=== PATIENT | male | born 1985 | race Hispanic/Latino ===

== ENCOUNTER 2016-11-19 13:48 | Inpatient (IN) | payer OTHER, SELFPAY ==
[2016-11-19 14:43] LABS: #Lymphocytes 0.5 thou/uL (1.20-3.40); #Monocytes 0.3 thou/uL (0.11-0.59); #Neutrophils 2.2 thou/uL (1.40-6.50); %Eosinophils 0.2 % (0.0-10.0); %Lymphocytes 17.1 % (21.0-51.0); %Monocytes 9.7 % (0.0-10.0); Hematocrit 26.3 % (42.0-52.0); Mean Platelet Volume 10.5 fL (7.4-10.4); Red Blood Cell (RBC) Count 2.62 mill/uL (4.70-6.10)
[2016-11-19 14:51] LABS: ALT (SGPT) 21 U/L (8-55); AST (SGOT) 40 U/L (5-34); Alkaline Phosphatase 308 U/L (40-150); Anion Gap 11 mmol/L (10-20); Anisocytosis SLIGHT = 6-15 cells (100X) (0-5/hpf); BUN (Urea Nitrogen) 15 mg/dL (8.9-20.6); Bilirubin, Total 0.4 mg/dL (0.2-1.2); Calc. Creatinine Clearance 0 mL/min (70-130); Carbon Dioxide 20 mmol/L (22-29); Chloride 110 mmol/L (98-107); Estimated GFR-MDRD Greater than 90; Globulin 4.5 g/dL (2.4-3.5); Macrocytosis SLIGHT = 6-15 cells (100X) (0-5/hpf); Ovalocytes SLIGHT = 2-5 cells (100X) (0-1/hpf); Polychromasia SLIGHT = 2-3 cells (100X) (0-2/hpf); Protein, Total 7.4 g/dL (6.0-8.3); Schistocytes SLIGHT = 2-5 cells (100X) (0-1/hpf)
[2016-11-19 14:53] LABS: Troponin I 0.028 ng/mL (< 0.028)
--- NOTE | 2016-11-19 15:39 | RAD ---
CHEST ONE VIEW 11/19/16 HISTORY: Chest pain. Swelling. COMPARISON: 10/11/16. FINDINGS: The cardiac silhouette is now markedly enlarged, representing significant difference from the previo us study six weeks ago. Pulmonary vasculature is within normal limits. Atelectasis or infiltrate is present at the left lateral lung base with a small amount of left pleural fluid suspected. Mediastin um remains midline. monitor technician leads overlie the chest. IMPRESSION: 1. Given the rapid enlargement of the cardiac silhouette, enlarging pericardial effusion is fav ored. 2. Left basilar infiltrate with left pleural fluid suspected. POS: [facility]
[2016-11-19 15:53] LABS: Bilirubin Small (Negative); Blood, Urine Negative (Negative); Glucose, Urine (Dipstick) Negative (Negative); Ketone, Urine Trace mg/dL (Negative); Nitrite Negative (Negative); Protein, Urine (Dipstick) 100 mg/dL (Neg-Trace)
[2016-11-19 15:57] LABS: Bacteria/HPF None Seen HPF (None Seen); RBC/HPF 0-3 HPF (0-3)
[2016-11-19] MEDS ORDERED: Aspirin 325 mg Enteric Coated Tablet ONE (15:58)
[2016-11-19] MEDS ORDERED: methylPREDNISolone Sod Succ/PF 125 MG/2 ML VIAL ONE ×2 (15:59→17:09)
[2016-11-19] MEDS ORDERED: Sterile Water 10 ML ONE ×2 (15:59→17:09)
[2016-11-19 16:09] LABS: Hyaline Casts/LPF 0-3 HYALINE CAST LPF (0-3 Hyaline)
[2016-11-19 16:13] LABS: Renal Epithelial None Seen HPF (0-3); Transitional Epithelial NONE SEEN HPF (0-3); Yeast-All Forms None Seen HPF (None Seen)
[2016-11-19] MEDS ORDERED: Ondansetron HCl/PF 4 MG/2 ML Vial IVP PRN (17:42)
[2016-11-19] MEDS ORDERED: Ondansetron ODT 4 MG TAB SL PRN (17:42)
[2016-11-19] MEDS ORDERED: Acetaminophen 325 MG TAB PO PRN (17:42)
[2016-11-19] MEDS ORDERED: Zolpidem Tartrate 5 MG TAB PO PRN (17:57)
[2016-11-19] MEDS ORDERED: Pancrelipase DR 12000 1 CAP PO SCH (18:30)
[2016-11-19] MEDS ORDERED: Nystatin 500,000 UNITS/5 ML UDCUP SSW SCH (18:30)
--- NOTE | 2016-11-19 19:07 | HP ---
PRIMARY CARE PROVIDER: Chaitanya Merino M.D. CHIEF COMPLAINT: [facility]. HISTORY OF PRESENT ILLNESS: The patient was hospitalized here from 10/12/2016 to 10/17/2016 with so me hidradenitis suppurativa of his axilla. During that time, a diagnosis of lupus erythematosus was made. Since his discharge, the patient has gotten worse. He was supposedly discharged on oral pred nisone but never filled it. He has swelling in his feet, ankles, hands, knees, all joints. Ankles, shoulders, and knees seemed to be the worse. He gets swelling and at times, he is unable to bend t he joints from the swelling and gets discoloration when he attempts to. He fell yesterday, has daria e right hip pain. He has been feverish with sweats, diffuse aches and pains all over. Denies any h octavio shaking chills. PAST MEDICAL HISTORY: Recent diagnosis of lupus, recent surgery for hidradenitis, history of pancre atitis and pancreatic insufficiency, history of peptic ulcer disease. CURRENT MEDICATIONS: Include Creon 3 times a day with meals, tramadol 50 mg q. 6 hours as needed, i buprofen 800 mg as needed, Tylenol No. 3 one or two tablets every 4 hours as needed for pain. PAST SURGICAL HISTORY: None. ALLERGIES: None. FAMILY HISTORY: Two maternal aunts with lupus. Both parents had lung cancer. SOCIAL HISTORY: Engaged. Heavy alcohol use in the past, none in about 2 years. He occasionally sm okes a cigarette, no illicit drugs. REVIEW OF SYSTEMS: General: No dizzy spells or fainting. He had a 47-pound weight loss in 1 month a few months ago. He has now returned gaining some of his weight back. Eyes: No double vision, b lurred vision, or flashing light. Ear, Nose, and Throat: No ear pain or drainage. Occasional epis taxis. He has an uncomfortable feeling in his throat when he swallows. Cardiac: No chest pain, or thopnea, or paroxysmal nocturnal dyspnea. Respiratory: He has dyspnea on exertion, no wheezing. H e has a dry cough. Gastrointestinal: Occasional nausea, vomiting, no blood, no abdominal pain or d iarrhea. Genitourinary: No hematuria or dysuria. Musculoskeletal: See present illness. Diffuse s welling in his legs, joints of his legs, pain mostly in the joints of his legs. Neurologic: No str okes, seizures, or focal weakness. Psychiatric: He has had a long history of anxiety. He would no t describe it as depression. Skin: He has had a facial rash at times. Heme/Lymph: He has had no lymph nodes in his neck or groin. He has had apparently swollen cyst in his axilla. PHYSICAL EXAMINATION: GENERAL: He is an acutely ill-appearing young man. VITAL SIGNS: Temperature 98.5, pulse ranging from 83-112, blood pressure ranging from 90/65-105/71, respirations 16-20. HEAD, EYES, EARS, NOSE, AND THROAT: Reveal pupils equal, round, and reactive to light. Extraocular movements are intact. Sclerae white. Tympanic membranes clear. Nose clear. Oral mucous membrane s are wet. Dental hygiene is good. The oral exam revealed white plaques consistent with thrush. NECK: Supple. No jugular venous distention, adenopathy, or thyromegaly. CHEST: Clear to percussion. He has rales in the bottom one half of the lungs bilaterally posterior ly. HEART: Regular rate and rhythm. Accentuated heart sounds. No definite rub. ABDOMEN: Soft, bowel sounds are normal. There is no hepatosplenomegaly, no mass, no rebound, no br uits. EXTREMITIES: Reveal 2+ edema. No cyanosis or clubbing. He does have some ridging of his fingernai ls. PULSES: Carotid, radial, femoral, and dorsalis pedis pulses intact. SKIN: Warm and dry without bruises or rash. HEME/LYMPH: No lymph nodes in the neck or the groin, but he does have some distended sweat glands i n the left axilla, no definite nodes were palpated. NEUROLOGIC: Cranial nerves II through XII are intact. Deep tendon reflexes are symmetric. REPORTS: On this particular exam, the chest x-ray has a left pleural effusion and a globular heart as compared to the previous chest x-ray, which had a much smaller cardiac shadow, reviewed by me. E KG reveals diffuse T-wave changes with regular sinus rhythm, mostly T-wave inversion. LABORATORY DATA: White count is 3.0 with 73% neutrophils, hemoglobin is 8.3 with macrocytic indices , platelet count is 108,000. Comp metabolic profile reveals an AST of 40, alkaline phosphatase of 3 08, chloride of 110, CO2 of 20, otherwise normal. C-reactive protein is elevated at 2.1. Albumin i s low at 2.9, globulin is high at 4.5. Sed rate is elevated at 51. Laboratory done in his previous admission for comparison, initial white count was 11.9, hemoglobin 10.5, platelet count 176,000. C omp metabolic profile normal. Albumin was low at that time. Cortisol was 21. TSH 0.8. ROHAN screen was positive. Double-stranded DNA positive at 295. Rahman IgG 3.6. Hepatitis C nonreactive. HIV 1 and 2 nonreactive. ADMITTING DIAGNOSES: 1. Acute exacerbation of systemic lupus erythematosus with probable pericardial effusion, probable lupus involvement of lungs, marked pancytopenia, marked arthralgias, hypoalbuminemia. 2. Oral esophageal thrush. 3. History of pancreatitis with pancreatic insufficiency, on Creon. PLAN: I have discussed this case with Dr. Reaves who saw the patient on his last admission. We will start with high dose steroids, Solu-Medrol 125 mg followed by 20 mg every 8 hours. We will start n ystatin swish and swallow initially for his thrush. His Creon will be continued. Dr. Reaves and Adonis aleman evaluated further. We will have further recommendations in the care of this patient.
[2016-11-19] MEDS: Nystatin 500,000 UNITS/5 ML UDCUP SSW SCH (19:58)
[2016-11-19] MEDS: HYDROcodone/Acetaminophen 7.5/325 mg Tablet PO PRN (20:04)
[2016-11-19] MEDS: Acetaminophen 325 MG TAB PO PRN (20:06)
[2016-11-20 04:35] LABS: #Lymphocytes 0.3 thou/uL (1.20-3.40); #Monocytes 0.1 thou/uL (0.11-0.59); %Eosinophils 0.1 % (0.0-10.0); %Monocytes 4.7 % (0.0-10.0); Hematocrit 26.1 % (42.0-52.0); Mean Platelet Volume 11.2 fL (7.4-10.4); Red Blood Cell (RBC) Count 2.59 mill/uL (4.70-6.10); White Blood Cell (WBC) Count 2.4 thou/uL (4.8-10.8)
[2016-11-20 05:15] LABS: Anion Gap 10 mmol/L (10-20); BUN (Urea Nitrogen) 15 mg/dL (8.9-20.6); Calc. Creatinine Clearance 158 mL/min (70-130); Calcium 7.7 mg/dL (7.8-10.44); Carbon Dioxide 19 mmol/L (22-29); Chloride 108 mmol/L (98-107); Estimated GFR-MDRD Greater than 90
[2016-11-20] MEDS: Acetaminophen 325 MG TAB PO PRN ×3 (06:03→16:37)
[2016-11-20] MEDS: HYDROcodone/Acetaminophen 7.5/325 mg Tablet PO PRN ×4 (06:03→20:19)
[2016-11-20] MEDS ORDERED: Sodium Chloride 0.65% Nasal 44 ML BOT EA NARE PRN (07:40)
[2016-11-20] MEDS ORDERED: Chloraseptic Spray 180 ml Bottle PO PRN (07:40)
[2016-11-20] MEDS ORDERED: Mag-Al 1200 mg/1200 mg/30 ML UDCUP PO PRN (07:40)
[2016-11-20] MEDS ORDERED: Artificial Tears 18 DROP/0.9 ML EA EYE PRN (07:40)
[2016-11-20] MEDS ORDERED: Eucerin (Mineral Oil/Petrolatum,White) 30 gm Jar TOP PRN (07:40)
[2016-11-20] MEDS ORDERED: Milk Of Magnesia 30 ML UDCUP PO PRN (07:40)
[2016-11-20] MEDS ORDERED: Loratadine 10 MG TAB PO PRN (07:40)
[2016-11-20] MEDS ORDERED: Senokot 8.6 MG TAB PO PRN (07:40)
[2016-11-20] MEDS ORDERED: Loperamide HCl 2 MG CAP PO PRN (07:40)
[2016-11-20] MEDS: Pancrelipase DR 12000 1 CAP PO SCH ×3 (08:22→16:34)
[2016-11-20] MEDS: Nystatin 500,000 UNITS/5 ML UDCUP SSW SCH ×4 (08:22→20:25)
[2016-11-20] MEDS: Famotidine 20 MG TAB PO SCH ×2 (08:22→20:10)
[2016-11-20] MEDS ORDERED: FLU VACC QS2017-18 36 mo. & older 0.5 ML SYRINGE IM ONE (09:00)
--- NOTE | 2016-11-20 11:54 | PDOC.PN ---
- Subjective Encounter Start Date: 11/20/16 Encounter Start Time: 08:40 -: old records requested/rev Patient seen and examined. No new complaints. No overnight events, feels better , less joint pain, no chest pain - Objective Resuscitation Status: Resuscitation Status FULL:Full Resuscitation MAR Reviewed: Yes Vital Signs & Weight: Vital Signs (12 hours) Temp Pulse Resp BP Pulse Ox 11/20/16 08:00 98.8 F 78 18 98 11/20/16 07:57 98.8 F 78 18 125/80 94 L 11/20/16 04:00 99 F 84 20 117/74 93 L 11/20/16 00:00 98.4 F 78 20 126/82 96 Weight Weight 160 lb 15.987 oz I&O: 11/19/16 11/20/16 11/21/16 06:59 06:59 06:59 Intake Total 300 360 Balance 300 360 Result Diagrams: 11/20/16 03:35 11/20/16 03:35 Radiology Reviewed by me: Yes (CTA, echo) Phys Exam - Physical Examination Constitutional: NAD HEENT: PERRLA, moist MMs, sclera anicteric Neck: no JVD, supple Respiratory: no wheezing, no rales, no rhonchi Cardiovascular: RRR, no rub SM+ parasternal Gastrointestinal: soft, non-tender, no distention, positive bowel sounds Musculoskeletal: no edema, pulses present Neurological: non-focal, normal sensation, moves all 4 limbs Lymphatic: no nodes Psychiatric: normal affect, A&O x 3 Skin: no rash, normal turgor Dx/Plan (1) Pericardial effusion Code(s): I31.3 - PERICARDIAL EFFUSION (NONINFLAMMATORY) Status: Acute (2) Tricuspid regurgitation Code(s): I07.1 - RHEUMATIC TRICUSPID INSUFFICIENCY Status: Acute (3) Pulmonary hypertension Code(s): I27.20 - PULMONARY HYPERTENSION, UNSPECIFIED Status: Acute (4) Pancytopenia Code(s): D61.818 - OTHER PANCYTOPENIA Status: Acute (5) SLE exacerbation Code(s): M32.9 - SYSTEMIC LUPUS ERYTHEMATOSUS, UNSPECIFIED Status: Acute (6) Chronic pancreatitis Code(s): K86.1 - OTHER CHRONIC PANCREATITIS Status: Chronic (7) GERD (gastroesophageal reflux disease) Code(s): K21.9 - GASTRO-ESOPHAGEAL REFLUX DISEASE WITHOUT ESOPHAGITIS Status: Chronic (8) Hypoalbuminemia Code(s): E88.09 - OTH DISORDERS OF PLASMA-PROTEIN METABOLISM, NEC Status: Chronic (9) Migraine Code(s): G43.909 - MIGRAINE, UNSP, NOT INTRACTABLE, WITHOUT STATUS MIGRAINOSUS Status: Chronic (10) Pulmonary nodule Code(s): R91.1 - SOLITARY PULMONARY NODULE Status: Chronic (11) Tobacco abuse Code(s): Z72.0 - TOBACCO USE Status: Chronic (12) Transaminitis Code(s): R74.0 - NONSPEC ELEV OF LEVELS OF TRANSAMNS & LACTIC ACID DEHYDRGNSE Status: Chronic - Plan cont current plan of care * continue IV solumedrol * will get CT angio chest for pulmonary hypertension to rule out PE * consult cardiology for pericardial effusion * will consult rheumatology for SLE flare up * medication reviewed as below * medically stable with current treatment * symptomatic treatment. * home medication * check complement Review of Systems - Review of Systems Constitutional: negative: Fever, Chills, Sweats, Weakness, Malaise, Other ENT: negative: Ear Pain, Ear Discharge, Nose Pain, Nose Discharge, Nose Congestion, Mouth Pain, Mouth Swelling, Throat Pain, Throat Swelling, Other Respiratory: negative: Cough, Dry, Shortness of Breath, Hemoptysis, SOB with Excertion, Pleuritic Pain, Sputum, Wheezing Cardiovascular: negative: Chest Pain, Palpitations, Orthopnea, Paroxysmal Noc. Dyspnea, Edema, Light Headedness, Other Gastrointestinal: negative: Nausea, Vomiting, Abdominal Pain, Diarrhea, Constipation, Melena, Hematochezia, Other Genitourinary: negative: Dysuria, Frequency, Incontinence, Hematuria, Retention , Other Musculoskeletal: negative: Neck Pain, Shoulder Pain, Arm Pain, Back Pain, Hand Pain, Leg Pain, Foot Pain, Other Skin: negative: Rash, Lesions, Rogelio, Bruising, Other - Medications/Allergies Allergies/Adverse Reactions: Allergies Allergy/AdvReac Type Severity Reaction Status Date / Time No Known Allergies Allergy Verified 10/12/16 04:11 Medications: Current Medications Acetaminophen (Tylenol) 650 mg PO Q4H PRN PRN Reason: Headache/Fever or Pain Last Admin: 11/20/16 10:05 Dose: 650 mg Hydrocodone Bitart/Acetaminophen ([place] 7.5/325) 1 tab PO Q4H PRN PRN Reason: Moderate Pain (4-6) Last Admin: 11/20/16 10:02 Dose: 1 tab Hydrocodone Bitart/Acetaminophen ([place] 5/325) 1 tab PO Q4H PRN PRN Reason: Moderate Pain (4-6) Al Hydroxide/Mg Hydroxide (Maalox) 15 ml PO Q4H PRN PRN Reason: Heartburn or Indigestion Lipase/Protease/Amylase (Dara Rubin 57173) 1 cap PO TID-WM [facility] Last Admin: 11/20/16 11:51 Dose: 1 cap Artificial Tears (Tears Naturale) 0 drop EA EYE PRN PRN PRN Reason: Dry Eyes Famotidine (Pepcid) 20 mg PO BID [facility] Last Admin: 11/20/16 08:22 Dose: 20 mg Guaifenesin (Robitussin Sf) 200 mg PO Q4H PRN PRN Reason: Cough Loperamide HCl (Imodium) 2 mg PO PRN PRN PRN Reason: Diarrhea/Loose Stools Loratadine (Claritin) 10 mg PO DAILYPRN PRN PRN Reason: Sinus Symptoms Magnesium Hydroxide (Milk Of Magnesium) 30 ml PO DAILYPRN PRN PRN Reason: Constipation Methylprednisolone Sodium Succinate (Solu-Medrol) 20 mg IVP Q8HR [facility] Last Admin: 11/20/16 06:00 Dose: 20 mg Mineral Oil/White Petrolatum (Eucerin Cream) 0 gm TOP BIDPRN PRN PRN Reason: Dry Skin Nystatin (Mycostatin) 500,000 units SSW QID [facility] Last Admin: 11/20/16 11:51 Dose: 500,000 units Ondansetron HCl (Zofran) 4 mg IVP Q6H PRN PRN Reason: Nausea/Vomiting Ondansetron HCl (Zofran Odt) 4 mg PO Q6H PRN PRN Reason: Nausea/Vomiting Phenol (Chloraseptic [place] 180 Ml Bot) 0 ml PO PRN PRN PRN Reason: Sore Throat Senna (Senokot) 2 tab PO HSPRN PRN PRN Reason: Constipation Sodium Chloride (Flush - Normal Saline) 10 ml IVF Q12HR [facility] Last Admin: 11/20/16 10:15 Dose: 10 ml Sodium Chloride (Flush - Normal Saline) 10 ml IVF PRN PRN PRN Reason: Saline Flush Sodium Chloride ([place] Nasal [place] 0.65%) 0 ml EA NARE QIDPRN PRN PRN Reason: Nasal Congestion Zolpidem Tartrate (Ambien) 5 mg PO HSPRN PRN PRN Reason: Insomnia
--- NOTE | 2016-11-20 12:28 | CT ---
CT ANGIO CHEST WITH CONTRAST: Date: 11/20/16 HISTORY: Dyspnea. Pneumonia. Pericardial effusion. COMPARISON: CT chest dated 10/11/16. Chest radiograph dated 11/19/16. FINDINGS: Soft tissues are mildly edematous. No proximal segmental pulmonary arterial filling defect. Pulmonary trunk measures 38 mm, increased in size from prior examination. Large pericardial effusion . There is mild reflux of contrast into the hepatic veins and suprahepatic IVC. Aortic contour is pam neurysmal. Mild mediastinal edema. Mild skin thickening over the left axilla. Small volume free perihepatic ascites. There is some cons olidation within the right middle lobe and anterior segment of right lower lobe, as well as anterior segment left lower lobe. Small right effusion and left effusion. IMPRESSION: 1. Interval development of a large pericardial effusion. Cardiovascular surgical consultation recom mended. 2. New dilatation of the pulmonary trunk measuring 38 mm suggests pulmonary arterial hypertension. 3. Improving pneumonia. 4. Extensive soft tissue edema and small volume ascites in the abdomen is new. 5. Extensive superficial soft tissue edema. CODE T. POS: [facility]
--- NOTE | 2016-11-20 14:38 | CON ---
DATE OF CONSULTATION: 11/20/2016 HISTORY OF PRESENT ILLNESS: A 30-year-old patient, familiar to me from last consultation when I saw him on 10/12/2016. The patient presented with a chronic history of weakness in upper and lower ext remities with sometimes inability to ambulate, pains in knees and hands with swelling and due to lac k of insurance, he was seen in the emergency rooms and given various different diagnosis with sympto matic medication. Over the past 2 months, he developed a cough with sometimes hemoptysis, general m alaise, a 40-pound weight loss, also with areas of nodular inflammatory change in the right and left axilla with some drainage. The initial concern in terms of potential diagnosis included primary my opathy, immunodeficiency disorder, and autoimmune syndrome. Patient had various laboratory studies completed and QuantiFERON was nonreactive. The ROHAN screen was positive with low complement for C3 a nd C4 as well as double-stranded DNA antibody level of 295, which was markedly positive, his anti-Sm IgG antibody was positive at 3.6. The patient had some proteinuria at that time, patient was then discharged on 10/17/2016 with a diagnosis of systemic lupus erythematosus, pancreatitis. Discharge medications included Tylenol No. 3, Lescol, vitamin D, Pepcid, ibuprofen, levofloxacin, pancrelipase , thiamine, tramadol, prednisone 40 mg daily. [facility], but it is not clear what happened. He continued taking prednisone and then stop taki ng it because he was concerned with constipation. He actually saw his primary physician and is not clear what he recommended, but the patient decided to stop the prednisone and now he is readmitted w ith obvious exacerbation of the systemic lupus erythematosus. Currently, he denies any headaches, n o dizziness. He gained some weight back with prednisone. No visual symptoms. No sore throat, odyn ophagia, dysphagia, no vomiting. No chest pain, no orthopnea, no PND,. Some dyspnea on exertion, o ccasional nausea and vomiting. Some swelling in the legs, particularly in the feet with pain in the ankles. PHYSICAL EXAMINATION: VITAL SIGNS: Temperature is 98.5, pulse 83. LUNGS: With inspiratory crackles at the bases. HEART: Regular rate. ABDOMEN: Soft. EXTREMITIES: 2+ edema. LABORATORY AND DIAGNOSTIC DATA: Initial white cell count this time with again a white cell count 3. 0, hemoglobin 8.3, MCV 100, platelets 108,000 with 72% neutrophils. Sodium 137, creatinine 0.8, AST 40, alkaline phosphatase 308, CRP 2.1, albumin 2.9. Urinalysis with protein 100. Two sets of bloo d cultures thus far no growth. He had a chest CT done which is pending. Echocardiogram showed a la rge pericardial effusion, but no evidence of tamponade. Chest x-ray with basilar infiltrate, likely pleural fluid enlargement. No cardiac silhouette suggestive of pericardial effusion. ASSESSMENT: Systemic lupus erythematosus with serositis, both pericarditis and pleurisy some joint involvement as well, maybe associated myopathy. He may have early nephropathy as well in view of th e proteinuria. I have discussed the case with Dr. Cook over the phone and continue corticosteroids orally, add Plaquenil, which are the main recommendations from his standpoint. The patient would r equire close followup with a law instructor. Potential addition of other immunosuppressive drugs espinoza ch as methotrexate or Imuran. Benlysta is approved for management of lupus, which is a monoclonal a ntibody, but according to Dr. Cook, they do not have a patient assistance program for Benlysta. Si nce he does not have insurance, this patient will likely have a poor outcome and will not be able to access specialty care, which is essential for management of this complex and infrequent illness.
[2016-11-20] MEDS: Diabetic Tussin 200 MG/10 ML UDCUP PO PRN ×2 (16:34→20:09)
--- NOTE | 2016-11-20 19:02 | CON ---
DATE OF CONSULTATION: 11/20/2016 HISTORY OF PRESENT ILLNESS: Mr. Watkins is a 30-year-old gentleman with lupus with pericardial effu krista and shortness of breath. Mr. Watkins came to the hospital yesterday with shortness of breath and lower extremity swelling, al so noted swelling of his hands even his face. He noticed shortness of breath with low level activit y. He was able to lay down flat without a problem. He did not have chest pain. PAST MEDICAL HISTORY: 1. Recent diagnosis of lupus. 2. History of pancreatitis. MEDICATIONS: Prior to admission; 1. Creon. 2. Tramadol 3. Tylenol. 4. He has been started on steroids here. PAST SURGICAL HISTORY: None. ALLERGIES: None. FAMILY HISTORY: Both parents had lung cancer. SOCIAL HISTORY: Engaged, he has heavy alcohol use in the past, none in a couple of years. Occasion al cigarettes. REVIEW OF SYSTEMS: CONSTITUTIONAL: Positive for weakness and fatigue. VISION: No changes. HEARING: No changes. PULMONARY: Positive for shortness of breath. CARDIAC: Lower extremity edema and upper extremity edema. GASTROINTESTINAL: No nausea, vomiting, diarrhea. SKIN: No rashes. NEUROLOGIC: No unilateral weakness or numbness. PSYCHIATRIC: No unusual depression or anxiety. PHYSICAL EXAMINATION: GENERAL: A pleasant 30-year-old man, 5 foot 10 inches tall, 160 pounds. VITAL SIGNS: Blood pressure 125/80, pulse 80 and regular. HEENT: Some edema, periorbital. NECK: Neck veins are mildly distended sitting up at 90 degrees. CARDIOVASCULAR: No murmur, rub or gallop. ABDOMEN: Soft, nontender, no hepatosplenomegaly. EXTREMITIES: Mild to moderate edema lower extremities. PERTINENT LABORATORY AND X-RAY FINDINGS: Hemoglobin is 8.4. Sodium is 133, C-reactive protein 2.1. Troponin 0.028. Echocardiogram revealed normal left ventricular function of the left ventricle with ejection fractio n 55-60%. There is some paradoxical septal motion compatible with right heart overload, moderately enlarged right ventricular cavity. A large pericardial effusion did not appear to be tamponade. The EKG sinus rhythm, relatively low voltage, some anterior T-wave inversions, but the chest leads a re also inverted. The voltage is likely low due to the pericardial effusion. ASSESSMENT: 1. Systemic lupus erythematosus as outlined in the chart. 2. Large pericardial effusion, symptomatic. 3. Increased right heart pressures with enlargement of the right ventricle. 4. Normal left ventricular function. 5. Oxygen saturation is 97% on room air. PLAN: 1. I would recommend pericardiocentesis or drainage in the operating room as I think he does have s ymptoms from his pericardial effusion and it is quite large. 2. We will likely want to repeat the echo after the infusion strained to see if the right ventricle and pulmonary artery improve. 3. CT pulmonary angiogram did not show any thrombus, no pulmonary embolism.
[2016-11-20] MEDS: CeleCOXIB 100 MG CAP PO SCH (20:10)
[2016-11-20] MEDS: Colchicine 0.6 MG TAB PO SCH (20:10)
[2016-11-20] MEDS: Hydroxychloroquine Sulfate 200 MG TAB PO SCH (20:10)
[2016-11-20] MEDS ORDERED: methylPREDNISolone Sod Succ 1 GM in Sodium Chloride 0.9% 100 ML IVPB SCH (21:00)
--- NOTE | 2016-11-20 21:06 | CON ---
DATE OF CONSULTATION: 11/20/2016 REASON FOR CONSULTATION: Evaluate the patient for pericardial window. HISTORY OF PRESENT ILLNESS: Mr. Watkins is a 30-year-old male recently diagnosed with lupus. He is very unclear as to whether he was taking his steroids at home. He has not been seen by Rheumatolog y. He presented to the Emergency Department with severe shortness of breath, joint pains, joint eff usions, edema. He had a chest x-ray performed, which showed a change in his cardiac silhouette whic h was followed up with an echocardiogram and a CT of the chest. Echocardiogram shows a large perica rdial effusion with no tamponade physiology. This is confirmed on CT of the chest. I have been ask ed to see him to discuss pericardial window. PAST MEDICAL HISTORY: 1. Systemic lupus erythematosus. 2. Hidradenitis suppurativa. 3. Pancreatitis and pancreatic insufficiency. 4. Peptic ulcer disease. PAST SURGICAL HISTORY: Debridement of his hidradenitis. CURRENT MEDICATIONS: Noted. ALLERGIES: None. SOCIAL HISTORY: He does not use any illicit drugs. He occasionally uses tobacco. He does not use alcohol at all. REVIEW OF SYSTEMS: Ten-point review of systems is performed and is negative except as above. PHYSICAL EXAMINATION: GENERAL: This is a well-developed, well-nourished gentleman resting comfortably in bed. VITAL SIGNS: Height is 5 feet 10 inches, weight is 160 pounds, BSA is 1.90. Temperature is 98.8, p ulse is 78 and regular, blood pressure is 125/80. LUNGS: Clear bilaterally. HEART: Rhythm is regular. ABDOMEN: Soft and nontender. EXTREMITIES: There is no cyanosis, clubbing or edema. I have reviewed his chest x-ray, CT scan and echocardiogram. He does have a large pericardial effus ion with no tamponade physiology. We will plan for pericardial window electively tomorrow.
[2016-11-21] MEDS: HYDROcodone/Acetaminophen 7.5/325 mg Tablet PO PRN ×3 (04:37→18:38)
[2016-11-21] MEDS: Pancrelipase DR 12000 1 CAP PO SCH ×3 (08:35→17:47)
[2016-11-21] MEDS: Hydroxychloroquine Sulfate 200 MG TAB PO SCH ×2 (08:36→19:56)
[2016-11-21] MEDS: CeleCOXIB 100 MG CAP PO SCH ×2 (08:36→19:56)
[2016-11-21] MEDS: Nystatin 500,000 UNITS/5 ML UDCUP SSW SCH ×4 (08:36→19:56)
[2016-11-21] MEDS: Colchicine 0.6 MG TAB PO SCH ×2 (08:36→19:56)
[2016-11-21] MEDS: Acetaminophen 325 MG TAB PO PRN ×2 (09:31→18:39)
--- NOTE | 2016-11-21 13:10 | PDOC.PN ---
- Subjective Encounter Start Date: 11/21/16 Encounter Start Time: 08:00 Patient seen and examined. No new complaints. No overnight events - Objective Resuscitation Status: Resuscitation Status FULL:Full Resuscitation MAR Reviewed: Yes Vital Signs & Weight: Vital Signs (12 hours) Temp Pulse Resp BP Pulse Ox 11/21/16 08:00 98.0 F 66 16 97 11/21/16 07:28 98.0 F 66 16 135/88 96 11/21/16 05:54 97.8 F 66 16 131/86 96 11/21/16 01:30 97.8 F 73 16 123/84 96 Weight Weight 160 lb 15.987 oz I&O: 11/20/16 11/21/16 11/22/16 06:59 06:59 06:59 Intake Total 300 1080 Balance 300 1080 Result Diagrams: 11/20/16 03:35 11/20/16 03:35 Phys Exam - Physical Examination Constitutional: NAD HEENT: PERRLA, moist MMs, sclera anicteric Neck: no JVD, supple Respiratory: no wheezing, no rales, no rhonchi, clear to auscultation bilateral Cardiovascular: RRR, no significant murmur, no rub Gastrointestinal: soft, non-tender, no distention, positive bowel sounds Musculoskeletal: no edema, pulses present Neurological: non-focal, normal sensation Psychiatric: normal affect, A&O x 3 Skin: no rash, normal turgor Dx/Plan (1) Pericardial effusion Code(s): I31.3 - PERICARDIAL EFFUSION (NONINFLAMMATORY) Status: Acute (2) Tricuspid regurgitation Code(s): I07.1 - RHEUMATIC TRICUSPID INSUFFICIENCY Status: Acute (3) Pulmonary hypertension Code(s): I27.20 - PULMONARY HYPERTENSION, UNSPECIFIED Status: Acute (4) Pancytopenia Code(s): D61.818 - OTHER PANCYTOPENIA Status: Acute (5) SLE exacerbation Code(s): M32.9 - SYSTEMIC LUPUS ERYTHEMATOSUS, UNSPECIFIED Status: Acute (6) Chronic pancreatitis Code(s): K86.1 - OTHER CHRONIC PANCREATITIS Status: Chronic (7) GERD (gastroesophageal reflux disease) Code(s): K21.9 - GASTRO-ESOPHAGEAL REFLUX DISEASE WITHOUT ESOPHAGITIS Status: Chronic (8) Hypoalbuminemia Code(s): E88.09 - OTH DISORDERS OF PLASMA-PROTEIN METABOLISM, NEC Status: Chronic (9) Migraine Code(s): G43.909 - MIGRAINE, UNSP, NOT INTRACTABLE, WITHOUT STATUS MIGRAINOSUS Status: Chronic (10) Pulmonary nodule Code(s): R91.1 - SOLITARY PULMONARY NODULE Status: Chronic (11) Tobacco abuse Code(s): Z72.0 - TOBACCO USE Status: Chronic (12) Transaminitis Code(s): R74.0 - NONSPEC ELEV OF LEVELS OF TRANSAMNS & LACTIC ACID DEHYDRGNSE Status: Chronic - Plan cont current plan of care * spoke with dr castro, will continue high dose of solumedrol for total 3 dose , tonight will be second dose * continue celebrex, colchicine, plaquanil * today pt is plan for pericardial window for effusion * medication reviewed as below * symptomatic treatment. Review of Systems - Review of Systems ENT: negative: Ear Pain, Ear Discharge, Nose Pain, Nose Discharge, Nose Congestion, Mouth Pain, Mouth Swelling, Throat Pain, Throat Swelling, Other Respiratory: negative: Cough, Dry, Shortness of Breath, Hemoptysis, SOB with Excertion, Pleuritic Pain, Sputum, Wheezing Cardiovascular: negative: Chest Pain, Palpitations, Orthopnea, Paroxysmal Noc. Dyspnea, Edema, Light Headedness, Other Gastrointestinal: negative: Nausea, Vomiting, Abdominal Pain, Diarrhea, Constipation, Melena, Hematochezia, Other Genitourinary: negative: Dysuria, Frequency, Incontinence, Hematuria, Retention , Other Musculoskeletal: negative: Neck Pain, Shoulder Pain, Arm Pain, Back Pain, Hand Pain, Leg Pain, Foot Pain, Other - Medications/Allergies Allergies/Adverse Reactions: Allergies Allergy/AdvReac Type Severity Reaction Status Date / Time No Known Allergies Allergy Verified 10/12/16 04:11 Medications: Current Medications Acetaminophen (Tylenol) 650 mg PO Q4H PRN PRN Reason: Headache/Fever or Pain Last Admin: 11/21/16 09:31 Dose: 650 mg Hydrocodone Bitart/Acetaminophen ([place] 7.5/325) 1 tab PO Q4H PRN PRN Reason: Moderate Pain (4-6) Last Admin: 11/21/16 09:32 Dose: 1 tab Hydrocodone Bitart/Acetaminophen ([place] 5/325) 1 tab PO Q4H PRN PRN Reason: Moderate Pain (4-6) Al Hydroxide/Mg Hydroxide (Maalox) 15 ml PO Q4H PRN PRN Reason: Heartburn or Indigestion Lipase/Protease/Amylase (Dara Rubin 70095) 1 cap PO TID-WM [facility] Last Admin: 11/21/16 08:35 Dose: Not Given Artificial Tears (Tears Naturale) 0 drop EA EYE PRN PRN PRN Reason: Dry Eyes Cefazolin Sodium (Ancef) 2 gm SLOW IVP [facility]CALL [facility] Stop: 11/21/16 23:59 Celecoxib (Celebrex) 200 mg PO BID [facility] Last Admin: 11/21/16 08:36 Dose: Not Given Colchicine (Colcrys) 0.6 mg PO BID [facility] Last Admin: 11/21/16 08:36 Dose: Not Given Guaifenesin (Robitussin Sf) 200 mg PO Q4H PRN PRN Reason: Cough Last Admin: 11/20/16 20:09 Dose: 200 mg Hydralazine HCl (Apresoline) 10 mg SLOW IVP Q4H PRN PRN Reason: Systolic BP > 180 Hydroxychloroquine Sulfate (Plaquenil) 200 mg PO BID [facility] Last Admin: 11/21/16 08:36 Dose: Not Given Methylprednisolone Sodium Succinate 1 gm/ Sodium Chloride 116 mls @ 116 mls/hr IVPB HS [facility] Stop: 11/22/16 21:59 Last Admin: 11/20/16 20:10 Dose: 116 mls Loperamide HCl (Imodium) 2 mg PO PRN PRN PRN Reason: Diarrhea/Loose Stools Loratadine (Claritin) 10 mg PO DAILYPRN PRN PRN Reason: Sinus Symptoms Magnesium Hydroxide (Milk Of Magnesium) 30 ml PO DAILYPRN PRN PRN Reason: Constipation Mineral Oil/White Petrolatum (Eucerin Cream) 0 gm TOP BIDPRN PRN PRN Reason: Dry Skin Nystatin (Mycostatin) 500,000 units SSW QID [facility] Last Admin: 11/21/16 08:36 Dose: Not Given Ondansetron HCl (Zofran) 4 mg IVP Q6H PRN PRN Reason: Nausea/Vomiting Ondansetron HCl (Zofran Odt) 4 mg PO Q6H PRN PRN Reason: Nausea/Vomiting Pantoprazole Sodium (Protonix) 40 mg PO DAILY [facility] Last Admin: 11/21/16 08:36 Dose: Not Given Phenol (Chloraseptic [place] 180 Ml Bot) 0 ml PO PRN PRN PRN Reason: Sore Throat Senna (Senokot) 2 tab PO HSPRN PRN PRN Reason: Constipation Sodium Chloride (Flush - Normal Saline) 10 ml IVF Q12HR [facility] Last Admin: 11/21/16 08:36 Dose: 10 ml Sodium Chloride (Flush - Normal Saline) 10 ml IVF PRN PRN PRN Reason: Saline Flush Sodium Chloride ([place] Nasal [place] 0.65%) 0 ml EA NARE QIDPRN PRN PRN Reason: Nasal Congestion Zolpidem Tartrate (Ambien) 5 mg PO HSPRN PRN PRN Reason: Insomnia
[2016-11-21] MEDS ORDERED: Midazolam HCl 2 mg/2 ml Vial ONE (14:34)
[2016-11-21] MEDS ORDERED: Fentanyl 100 MCG/2 ML VIAL ONE ×3 (14:34→16:18)
[2016-11-21] MEDS ORDERED: Ondansetron HCl/PF 4 MG/2 ML Vial ONE (14:54)
[2016-11-21] MEDS ORDERED: Lidocaine 1% PF 5 ML VIAL ONE (14:54)
[2016-11-21] MEDS ORDERED: Glycopyrrolate 0.2 MG/ML 5 ML SYRINGE ONE (14:54)
[2016-11-21] MEDS ORDERED: Dexamethasone 20 MG/5 ML VIAL ONE (14:54)
[2016-11-21] MEDS ORDERED: Propofol 200 MG/20 ML VIAL ONE (14:54)
[2016-11-21] MEDS ORDERED: Bupivacaine 0.25% HCL 30 ML VIAL ONE (15:10)
[2016-11-21] MEDS ORDERED: Bupivacaine PF 0.5% 30 ML VIAL ONE (15:10)
[2016-11-21] MEDS ORDERED: HYDROmorphone 2 MG/ML VIAL SLOW IVP PRN (15:20)
[2016-11-21] MEDS ORDERED: Promethazine HCl 25 MG/ML VIAL SLOW IVP PRN (15:20)
[2016-11-21] MEDS ORDERED: Meperidine HCl/PF 25 MG/ML VIAL SLOW IVP PRN (15:20)
[2016-11-21] MEDS ORDERED: Morphine Sulfate 2 MG/ML SYRINGE SLOW IVP PRN (15:20)
[2016-11-21] MEDS ORDERED: Meperidine HCl/PF 25 MG/ML VIAL ONE (16:24)
--- NOTE | 2016-11-21 18:18 | OP ---
PREOPERATIVE DIAGNOSIS: History of systemic lupus with a large pericardial effusion. POSTOPERATIVE DIAGNOSIS: History of systemic lupus with a large pericardial effusion. PROCEDURE: Pericardial window. SURGEON: Pasha Rahman M.D. ANESTHESIA: General endotracheal. FINDINGS: 600 mL of clear/brown fluid. SPECIMENS: Pericardium for pathology, fluid for culture and cytology. DRAINS: 24-[place]amese Ulysses drain. DESCRIPTION OF PROCEDURE: After consent was obtained, the patient was brought to the operating room and placed in the supine position on the operating room table. Appropriate anesthetic monitor was placed and general endotracheal anesthesia induced. Chest was prepped and draped in usual sterile f ashion. Skin incision was made over the xiphoid process. Xiphoid was resected. The pericardium wa s exposed under the sternum. Pericardium was sharply entered and the fluid evacuated. 600 total mL of fluid was evacuated. Studies as above were sent. A 24-[place]e drain was placed in the pericardi um. Wounds were then infiltrated with 0.5% Marcaine and closed in layers. The patient tolerated th e procedure well, was awakened, extubated, and transferred to the recovery room in stable condition.
[2016-11-21] MEDS: Fentanyl 100 MCG/2 ML VIAL SLOW IVP PRN ×2 (19:51→22:53)
[2016-11-21] MEDS: methylPREDNISolone Sod Succ 1 GM in Sodium Chloride 0.9% 250 ML 250 ML IVPB SCH (20:00)
[2016-11-22] MEDS: HYDROcodone/Acetaminophen 7.5/325 mg Tablet PO PRN ×2 (00:20→05:33)
[2016-11-22] MEDS: Fentanyl 100 MCG/2 ML VIAL SLOW IVP PRN ×3 (02:28→07:58)
[2016-11-22 04:54] LABS: #Lymphocytes 0.6 thou/uL (1.20-3.40); #Monocytes 1.1 thou/uL (0.11-0.59); #Neutrophils 10.4 thou/uL (1.40-6.50); %Eosinophils 0.1 % (0.0-10.0); %Lymphocytes 4.7 % (21.0-51.0); %Monocytes 9.1 % (0.0-10.0); Hematocrit 35.8 % (42.0-52.0); Mean Platelet Volume 10.1 fL (7.4-10.4); Red Blood Cell (RBC) Count 3.61 mill/uL (4.70-6.10); White Blood Cell (WBC) Count 12.1 thou/uL (4.8-10.8)
[2016-11-22 05:04] LABS: ALT (SGPT) 16 U/L (8-55); AST (SGOT) 24 U/L (5-34); Alkaline Phosphatase 246 U/L (40-150); Anion Gap 12 mmol/L (10-20); BUN (Urea Nitrogen) 18 mg/dL (8.9-20.6); Bilirubin, Total 0.5 mg/dL (0.2-1.2); Calc. Creatinine Clearance 173 mL/min (70-130); Calcium 7.7 mg/dL (7.8-10.44); Carbon Dioxide 24 mmol/L (22-29); Chloride 103 mmol/L (98-107); Estimated GFR-MDRD Greater than 90; Globulin 4.3 g/dL (2.4-3.5); Protein, Total 7.2 g/dL (6.0-8.3)
[2016-11-22 05:17] LABS: Lipase 2067 U/L (8-78)
[2016-11-22] MEDS: Pancrelipase DR 12000 1 CAP PO SCH ×3 (08:00→16:53)
[2016-11-22] MEDS: Hydroxychloroquine Sulfate 200 MG TAB PO SCH ×2 (08:00→20:25)
[2016-11-22] MEDS: Colchicine 0.6 MG TAB PO SCH ×2 (08:00→20:26)
[2016-11-22] MEDS: CeleCOXIB 100 MG CAP PO SCH ×2 (08:00→20:25)
[2016-11-22] MEDS: Acetaminophen 325 MG TAB PO PRN (08:13)
[2016-11-22] MEDS: Nystatin 500,000 UNITS/5 ML UDCUP SSW SCH ×4 (09:40→20:26)
[2016-11-22] MEDS: Ondansetron HCl/PF 4 MG/2 ML Vial IVP PRN (10:20)
[2016-11-22] MEDS: HYDROcodone/Acetaminophen 5/325 mg Tablet PO PRN ×2 (11:26→20:24)
--- NOTE | 2016-11-22 12:29 | PDOC.PN ---
- Subjective Encounter Start Date: 11/22/16 Encounter Start Time: 09:00 Subjective: c/o pain at operated site -: no sob - Objective Resuscitation Status: Resuscitation Status FULL:Full Resuscitation MAR Reviewed: Yes Vital Signs & Weight: Vital Signs (12 hours) Temp Pulse Resp BP Pulse Ox 11/22/16 08:00 97.6 F 90 22 H 141/101 H 96 11/22/16 06:00 97.6 F 78 16 136/96 H 92 L 11/22/16 01:13 97.6 F 71 16 133/91 H 98 Weight Weight 160 lb 15.987 oz I&O: 11/21/16 11/22/16 11/23/16 06:59 06:59 06:59 Intake Total 1080 300 Output Total 1220 Balance 1080 -920 Result Diagrams: 11/22/16 04:32 11/22/16 04:32 Additional Labs: Accuchecks 11/22/16 11/21/16 05:13 19:56 POC Glucose 211 H 130 H Phys Exam - Physical Examination HEENT: PERRLA, moist MMs Neck: no JVD, supple Respiratory: no wheezing, no rales surgical site is clean, has a drain with serosanguinous fluid Cardiovascular: RRR, no significant murmur Gastrointestinal: soft, non-tender, positive bowel sounds Musculoskeletal: no edema, pulses present Neurological: non-focal, moves all 4 limbs Psychiatric: A&O x 3 Dx/Plan (1) Pancytopenia Code(s): D61.818 - OTHER PANCYTOPENIA Status: Acute (2) Pericardial effusion Code(s): I31.3 - PERICARDIAL EFFUSION (NONINFLAMMATORY) Status: Acute Comment: s/p pericardial window 11/21/2016 (3) SLE exacerbation Code(s): M32.9 - SYSTEMIC LUPUS ERYTHEMATOSUS, UNSPECIFIED Status: Acute (4) Chronic pancreatitis Code(s): K86.1 - OTHER CHRONIC PANCREATITIS Status: Chronic Comment: with ac flare up and lipase of 2066 (5) GERD (gastroesophageal reflux disease) Code(s): K21.9 - GASTRO-ESOPHAGEAL REFLUX DISEASE WITHOUT ESOPHAGITIS Status: Chronic Qualifiers: Esophagitis presence: esophagitis presence not specified Qualified Code(s) : K21.9 - Gastro-esophageal reflux disease without esophagitis (6) Hypoalbuminemia Code(s): E88.09 - OTH DISORDERS OF PLASMA-PROTEIN METABOLISM, NEC Status: Chronic - Plan gentle iv hydration due to elevated lipase -: is on morphine 4mg q4h -: on day 3 of high dose steroids for SLE flare up -: to amb in hallway -: encourage po intake * . Review of Systems - Medications/Allergies Allergies/Adverse Reactions: Allergies Allergy/AdvReac Type Severity Reaction Status Date / Time No Known Allergies Allergy Verified 10/12/16 04:11 Medications: Current Medications Acetaminophen (Tylenol) 650 mg PO Q4H PRN PRN Reason: Headache/Fever or Pain Last Admin: 11/22/16 08:13 Dose: 650 mg Hydrocodone Bitart/Acetaminophen ([place] 5/325) 1 tab PO Q4H PRN PRN Reason: Moderate Pain (4-6) Last Admin: 11/22/16 11:26 Dose: 1 tab Al Hydroxide/Mg Hydroxide (Maalox) 15 ml PO Q4H PRN PRN Reason: Heartburn or Indigestion Lipase/Protease/Amylase (Dara Rubin 18213) 1 cap PO TID-[facility] Last Admin: 11/22/16 11:33 Dose: Not Given Artificial Tears (Tears Naturale) 0 drop EA EYE PRN PRN PRN Reason: Dry Eyes Celecoxib (Celebrex) 200 mg PO BID [facility] Last Admin: 11/22/16 08:00 Dose: 200 mg Colchicine (Colcrys) 0.6 mg PO BID [facility] Last Admin: 11/22/16 08:00 Dose: 0.6 mg Guaifenesin (Robitussin Sf) 200 mg PO Q4H PRN PRN Reason: Cough Last Admin: 11/20/16 20:09 Dose: 200 mg Hydralazine HCl (Apresoline) 10 mg SLOW IVP Q4H PRN PRN Reason: Systolic BP > 180 Hydroxychloroquine Sulfate (Plaquenil) 200 mg PO BID [facility] Last Admin: 11/22/16 08:00 Dose: 200 mg Methylprednisolone Sodium Succinate 1 gm/ Sodium Chloride 266 mls @ 266 mls/hr IVPB [facility] Stop: 11/22/16 21:59 Last Admin: 11/21/16 20:00 Dose: 266 mls Loperamide HCl (Imodium) 2 mg PO PRN PRN PRN Reason: Diarrhea/Loose Stools Loratadine (Claritin) 10 mg PO DAILYPRN PRN PRN Reason: Sinus Symptoms Magnesium Hydroxide (Milk Of Magnesium) 30 ml PO DAILYPRN PRN PRN Reason: Constipation Mineral Oil/White Petrolatum (Eucerin Cream) 0 gm TOP BIDPRN PRN PRN Reason: Dry Skin Morphine Sulfate (Morphine Sulfate) 4 mg SLOW IVP Q4H PRN PRN Reason: Severe Pain (7-10) Last Admin: 11/22/16 10:20 Dose: 4 mg Nystatin (Mycostatin) 500,000 units SSW QID [facility] Last Admin: 11/22/16 11:33 Dose: Not Given Ondansetron HCl (Zofran) 4 mg IVP Q6H PRN PRN Reason: Nausea/Vomiting Last Admin: 11/22/16 10:20 Dose: 4 mg Ondansetron HCl (Zofran Odt) 4 mg PO Q6H PRN PRN Reason: Nausea/Vomiting Pantoprazole Sodium (Protonix) 40 mg PO DAILY [facility] Last Admin: 11/22/16 08:07 Dose: 40 mg Phenol (Chloraseptic [place] 180 Ml Bot) 0 ml PO PRN PRN PRN Reason: Sore Throat Senna (Senokot) 2 tab PO HSPRN PRN PRN Reason: Constipation Sodium Chloride (Flush - Normal Saline) 10 ml IVF Q12HR [facility] Last Admin: 11/22/16 09:40 Dose: 10 ml Sodium Chloride (Flush - Normal Saline) 10 ml IVF PRN PRN PRN Reason: Saline Flush Sodium Chloride ([place] Nasal [place] 0.65%) 0 ml EA NARE QIDPRN PRN PRN Reason: Nasal Congestion Zolpidem Tartrate (Ambien) 5 mg PO HSPRN PRN PRN Reason: Insomnia
[2016-11-22] MEDS: Sodium Chloride 0.9% 1,000 ML IV SCH (14:22)
--- NOTE | 2016-11-22 18:13 | PDOC.CTH ---
Cardiology Progress Note - Subjective The pt was seen and examined. No overnight events. No cardiac complaints. The pt complains of pain all over his body. - Objective Vital Signs Temp Pulse Resp BP Pulse Ox 11/22/16 13:00 97.8 F 77 18 133/93 H 93 L 11/22/16 08:00 97.6 F 90 22 H 141/101 H 96 Weight 160 lb 15.987 oz 11/21/16 11/22/16 11/23/16 06:59 06:59 06:59 Intake Total 1080 300 Output Total 1220 Balance 1080 -920 - Physical Examination General/Neuro: alert & oriented x3 Neck: no JVD present Lungs: CTA Heart: RRR Extremities: other: (No edema) - Labs Result Diagrams: 11/22/16 04:32 11/22/16 04:32 Troponin/CKMB CK-MB (CK-2) 0.6 ng/mL (0-6.6) 11/19/16 14:10 Troponin I 0.028 ng/mL (< 0.028) 11/19/16 14:10 - Assessment/Plan 1. SLE exacerbation - stable with IV steroid 2. Pericardial effusion - s/p Pericardiocentesis with 600ml out on 11/21/16; 3. Chronic Pancreatitis - NS 50ml/h for elevated Lipase; Morphine 4mg q4h for pain management; managed by PCP 4. Pancytopenia - CBC level stable today MAR reviewed Review of Systems - Review of Systems Constitutional: reports: see HPI
[2016-11-22] MEDS: methylPREDNISolone Sod Succ 1 GM in Sodium Chloride 0.9% 250 ML 250 ML IVPB SCH (20:26)
[2016-11-23] MEDS: HYDROcodone/Acetaminophen 5/325 mg Tablet PO PRN ×3 (03:51→20:48)
[2016-11-23 07:06] LABS: Band 10 % (5-11); Hematocrit 36.8 % (42.0-52.0); Mean Platelet Volume 10.8 fL (7.4-10.4); Neutrophil 81 % (42-75); Red Blood Cell (RBC) Count 3.72 mill/uL (4.70-6.10)
[2016-11-23 07:07] LABS: ALT (SGPT) 15 U/L (8-55); AST (SGOT) 20 U/L (5-34); Alkaline Phosphatase 207 U/L (40-150); Anion Gap 13 mmol/L (10-20); BUN (Urea Nitrogen) 25 mg/dL (8.9-20.6); Bilirubin, Total 0.6 mg/dL (0.2-1.2); Calc. Creatinine Clearance 156 mL/min (70-130); Calcium 7.9 mg/dL (7.8-10.44); Carbon Dioxide 21 mmol/L (22-29); Chloride 104 mmol/L (98-107); Estimated GFR-MDRD Greater than 90; Globulin 4.1 g/dL (2.4-3.5)
[2016-11-23] MEDS: Hydroxychloroquine Sulfate 200 MG TAB PO SCH ×2 (08:06→19:46)
[2016-11-23] MEDS: Nystatin 500,000 UNITS/5 ML UDCUP SSW SCH ×4 (08:06→19:46)
[2016-11-23] MEDS: Pancrelipase DR 12000 1 CAP PO SCH ×3 (08:08→16:01)
[2016-11-23] MEDS: CeleCOXIB 100 MG CAP PO SCH ×2 (08:09→19:45)
[2016-11-23] MEDS: Colchicine 0.6 MG TAB PO SCH ×2 (08:10→19:46)
[2016-11-23] MEDS: Sodium Chloride 0.9% 1,000 ML IV SCH (08:18)
[2016-11-23] MEDS: Ondansetron ODT 4 MG TAB PO PRN (10:25)
--- NOTE | 2016-11-23 13:14 | PDOC.PN ---
- Subjective Encounter Start Date: 11/23/16 Encounter Start Time: 11:00 Subjective: abd pain is better, is amb in room -: no sob - Objective Resuscitation Status: Resuscitation Status FULL:Full Resuscitation MAR Reviewed: Yes Vital Signs & Weight: Vital Signs (12 hours) Temp Pulse Resp BP Pulse Ox 11/23/16 08:00 97.9 F 92 18 129/93 H 92 L Weight Weight 160 lb 15.987 oz I&O: 11/22/16 11/23/16 11/24/16 06:59 06:59 06:59 Intake Total 300 2049 Output Total 1220 Balance -920 2049 Result Diagrams: 11/23/16 05:28 11/23/16 05:28 Phys Exam - Physical Examination HEENT: PERRLA, moist MMs Neck: no JVD, supple Respiratory: no wheezing, no rales drain is out Cardiovascular: RRR, no significant murmur Gastrointestinal: soft, non-tender, positive bowel sounds Musculoskeletal: no edema, pulses present Neurological: non-focal, moves all 4 limbs Psychiatric: A&O x 3 Dx/Plan (1) Pancytopenia Code(s): D61.818 - OTHER PANCYTOPENIA Status: Acute (2) Pericardial effusion Code(s): I31.3 - PERICARDIAL EFFUSION (NONINFLAMMATORY) Status: Acute Comment: s/p pericardial window 11/21/2016 (3) SLE exacerbation Code(s): M32.9 - SYSTEMIC LUPUS ERYTHEMATOSUS, UNSPECIFIED Status: Acute (4) Chronic pancreatitis Code(s): K86.1 - OTHER CHRONIC PANCREATITIS Status: Chronic Comment: with ac flare up and lipase of 2066 (5) GERD (gastroesophageal reflux disease) Code(s): K21.9 - GASTRO-ESOPHAGEAL REFLUX DISEASE WITHOUT ESOPHAGITIS Status: Chronic Qualifiers: Esophagitis presence: esophagitis presence not specified Qualified Code(s) : K21.9 - Gastro-esophageal reflux disease without esophagitis (6) Hypoalbuminemia Code(s): E88.09 - OTH DISORDERS OF PLASMA-PROTEIN METABOLISM, NEC Status: Chronic - Plan morphine prn for pain -: lipase levels in am -: gentle iv hydration due to pancreatitis flare up -: is on colchicine, plaquenil, oral prednisone 10mg daily from today -: has finished high dose steroids yesterday after 3 doses * . Review of Systems - Medications/Allergies Allergies/Adverse Reactions: Allergies Allergy/AdvReac Type Severity Reaction Status Date / Time No Known Allergies Allergy Verified 10/12/16 04:11 Medications: Current Medications Acetaminophen (Tylenol) 650 mg PO Q4H PRN PRN Reason: Headache/Fever or Pain Last Admin: 11/22/16 08:13 Dose: 650 mg Hydrocodone Bitart/Acetaminophen ([place] 5/325) 1 tab PO Q4H PRN PRN Reason: Moderate Pain (4-6) Last Admin: 11/23/16 08:07 Dose: 1 tab Al Hydroxide/Mg Hydroxide (Maalox) 15 ml PO Q4H PRN PRN Reason: Heartburn or Indigestion Lipase/Protease/Amylase (Dara Rubin 93176) 1 cap PO TID-[facility] Last Admin: 11/23/16 11:50 Dose: Not Given Artificial Tears (Tears Naturale) 0 drop EA EYE PRN PRN PRN Reason: Dry Eyes Celecoxib (Celebrex) 200 mg PO BID [facility] Last Admin: 11/23/16 08:09 Dose: 200 mg Colchicine (Colcrys) 0.6 mg PO BID [facility] Last Admin: 11/23/16 08:10 Dose: 0.6 mg Guaifenesin (Robitussin Sf) 200 mg PO Q4H PRN PRN Reason: Cough Last Admin: 11/20/16 20:09 Dose: 200 mg Hydralazine HCl (Apresoline) 10 mg SLOW IVP Q4H PRN PRN Reason: Systolic BP > 180 Hydroxychloroquine Sulfate (Plaquenil) 200 mg PO BID [facility] Last Admin: 11/23/16 08:06 Dose: 200 mg Sodium Chloride (Normal Saline 0.9%) 1,000 mls @ 50 mls/hr IV .Q20H [facility] Last Admin: 11/23/16 08:18 Dose: 1,000 mls Loperamide HCl (Imodium) 2 mg PO PRN PRN PRN Reason: Diarrhea/Loose Stools Loratadine (Claritin) 10 mg PO DAILYPRN PRN PRN Reason: Sinus Symptoms Magnesium Hydroxide (Milk Of Magnesium) 30 ml PO DAILYPRN PRN PRN Reason: Constipation Mineral Oil/White Petrolatum (Eucerin Cream) 0 gm TOP BIDPRN PRN PRN Reason: Dry Skin Morphine Sulfate (Morphine Sulfate) 4 mg SLOW IVP Q4H PRN PRN Reason: Severe Pain (7-10) Last Admin: 11/23/16 10:25 Dose: 4 mg Nystatin (Mycostatin) 500,000 units SSW QID [facility] Last Admin: 11/23/16 08:06 Dose: 500,000 units Ondansetron HCl (Zofran) 4 mg IVP Q6H PRN PRN Reason: Nausea/Vomiting Last Admin: 11/22/16 10:20 Dose: 4 mg Ondansetron HCl (Zofran Odt) 4 mg PO Q6H PRN PRN Reason: Nausea/Vomiting Last Admin: 11/23/16 10:25 Dose: 4 mg Pantoprazole Sodium (Protonix) 40 mg PO DAILY [facility] Last Admin: 11/23/16 08:10 Dose: 40 mg Phenol (Chloraseptic [place] 180 Ml Bot) 0 ml PO PRN PRN PRN Reason: Sore Throat Senna (Senokot) 2 tab PO HSPRN PRN PRN Reason: Constipation Sodium Chloride (Flush - Normal Saline) 10 ml IVF Q12HR [facility] Last Admin: 11/23/16 08:10 Dose: 10 ml Sodium Chloride (Flush - Normal Saline) 10 ml IVF PRN PRN PRN Reason: Saline Flush Sodium Chloride ([place] Nasal [place] 0.65%) 0 ml EA NARE QIDPRN PRN PRN Reason: Nasal Congestion Zolpidem Tartrate (Ambien) 5 mg PO HSPRN PRN PRN Reason: Insomnia
[2016-11-23] MEDS ORDERED: predniSONE 20 MG TAB PO SCH (13:30)
--- NOTE | 2016-11-23 22:21 | PDOC.CTH ---
Cardiology Progress Note - Subjective Pt. was seen and evaluated. His only complaint is pain all over and an episode of N/V after eating. Requesting pain meds. - ROS chest pain, nausea (pain all over.) - Objective Vital Signs Temp Pulse Resp BP BP Pulse Ox 11/23/16 20:00 97.5 F L 92 18 130/84 93 L 11/23/16 12:00 97.8 F 92 18 127/92 H 97 Weight 160 lb 15.987 oz 11/22/16 11/23/16 11/24/16 06:59 06:59 06:59 Intake Total 300 2050 1600 Output Total 1220 600 Balance -920 2050 1000 - Physical Examination General/Neuro: alert & oriented x3 Neck: carotid US brisk Lungs: CTA Heart: RRR Abdomen: other: (tender to any touch.) - Labs Result Diagrams: 11/23/16 05:28 11/23/16 05:28 Troponin/CKMB CK-MB (CK-2) 0.6 ng/mL (0-6.6) 11/19/16 14:10 Troponin I 0.028 ng/mL (< 0.028) 11/19/16 14:10 - Assessment/Plan 1. SLE exacerbation - stable with IV steroid 2. Pericardial effusion - s/p Pericardiocentesis with 600ml out on 11/21/16; 3. Chronic Pancreatitis - NS 50ml/h for elevated Lipase; Morphine 4mg q4h for pain management; managed by PCP 4. Pancytopenia - CBC level stable today MAR reviewed
[2016-11-24] MEDS: Sodium Chloride 0.9% 1,000 ML IV SCH (05:44)
[2016-11-24 06:41] LABS: ALT (SGPT) 15 U/L (8-55); AST (SGOT) 22 U/L (5-34); Alkaline Phosphatase 185 U/L (40-150); Anion Gap 15 mmol/L (10-20); BUN (Urea Nitrogen) 22 mg/dL (8.9-20.6); Bilirubin, Total 0.8 mg/dL (0.2-1.2); Calc. Creatinine Clearance 168 mL/min (70-130); Calcium 8.1 mg/dL (7.8-10.44); Carbon Dioxide 18 mmol/L (22-29); Chloride 106 mmol/L (98-107); Estimated GFR-MDRD Greater than 90; Globulin 4.1 g/dL (2.4-3.5); Lipase 356 U/L (8-78); Protein, Total 6.9 g/dL (6.0-8.3)
[2016-11-24 06:57] LABS: Hematocrit 39.1 % (42.0-52.0); Metamyelocyte 1 % (0-0); Neutrophil 87 % (42-75); Polychromasia SLIGHT = 2-3 cells (100X) (0-2/hpf); Reactive Lymphocytes 1 % (0-10); Red Blood Cell (RBC) Count 3.96 mill/uL (4.70-6.10); White Blood Cell (WBC) Count 10.1 thou/uL (4.8-10.8)
[2016-11-24] MEDS: Pancrelipase DR 12000 1 CAP PO SCH ×3 (07:56→19:30)
[2016-11-24] MEDS: Colchicine 0.6 MG TAB PO SCH ×3 (07:57→22:09)
[2016-11-24] MEDS: CeleCOXIB 100 MG CAP PO SCH ×2 (07:57→14:09)
[2016-11-24] MEDS: Hydroxychloroquine Sulfate 200 MG TAB PO SCH ×3 (07:57→22:10)
[2016-11-24] MEDS: Nystatin 500,000 UNITS/5 ML UDCUP SSW SCH ×3 (07:57→19:30)
[2016-11-24] MEDS: Ondansetron ODT 4 MG TAB PO PRN (07:59)
[2016-11-24] MEDS ORDERED: predniSONE 20 MG TAB PO SCH (08:00)
[2016-11-24] MEDS ORDERED: Bisacodyl 10 MG SUPP PR SCH (10:15)
--- NOTE | 2016-11-24 13:53 | PDOC.PN ---
- Subjective Encounter Start Date: 11/24/16 Encounter Start Time: 09:30 Subjective: c/o abd pain, vomited once this am -: no chest pain or sob -: wants someone to accompany him to walk in hallway - Objective Resuscitation Status: Resuscitation Status FULL:Full Resuscitation MAR Reviewed: Yes Vital Signs & Weight: Vital Signs (12 hours) Temp Pulse Resp BP BP BP Pulse Ox 11/24/16 12:10 88 16 108/75 11/24/16 11:14 60 16 103/68 11/24/16 08:29 60 22 H 91/58 L 96 11/24/16 08:00 97.6 F 60 22 H 11/24/16 07:29 97.6 F 83 16 109/70 94 L 11/24/16 04:00 98.7 F 87 18 115/71 96 Weight Weight 160 lb 15.987 oz I&O: 11/23/16 11/24/16 11/25/16 06:59 06:59 06:59 Intake Total 2049 2700 Output Total 1275 Balance 2049 1425 Result Diagrams: 11/24/16 05:07 11/24/16 05:07 Phys Exam - Physical Examination HEENT: PERRLA, moist MMs Neck: no JVD, supple Respiratory: no wheezing, no rales Cardiovascular: RRR, no significant murmur Gastrointestinal: soft, non-tender, no distention, positive bowel sounds Musculoskeletal: pulses present, edema present Neurological: non-focal, moves all 4 limbs Psychiatric: A&O x 3 Dx/Plan (1) Pancytopenia Code(s): D61.818 - OTHER PANCYTOPENIA Status: Acute (2) Pericardial effusion Code(s): I31.3 - PERICARDIAL EFFUSION (NONINFLAMMATORY) Status: Acute Comment: s/p pericardial window 11/21/2016 (3) SLE exacerbation Code(s): M32.9 - SYSTEMIC LUPUS ERYTHEMATOSUS, UNSPECIFIED Status: Acute (4) Chronic pancreatitis Code(s): K86.1 - OTHER CHRONIC PANCREATITIS Status: Chronic Comment: with ac flare up, resolving (5) GERD (gastroesophageal reflux disease) Code(s): K21.9 - GASTRO-ESOPHAGEAL REFLUX DISEASE WITHOUT ESOPHAGITIS Status: Chronic Qualifiers: Esophagitis presence: esophagitis presence not specified Qualified Code(s) : K21.9 - Gastro-esophageal reflux disease without esophagitis (6) Hypoalbuminemia Code(s): E88.09 - [facility] DISORDERS OF PLASMA-PROTEIN METABOLISM, NEC Status: Chronic - Plan for abd and cxr today -: d/w , increase prednisone to 20mg bid for 30 days -: lipase down to 356, decrease norcotic use -: dulcolax suppository, has not had BM since window done -[facility] dc plan in am * . Review of Systems - Medications/Allergies Allergies/Adverse Reactions: Allergies Allergy/AdvReac Type Severity Reaction Status Date / Time No Known Allergies Allergy Verified 10/12/16 04:11 Medications: Current Medications Acetaminophen (Tylenol) 650 mg PO Q4H PRN PRN Reason: Headache/Fever or Pain Last Admin: 11/22/16 08:13 Dose: 650 mg Hydrocodone Bitart/Acetaminophen ([place] 5/325) 1 tab PO Q4H PRN PRN Reason: Moderate Pain (4-6) Last Admin: 11/23/16 20:48 Dose: 1 tab Al Hydroxide/Mg Hydroxide (Maalox) 15 ml PO Q4H PRN PRN Reason: Heartburn or Indigestion Lipase/Protease/Amylase (Dara Rubin [id number]) 1 cap PO TID-WM [facility] Last Admin: 11/23/16 16:01 Dose: 1 cap Artificial Tears (Tears Naturale) 0 drop EA EYE PRN PRN PRN Reason: Dry Eyes Celecoxib (Celebrex) 200 mg PO BID [facility] Last Admin: 11/23/16 19:45 Dose: 200 mg Colchicine (Colcrys) 0.6 mg PO BID [facility] Last Admin: 11/23/16 19:46 Dose: 0.6 mg Guaifenesin (Robitussin Sf) 200 mg PO Q4H PRN PRN Reason: Cough Last Admin: 11/20/16 20:09 Dose: 200 mg Hydralazine HCl (Apresoline) 10 mg SLOW IVP Q4H PRN PRN Reason: Systolic BP > 180 Hydroxychloroquine Sulfate (Plaquenil) 200 mg PO BID [facility] Last Admin: 11/23/16 19:46 Dose: 200 mg Sodium Chloride (Normal Saline 0.9%) 1,000 mls @ 50 mls/hr IV .Q20H [facility] Last Admin: 11/24/16 05:44 Dose: 1,000 mls Loperamide HCl (Imodium) 2 mg PO PRN PRN PRN Reason: Diarrhea/Loose Stools Loratadine (Claritin) 10 mg PO DAILYPRN PRN PRN Reason: Sinus Symptoms Magnesium Hydroxide (Milk Of Magnesium) 30 ml PO DAILYPRN PRN PRN Reason: Constipation Mineral Oil/White Petrolatum (Eucerin Cream) 0 gm TOP BIDPRN PRN PRN Reason: Dry Skin Morphine Sulfate (Morphine Sulfate) 4 mg SLOW IVP Q4H PRN PRN Reason: Severe Pain (7-10) Last Admin: 11/24/16 03:43 Dose: 4 mg Nystatin (Mycostatin) 500,000 units SSW QID [facility] Last Admin: 11/23/16 19:46 Dose: 500,000 units Ondansetron HCl (Zofran) 4 mg IVP Q6H PRN PRN Reason: Nausea/Vomiting Last Admin: 11/22/16 10:20 Dose: 4 mg Ondansetron HCl (Zofran Odt) 4 mg PO Q6H PRN PRN Reason: Nausea/Vomiting Last Admin: 11/24/16 07:59 Dose: 4 mg Pantoprazole Sodium (Protonix) 40 mg PO DAILY [facility] Last Admin: 11/24/16 07:59 Dose: 40 mg Phenol (Chloraseptic [place] 180 Ml Bot) 0 ml PO PRN PRN PRN Reason: Sore Throat Prednisone (Prednisone) 10 mg PO QAM-[facility] Last Admin: 11/24/16 07:59 Dose: 10 mg Senna (Senokot) 2 tab PO HSPRN PRN PRN Reason: Constipation Sodium Chloride (Flush - Normal Saline) 10 ml IVF Q12HR [facility] Last Admin: 11/23/16 20:53 Dose: 10 ml Sodium Chloride (Flush - Normal Saline) 10 ml IVF PRN PRN PRN Reason: Saline Flush Sodium Chloride ([place] Nasal [place] 0.65%) 0 ml EA NARE QIDPRN PRN PRN Reason: Nasal Congestion Zolpidem Tartrate (Ambien) 5 mg PO HSPRN PRN PRN Reason: Insomnia
[2016-11-24] MEDS: Ondansetron HCl/PF 4 MG/2 ML Vial IVP PRN ×2 (14:36→20:32)
--- NOTE | 2016-11-24 15:20 | RAD ---
ACUTE ABDOMINAL SERIES: Date: 11-24-16 History: Abdominal pain, shortness of breath, recent pericardial window. FINDINGS: Upright and supine imaging of the abdomen and pelvis as well as frontal radiograph of the chest prov ided. Chest radiograph demonstrates mild increased pleural and parenchymal opacity within the left b ase medially with mild blunting of the left costophrenic angle. Right lung appears clear. Heart and mediastinal contours are grossly unremarkable. No pneumothorax is seen. Two views of the abdomen demonstrate gaseous distention of multiple loops of small bowel within the mid abdomen and upper abdomen with air fluid levels on upright imaging. This suggests developing sma ll bowel obstruction or diffuse abdominal ileus. There is a paucity of distal bowel gas present. IMPRESSION: 1. Nonspecific pleural and parenchymal opacities within the left lung base suggesting volume loss, i nfectious pneumonitis and/or small volume pleural effusion. 2. Gaseous distention of small bowel within the mid abdomen and upper abdomen with air fluid levels on upright imaging suggesting developing small bowel obstruction or ileus. POS: JAMES
[2016-11-24] MEDS ORDERED: Fleet Enema 133 ML BOT PR SCH (16:30)
--- NOTE | 2016-11-24 20:25 | RAD ---
AP ABDOMEN: Date: 11-24-16 History: Evaluate nasogastric tube placement. Comparison: Earlier today. FINDINGS: There has been interval placement of a nasogastric tube which courses into the left upper quadrant w ith tip overlying the expected location of the gastric fundus. There is gaseous distention of the co stephie with mild gaseous distention of loops of small bowel noted on the prior exam. Again, findings ma y be related to either ileus or developing small bowel obstruction. IMPRESSION: 1. Nasogastric tube noted in place with tip overlying the expected location of the gastric fundus. 2. Mild gaseous distention of loops small bowel which could be related to either ileus or developing partial small bowel obstruction. POS: JAMES
[2016-11-24] MEDS: predniSONE 20 MG TAB PO SCH (22:09)
[2016-11-24] MEDS: Docusate 100 MG CAP PO SCH (22:09)
[2016-11-24] MEDS ORDERED: Lorazepam 2 MG/ML VIAL SLOW IVP SCH (22:15)
[2016-11-25] MEDS: Sodium Chloride 0.9% 1,000 ML IV SCH (02:45)
[2016-11-25 04:31] LABS: #Lymphocytes 0.4 thou/uL (1.20-3.40); #Monocytes 0.3 thou/uL (0.11-0.59); #Neutrophils 5.3 thou/uL (1.40-6.50); %Basophils 0.1 % (0.0-1.0); %Lymphocytes 6.3 % (21.0-51.0); Hematocrit 32.5 % (42.0-52.0); Mean Platelet Volume 10.4 fL (7.4-10.4); White Blood Cell (WBC) Count 5.9 thou/uL (4.8-10.8)
[2016-11-25 05:32] LABS: ALT (SGPT) 20 U/L (8-55); AST (SGOT) 25 U/L (5-34); Alkaline Phosphatase 193 U/L (40-150); Anion Gap 12 mmol/L (10-20); BUN (Urea Nitrogen) 28 mg/dL (8.9-20.6); Bilirubin, Total 0.9 mg/dL (0.2-1.2); Calc. Creatinine Clearance 184 mL/min (70-130); Calcium 7.9 mg/dL (7.8-10.44); Carbon Dioxide 22 mmol/L (22-29); Chloride 108 mmol/L (98-107); Estimated GFR-MDRD Greater than 90; Globulin 3.7 g/dL (2.4-3.5); Protein, Total 6.4 g/dL (6.0-8.3)
[2016-11-25] MEDS: NS 0.9% w/ 20 MEQ KCL 1,000 ML IV SCH (07:23)
[2016-11-25] MEDS ORDERED: Polyethylene Glycol 3350 17 GM Packet PO PRN (09:08)
[2016-11-25] MEDS: Hydroxychloroquine Sulfate 200 MG TAB PO SCH ×2 (09:37→20:21)
[2016-11-25] MEDS: predniSONE 20 MG TAB PO SCH ×2 (09:38→16:25)
[2016-11-25] MEDS: Colchicine 0.6 MG TAB PO SCH ×2 (09:38→20:21)
[2016-11-25] MEDS: Docusate 100 MG CAP PO SCH ×2 (09:38→20:22)
[2016-11-25] MEDS: Enoxaparin Sodium 40 MG/0.4 ML SYRINGE SC SCH (09:39)
--- NOTE | 2016-11-25 10:50 | CON ---
DATE OF CONSULTATION: 11/25/2016 HISTORY OF PRESENT ILLNESS: Moe Watkins is a 30-year-old male patient admitted for lupus flare, anthony vergara has undergone a pericardial window by Dr. Pasha Rahman 11/21/2016. He developed a distended abdo men and nausea and abdominal pain. X-rays suggested ileus with distended small and large bowel loop s. Since that time he feels much better. He has been passing flatus, although has not had a bowel movement. His NG tube overnight has put out less than 100 mL. He is bothered by the NG tube. X-ra ys reveal NG tube being in proper position. ALLERGIES: None. TOBACCO: Socially. ALCOHOL: None. MEDICATIONS: Tylenol with codeine, tramadol and ibuprofen at home. PAST SURGICAL HISTORY: Noncontributory. PAST MEDICAL HISTORY: Lupus, history of peptic ulcer disease diagnosed non-endoscopically, treated for nausea and vomiting 5 years ago. No history of endoscopy. SOCIAL HISTORY: The patient is engaged. As stated above, he occasionally smokes tobacco. PHYSICAL EXAMINATION: VITAL SIGNS: 5 feet 10 inches tall, 23 BMI, 160 pounds, 98.8 degrees, 98, 134/94. LUNGS: Clear to auscultation. CARDIAC: Regular rate and rhythm without murmur or gallop. ABDOMEN: Soft, nontender. Bowel sounds present. EXTREMITIES: Unremarkable. LABORATORY DATA: White count 5, hemoglobin 10.3. Basic metabolic profile unremarkable. ASSESSMENT AND PLAN: Probable ileus related to his lupus flare. It seems to have resolved as he is passing flatus. I have discussed with him options including a small bowel through versus removing the NG tube and we decided on the latter. We will remove his NG tube, start him on full liquids and advance as tolerated to a regular diet. We will give him MiraLax every day. We will reassess if anthony vergara has any future problems.
--- NOTE | 2016-11-25 11:08 | PDOC.PN ---
- Subjective Encounter Start Date: 11/25/16 Encounter Start Time: 09:30 Subjective: is passing flatus, no bm yet -: wants to walk but needs someone to hold on to -: no abd pain this morning - Objective Resuscitation Status: Resuscitation Status FULL:Full Resuscitation MAR Reviewed: Yes Vital Signs & Weight: Vital Signs (12 hours) Temp Pulse Resp BP BP Pulse Ox 11/25/16 08:00 98.8 F 98 24 H 95 11/25/16 07:48 98.8 F 98 24 H 134/94 H 94 L 11/25/16 00:00 98.0 F 98 18 123/85 94 L Weight Weight 160 lb 15.987 oz I&O: 11/24/16 11/25/16 11/26/16 06:59 06:59 06:59 Intake Total 2700 500 Output Total 1275 100 Balance 1425 400 Result Diagrams: 11/25/16 03:57 11/25/16 03:57 Phys Exam - Physical Examination HEENT: PERRLA, moist MMs Neck: no JVD, supple Respiratory: no wheezing, no rales Cardiovascular: RRR, no significant murmur Gastrointestinal: soft, no distention, positive bowel sounds Musculoskeletal: pulses present, edema present Neurological: non-focal, moves all 4 limbs Psychiatric: A&O x 3 Dx/Plan (1) Pancytopenia Code(s): D61.818 - OTHER PANCYTOPENIA Status: Acute (2) Pericardial effusion Code(s): I31.3 - PERICARDIAL EFFUSION (NONINFLAMMATORY) Status: Acute Comment: s/p pericardial window 11/21/2016 (3) SLE exacerbation Code(s): M32.9 - SYSTEMIC LUPUS ERYTHEMATOSUS, UNSPECIFIED Status: Acute (4) Chronic pancreatitis Code(s): K86.1 - OTHER CHRONIC PANCREATITIS Status: Chronic Comment: with ac flare up, resolving (5) GERD (gastroesophageal reflux disease) Code(s): K21.9 - GASTRO-ESOPHAGEAL REFLUX DISEASE WITHOUT ESOPHAGITIS Status: Chronic Qualifiers: Esophagitis presence: esophagitis presence not specified Qualified Code(s) : K21.9 - Gastro-esophageal reflux disease without esophagitis (6) Hypoalbuminemia Code(s): E88.09 - OTH DISORDERS OF PLASMA-PROTEIN METABOLISM, NEC Status: Chronic (7) Ileus Code(s): K56.7 - ILEUS, UNSPECIFIED Status: Acute - Plan ileus/sbo is resolving with patient passing lot of flatus -: to ambulate in hallway 5-6times/day -: i.spirometry -: dc plan in 24-36hrs once he tolerated oral diet -: appreciate help from * . Review of Systems - Medications/Allergies Allergies/Adverse Reactions: Allergies Allergy/AdvReac Type Severity Reaction Status Date / Time No Known Allergies Allergy Verified 10/12/16 04:11 Medications: Current Medications Acetaminophen (Tylenol) 650 mg PO Q4H PRN PRN Reason: Headache/Fever or Pain Last Admin: 11/22/16 08:13 Dose: 650 mg Al Hydroxide/Mg Hydroxide (Maalox) 15 ml PO Q4H PRN PRN Reason: Heartburn or Indigestion Artificial Tears (Tears Naturale) 0 drop EA EYE PRN PRN PRN Reason: Dry Eyes Colchicine (Colcrys) 0.6 mg PO BID [facility] Last Admin: 11/25/16 09:38 Dose: 0.6 mg Docusate Sodium (Colace) 100 mg PO BID [facility] Last Admin: 11/25/16 09:38 Dose: 100 mg Enoxaparin Sodium (Lovenox) 40 mg SC 0900 [facility] Last Admin: 11/25/16 09:39 Dose: 40 mg Guaifenesin (Robitussin Sf) 200 mg PO Q4H PRN PRN Reason: Cough Last Admin: 11/20/16 20:09 Dose: 200 mg Hydralazine HCl (Apresoline) 10 mg SLOW IVP Q4H PRN PRN Reason: Systolic BP > 180 Hydroxychloroquine Sulfate (Plaquenil) 200 mg PO BID [facility] Last Admin: 11/25/16 09:37 Dose: 200 mg Potassium Chloride/Sodium Chloride (Ns 0.9% W/ 20 Meq Kcl) 1,000 mls @ 50 mls/ hr IV .Q20H [facility] Last Admin: 11/25/16 07:23 Dose: 1,000 mls Magnesium Hydroxide (Milk Of Magnesium) 30 ml PO DAILYPRN PRN PRN Reason: Constipation Mineral Oil/White Petrolatum (Eucerin Cream) 0 gm TOP BIDPRN PRN PRN Reason: Dry Skin Morphine Sulfate (Morphine Sulfate) 2 mg SLOW IVP Q4H PRN PRN Reason: Pain Ondansetron HCl (Zofran) 4 mg IVP Q6H PRN PRN Reason: Nausea/Vomiting Last Admin: 11/24/16 20:32 Dose: 4 mg Ondansetron HCl (Zofran Odt) 4 mg PO Q6H PRN PRN Reason: Nausea/Vomiting Last Admin: 11/24/16 07:59 Dose: 4 mg Pantoprazole Sodium (Protonix) 40 mg PO DAILY [facility] Last Admin: 11/25/16 09:38 Dose: 40 mg Phenol (Chloraseptic [place] 180 Ml Bot) 0 ml PO PRN PRN PRN Reason: Sore Throat Polyethylene Glycol (Miralax) 17 gm PO DAILYPRN PRN PRN Reason: Constipation Polyethylene Glycol (Miralax) 17 gm PO DAILY [facility] Prednisone (Prednisone) 20 mg PO BID-[facility] Last Admin: 11/25/16 09:38 Dose: 20 mg Senna (Senokot) 2 tab PO HSPRN PRN PRN Reason: Constipation Sodium Chloride (Flush - Normal Saline) 10 ml IVF Q12HR [facility] Last Admin: 11/25/16 09:40 Dose: Not Given Sodium Chloride (Flush - Normal Saline) 10 ml IVF PRN PRN PRN Reason: Saline Flush Sodium Chloride ([place] Nasal [place] 0.65%) 0 ml EA NARE QIDPRN PRN PRN Reason: Nasal Congestion
[2016-11-25] MEDS: Acetaminophen 325 MG TAB PO PRN (14:32)
[2016-11-25] MEDS ORDERED: ALPRAZolam 0.5 MG TAB PO SCH (17:45)
[2016-11-25] MEDS ORDERED: Lorazepam 0.5 MG TAB PO SCH (20:00)
[2016-11-26] MEDS: NS 0.9% w/ 20 MEQ KCL 1,000 ML IV SCH (02:17)
[2016-11-26] MEDS: Lorazepam 0.5 MG TAB PO PRN ×3 (02:41→14:29)
[2016-11-26 07:03] VITALS: BMI 22.1
[2016-11-26] MEDS: Colchicine 0.6 MG TAB PO SCH (08:21)
[2016-11-26] MEDS: Docusate 100 MG CAP PO SCH (08:21)
[2016-11-26] MEDS: Hydroxychloroquine Sulfate 200 MG TAB PO SCH (08:22)
[2016-11-26] MEDS: predniSONE 20 MG TAB PO SCH ×2 (08:22→15:51)
[2016-11-26] MEDS: Enoxaparin Sodium 40 MG/0.4 ML SYRINGE SC SCH ×2 (08:23→08:30)
[2016-11-26 08:50] LABS: #Lymphocytes 0.3 thou/uL (1.20-3.40); #Monocytes 0.3 thou/uL (0.11-0.59); #Neutrophils 3.8 thou/uL (1.40-6.50); %Basophils 0.1 % (0.0-1.0); %Eosinophils 0.1 % (0.0-10.0); %Lymphocytes 6.8 % (21.0-51.0); %Monocytes 6.3 % (0.0-10.0); Hematocrit 30.4 % (42.0-52.0); Mean Platelet Volume 10.3 fL (7.4-10.4); Red Blood Cell (RBC) Count 3.08 mill/uL (4.70-6.10); White Blood Cell (WBC) Count 4.4 thou/uL (4.8-10.8)
[2016-11-26] MEDS ORDERED: Polyethylene Glycol 3350 17 GM Packet PO SCH (09:00)
[2016-11-26 09:09] LABS: ALT (SGPT) 15 U/L (8-55); AST (SGOT) 16 U/L (5-34); Alkaline Phosphatase 190 U/L (40-150); Anion Gap 8 mmol/L (10-20); BUN (Urea Nitrogen) 17 mg/dL (8.9-20.6); Bilirubin, Total 0.6 mg/dL (0.2-1.2); Calc. Creatinine Clearance 194 mL/min (70-130); Calcium 8.1 mg/dL (7.8-10.44); Carbon Dioxide 25 mmol/L (22-29); Chloride 106 mmol/L (98-107); Estimated GFR-MDRD Greater than 90; Globulin 3.6 g/dL (2.4-3.5); Protein, Total 6.3 g/dL (6.0-8.3)
--- NOTE | 2016-11-26 13:29 | PRG ---
DATE OF SERVICE: 11/26/2016 SUBJECTIVE: Moe Watkins is tolerating his diet. He is having bowel movements. He denies any michelle sea or vomiting. OBJECTIVE: ABDOMEN: Not distended. LUNGS: Clear to auscultation. CARDIAC: Regular rate and rhythm without murmur or gallop. ABDOMEN: Soft, nontender, no tympany, no distention. ASSESSMENT AND PLAN: Resolved ileus. At this point, I will see him as needed. Please call if venkat isbell. I will sign off at this time.
--- NOTE | 2016-11-26 14:03 | PDOC.PN ---
- Subjective Encounter Start Date: 11/26/16 Encounter Start Time: 09:15 Subjective: is amb well now -: had 2 bm's -: no abd pain or nausea - Objective Resuscitation Status: Resuscitation Status FULL:Full Resuscitation MAR Reviewed: Yes Vital Signs & Weight: Vital Signs (12 hours) Temp Pulse Resp BP Pulse Ox 11/26/16 08:00 97.7 F 75 18 144/84 H 98 Weight Weight 155 lb 1.6 oz I&O: 11/25/16 11/26/16 11/27/16 06:59 06:59 06:59 Intake Total 500 Output Total 100 Balance 400 Result Diagrams: 11/26/16 08:37 11/26/16 08:37 Phys Exam - Physical Examination HEENT: PERRLA, moist MMs Neck: no JVD, supple Respiratory: no wheezing, no rales Cardiovascular: RRR, no significant murmur Gastrointestinal: soft, positive bowel sounds Musculoskeletal: no edema, pulses present Neurological: non-focal, moves all 4 limbs Psychiatric: A&O x 3 Dx/Plan (1) SLE exacerbation Code(s): M32.9 - SYSTEMIC LUPUS ERYTHEMATOSUS, UNSPECIFIED Status: Acute (2) Pancytopenia Code(s): D61.818 - OTHER PANCYTOPENIA Status: Acute (3) Pericardial effusion Code(s): I31.3 - PERICARDIAL EFFUSION (NONINFLAMMATORY) Status: Acute Comment: s/p pericardial window 11/21/2016 (4) Chronic pancreatitis Code(s): K86.1 - OTHER CHRONIC PANCREATITIS Status: Chronic Comment: with ac flare up, resolving (5) GERD (gastroesophageal reflux disease) Code(s): K21.9 - GASTRO-ESOPHAGEAL REFLUX DISEASE WITHOUT ESOPHAGITIS Status: Chronic Qualifiers: Esophagitis presence: esophagitis presence not specified Qualified Code(s) : K21.9 - Gastro-esophageal reflux disease without esophagitis (6) Hypoalbuminemia Code(s): E88.09 - OTH DISORDERS OF PLASMA-PROTEIN METABOLISM, NEC Status: Chronic (7) Ileus Code(s): K56.7 - ILEUS, UNSPECIFIED Status: Resolved - Plan ileus is resolved -: may dc home if tolerated oral diet this pm -: to continue prednisone 20mg bid per 's advice -: he has to see Salome before discontinuing steroids * . Review of Systems - Medications/Allergies Allergies/Adverse Reactions: Allergies Allergy/AdvReac Type Severity Reaction Status Date / Time No Known Allergies Allergy Verified 10/12/16 04:11 Medications: Current Medications Acetaminophen (Tylenol) 650 mg PO Q4H PRN PRN Reason: Headache/Fever or Pain Last Admin: 11/25/16 14:32 Dose: 650 mg Al Hydroxide/Mg Hydroxide (Maalox) 15 ml PO Q4H PRN PRN Reason: Heartburn or Indigestion Artificial Tears (Tears Naturale) 0 drop EA EYE PRN PRN PRN Reason: Dry Eyes Colchicine (Colcrys) 0.6 mg PO BID [facility] Last Admin: 11/26/16 08:21 Dose: 0.6 mg Docusate Sodium (Colace) 100 mg PO BID [facility] Last Admin: 11/26/16 08:21 Dose: 100 mg Enoxaparin Sodium (Lovenox) 40 mg SC 0900 [facility] Last Admin: 11/26/16 08:30 Dose: Not Given Guaifenesin (Robitussin Sf) 200 mg PO Q4H PRN PRN Reason: Cough Last Admin: 11/20/16 20:09 Dose: 200 mg Hydralazine HCl (Apresoline) 10 mg SLOW IVP Q4H PRN PRN Reason: Systolic BP > 180 Hydroxychloroquine Sulfate (Plaquenil) 200 mg PO BID [facility] Last Admin: 11/26/16 08:22 Dose: 200 mg Potassium Chloride/Sodium Chloride (Ns 0.9% W/ 20 Meq Kcl) 1,000 mls @ 50 mls/ hr IV .Q20H [facility] Last Admin: 11/26/16 02:17 Dose: Not Given Lorazepam (Ativan) 0.5 mg PO Q6H PRN PRN Reason: Anxiety Last Admin: 11/26/16 08:23 Dose: 0.5 mg Magnesium Hydroxide (Milk Of Magnesium) 30 ml PO DAILYPRN PRN PRN Reason: Constipation Mineral Oil/White Petrolatum (Eucerin Cream) 0 gm TOP BIDPRN PRN PRN Reason: Dry Skin Morphine Sulfate (Morphine Sulfate) 2 mg SLOW IVP Q4H PRN PRN Reason: Pain Ondansetron HCl (Zofran) 4 mg IVP Q6H PRN PRN Reason: Nausea/Vomiting Last Admin: 11/24/16 20:32 Dose: 4 mg Ondansetron HCl (Zofran Odt) 4 mg PO Q6H PRN PRN Reason: Nausea/Vomiting Last Admin: 11/24/16 07:59 Dose: 4 mg Pantoprazole Sodium (Protonix) 40 mg PO DAILY [facility] Last Admin: 11/26/16 08:22 Dose: 40 mg Phenol (Chloraseptic [place] 180 Ml Bot) 0 ml PO PRN PRN PRN Reason: Sore Throat Polyethylene Glycol (Miralax) 17 gm PO DAILYPRN PRN PRN Reason: Constipation Polyethylene Glycol (Miralax) 17 gm PO DAILY [facility] Last Admin: 11/26/16 08:23 Dose: 17 gm Prednisone (Prednisone) 20 mg PO BID-[facility] Last Admin: 11/26/16 08:22 Dose: 20 mg Senna (Senokot) 2 tab PO HSPRN PRN PRN Reason: Constipation Sodium Chloride (Flush - Normal Saline) 10 ml IVF Q12HR [facility] Last Admin: 11/26/16 08:24 Dose: 10 ml Sodium Chloride (Flush - Normal Saline) 10 ml IVF PRN PRN PRN Reason: Saline Flush Sodium Chloride ([place] Nasal [place] 0.65%) 0 ml EA NARE QIDPRN PRN PRN Reason: Nasal Congestion
[2016-11-26 15:56] VITALS: BP 124/80; TEMP 97.5
--- NOTE | 2016-11-26 23:32 | DIS ---
DATE OF ADMISSION: 11/19/2016 DATE OF DISCHARGE: 11/26/2016 DISCHARGE DISPOSITION: To home. PRIMARY DISCHARGE DIAGNOSES: Systemic lupus erythematosus flareup, pancytopenia, pericardial effusi on status post pericardial window placed on 11/21/2016, acute on chronic pancreatitis, ileus seconda ry to narcotics resolved, gastroesophageal reflux disease, hypoalbuminemia with protein malnutrition . PROCEDURES DONE DURING HOSPITALIZATION: The patient has had echo with 2D Doppler done, which showed ejection fraction of 55%-60%, large pericardial effusion with no evidence of tamponade was seen. C T angio chest showed large pericardial effusion. New dilatation of pulmonary trunk measuring 38 mm suggesting pulmonary arterial hypertension. Extensive soft tissue edema with small volume ascites. The patient has had pericardial window placed on 11/21/[address] Pasha Rahman, around 600 mL of clear brown fluid was removed. Pericardium was sent for pathology and fluid for culture and cytolog y. Pericardial biopsy was unremarkable with no malignancy identified. Acute abdominal series x-ray done on 11/24/2016 showed developing ileus/small bowel obstruction. Pericardial fluid cytology don e showed scattered mesothelial cells with predominant background of fibrinous debris and peripheral blood elements, negative for malignant cells. Blood cultures x2 no growth. Pericardial fluid cultu re done shows no organisms and growth. There was no growth in 5 days, no anaerobes were isolated in 5 days. The patient's discharge white count is 4.4 with H and H of 9.6 and 30, and platelet count of 165. Admitting white count was 3 with H and H of 8.3 and 26, and platelet count of 108. MCV was 100. Discharge BUN and creatinine is 17 and 0.5. Discharge albumin is 2.7. Lipase was 2067 on 11/22. A repeat level was 356 on the . CRP was 2.10. Complement C3 levels were low at 37. C omplement C4 levels were 4.30, again low. DISCHARGE MEDICATIONS: Motrin 400 mg p.o. 3 times daily p.r.n. for pain, prednisone 20 mg p.o. twic e daily, Creon 12,000 units 1 capsule 3 times daily, Plaquenil 200 mg p.o. twice daily. ALLERGIES: No known drug allergies. INPATIENT CONSULTS: Dr. Chandler for Cardiology, Dr. Pasha Rahman for Cardiothoracic Surgery. BRIEF COURSE DURING HOSPITALIZATION: The patient initially got admitted on the with complaints of swelling of his feet, ankles, hands, knees and all joints. He was recently diagnosed with lupus at the end of September when he got admitted for hidradenitis suppurativa of his axilla. He was given prescriptions for prednisone which he never filled after his discharge then. He has had initial x-r ay and imaging studies, which were consistent with pericardial effusion. He has had echo with 2D Do ppler done, which confirmed large pericardial effusion but no tamponade physiology. He has had cons ultation with Dr. Pasha Rahman and has had pericardial window placed. He was also on high dose thad roids for nearly 3 days for his lupus flareup and has been transitioned to prednisone 20 mg twice da remi. He was also placed on Plaquenil and colchicine during his stay here. The patient has had som re pain and was taking a lot of narcotics and developed ileus/small-bowel obstruction. This has slo wly resolved. Prior to discharge, he has had 2 bowel movements, which were normal and he is tolerat ing oral solid food. He has had telephonic consultation with Dr. Mcmahon for Rheumatology as well. Per Dr. Mcmahon advice, the patient is placed on 20 mg of prednisone twice daily for a period of 1 month and he needs to follow up with Dr. Mcmahon in 2 weeks. His medications have been faxed to his pharmacy in [facility]. He was strongly advised to be compliant with his medications. Also, ten vergara note, the patient has had mild flareup of his acute on chronic pancreatitis. He was on liquid t and this has completely resolved as well. Prior to discharge, he is ambulating in the hallway and he is hemodynamically stable. Please see a face to face documentation on [facility] for the day of d ischarge.
== END 2016-11-26 17:00 | disposition home or self-care (01) | DRG 981 ==
LOC: ERS 13:48 → T4-A 16:09
PROVIDERS: ADMIT Internal Medicine; ATTEND Internal Medicine
PROC: 0W9D00Z Drainage of Pericardial Cavity with Drainage Device, Open Approach (ICD-10-PCS; principal; 2016-11-21)
DX: M32.13 Lung involvement in systemic lupus erythematosus (principal); K85.90 Acute pancreatitis without necrosis or infection, unspecified; D61.818 Other pancytopenia; B37.0 Candidal stomatitis; E46 Unspecified protein-calorie malnutrition; I31.3 Pericardial effusion (noninflammatory); K56.7 Ileus, unspecified; K86.1 Other chronic pancreatitis; E88.09 Other disorders of plasma-protein metabolism, not elsewhere classified; Z23 Encounter for immunization; K21.9 Gastro-esophageal reflux disease without esophagitis; T40.605A Adverse effect of unspecified narcotics, initial encounter; Y92.230 Patient room in hospital as the place of occurrence of the external cause; I27.20 Pulmonary hypertension, unspecified; I07.1 Rheumatic tricuspid insufficiency; F17.210 Nicotine dependence, cigarettes, uncomplicated; G43.909 Migraine, unspecified, not intractable, without status migrainosus; Z68.23 Body mass index [BMI] 23.0-23.9, adult
CPT/HCPCS: 36415; 36416; 71010; 71275; 74000; 74022; 80048; 80053; 81003; 81015; 82553; 83690; 84484; 85025; 85652; 86140; 86160; 86850; 86900; 86901; 87040; 87070; 87086; 87205; 88112; 88305; 90471; 90682; 90732; 93005; 93010; 93306; 96374; 96375; A4216; G0008; G0009; J1100; J1170; J1642; J1650; J2001; J2060; J2175; J2250; J2270; J2405; J2704; J2920; J2930; J3010; J7050; J7506; Q0162; Q2036; S0020

== ENCOUNTER 2016-12-09 08:15 | Inpatient (IN) | payer SELFPAY ==
[2016-12-09 08:48] LABS: #Basophils 0.1 thou/uL (0.0-0.2); #Lymphocytes 0.6 thou/uL (1.20-3.40); #Monocytes 0.3 thou/uL (0.11-0.59); #Neutrophils 4.8 thou/uL (1.40-6.50); %Basophils 0.9 % (0.0-1.0); %Eosinophils 0.6 % (0.0-10.0); %Lymphocytes 10.1 % (21.0-51.0); %Monocytes 5.6 % (0.0-10.0); Hematocrit 28.8 % (42.0-52.0); Mean Platelet Volume 8.7 fL (7.4-10.4); Red Blood Cell (RBC) Count 2.84 mill/uL (4.70-6.10); White Blood Cell (WBC) Count 5.8 thou/uL (4.8-10.8)
--- NOTE | 2016-12-09 09:04 | RAD ---
PA AND LATERAL CHEST: Date: 12/09/16 INDICATION: History of chest pain. COMPARISON: Prior acute abdominal series dated 11/24/16. FINDINGS: There has been interval worsening of the small left pleural effusion. There is a new tiny right pleu ral effusion. There is increased opacity within both lung bases, some of which may be related to ate lectasis; however, pneumonia cannot be entirely excluded. Heart size is accentuated by the low lung volumes. No acute osseous abnormality is evident. IMPRESSION: 1. Interval worsening of the small left and tiny right pleural effusion. 2. Increased opacity both lung bases may be related to poor inspiration. Repeat examination with im proved inspiration may be helpful to exclude the presence of pneumonia. Recommend correlation. POS: JAMES
[2016-12-09 09:06] LABS: ALT (SGPT) 19 U/L (8-55); AST (SGOT) 19 U/L (5-34); Alkaline Phosphatase 153 U/L (40-150); Anion Gap 13 mmol/L (10-20); BUN (Urea Nitrogen) 14 mg/dL (8.9-20.6); Bilirubin, Total 0.4 mg/dL (0.2-1.2); Calc. Creatinine Clearance 0 mL/min (70-130); Calcium 8.3 mg/dL (7.8-10.44); Carbon Dioxide 24 mmol/L (22-29); Chloride 105 mmol/L (98-107); Estimated GFR-MDRD Greater than 90; Globulin 3.8 g/dL (2.4-3.5); Protein, Total 6.9 g/dL (6.0-8.3)
[2016-12-09 09:11] LABS: Troponin I 0.031 ng/mL (< 0.028)
--- NOTE | 2016-12-09 09:32 | RAD ---
UPRIGHT AND SUPINE FRONTAL IMAGING OF THE ABDOMEN AND PELVIS: Date: 12-09-16 Comparison: None. History: Recent paracardial window, dyspnea. FINDINGS: There is mild increased linear density in the left lung base suggesting volume loss or mild left bas ilar infiltrate. There is mild blunting of the left costophrenic angle suggesting possible small vol ume left pleural fluid. The upright imaging demonstrates no evidence for free intraperitoneal air. The bowel gas pattern shahram ears nonobstructed. IMPRESSION: Nonobstructed bowel gas pattern. No evidence for free intraperitoneal air. POS: [facility]
[2016-12-09] MEDS ORDERED: Ketorolac Tromethamine 30 MG/ML VIAL ONE (09:41)
[2016-12-09] MEDS ORDERED: Furosemide 20 MG/2 ML VIAL ONE (11:59)
[2016-12-09] MEDS ORDERED: Potassium Chloride 20 MEQ TAB ONE (13:02)
--- NOTE | 2016-12-09 13:45 | CON ---
DATE OF CONSULTATION: 12/09/2016 HISTORY OF PRESENT ILLNESS: This is an Emergency Department visit. I was called by the Emergency Department physicians to see Mr. Watkins. He is status post pericardial window on 11/21/2016. At the time of his pericardial window, he had 600 mL of clear fluid, which was evacuated. He had early tamponade symptomatology and echocardiogram findings at that time. Pathology from that surgical drainage showed normal pericardium on pathology. He returned today with sharp pains within his chest, shortness of breath when lying down and bilateral peripheral edema. He has been taking his prescribed medications at home, which include: 1. Motrin 400 mg t.i.d. p.r.n. 2. Prednisone 20 mg b.i.d. 3. Creon 12,000 units t.i.d. 4. Plaquenil 200 mg b.i.d. An echocardiogram was performed in the Emergency Department showing a very small -0.5 cm stripe of posterior pericardial fluid. This was loculated in nature and not causing any compression of his right ventricle or disturbance in the filling pattern of his right heart. Of note, this was right atrial and right ventricular dilatation with significant tricuspid regurgitation. This was concerning for pulmonary hypertension. Currently, he is resting comfortably in bed lying at approximately 30 degrees without chest pain or shortness of breath. PAST MEDICAL HISTORY: 1. Lupus. 2. History of pancreatitis and pancreatic insufficiency. 3. Peptic ulcer disease. PAST SURGICAL HISTORY: 1. Surgery for hidradenitis. 2. Pericardial window. CURRENT MEDICATIONS: Noted. ALLERGIES: None. SOCIAL HISTORY: He has previously used alcohol heavily, but does not drink any more. He occasionally uses tobacco. PHYSICAL EXAMINATION: GENERAL: This is a well-developed, well-nourished man resting comfortably in bed. VITAL SIGNS: Heart rate is 80 and blood pressure is 127/76. NECK: Supple, without adenopathy or edema. There is no JVD. CHEST: Clear bilaterally. Pericardial window incision healing nicely without erythema or drainage HEART: Rhythm is regular without significant murmurs. ABDOMEN: Soft and nontender. EXTREMITIES: He has bilateral pitting edema below the knees. ASSESSMENT AND PLAN: This is a 30-year-old gentleman status post pericardial window for pericarditis and pericardial effusion. I have discussed his current echocardiogram findings with him. He does not have a significant recurrent pericardial effusion and the fluid that is there should resolve with time. The more concerning finding on echocardiogram is that of a probable pulmonary hypertension. I have discussed with the patient and his echocardiogram with Dr. Gill, who is going to evaluate him in addition. I would be happy to see him in the future if needed. GAYATRI
[2016-12-09 14:12] VITALS: BMI 24.1
[2016-12-09] MEDS ORDERED: Ondansetron HCl/PF 4 MG/2 ML Vial IVP PRN (14:21)
[2016-12-09] MEDS ORDERED: Ondansetron ODT 4 MG TAB PO PRN (14:21)
[2016-12-09 16:06] LABS: Troponin I 0.033 ng/mL (< 0.028)
[2016-12-09] MEDS ORDERED: Bisacodyl 5 MG TAB PO PRN (17:02)
[2016-12-09] MEDS ORDERED: Enoxaparin Sodium 80 MG/0.8 ML SYRINGE SC SCH (17:45)
[2016-12-09] MEDS ORDERED: Potassium Chloride 20 MEQ TAB PO SCH (17:45)
[2016-12-09] MEDS: Ketorolac Tromethamine 30 MG/ML VIAL IVP PRN (17:59)
--- NOTE | 2016-12-09 20:17 | HP ---
DATE OF ADMISSION: 12/09/2016 PRIMARY CARE PHYSICIAN: Td obrien. REASON FOR ADMISSION: Chest discomfort, pericarditis. HISTORY OF PRESENT ILLNESS: Mr. Moe Watkins is a 30-year-old male with a history of recent per icardial effusion status post pericardiocentesis early this month at which time 600 mL were extracte d. Pathology from that time revealed no acute indication as to why he had a pericardial effusion. The patient does have a history of systemic lupus erythematosus and currently maintained on Plaqueni l and steroids. The patient began experiencing chest discomfort as well as shortness of breath whic h began today. He also noticed some bilateral peripheral edema. His chest pain he says is knife-li ke in nature and is exacerbated by lying down. He did have a bedside echocardiogram which showed a small amount of posterior pericardial fluid; however, this did not show any tamponade physiology, bu t it did show a significant tricuspid regurgitation as well as right ventricular dilatation and righ t atrial dilatation. Patient is currently resting comfortably in no acute distress. He did receive reportedly IV Lasix which has improved some of his symptoms. Given his extensive pericardial histo ry as well as findings on bedside echocardiogram, he has been admitted to the telemetry floor for fu rther evaluation. PAST MEDICAL HISTORY: 1. SLE. 2. History of pericardial effusion status post pericardiocentesis earlier this month. 3. Chronic pancreatitis with subsequent pancreatic insufficiency. 4. Rheumatoid arthritis, however, it is unclear if this is a just a component of SLE. PAST SURGICAL HISTORY: 1. Pericardial window. 2. Surgery for hidradenitis. CODE STATUS: FULL CODE. SOCIAL HISTORY: The patient is a former drinker, does not drink anymore. He is a current smoker. Denies illicit drug use. MEDICATIONS: 1. Plaquenil 200 mg p.o. b.i.d. 2. Motrin 400 mg p.o. t.i.d. 3. Creon 1 capsule p.o. t.i.d. 4. Prednisone 20 mg p.o. b.i.d. ALLERGIES: No known drug allergies. FAMILY HISTORY: Reviewed and noncontributory. REVIEW OF SYSTEMS: The following complete review of systems was negative, unless otherwise mentione d in the HPI or below: Constitutional: Weight loss or gain, sense of well-being, ability to conduct usual activities, exer cise tolerance. Skin/Breast: Rash, itching, changes in hair growth or loss, nail changes, breast l umps, tenderness, swelling, nipple discharge. Eyes: Vision, double vision, tearing, blind spots, p ain. ENT/Mouth: Headaches (location, time of onset, duration, precipitating factors), vertigo, lightheadedness, injury. Vision, double vision, tearing, blind spots, pain, nose bleeding, colds, obstruction, discharge, dental difficulties, gingival bleeding, dentures, neck stif fness, pain, tenderness, masses in thyroid or other areas. Cardiovascular: Precordial pain, subste rnal distress, palpitations, syncope, dyspnea on exertion, orthopnea, nocturnal paroxysmal dyspnea, edema, cyanosis, hypertension, heart murmurs, varicosities, phlebitis, claudication. Respiratory: Pain, shortness of breath, wheezing, stridor, cough, hemoptysis, fever or night sweats. Gastrointes tinal: Poor appetite, dysphagia, indigestion, abdominal pain, heartburn, eructation, nausea, vomiti ng, hematemesis, jaundice, constipation, or diarrhea, abnormal stools (vesna-colored, tarry, bloody, greasy, foul smelling), flatulence, hemorrhoids, recent changes in bowel habits. Genitourinary: Ur gency, frequency, dysuria, nocturia, hematuria, polyuria, oliguria, unusual (or change in) color of urine, stones, hesitancy, change in size of stream, dribbling, acute retention or incontinence, libi do, potency. Musculoskeletal: Pain, swelling, redness or heat of muscles or joints, limitation, of motion, muscular weakness, atrophy, cramps. Neurologic/Psychiatric: Convulsions, paralyses, tremo r, incoordination, parasthesias, difficulties with memory of speech, sensory or motor disturbances, or muscular coordination (ataxia, tremor), emotional problems, anxiety, depression, previous psychia tric care, unusual perceptions, hallucinations. Allergy/Immunologic: Skin rash, anemia, bleeding t endency, polydipsia, polyuria, intolerance to heat or cold. PHYSICAL EXAMINATION: CONSTITUTIONAL/VITAL SIGNS: Blood pressure is 123/84, temperature is 98.0, pulse is 79, respiration s are 19, O2 saturation 99% on room air. GENERAL: No acute distress, nontoxic appearing. EYES: Pupils are round and reactive to light and accommodation. No pale conjunctivae. ENT/MOUTH: Moist oral mucosa. CARDIOVASCULAR: S1, S2 present. His pericardial window incision is healing appropriately. No eryt pedro pablo or drainage noted. No murmurs. RESPIRATORY: Equal chest wall expansion. No wheezes, rhonchi, or rales. GASTROINTESTINAL: Soft, nontender, nondistended. Bowel sounds are present in all 4 quadrants. MUSCULOSKELETAL: Good range of motion in all 4 extremities. No clubbing or cyanosis. LYMPHATIC: No swollen or painful cervical or axillary lymph nodes. NEUROLOGIC: No ptosis, no facial asymmetry, no tongue deviation or jaw protrusion, no focal deficit s. PSYCHIATRIC: Awake, alert to time, place, person, answers appropriately. SKIN: He does have 1+ edema bilaterally in his lower extremities. LABORATORY AND X-RAY FINDINGS: Taken in emergency room and reviewed by me show a WBC of 5.8, hemogl obin 9.2, hematocrit 28.8, platelet count 206,000. Chemistry shows sodium 139, potassium 3.1, chlor torrey 105, carbon dioxide 24, anion gap 13, BUN 14, creatinine 0.65, glucose 142, alkaline phosphatase 153. Troponin 3 sets are 0.031. Second set is 0.030. Third set is 0.033. BNP 77.2. Chest x-ray done in the emergency room and reviewed by me reveals he does have a mild bilateral pleu ral effusions. The abdominal x-ray revealed nonobstructive bowel gas pattern. EKG revealed normal sinus rhythm. He does have some depressions in the anterior leads. ASSESSMENT AND PLAN: Mr. Moe Watkins is a 30-year-old male with a history of pericardial effus ion status post window, who presents to the emergency room complaining of shortness of breath and ch est discomfort. 1. chest discomfort, admit the patient to the telemetry floor. He does have indeterminate tr oponins which are most likely attributed to his recent intervention as well as pericarditis. His ec hocardiogram at bedside did reveal possibility of pulmonary hypertension given the tricuspid regurge as well as size of the right atrium and the right ventricle. The patient has been seen by [facility] Surgery who has recommended a Cardiology evaluation. Cardiology will be consulted for the in put as pulmonary hypertension, the possibility of evaluating for right heart catheterization. 2. Chronic pancreatitis. Continue Creon. 3. Hypokalemia, replete. 4. Systemic lupus erythematosus. Continue with Plaquenil and steroids. 5. Lasix. 6. . 7. FULL CODE. 8. Heart healthy diet. I explained all this to the patient at bedside. He is agreeable to the plan of treatment. All ques tions have been answered. The patient's further hospital course will be dictated by his clinical course while here.
[2016-12-09] MEDS: Hydroxychloroquine Sulfate 200 MG TAB PO SCH (21:34)
[2016-12-09] MEDS: Colchicine 0.6 MG TAB PO SCH (21:34)
[2016-12-09] MEDS: Acetaminophen 325 MG TAB PO PRN (21:34)
[2016-12-09] MEDS: Cyclobenzaprine 10 MG TAB PO PRN (21:34)
--- NOTE | 2016-12-10 01:38 | CON ---
DATE OF CONSULTATION: 12/09/2016 HISTORY: Moe Watkins is a pleasant, 30-year-old, male with history of lupus and pancreatitis. He was admitted on 11/19/2016 and had a very large pericardial effusion and underwent placement of a pericardial window. Biopsy of the pericardium did not reveal anything specific. 600 mL of clear brown fluid was removed. Culture of the fluid was negative. He now returns with complaints of chest pain. Earlier this morning approximately at 1:00 a.m., he stated that he had very sharp pains in his chest. These pains only occur when he was supine in bed. This never would occur if he is upright. Echocardiogram in the emergency room reportedly showed a very small pericardial effusion consistent with drainage of the pericardial effusion and recent pericardial window. It is also of note that on previous echocardiogram that there was paradoxical septal wall motion consistent with right ventricular overload. There is concern now that some of his peripheral edema may be due to pulmonary artery hypertension. PAST MEDICAL HISTORY: Lupus, history of pancreatitis, pancreatic insufficiency , peptic ulcer disease. OPERATIONS: Pericardial window surgery for hidradenitis. MEDICATIONS: Motrin 400 t.i.d. p.r.n., prednisone 20 mg daily, Creon 12,000 units t.i.d., Plaquenil 200 b.i.d. ALLERGIES: None. SOCIAL HISTORY: He occasionally smokes. He used to be a heavy drinker, but none recently. REVIEW OF SYSTEMS: A 12-point review of systems is otherwise unremarkable. PHYSICAL EXAMINATION: VITAL SIGNS: Blood pressure 123/84, pulse of 79, sinus rhythm on the monitor. HEENT: PERRL. NECK: Supple. CHEST: Clear. CARDIAC: S1 and S2 are normal without any S3, S4, rub or murmurs. Carotid upstrokes are normal without bruits. ABDOMEN: Normal bowel sounds, without tenderness or organomegaly. EXTREMITIES: Revealed 1+ pretibial edema. NEUROLOGIC: Grossly intact. LABORATORY DATA: EKG reveals normal sinus rhythm with anterolateral T-wave inversion. This was described on previous EKGs. Old EKG will be requested. Hemoglobin 9.2, hematocrit 28.8, white count 5800, platelets 206,000. Sodium 139, potassium 3.1, chloride 105, carbon dioxide 24, BUN 14, creatinine 0.65, glucose 142. Troponin I 0.033. CK-MB 0.6. IMPRESSION: 1. Status post pericardial window. 2. Chest pain-his current chest pain is consistent with pericardial pain, pleuritic in nature and worse when he is supine in bed. 3. Possible pulmonary artery hypertension, echo to be reviewed. ? related to possible obstructive sleep apnea. 4. Lupus. 5. History of pancreatitis. PLAN: Echocardiogram will be reviewed. He has a CT angiogram of the chest ordered. He is being gently diuresed. GAYATRI
[2016-12-10 05:19] LABS: #Eosinphils 0.1 thou/uL (0.0-0.7); #Lymphocytes 0.7 thou/uL (1.20-3.40); #Monocytes 0.3 thou/uL (0.11-0.59); #Neutrophils 2.8 thou/uL (1.40-6.50); %Eosinophils 1.7 % (0.0-10.0); %Lymphocytes 18.2 % (21.0-51.0); %Monocytes 7.1 % (0.0-10.0); Hematocrit 27.4 % (42.0-52.0); Mean Platelet Volume 8.4 fL (7.4-10.4); Red Blood Cell (RBC) Count 2.77 mill/uL (4.70-6.10); White Blood Cell (WBC) Count 3.8 thou/uL (4.8-10.8)
[2016-12-10] MEDS: Ketorolac Tromethamine 30 MG/ML VIAL IVP PRN ×3 (05:19→21:21)
[2016-12-10 05:41] LABS: Anion Gap 8 mmol/L (10-20); BUN (Urea Nitrogen) 18 mg/dL (8.9-20.6); Calc. Creatinine Clearance 196 mL/min (70-130); Calcium 8.4 mg/dL (7.8-10.44); Carbon Dioxide 29 mmol/L (22-29); Chloride 104 mmol/L (98-107); Estimated GFR-MDRD Greater than 90
--- NOTE | 2016-12-10 07:56 | CT ---
CT ANGIOGRAM CHEST INCLUDING 3D RENDERING: HISTORY: A 30-year-old male with shortness of breath. COMPARISON: 11/20/2016 FINDINGS: Moderate pericardial effusion but improved from 11/20/2016. Bilateral pleural effusions, very small on the right side and small on the left side, but slightly worse than compared to the prior study. Evidence for anasarca. Parenchymal changes in the left lower lobe and right middle lobe and some p arenchymal stranding in the right lower lobe, evidence for bilateral atelectasis and/or pneumonia, w ith little change. Evidence for ascites, improved from prior study. No significant CT evidence for acute pulmonary embolism. No evidence for aortic dissection or aneurysm. IMPRESSION: 1. Persistent but slightly improving pericardial effusion. 2. Bilateral pleural effusions, slightly worse on the left side when compared to the prior study. 3. Bilateral lower lung zone pulmonary parenchymal changes involving the right middle lobe and left lower lobe, and patchy changes in the right base. 4. Small amount of ascites, improved. 5. No significant CT evidence for acute pulmonary embolism. 6. No evidence for aortic aneurysm or dissection. 7. Stable dilatation of the main pulmonary artery. POS: [facility]
[2016-12-10] MEDS: Cyclobenzaprine 10 MG TAB PO PRN ×2 (08:31→18:41)
[2016-12-10] MEDS: Hydroxychloroquine Sulfate 200 MG TAB PO SCH ×2 (08:31→21:21)
[2016-12-10] MEDS: predniSONE 20 MG TAB PO SCH ×2 (08:31→18:41)
[2016-12-10] MEDS: Pancrelipase DR 12000 1 CAP PO SCH ×3 (08:31→18:41)
[2016-12-10] MEDS: Colchicine 0.6 MG TAB PO SCH ×2 (08:32→21:21)
[2016-12-10] MEDS ORDERED: Furosemide 20 MG/2 ML VIAL SLOW IVP SCH ×2 (09:00→14:00)
--- NOTE | 2016-12-10 12:43 | PDOC.PN ---
- Subjective Encounter Start Date: 12/10/16 Encounter Start Time: 12:41 Patient seen at bedside. No overnight events, states his Chest pain has improved. - Objective Resuscitation Status: Resuscitation Status FULL:Full Resuscitation MAR Reviewed: Yes Vital Signs & Weight: Vital Signs (12 hours) Temp Pulse Resp BP Pulse Ox 12/10/16 11:41 98.7 F 82 18 126/87 96 12/10/16 08:00 98.4 F 92 18 120/86 97 12/10/16 04:56 98.4 F 99 20 125/86 93 L Weight Weight 168 lb 4.8 oz I&O: 12/09/16 12/10/16 12/11/16 06:59 06:59 06:59 Intake Total 700 360 Balance 700 360 Result Diagrams: 12/10/16 04:36 12/10/16 04:36 Phys Exam - Physical Examination Constitutional: NAD HEENT: moist MMs Neck: no JVD Respiratory: no rales Cardiovascular: RRR Gastrointestinal: soft Musculoskeletal: edema present 1+ edema b/l Psychiatric: A&O x 3 Dx/Plan (1) Pericarditis Code(s): I31.9 - DISEASE OF PERICARDIUM, UNSPECIFIED Status: Acute Qualifiers: Infectious pericarditis etiology: unspecified (2) Pulmonary hypertension Code(s): I27.20 - PULMONARY HYPERTENSION, UNSPECIFIED Status: Suspected (3) Tricuspid regurgitation Code(s): I07.1 - RHEUMATIC TRICUSPID INSUFFICIENCY Status: Suspected Qualifiers: Cardiac valve disease etiology: etiology unspecified Qualified Code(s): I07.1 - Rheumatic tricuspid insufficiency - Plan cont current plan of care, plan discussed w/ family * Continue with Colchicine and Toradol. * Gentle diuresis * Await further input from cardiology * Tolerating SLE medications (prednisone and plaquenil)
--- NOTE | 2016-12-10 13:50 | PRG ---
DATE OF SERVICE: 12/10/2016 SUBJECTIVE: Mr. Watkins feels better today and his chest pain has improved. His breathing is improved. He had a good diuresis yesterday. The patient's INR were not accurate. He says he fulled up urine on multiple times this morning that it is not really recorded. OBJECTIVE: VITAL SIGNS: Blood pressure 126/87. LUNGS: Clear. CARDIAC: Normal S1, S2. ABDOMEN: Soft and nontender. EXTREMITIES: Still was moderate edema. REVIEWING THE DATA: The patient has markedly dilated right ventricle and right atrium. The pulmona ry artery pressure is elevated. If the right atrial pressure is estimated at 20 mmHg which is proba miracle realistic as the inferior vena cava was dilated and did not collapse with diastole. PA pressure s were in the mid 60s. The right ventricle was hypokinetic and enlarged. ASSESSMENT: 1. Right heart failure and pulmonary hypertension. 2. Normal left ventricular function. 3. Inverted T-waves in the anterior leads, probably related to heart overload. 4. Negative CT pulmonary angiogram. PLAN: 1. Continue diuretics. 2. We will discuss the case if I can with a specialist to see whether their options would be availa ble for this young gentleman with pulmonary hypertension and lupus.
[2016-12-10] MEDS ORDERED: Potassium Chloride 20 MEQ TAB PO SCH (14:00)
[2016-12-10] MEDS: Acetaminophen 325 MG TAB PO PRN (21:21)
[2016-12-11] MEDS: Ketorolac Tromethamine 30 MG/ML VIAL IVP PRN ×2 (04:55→11:13)
[2016-12-11 05:33] VITALS: BP 124/87
[2016-12-11] MEDS: Cyclobenzaprine 10 MG TAB PO PRN (05:48)
[2016-12-11] MEDS ORDERED: Furosemide 20 MG TAB PO SCH (09:00)
--- NOTE | 2016-12-11 09:20 | PDOC.PN ---
- Subjective Encounter Start Date: 12/11/16 Encounter Start Time: 09:14 Patient seen at bedside. No overnight events, feels well. - Objective Resuscitation Status: Resuscitation Status FULL:Full Resuscitation MAR Reviewed: Yes Vital Signs & Weight: Vital Signs (12 hours) Temp Pulse Resp BP Pulse Ox 12/11/16 04:00 98.4 F 77 20 124/87 98 Weight Admit Weight 168 lb 8 oz Weight 165 lb 8 oz I&O: 12/10/16 12/11/16 12/12/16 06:59 06:59 06:59 Intake Total 700 1825 Output Total 1875 Balance 700 -50 Result Diagrams: 12/10/16 04:36 12/10/16 04:36 Phys Exam - Physical Examination Constitutional: NAD HEENT: moist MMs Neck: no JVD Respiratory: no rales Cardiovascular: no significant murmur Gastrointestinal: non-tender Musculoskeletal: edema present 1+ edema Neurological: moves all 4 limbs Psychiatric: A&O x 3 Skin: no rash Dx/Plan (1) Pericarditis Code(s): I31.9 - DISEASE OF PERICARDIUM, UNSPECIFIED Status: Acute Qualifiers: Infectious pericarditis etiology: unspecified (2) Pulmonary hypertension Code(s): I27.20 - PULMONARY HYPERTENSION, UNSPECIFIED Status: Suspected (3) Tricuspid regurgitation Code(s): I07.1 - RHEUMATIC TRICUSPID INSUFFICIENCY Status: Suspected Qualifiers: Cardiac valve disease etiology: etiology unspecified Qualified Code(s): I07.1 - Rheumatic tricuspid insufficiency - Plan cont current plan of care * D/C Home today once EKG/Echo reports are completed. * F/U with Pulmonary Hypertension specialist in [place] (Dr. Wandy Aguilar)
--- NOTE | 2016-12-11 10:03 | DIS ---
DISCHARGE DISPOSITION: Home. DISCHARGE FOLLOWUP: 1. Follow up with Dr. Wandy Aguilar in [place] on 01/02/2016 at 8:[address] Chaitanya Merino as needed. DISCHARGE DIAGNOSES: 1. Acute pericarditis, etiology unknown. 2. Right heart failure with accompanying pulmonary hypertension. 3. History of lupus. 4. History of pericardial effusion status post pericardiocentesis. 5. Chronic pancreatitis. DISCHARGE MEDICATIONS: 1. Prednisone 20 mg p.o. b.i.d. 2. Creon 1 tablet p.o. t.i.d. 3. Toradol 10 mg p.o. t.i.d. p.r.n. 4. Motrin 400 mg p.o. t.i.d. 5. Plaquenil 200 mg p.o. b.i.d. 6. Lasix 20 mg p.o. daily. 7. Colchicine 0.6 mg p.o. b.i.d. for 3 months. I have instructed the patient not to take Toradol and Motrin together. INPATIENT CONSULTS: 1. Dr. Pasha Rahman from Cardiovascular Surgery. 2. Dr. Gill, Cardiology. INPATIENT PROCEDURES: None. INPATIENT RADIOGRAPHIC EXAMINATIONS: 1. Chest x-ray which revealed increased opacity both lung bases as well as interval worsening in th e small left and tiny right pleural effusion. 2. Abdominal x-ray, which revealed nonobstructive bowel gas pattern. There is no evidence of free intraperitoneal air. 3. CTA of the chest which revealed no evidence for pulmonary embolism. 4. Echocardiogram which revealed a trivial pericardial effusion, ejection fraction noted to be 55-6 0%. There was a left atrium which is mildly dilated, there was a markedly enlarged right atrium as well as moderate to severe tricuspid regurgitation, and moderate pulmonary artery and hypertension. BRIEF HOSPITAL COURSE: Mr. Moe Watkins is a 30-year-old male with a history of pericardit is as well as a pericardial effusion and lupus who presented to the emergency room complaining of sh ortness of breath and chest pain. On arrival, the patient did have an echocardiogram, which showed a very trivial pericardial effusion without evidence of tamponade. He did have a dilated and a larg e right heart. He was subsequently admitted to the telemetry floor were Cardiology evaluated the angel pozo. Cardiovascular Surgery also evaluated the patient, said there was no indication for further intervention in regards to small pericardial effusion. Cardiology evaluated the patient and noted anhtony vergara had evidence of pulmonary hypertension as well as right heart failure. He was started on Lasix fo r his leg swelling and tolerated this well. The patient did have what clinically appeared to be per icarditis and started on colchicine and NSAIDs after which his pain improved. In regards to his pul monary hypertension. The patient is being set up with a specialist in [place] for which an appointme nt has already been made. He will go there on 01/01/2017 at 8:30 a.m. He will follow up with them. He will be discharged later today once his echocardiogram and discharge summary are available for him to take with him. I have explained all this to the patient at bedside. He is agreeable to the plan of discharge. He is clinically appropriate for discharge. DISCHARGE DIET: Heart healthy. ACTIVITY: As tolerated. RESTRICTIONS: The patient likely will have work restrictions. CODE STATUS: Full code. ALLERGIES: No known drug allergies. DISCHARGE FOLLOWUP: 1. Dr. Aguilar. 2. Dr. Merino. I explained all this to the patient at bedside. He is agreeable to the plan of discharge. All ques tions have been answered. Total time required to prepare for his discharge 39 minutes.
[2016-12-11] MEDS: Hydroxychloroquine Sulfate 200 MG TAB PO SCH (11:04)
[2016-12-11] MEDS: Pancrelipase DR 12000 1 CAP PO SCH (11:04)
[2016-12-11] MEDS: predniSONE 20 MG TAB PO SCH (11:04)
[2016-12-11] MEDS: Colchicine 0.6 MG TAB PO SCH (11:05)
--- NOTE | 2016-12-11 11:47 | PRG ---
DATE OF SERVICE: 12/11/2016 HISTORY: Mr. Watkins is doing better today. He is not having chest pain. He is continuing to put out a good diuresis. He feels well today. PHYSICAL EXAMINATION: VITAL SIGNS: His blood pressure is 124/87 and pulse 76 and regular. LUNGS: Clear. CARDIAC: Normal S1 and normal S2. EXTREMITIES: He only has mild edema. ASSESSMENT: 1. Systemic lupus erythematosus. The patient has a history of positive ROHAN. The screen was positi ve. The other lab reports in reviewing the records, show the IgG Ab Rahman was 3.6, double-stranded DNA was 295, complement C3 of 37, and complement C4 of 4.3 and that was done on 10/12/2016. In term s of the ROHAN, Rahman, double-stranded, and the complement C3 and C4, they were done 11/20/2016. 2. The patient has chronic anemia, hemoglobin is 8.6. 3. The patient has normal left ventricular function with dilated hypodynamic right ventricle with p ulmonary hypertension. I suspect the pulmonary vascular resistance is very high. His right ventric le was markedly hypodynamic. 4. T-wave inversions in the anterior leads. I suspect that is right ventricular overload. 5. Troponin level of 0.033, which is just above the negative level and into the indeterminate. 6. BNP 787, which appears to be due to the right heart. The physicians in [place] have graciously agreed to see the patient and see if anything can be done w ith the pulmonary hypertension. I have asked him to take a copy of the EKG, CD of the echo with him, and my note from today. ADDENDUM: The patient also has a history of pericardial effusion, which was successfully drained, c lear fluid, and a window was also done as it looked like it was early hemodynamic compromise. The p atient only has trace pericardial effusion now. The effusion was drained 11/21/2016.
[2016-12-11 14:50] VITALS: TEMP 98.5
== END 2016-12-11 11:50 | disposition home or self-care (01) | DRG 315 ==
LOC: ERS 08:15 → 2NO 13:34
PROVIDERS: ADMIT Hospitalist; ATTEND Hospitalist
DX: I30.9 Acute pericarditis, unspecified (principal); K86.1 Other chronic pancreatitis; M32.9 Systemic lupus erythematosus, unspecified; I27.29 Other secondary pulmonary hypertension; E87.70 Fluid overload, unspecified; I07.1 Rheumatic tricuspid insufficiency; I50.810 Right heart failure, unspecified; Z87.11 Personal history of peptic ulcer disease; Z79.52 Long term (current) use of systemic steroids; F17.210 Nicotine dependence, cigarettes, uncomplicated; E87.6 Hypokalemia; K86.89 Other specified diseases of pancreas
CPT/HCPCS: 36415; 71020; 71275; 74020; 80048; 80053; 82553; 83880; 84484; 85025; 93005; 93306; 94760; 96374; 96375; A4216; J1650; J1885; J1940; J7506

== ENCOUNTER 2017-02-24 09:15 | Emergency (ER) | payer OTHER ==
[2017-02-24] MEDS ORDERED: ISOVUE-370 76%-LOCM 1 ML ONE (09:56)
[2017-02-24 10:01] LABS: #Lymphocytes 0.8 thou/uL (1.20-3.40); #Monocytes 0.5 thou/uL (0.11-0.59); #Neutrophils 2.5 thou/uL (1.40-6.50); %Basophils 0.1 % (0.0-1.0); %Eosinophils 0.3 % (0.0-10.0); %Lymphocytes 20.4 % (21.0-51.0); %Monocytes 12.2 % (0.0-10.0); Hemoglobin 11.7 g/dL (14.0-18.0); Mean Corpuscular HGB CONC 32.3 g/dL (32.0-36.0); Mean Corpuscular Hemoglobin 31.1 pg (27.0-31.0); Mean Corpuscular Volume 96.3 fl (80.0-94.0); Mean Platelet Volume 9.5 fL (7.4-10.4); Platelet Count 180 thou/uL (130-400); RBC Distribution Width 16.3 % (11.5-14.5); Red Blood Cell (RBC) Count 3.78 mill/uL (4.70-6.10); White Blood Cell (WBC) Count 3.7 thou/uL (4.8-10.8)
[2017-02-24 10:17] LABS: ALT (SGPT) 12 U/L (8-55); AST (SGOT) 16 U/L (5-34); Albumin 3.8 g/dL (3.5-5.0); Alkaline Phosphatase 141 U/L (40-150); Anion Gap 15 mmol/L (10-20); BUN (Urea Nitrogen) 10 mg/dL (8.9-20.6); Bilirubin, Total 0.4 mg/dL (0.2-1.2); CK (CPK) 45 U/L (30-200); Calc. Creatinine Clearance 0 mL/min (70-130); Calcium 9.3 mg/dL (7.8-10.44); Carbon Dioxide 21 mmol/L (22-29); Chloride 109 mmol/L (98-107); Estimated GFR-MDRD Greater than 90; Glucose 89 mg/dL (70-105); Lipase 35 U/L (8-78); Potassium 3.2 mmol/L (3.5-5.1); Protein, Total 7.8 g/dL (6.0-8.3); Sodium 142 mmol/L (136-145)
[2017-02-24] MEDS ORDERED: Morphine 2 MG/ML SYRINGE ONE (10:28)
[2017-02-24] MEDS ORDERED: Ondansetron HCl/PF 4 MG/2 ML Vial ONE (10:28)
[2017-02-24] MEDS ORDERED: Ketorolac Tromethamine 30 MG/ML VIAL ONE (10:28)
[2017-02-24 11:09] LABS: Bilirubin Negative (Negative); Blood, Urine Negative (Negative); Clarity CLEAR (Clear); Glucose, Urine (Dipstick) Negative (Negative); Leukocyte Negative (Negative); Nitrite Negative (Negative); Protein, Urine (Dipstick) 30 mg/dL (Neg-Trace); Specific Gravity, Urine 1.023 (1.002-1.036); pH, Urine 6.5 (5.0-9.0)
[2017-02-24 11:17] LABS: Bacteria/HPF None Seen HPF (None Seen); Hyaline Casts/LPF 0-3 HYALINE CAST LPF (0-3 Hyaline); RBC/HPF 0-3 HPF (0-3); Squamous Epithelial 0-3 HPF (0-3); WBC/HPF 0-3 HPF (0-3)
--- NOTE | 2017-02-24 11:34 | ULT ---
SCROTAL SONOGRAM WITH DUPLEX EVALUATION: History: Right scrotal pain. FINDINGS: The right testicle is 3.9 cm in length. An eccentric ill-defined hypoechoic mass is 1.6 cm diameter. Small amount of right scrotal fluid is present. Good color and spectral doppler flow are evident with in each testicle. The left testicle is 4.5 cm in length and contains small calcifications. IMPRESSION: 1. Right testicular mass, 1.7 cm. 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 Please consider urologic consultation. POS: [facility]
--- NOTE | 2017-02-24 12:24 | CT ---
CT ABDOMEN AND PELVIS WITH IV CONTRAST: HISTORY: Abdomen and pelvic pain. Right testicular mass on sonogram. FINDINGS: Mild atelectasis is present at the lung bases. The liver, spleen, kidneys, adrenal glands, and pancr eas have a normal CT appearance. Slightly enlarged lymph nodes are scattered throughout the retroper itoneum, primarily adjacent to the aorta and inferior vena cava. The largest left paraaortic lymph n ode measures up to 1.6 cm in diameter. An enlarged lymph node, medial to the right common femoral ve ssels, is 1.4 cm in greatest diameter. The urinary bladder is unremarkable. There is circumferential wall thickening involving the rectum and lower sigmoid colon, with standing in the adjacent fat. Minimal free fluid is present against the right side of the rectum. There are degenerative changes of the lumbar spine. IMPRESSION: 1. Proctitis. 2. Stranding within the pararectal fat. Cause is not evident. 3. Slightly enlarged lymph nodes within the retroperitoneum and right common femoral chain. In the setting of the recently found right testicular mass, metastatic disease is favored. Findings were called to Dr. Salas in the emergency department at 1155 hours. CODE CR POS: [facility]
== END 2017-02-24 12:34 | disposition home or self-care (01) ==
LOC: ERS 09:15
DX: C62.91 Malignant neoplasm of right testis, unspecified whether descended or undescended (principal); M32.9 Systemic lupus erythematosus, unspecified; F31.9 Bipolar disorder, unspecified; K27.9 Peptic ulcer, site unspecified, unspecified as acute or chronic, without hemorrhage or perforation; K86.1 Other chronic pancreatitis; Z79.899 Other long term (current) drug therapy
CPT/HCPCS: 36415; 74177; 76870; 80053; 81003; 81015; 82105; 82550; 83615; 83690; 84702; 85025; 93976; 96361; 96374; 96375; J1885; J2270; J2405

== ENCOUNTER 2017-02-25 11:31 | Outpatient (CLI) | payer OTHER ==
[2017-02-25 12:31] LABS: Hemoglobin 11.5 g/dL (14.0-18.0); Mean Corpuscular HGB CONC 32.2 g/dL (32.0-36.0); Mean Corpuscular Hemoglobin 30.9 pg (27.0-31.0); Mean Platelet Volume 9.6 fL (7.4-10.4); Platelet Count 159 thou/uL (130-400); RBC Distribution Width 16.3 % (11.5-14.5); White Blood Cell (WBC) Count 4.1 thou/uL (4.8-10.8)
[2017-02-25 12:40] LABS: Anion Gap 11 mmol/L (10-20); BUN (Urea Nitrogen) 10 mg/dL (8.9-20.6); Calc. Creatinine Clearance 0 mL/min (70-130); Calcium 9.1 mg/dL (7.8-10.44); Carbon Dioxide 24 mmol/L (22-29); Chloride 106 mmol/L (98-107); Estimated GFR-MDRD Greater than 90; Glucose 75 mg/dL (70-105); Sodium 138 mmol/L (136-145)
[2017-02-25 12:43] LABS: PTT 33.9 SEC (22.9-36.1); Prothrombin Time 13.4 SEC (12.0-14.7)
== END 2017-02-25 11:32 | disposition home or self-care (01) ==
LOC: LABBT 11:31
PROVIDERS: ATTEND Urology
DX: Z01.818 Encounter for other preprocedural examination (principal); N50.9 Disorder of male genital organs, unspecified
CPT/HCPCS: 80048; 81001; 85027; 85610; 85730; 87086; 93005; 93010

== ENCOUNTER 2017-03-09 08:21 | Outpatient (CLI) | payer OTHER ==
--- NOTE | 2017-03-09 10:59 | CT ---
CT CHEST WITH CONTRAST: TECHNIQUE: Multiple axial tomograms obtained through the chest with IV enhancement. HISTORY: Testicular cancer. Followup pericarditis and pulmonary hypertension. COMPARISON: Comparison is made to chest CT angio study 12/10/16. FINDINGS: The bilateral effusions have resolved since the prior exam. The lung infiltrates and atelectasis not ed on the prior study have also resolved. The small pleural-based nodular density in the posterior l eft lung measures approximately 1.0 cm. This most likely represents a pleural-based rounded atelecta sis. There are some mild atelectatic changes that persist in the left lower lobe with linear atelect atic and/or infiltrative density extending to the lateral pleural surface. Minimal atelectatic prasad e is also seen in the lower lingula peripherally. There continues to be a small pericardial effusion slightly less than on the prior study. Mediastinum is unremarkable. Images through the upper abdomen unremarkable. IMPRESSION: 1. Persistent small pericardial effusion. 2. Linear infiltrate and/or atelectasis in the left lower lobe extending to the pleural surface. A focal pleural-based nodular density measuring 1.0 cm seen near this region probably representing roun ded atelectasis. Followup is recommended. There are mild atelectatic changes also seen in the lingu la inferiorly. 3. There has been clearing of the pleural effusions and there has been overall improvement in the harvey ng parenchymal findings. POS: [facility]
== END 2017-03-09 08:22 | disposition home or self-care (01) ==
LOC: SCSCT 08:21
PROVIDERS: ATTEND Urology
DX: I27.20 Pulmonary hypertension, unspecified (principal); I31.8 Other specified diseases of pericardium; N50.9 Disorder of male genital organs, unspecified; I31.3 Pericardial effusion (noninflammatory); J98.4 Other disorders of lung
CPT/HCPCS: 71260

== ENCOUNTER 2017-03-11 06:52 | Day surgery (SDC) | payer OTHER ==
[2017-02-25 12:02] VITALS: BMI 22.9
[2017-03-11] MEDS ORDERED: CEFAZOLIN 1 GM, Syringe 2.5 ML in Sterile Water 7.5 ML SLOW IVP SCH (09:15)
[2017-03-11] MEDS ORDERED: Bupivacaine 0.25% HCL 30 ML VIAL ONE (09:31)
[2017-03-11] MEDS ORDERED: Midazolam HCl 2 mg/2 ml Vial ONE (09:43)
[2017-03-11] MEDS ORDERED: Fentanyl 100 MCG/2 ML VIAL ONE ×5 (09:51→13:15)
[2017-03-11] MEDS ORDERED: Neomycin-Polymyxin 1 ML AMP ONE (11:31)
[2017-03-11] MEDS ORDERED: HYDROmorphone 0.5 MG/0.5 ML SYRINGE ONE ×4 (12:41→13:12)
[2017-03-11] MEDS ORDERED: Promethazine HCl 25 MG/ML VIAL ONE (13:15)
[2017-03-11] MEDS ORDERED: HYDROcodone/Acetaminophen 5/325 mg Tablet ONE (13:30)
[2017-03-11] MEDS ORDERED: Hydrocortisone Sod Succ/PF 100 mg/2 ml Vial ONE (14:59)
[2017-03-11] MEDS ORDERED: PROPOFOL 200 MG/20 ML VIAL ONE (14:59)
[2017-03-11] MEDS ORDERED: PHENYLEPHRINE-NS 100 MCG/ML 10 ML SYRINGE ONE (14:59)
[2017-03-11] MEDS ORDERED: Lidocaine 1% PF 5 ML VIAL ONE (14:59)
[2017-03-11] MEDS ORDERED: Ondansetron HCl/PF 4 MG/2 ML Vial ONE (14:59)
--- NOTE | 2017-03-11 17:13 | OP ---
DATE OF SERVICE: 03/11/2017 PREOPERATIVE DIAGNOSES: This is a 31-year-old male with, 1. History of right testicular mass. 2. History of borderline retroperitoneal lymphadenopathy. POSTOPERATIVE DIAGNOSES: This is a 31-year-old male with, 1. History of right testicular mass. 2. History of borderline retroperitoneal lymphadenopathy. PROCEDURE: Right radical orchiectomy, incision and drainage of hidradenitis abscess of the right thigh. SURGEON: Sammie Pedraza D.O. ANESTHESIA: General. COMPLICATIONS: None apparent. DISPOSITION: To the recovery room in stable condition. SPECIMEN: 1. Right testis cord structures. 2. Wound culture of right thigh abscess. ESTIMATED BLOOD LOSS: Minimal. COMPLICATIONS: None apparent. INTRAOPERATIVE FINDINGS: 1. Right testicular mass palpable on physical exam. 2. History of hidradenitis of the axilla, the patient presented this morning with new onset right thigh groin hidradenitis abscess that ruptured. The abscess was approximately 1 cm at the level of right medial thigh just inferior to the inguinal crease INDICATIONS FOR THE PROCEDURE AND HISTORY: Mr. Watkins is a 31-year-old male, with history of systemic lupus pericarditis, pulmonary hypertension, who presented to the emergency room due to right scrotal discomfort. Scrotal ultrasound demonstrated a 1 cm right lower pole mass suspicious for seminoma. His tumor markers are normal. Beta hCG alpha fetoprotein 3.5. LDH is mildly elevated at 254. He had a CT of the abdomen and pelvis in 09/2016 demonstrating mildly increased aortocaval lymph nodes. Patient has been advised regarding right radical orchiectomy. Differential diagnosis of likely testicular carcinoma, however, we also discussed in lengthy detail regarding possible nonmalignant etiology. Options of right radical orchiectomy was reviewed. I did discuss with the patient in detail regarding biopsy, partial orchiectomy. As it is concerning for right testicular carcinoma , right radical orchiectomy was reviewed. Risks and complications of pre- existing infertility, bleeding, pain, infection, chronic pain, wound complication, hematoma, PE, DVT, perioperative mortality was reviewed. The patient is in full understanding regarding the differential diagnosis and desires to proceed without reservation. He presented this morning in preop area with new onset right thigh abscess. He states that he usually gets hidradenitis exacerbation of his axilla; however, this presents in the right medial upper thigh. This demonstrated some nodularity; however, no fluctuance. There was a wide opening and appeared most of the abscess cavity has been improved. DESCRIPTION OF THE PROCEDURE: After an informed consent is signed, the patient is taken to the operating room, placed in supine position with the genital area prepped and draped in the usual surgical sterile fashion. Given the findings of a right thigh abscess, I did provide vancomycin as preoperative antibiotics as well with double coverage. Bilateral CHERYL hose, SCDs were placed. The genital area and the groin was prepped separately. The right medial thigh abscess cavity was well covered, and we performed a right radical orchiectomy first. A #10 blade was utilized to make a small right inguinal incision from the level of the pubic tubercle towards the ASIS. The subcutaneous fascia was opened to the limits of skin incision. There were some small varicosity vessels , which were doubly ligated with 2-0 Vicryl. The aponeurosis of the external oblique fascia was then bluntly and sharply developed. The fascia was then opened with a 15 blade, and the ilioinguinal nerve was identified. This appeared to be tethered at the level of the external ring. To prevent granuloma and suture ligation, I did transect the ilioinguinal nerve with Metzenbaum scissors. The cord structures were isolated using blunt and sharp dissection. A Kerry was then placed at the level of the internal ring, and a tourniquet hemostat was placed. The cord structures were sharply and bluntly developed mobilizing from the floor of the inguinal canal, and the testicle was delivered through the inguinal incision intact. He did have a reactive hydrocele. The gubernacular attachments were divided with electrocautery, and good hemostasis was noted. There was some subcutaneous bleeding in the apex of the incision that was superficial and this was cauterized with good hemostasis. The testicle was then completely delivered into the inguinal incision. The cord structures were divided in two and ligated with 2-0 silk suture tie. The most proximal stump was ligated with 0 silk. We then transected the cord allowing the stump of the cord to retract retroperitoneally. The wound was copiously irrigated. We then proceeded to close his external oblique fascia using 2-0 Vicryl in a running fashion. Care was taken not to incorporate the ilioinguinal nerve. The subcutaneous fascia was closed with interrupted 2-0 chromic. The skin was closed with 4-0 Maxon in a subcuticular fashion. Dermabond was then placed, and sterile dry dressing was placed. We then proceeded to perform the I&D of the right thigh abscess of his hidradenitis. I made a small incision, there was no pustular cavity. It appeared to have some granulating tissue with no further abscess that needed to be drained. The wound was copiously irrigated, and packed with 4 x 4 wet to dry. He is discharged with Snelling 5/325 #50 one to two p.o. every 6 to 8 hours p.r.n., Bactrim DS 1 p.o. b.i.d. x10 days, Colace 100 mg p.o. b.i.d. p.r.n. He will return to clinic next week for pathology review. The patient will be advised regarding wet to dry regarding his thigh abscess. The wound is to be covered at all times. GAYATRI
== END 2017-03-11 14:50 | disposition home or self-care (01) ==
LOC: SDC 06:52
PROVIDERS: ATTEND Urology
PROC: 0Y950ZZ Drainage of Right Inguinal Region, Open Approach (ICD-10-PCS; principal; 2017-03-11)
PROC: 0VT90ZZ Resection of Right Testis, Open Approach (ICD-10-PCS; principal; 2017-03-11)
DX: N50.89 Other specified disorders of the male genital organs (principal); L73.2 Hidradenitis suppurativa; R59.0 Localized enlarged lymph nodes; M32.9 Systemic lupus erythematosus, unspecified; I31.9 Disease of pericardium, unspecified; I11.0 Hypertensive heart disease with heart failure; I50.810 Right heart failure, unspecified; F31.9 Bipolar disorder, unspecified
CPT/HCPCS: 87070; 87076; 87205; 88305; 96374; A4216; J0690; J1170; J1720; J2001; J2250; J2405; J2550; J2704; J3010; J3370; S0020

== ENCOUNTER 2017-05-29 20:12 | Emergency (ER) | payer MEDICAID, SELFPAY ==
--- NOTE | 2017-05-29 20:34 | RAD ---
SINGLE VIEW OF THE CHEST 05/29/17 COMPARISON: 11/19/16 HISTORY: Pulmonary hypertension and lupus. Dyspnea and difficulty breathing. FINDINGS: Single view of the chest shows a normal sized cardiomediastinal silhouette. There is no evidence of c onsolidation, mass, or pleural effusion. The bones are unremarkable. IMPRESSION: No evidence of acute cardiopulmonary disease. POS: [facility]
[2017-05-29 20:54] LABS: ALT (SGPT) 15 U/L (8-55); AST (SGOT) 29 U/L (5-34); Albumin 4.4 g/dL (3.5-5.0); Alkaline Phosphatase 167 U/L (40-150); Anion Gap 17 mmol/L (10-20); BUN (Urea Nitrogen) 13 mg/dL (8.9-20.6); Bilirubin, Total 0.6 mg/dL (0.2-1.2); Calc. Creatinine Clearance 0 mL/min (70-130); Calcium 9.4 mg/dL (7.8-10.44); Carbon Dioxide 20 mmol/L (22-29); Chloride 109 mmol/L (98-107); Estimated GFR-MDRD Greater than 90; Globulin 4.2 g/dL (2.4-3.5); Glucose 100 mg/dL (70-105); Potassium 3.4 mmol/L (3.5-5.1); Protein, Total 8.6 g/dL (6.0-8.3); Sodium 143 mmol/L (136-145)
[2017-05-29 20:59] LABS: Anisocytosis SLIGHT = 6-15 cells (100X) (0-5/hpf); Band 1 % (5-11); Hemoglobin 14.2 g/dL (14.0-18.0); Lymphocytes 40 % (21-51); MDiff Complete? YES; Mean Corpuscular HGB CONC 33.8 g/dL (32.0-36.0); Mean Corpuscular Hemoglobin 32.2 pg (27.0-31.0); Mean Corpuscular Volume 95.1 fl (80.0-94.0); Monocytes 13 % (0-10); Neutrophil 46 % (42-75); Ovalocytes SLIGHT = 2-5 cells (100X) (0-1/hpf); PLT Morphology Comment Appears Adequate; Platelet Count 119 thou/uL (130-400); RBC Distribution Width 18.3 % (11.5-14.5); Red Blood Cell (RBC) Count 4.41 mill/uL (4.70-6.10); White Blood Cell (WBC) Count 2.9 thou/uL (4.8-10.8)
== END 2017-05-29 22:10 | disposition home or self-care (01) ==
LOC: ERS 20:12
DX: J20.9 Acute bronchitis, unspecified (principal); G43.909 Migraine, unspecified, not intractable, without status migrainosus; F31.9 Bipolar disorder, unspecified; Z79.899 Other long term (current) drug therapy
CPT/HCPCS: 71045; 80053; 85025; 93005; 94640; J7620

== ENCOUNTER 2017-06-10 18:58 | Inpatient (IN) | payer MEDICAID, SELFPAY ==
[~2017-06-10 18:58] MED LIST: ISOVUE-370 76%-LOCM 1 ML ONE
[2017-06-10] MEDS ORDERED: Morphine 4 MG/ML VIAL ONE ×2 (19:27→22:18)
[2017-06-10] MEDS ORDERED: Acetaminophen 500 MG TAB ONE (19:27)
[2017-06-10 19:46] LABS: Mean Corpuscular Hemoglobin 31.7 pg (27.0-31.0); Mean Corpuscular Volume 95.9 fl (80.0-94.0); RBC Distribution Width 17.5 % (11.5-14.5); Red Blood Cell (RBC) Count 4.73 mill/uL (4.70-6.10)
[2017-06-10 19:56] LABS: ALT (SGPT) 15 U/L (8-55); AST (SGOT) 29 U/L (5-34); Albumin 4.6 g/dL (3.5-5.0); Alkaline Phosphatase 171 U/L (40-150); Anion Gap 14 mmol/L (10-20); BUN (Urea Nitrogen) 14 mg/dL (8.9-20.6); Bilirubin, Total 0.6 mg/dL (0.2-1.2); Calc. Creatinine Clearance 0 mL/min (70-130); Calcium 9.6 mg/dL (7.8-10.44); Carbon Dioxide 23 mmol/L (22-29); Chloride 108 mmol/L (98-107); Estimated GFR-MDRD Greater than 90; Globulin 4.6 g/dL (2.4-3.5); Glucose 83 mg/dL (70-105); Potassium 3.5 mmol/L (3.5-5.1); Protein, Total 9.2 g/dL (6.0-8.3); Sodium 141 mmol/L (136-145)
[2017-06-10 20:02] LABS: CKMB 1.2 ng/mL (0-6.6); Troponin I Less than 0.010 ng/mL (< 0.028)
[2017-06-10 20:15] LABS: #Lymphocytes 0.6 thou/uL (1.20-3.40); #Monocytes 0.6 thou/uL (0.11-0.59); #Neutrophils 2.8 thou/uL (1.40-6.50); %Eosinophils 0.2 % (0.0-10.0); %Lymphocytes 15.5 % (21.0-51.0); %Monocytes 14.5 % (0.0-10.0); %Neutrophils 69.7 % (42.0-75.0); Anisocytosis SLIGHT = 6-15 cells (100X) (0-5/hpf); MDiff Complete? YES; PLT Morphology Comment Appears Decreased; Platelet Count 121 thou/uL (130-400)
--- NOTE | 2017-06-10 20:53 | RAD ---
ONE VIEW CHEST: 06/10/17 HISTORY: Pain and shortness of breath. Lupus. COMPARISON: 05/29/17. FINDINGS: Stable cardiac silhouette. Chronic change in the left lung base. No consolidation or mass. No consoli dation or mass. No pneumothorax or osseous abnormalities. No significant interval change. IMPRESSION: No acute cardiopulmonary process. Chronic changes in the left lung base. POS: [facility]
--- NOTE | 2017-06-10 21:25 | CT ---
CHEST CT WITH CONTRAST ABDOMEN CT WITH CONTRAST PELVIC CT WITH CONTRAST 06/10/17 COMPARISON: 03/09/17, 02/24/17. HISTORY: Lupus. Testicular cancer. Shortness of breath. Abdominal pain. Fever and chills. TECHNIQUE: Chest, abdomen and pelvic CT are performed in the axial plane. Coronal reformatted images are submitt ed for interpretation. FINDINGS: There is a moderate amount of pericardial fluid. When compared to the previous Chest CT, the degree o f pericardial fluid is slightly decreased. The maximum amount of pericardial fluid measures approxima tely 2 cm. Heart size is within normal limits. The thoracic and abdominal aorta have a normal caliber . No periaortic fat stranding. Trachea and central bronchi are patent. No masses or consolidation. Scarring and atelectasis in the l ingula, left lower lobe and middle lobe are noted. No pneumothorax or pleural effusion. Nonspecific b ilateral axillary lymph nodes. ABDOMEN CT: Portal vein is patent. Gallbladder is unremarkable. The liver, spleen, pancreas, and adrenal glands h ave appropriate enhancement. No gastrohepatic, retrocrural or periportal lymphadenopathy. No mesenteric mass, lymphadenopathy, free air of free fluid. Symmetric enhancement of the kidneys. Bilaterally, no obstructive uropathy. Limited evaluation of the alimentary canal due to lack of oral contrast. Gastric mucosa, duodenum and multiple normal caliber small bowel loops are noted. Ileocecal junction is normal. Normal caliber ap pendix. Scattered fecal material in a nondistended, nondilated colon. Diverticulosis in the sigmoid c olon. No definite evidence of diverticulitis. There is abnormal mucosal prominence and adjacent fat stranding at level of the rectum. The findings are similar to the CT from February 2017. PELVIC CT: Trace amount of fluid in the presacral space and in the pelvis. No mass, lymphadenopathy or free air. Urinary bladder is unremarkable. Improved aeration of the lung parenchyma when compared to the prior examination. Linear opacities are presumed to be chronic. Stable enlarged right common femoral lymph node measuring 1.6 cm (previously measuring 1.4 cm). Nonspecific periaortic and aortocaval lymph nod es are noted and are similar to the previous exam. IMPRESSION: 1. Perirectal fat stranding, similar to the prior examination. Stable fluid in the presacral spa ce. Findings are felt to be chronic. Correlate clinically for acute proctitis. 2. Stable right common femoral lymph node, mildly enlarged. Consider PET imaging if there is con cern for tumor recurrence. POS: [facility]
[2017-06-10] MEDS ORDERED: metroNIDAZOLE 500 MG/100 ML BAG ONE (22:14)
[2017-06-10 23:16] LABS: Bilirubin Negative (Negative); Blood, Urine Negative (Negative); Clarity CLEAR (Clear); Glucose, Urine (Dipstick) Negative (Negative); Leukocyte Negative (Negative); Nitrite Negative (Negative); Protein, Urine (Dipstick) Negative (Neg-Trace); Specific Gravity, Urine 1.025 (1.002-1.036); Urobilinogen 0.2 mg/dL (0.2-1.0)
[2017-06-11] MEDS ORDERED: Ondansetron ODT 4 MG TAB SL PRN
[2017-06-11] MEDS ORDERED: Acetaminophen 325 MG TAB PO PRN
[2017-06-11 00:12] VITALS: BMI 21.6
[2017-06-11] MEDS ORDERED: HYDROcodone/Acetaminophen 5/325 mg Tablet PO PRN (00:50)
[2017-06-11] MEDS ORDERED: Diphenoxylate HCl/Atropine Tablet PO PRN (00:50)
[2017-06-11] MEDS ORDERED: Acetaminophen 500 MG TAB PO PRN (00:50)
[2017-06-11] MEDS ORDERED: Ondansetron ODT 4 MG TAB PO PRN (00:50)
[2017-06-11] MEDS ORDERED: Ondansetron HCl/PF 4 MG/2 ML Vial IVP PRN ×2 (00:50)
[2017-06-11] MEDS ORDERED: hydrALAZINE 20 MG/ML VIAL SLOW IVP PRN (01:05)
[2017-06-11] MEDS: HYDROcodone/Acetaminophen 5/325 mg Tablet PO PRN ×5 (01:11→19:54)
[2017-06-11] MEDS ORDERED: Saccharomyces boulardii 250 MG CAP PO SCH (01:15)
--- NOTE | 2017-06-11 03:02 | HP ---
DATE OF ADMISSION: 06/10/2017 PRIMARY CARE PHYSICIAN: Dr. Chaitanya Merino. CHIEF COMPLAINT: Abdominal pain. HISTORY OF PRESENT ILLNESS: This is a 31-year-old male who presented to [facility] with approximately 2-3 days history of increasing abdominal pain, sense of incomplete bowel emptying and loose stools. The patient states he was seen in the Emergency Room at [facility] approximately 2 weeks prior and given antibiotics for suspected bronchitis. The patient sta marycarmen he took the prescription and noticed symptoms beginning soon after taking the antibiotics. The p atient noted some mucousy material in his stools and felt like he was needing to continue his bowel m ovements even when completing them. The patient denied any dysuria, but had a sense of fullness and irritation in the rectal region. The patient denies any recent trauma, injury, or blood in the stool . The patient does admit that he is on multiple immunosuppressants as well as NSAIDs for systemic harvey pus. The patient also states he is on chronic prednisone therapy for his lupus. The patient denies any recent travel history, prior endoscopy, family members with similar symptoms or exposure history. The patient denies any specific chest pain, shortness of breath, or documented fever. The patient initially rated the pain at 8/10 in the rectal area and groin region. The patient admitted to some a ssociated loss of appetite and nausea. In the emergency room, the patient underwent general evaluati on including CT of the chest, abdomen, and pelvis showing no acute process. Mild perirectal fat stra nding noted in the lower abdomen similar in appearance to prior exam. Otherwise, no specific acute p rocess identified. Screening metabolic survey showed no acute process, but the patient did receive c iprofloxacin, Flagyl, morphine sulfate x8 mg, acetaminophen and intravenous normal saline. The patie nt was also noted with intermittent episodes of bradycardia in the 40s and some lethargy. Telemetry monitoring showed a sinus bradycardia. The patient was referred to the Hospitalist Service for evalu ation. PAST MEDICAL HISTORY: 1. Systemic lupus erythematosus, on chronic immunosuppressive therapy including prednisone. 2. History of pericardial effusion, status post pericardial window. 3. History of right testicular hemorrhagic necrosis, status post right orchiectomy. 4. Pulmonary hypertension. 5. History of chronic pancreatitis. 6. Peptic ulcer disease. 7. History of ileus. PAST SURGICAL HISTORY: 1. Status post pericardial window 2016. 2. Status post right orchiectomy. CURRENT MEDICATIONS: 1. Aspirin 325 mg 1 tab p.o. daily. 2. Colchicine 0.6 mg p.o. b.i.d. 3. Plaquenil 200 mg p.o. b.i.d. 4. Motrin 800 mg p.o. t.i.d. p.r.n. 5. Aleve 220 mg p.o. daily. 6. Creon DR 1 capsule p.o. t.i.d. 7. Potassium chloride 20 mEq p.o. daily. 8. Prednisone 20 mg p.o. b.i.d. ALLERGIES: No known drug allergies. FAMILY HISTORY: No inheritable diseases per the patient report. SOCIAL HISTORY: The patient resides in the [facility]. No current alcohol, tobacco or illici t drug use. REVIEW OF SYSTEMS: The following complete review of systems was negative, unless otherwise mentioned in the HPI or below: Constitutional: Weight loss or gain, ability to conduct usual activities. Sk in: Rash, itching. Eyes: Double vision, pain. ENT/Mouth: Nose bleeding, neck stiffness, pain, te nderness. Cardiovascular: Palpitations, dyspnea on exertion, orthopnea. Respiratory: Shortness of breath, wheezing, cough, hemoptysis, fever or night sweats. Gastrointestinal: Poor appetite, abdom inal pain, heartburn, nausea, vomiting, constipation, or diarrhea. Genitourinary: Urgency, frequenc y, dysuria, nocturia. Musculoskeletal: Pain, swelling. Neurologic/Psychiatric: Anxiety, depressio n. Allergy/Immunologic: Skin rash, bleeding tendency. Otherwise negative except as stated per HPI. PHYSICAL EXAMINATION: VITAL SIGNS: On admission; blood pressure 160/113, pulse 58, respiratory rate 20, temperature 97.5 d egrees Fahrenheit, and O2 saturation 100% on room air. GENERAL APPEARANCE: This is a 31-year-old male, alert and oriented x3, pleasant, conversant , in no acute distress. HEENT: Pupils are equal, round, and reactive to light and accommodation. Extraocular muscles are in tact. No scleral icterus, no conjunctival injection. Nares patent. OP is clear. Teeth in good rep air. NECK: Supple, no cervical adenopathy, no thyromegaly, no carotid bruits, and no JVD appreciated. Ce rvical spine full active and passive range of motion. No meningeal signs appreciated. CHEST: Lungs are clear to auscultation bilaterally. CARDIOVASCULAR: S1, S2, without noted rub, gallop, or murmur. ABDOMEN: Rounded, soft, nontender, and nondistended. Bowel sounds are positive in all four quadrant s. There is no hepatosplenomegaly, no abdominal bruits, no rebound or guarding appreciated. EXTREMITIES: Warm and dry with fair turgor. No clubbing, cyanosis or asymmetric edema appreciated. Pulses are palpable distally at the dorsalis pedis, posterior tibial, and popliteal arteries bilater ally. Capillary refill less than 2 seconds. NEUROLOGIC: Cranial nerves II-XII are grossly intact. No focal or lateralizing signs appreciated. PERTINENT LABORATORY AND X-RAY FINDINGS: Basic metabolic profile within normal limits. LFTs within normal limits. Troponin I negative x1. Albumin 4.6. CBC showed a white blood cell count of 4.0, he moglobin 15, hematocrit 45, MCV 96, and platelet count 121 with 70% neutrophils. Urinalysis negative . CT of the chest, abdomen, and pelvis dated 06/10/2017 showed perirectal fat stranding similar to p revious exam. Stable right common femoral lymph node. EKG dated 06/10/2017 by my interpretation jess ws sinus bradycardia with heart rates in the 40s-50s. Normal R-wave progression noted in the precord ial leads. Normal axis. No acute ST-T wave changes appreciated. ASSESSMENT AND PLAN: 1. Abdominal pain. The patient will be observed on the telemetry unit. Exact etiology unclear; how ever, suspect relationship to recent antibiotic exposure and potential antibiotic associated diarrhea . Check stool culture and rule out C. difficile. Symptomatic and supportive management. 2. Proctitis. Appears chronic on review of CT imaging of the abdomen and pelvis. Hold antibiotic c urrently. Consider GI evaluation on an outpatient basis if symptoms persist. 3. Sinus bradycardia. Stable currently. We will continue telemetry monitoring. No current evidenc e to suggest acute coronary syndrome. 4. Systemic lupus erythematosus. We will continue home regimen to include Plaquenil 200 mg b.i.d. w ith prednisone 20 mg p.o. b.i.d. 5. Elevated blood pressure. We will continue serial blood pressure monitoring. No prior history of formal diagnosis of hypertension. The patient may need additional evaluation and outpatient followu p. 6. Prophylaxis. Sequential compression devices while in bed. Pepcid 20 mg p.o. b.i.d. CODE STATUS: FULL. Surrogate medical decision maker is patient's father.
[2017-06-11] MEDS ORDERED: Sodium Chloride 0.9% 10 ML ONE (04:15)
[2017-06-11] MEDS ORDERED: metroNIDAZOLE 500 MG in Premix Bag 1 BAG IVPB SCH ×2 (06:00→14:00)
[2017-06-11 06:10] LABS: Band 6 % (5-11); Hemoglobin 13.6 g/dL (14.0-18.0); Lymphocytes 28 % (21-51); MDiff Complete? YES; Mean Corpuscular HGB CONC 32.9 g/dL (32.0-36.0); Mean Corpuscular Hemoglobin 31.5 pg (27.0-31.0); Mean Corpuscular Volume 95.8 fl (80.0-94.0); Monocytes 15 % (0-10); Neutrophil 51 % (42-75); PLT Morphology Comment Appears Decreased; Platelet Count 100 thou/uL (130-400); RBC Distribution Width 17.4 % (11.5-14.5); Red Blood Cell (RBC) Count 4.31 mill/uL (4.70-6.10); White Blood Cell (WBC) Count 2.5 thou/uL (4.8-10.8)
[2017-06-11 06:15] LABS: Anion Gap 11 mmol/L (10-20); BUN (Urea Nitrogen) 15 mg/dL (8.9-20.6); Calc. Creatinine Clearance 160 mL/min (70-130); Calcium 8.6 mg/dL (7.8-10.44); Carbon Dioxide 23 mmol/L (22-29); Chloride 109 mmol/L (98-107); Estimated GFR-MDRD Greater than 90; Glucose 106 mg/dL (70-105); Potassium 3.2 mmol/L (3.5-5.1); Sodium 140 mmol/L (136-145)
[2017-06-11] MEDS ORDERED: Colchicine 0.6 MG TAB PO SCH (09:00)
[2017-06-11] MEDS: Famotidine 20 MG TAB PO SCH ×2 (09:13→19:52)
[2017-06-11] MEDS: Pancrelipase DR 12000 1 CAP PO SCH ×3 (09:13→17:05)
[2017-06-11] MEDS: predniSONE 20 MG TAB PO SCH ×2 (09:14→17:05)
[2017-06-11] MEDS: Saccharomyces boulardii 250 MG CAP PO SCH (09:14)
[2017-06-11] MEDS: Aspirin 325 MG TAB PO SCH (09:14)
[2017-06-11] MEDS: Hydroxychloroquine Sulfate 200 MG TAB PO SCH ×2 (09:14→19:52)
[2017-06-11] MEDS ORDERED: Potassium Chloride 20 MEQ TAB PO SCH (09:30)
[2017-06-11] MEDS: metroNIDAZOLE 500 MG in Premix Bag 1 BAG IVPB SCH ×2 (12:20→19:53)
[2017-06-11] MEDS ORDERED: cloNIDine 0.1 MG TAB PO PRN (12:49)
--- NOTE | 2017-06-11 12:51 | PDOC.PN ---
- Subjective Encounter Start Date: 06/11/17 Encounter Start Time: 12:50 Subjective: still feels bad w abdominal cramps,nausea and vomiting this morning -: c/o easily winded for 2-3 weeks.reports that he had pericard fluid drained -: in [facility] last month - Objective Resuscitation Status: Resuscitation Status FULL:Full Resuscitation MAR Reviewed: Yes Vital Signs & Weight: Vital Signs (12 hours) Temp Pulse Resp BP Pulse Ox 06/11/17 08:15 97.9 F 80 20 147/108 H 100 06/11/17 08:00 97.9 F 80 20 06/11/17 06:30 132/97 H 06/11/17 04:17 58 L 06/11/17 04:00 97.8 F 66 18 140/102 H 96 Weight Weight 150 lb 11.2 oz I&O: 06/10/17 06/11/17 06/12/17 06:59 06:59 06:59 Intake Total 240 Balance 240 Result Diagrams: 06/11/17 04:48 06/11/17 04:48 Additional Labs: Microbiology 06/10/17 19:55 Venous blood - Right Hand Blood Culture - Preliminary Specimen has been received and culture in progress. No Growth to date. 06/10/17 19:52 Venous blood - Right Arm Blood Culture - Preliminary Specimen has been received and culture in progress. No Growth to date. Laboratory Tests 02/25/17 05/29/17 06/10/17 12:15 20:18 19:11 WBC 4.1 L 2.9 L 4.0 L Plt Count 159 119 L 121 L 06/11/17 04:48 WBC 2.5 L Plt Count 100 L Phys Exam - Physical Examination Constitutional: NAD HEENT: PERRLA, moist MMs, sclera anicteric, oral pharynx no lesions Neck: no JVD Respiratory: no wheezing, no rales, no rhonchi, clear to auscultation bilateral Cardiovascular: RRR, no significant murmur Gastrointestinal: soft, non-tender, no distention, positive bowel sounds Musculoskeletal: no edema, pulses present Neurological: non-focal, normal sensation, moves all 4 limbs Psychiatric: normal affect, A&O x 3 Skin: no rash Dx/Plan (1) Proctitis Code(s): K62.89 - OTHER SPECIFIED DISEASES OF ANUS AND RECTUM Status: Acute (2) Abdominal pain Code(s): R10.9 - UNSPECIFIED ABDOMINAL PAIN Status: Acute (3) Hypokalemia Code(s): E87.6 - HYPOKALEMIA Status: Acute Comment: replace and recheck (4) SLE (systemic lupus erythematosus) Code(s): M32.9 - SYSTEMIC LUPUS ERYTHEMATOSUS, UNSPECIFIED Status: Chronic Qualifiers: Systemic lupus erythematosus type: unspecified (5) H/O pericarditis Code(s): Z86.79 - PERSONAL HISTORY OF OTHER DISEASES OF THE CIRCULATORY SYSTEM Status: Chronic Comment: h/o pericardial window for pericardial effusion (6) Pancytopenia Code(s): D61.818 - OTHER PANCYTOPENIA Status: Acute (7) Chronic pancreatitis Code(s): K86.1 - OTHER CHRONIC PANCREATITIS Status: Chronic (8) GERD (gastroesophageal reflux disease) Code(s): K21.9 - GASTRO-ESOPHAGEAL REFLUX DISEASE WITHOUT ESOPHAGITIS Status: Chronic Qualifiers: Esophagitis presence: esophagitis presence not specified Qualified Code(s) : K21.9 - Gastro-esophageal reflux disease without esophagitis (9) Pulmonary hypertension Code(s): I27.20 - PULMONARY HYPERTENSION, UNSPECIFIED Status: Suspected (10) Tricuspid regurgitation Code(s): I07.1 - RHEUMATIC TRICUSPID INSUFFICIENCY Status: Suspected Qualifiers: Cardiac valve disease etiology: etiology unspecified Qualified Code(s): I07.1 - Rheumatic tricuspid insufficiency (11) h/o Hemorrhagic orchitis Status: Chronic Comment: s/p R orchiectomy 02/2017 - Plan out of bed/ambulate, DVT proph w/SCDs check lipase stat w h/o chr pancreatitis.None in CT scan.change diet to CLD -: restart IV abx for proctitis as no clinical improvement. -: will consult GI -: cont Prednisone for SLE.discussed Rheumatology f/u in detail-pt uninsured -: monitor CBC.pancytopenia likley d/t chr suppression from SLE w ac infection * .not on any heparin products * HD stable. but BP high. will start on daily Norvasc and monitor. * OK to transfer to medical * Not ready for DC yet . High risk of worsening infection and sepsis due to immunocompromised status.will change to Inpatient * am labs * * Review of Systems - Review of Systems Constitutional: weakness, malaise. negative: fever, chills, sweats, other Eyes: negative: Pain, Vision Change, Conjunctivae Inflammation, Eyelid Inflammation, Redness, Other ENT: negative: Ear Pain, Ear Discharge, Nose Pain, Nose Discharge, Nose Congestion, Mouth Pain, Mouth Swelling, Throat Pain, Throat Swelling, Other Respiratory: negative: Cough, Dry, Shortness of Breath, Hemoptysis, SOB with Excertion, Pleuritic Pain, Sputum, Wheezing Cardiovascular: negative: chest pain, palpitations, orthopnea, paroxysmal nocturnal dyspnea, edema, light headedness, other Gastrointestinal: Nausea, Vomiting, Abdominal Pain. negative: Diarrhea, Constipation, Melena, Hematochezia, Other Genitourinary: negative: Dysuria, Frequency, Incontinence, Hematuria, Retention , Other Musculoskeletal: Hand Pain. negative: Neck Pain, Shoulder Pain, Arm Pain, Back Pain, Leg Pain, Foot Pain, Other Skin: negative: Rash, Lesions, Rogelio, Bruising, Other Neurological: negative: Weakness, Numbness, Incoordination, Change in Speech, Confusion, Seizures, Other - Medications/Allergies Allergies/Adverse Reactions: Allergies Allergy/AdvReac Type Severity Reaction Status Date / Time No Known Allergies Allergy Verified 02/25/17 11:46 Medications: Current Medications Acetaminophen (Tylenol) 1,000 mg PO Q6H PRN PRN Reason: Headache/Fever or Mild Pain Hydrocodone Bitart/Acetaminophen ([place] 5/325) 1 tab PO Q4H PRN PRN Reason: Moderate Pain (4-6) Hydrocodone Bitart/Acetaminophen ([place] 5/325) 2 tab PO Q4H PRN PRN Reason: Severe Pain (7-10) Last Admin: 06/11/17 10:06 Dose: 2 tab Amlodipine Besylate (Norvasc) 10 mg PO DAILY [facility] Amlodipine Besylate (Norvasc) 10 mg PO NOW [facility] Stop: 06/11/17 15:00 Lipase/Protease/Amylase ([place] [id number]) 1 cap PO TID[facility] Last Admin: 06/11/17 12:20 Dose: 1 cap Aspirin (Aspirin) 325 mg PO QAM[facility] Last Admin: 06/11/17 09:14 Dose: 325 mg Clonidine (Catapres) 0.1 mg PO Q4H PRN PRN Reason: sbp>160 Diphenoxylate HCl/Atropine (Lomotil) 1 tab PO QIDPRN PRN PRN Reason: Diarrhea/Loose Stools Famotidine (Pepcid) 20 mg PO BID [facility] Last Admin: 06/11/17 09:13 Dose: 20 mg Hydralazine HCl (Apresoline) 10 mg SLOW IVP Q4H PRN PRN Reason: SBP Greater Than 180 Last Admin: 06/11/17 04:17 Dose: 10 mg Hydroxychloroquine Sulfate (Plaquenil) 200 mg PO BID [facility] Last Admin: 06/11/17 09:14 Dose: 200 mg Ciprofloxacin/Dextrose 200 mg/ (Device) 100 mls @ 100 mls/hr IVPB Q12HR [facility] Metronidazole 500 mg/ Device 100 mls @ 100 mls/hr IVPB Q8H [facility] Last Admin: 06/11/17 12:20 Dose: 100 mls Ondansetron HCl (Zofran Odt) 4 mg PO Q6H PRN PRN Reason: Nausea/Vomiting Ondansetron HCl (Zofran) 4 mg IVP Q6H PRN PRN Reason: Nausea/Vomiting Potassium Chloride (K-Dur) 20 meq PO DAILY [facility] Prednisone (Prednisone) 20 mg PO BID[facility] Last Admin: 06/11/17 09:14 Dose: 20 mg Saccharomyces Boulardii (Florastor) 250 mg PO DAILY [facility] Last Admin: 06/11/17 09:14 Dose: 250 mg Sodium Chloride (Flush - Normal Saline) 10 ml IVF Q12HR [facility] Sodium Chloride (Flush - Normal Saline) 10 ml IVF PRN PRN PRN Reason: Saline Flush
[2017-06-11] MEDS ORDERED: Amlodipine 10 MG TAB PO SCH (13:00)
[2017-06-11] MEDS: Ciprofloxacin Lactate/D5W 200 MG in Premix Bag 1 BAG IVPB SCH (20:58)
[2017-06-12] MEDS: HYDROcodone/Acetaminophen 5/325 mg Tablet PO PRN ×5 (00:06→20:07)
--- NOTE | 2017-06-12 03:23 | CON ---
DATE OF CONSULTATION: 06/11/2017 REASON FOR CONSULTATION: Lower abdominal pain, proctitis. CONSULTING PHYSICIAN: Pasha Leyva DO HISTORY OF PRESENT ILLNESS: The patient is a 31-year-old male with past medical history of systemic lupus erythematosus, on chronic immunosuppressant therapy; pulmonary hypertension; chronic pancreatit is; peptic ulcer disease; recurrent pericardial effusion; and testicular cancer presenting with compl aints of abdominal pain. Approximately 2 weeks ago, he had been given antibiotics for suspected bron chitis with the most likely medication administered being azithromycin. Soon after taking the prescr iption, he noticed he had increased lower abdominal pain described as cramping-type pain for the last 10 days. The pain originally was located in the suprapubic area, but would radiate to both the left and right lower quadrants, was intermittent with a severity of 9/10. The pain was increased with si tting down for prolonged periods of time, usually on the toilet, and the abdominal cramping would inc rease right before he would have the sensation to have a bowel movement. However, the pain was leena r with sitting in very hot water and the pain would subside roughly 30-60 minutes after actually havi ng a bowel movement. He also has associated hematochezia x2 over the last week with blood, both on t he toilet paper and coating the stool. However, the blood was also characterized as a minimal amount per the patient. Currently, having approximately 2-3 semisolid bowel movements per day with the pre ceding abdominal pain, but no special maneuvers in order to defecate. With the increase of this abdo dyana pain, it prompted him to seek healthcare assistance with admission to the [facility] ER. Nisha priest in the emergency room, he underwent a CT of the abdomen and pelvis showing mild perirectal fat str anding in the lower abdomen, similar to prior CT obtained in the last year. Currently, he denies any nausea, vomiting, fevers, chills, dysphagia, odynophagia, hematemesis, or melena. REVIEW OF SYSTEMS: A 10-category review of systems was obtained with all responses negative except f or the pertinent positives as listed in the HPI. PAST MEDICAL HISTORY: As per HPI. PAST SURGICAL HISTORY: Pericardial window surgery in 2017 and right orchiectomy. FAMILY HISTORY: Denies any GI malignancies or IBD. SOCIAL HISTORY: Denies any tobacco, alcohol, or illicit drug use. OUTPATIENT MEDICATIONS: Reviewed. ALLERGIES: No known drug allergies. PHYSICAL EXAMINATION: VITAL SIGNS: Temperature 98.3, pulse 76, blood pressure 121/87, respiratory rate 18, satting 96% on room air. GENERAL: The patient is able to ambulate without assistance appropriately, sitting at bedside in no acute distress. Alert and oriented x4. NECK: Supple. No JVD noted. CARDIOVASCULAR: Regular rate and rhythm with no discernible murmurs, gallops, or rubs. RESPIRATORY: Clear to auscultation bilaterally. ABDOMEN: Hypoactive bowel sounds. Soft. Tenderness to palpation in the left upper quadrant, left l ower quadrant, suprapubic region, and right lower quadrant. EXTREMITIES: No cyanosis, clubbing, or edema. LABORATORY DATA: CBC with a white blood cell count of 2.5, hemoglobin 13.6, hematocrit 41.3, platele ts 100. Chemistry with a sodium of 140, potassium 3.2, chloride 109, CO2 of 23, BUN 15, creatinine 0 .64, glucose 106, AST 29, ALT 15, alkaline phosphatase 171, total bilirubin 0.6, albumin 4.6. IMAGING DATA: CT abdomen and pelvis obtained on 06/10/2017 showing a moderate amount of pericardial fluid when compared to the previous chest CT. No presence of mesenteric masses, lymphadenopathy, mando e fluid, or air. He does have scattered fecal material in a nondistended and nondilated colon, as we ll as diverticulosis in the sigmoid colon. Lastly, there was abnormal mucosal prominence and adjacen t fat stranding at the level of the rectum that are similar to the CT scan from 02/2017. ASSESSMENT AND PLAN: The patient is a 31-year-old male with past medical history of systemic lupus e rythematosus, pulmonary hypertension, chronic pancreatitis, peptic ulcer disease, pericardial effusio ns, and testicular cancer presenting with suprapubic abdominal pain. Suprapubic abdominal pain. The patient is presenting with a 2-week history of increasing suprapubic abdominal pain, radiating to the lower abdominal quadrants, characterized as cramping in nature and r eaching a severity of approximately 9/10. This is also associated with increased abdominal pain just before having a bowel movement and a sensation that he is incompletely emptying his bowels once he d oes actually defecate. He will often have episodes of tenesmus-like symptoms, where he will have the sensation of a bowel movement, but unable to produce any fecal matter. With the abdominal pain, the tenesmus and the presence of hematochezia as well as a recent history of antibiotic administration, it is concerning for a possible infection in light of an immunosuppressed patient. However, with the character of the abdominal pain, the location, and tenesmus, it is also concerning for the presence of possible inflammatory bowel disease. RECOMMENDATIONS: 1. We would obtain infectious stool workup for possible infectious etiology in an immunosuppressed p atient. If the bacterial studies are negative, he may need evaluation of possible viral etiologies. 2. If the bacterial etiologies of abdominal pain are negative, then I would proceed with colonoscopy with biopsies within the colon to evaluate for possible viral etiology including CMV and HSV. 3. Pain control per primary team. 4. We will hold on any endoscopic therapy until infectious etiology has been ruled out. We will continue to follow. Please call with any questions.
[2017-06-12] MEDS: metroNIDAZOLE 500 MG in Premix Bag 1 BAG IVPB SCH ×3 (04:52→20:08)
[2017-06-12 05:00] LABS: Anion Gap 13 mmol/L (10-20); BUN (Urea Nitrogen) 18 mg/dL (8.9-20.6); Calc. Creatinine Clearance 151 mL/min (70-130); Carbon Dioxide 20 mmol/L (22-29); Chloride 109 mmol/L (98-107); Estimated GFR-MDRD Greater than 90; Glucose 102 mg/dL (70-105); Potassium 3.5 mmol/L (3.5-5.1); Sodium 138 mmol/L (136-145)
[2017-06-12 07:43] LABS: Hemoglobin 13.1 g/dL (14.0-18.0); Mean Corpuscular HGB CONC 32.5 g/dL (32.0-36.0); Mean Corpuscular Volume 95.3 fl (80.0-94.0); Mean Platelet Volume 5.7 fL (7.4-10.4); Platelet Count 101 thou/uL (130-400); RBC Distribution Width 17.2 % (11.5-14.5); Red Blood Cell (RBC) Count 4.24 mill/uL (4.70-6.10); White Blood Cell (WBC) Count 3.8 thou/uL (4.8-10.8)
[2017-06-12 07:44] LABS: #Lymphocytes 0.5 thou/uL (1.20-3.40); #Monocytes 0.5 thou/uL (0.11-0.59); #Neutrophils 2.8 thou/uL (1.40-6.50); %Basophils 0.2 % (0.0-1.0); %Lymphocytes 13.9 % (21.0-51.0); %Neutrophils 73.8 % (42.0-75.0)
[2017-06-12] MEDS: Famotidine 20 MG TAB PO SCH ×2 (07:54→20:07)
[2017-06-12] MEDS: Aspirin 325 MG TAB PO SCH (07:54)
[2017-06-12] MEDS: Potassium Chloride 20 MEQ TAB PO SCH (07:55)
[2017-06-12] MEDS: Hydroxychloroquine Sulfate 200 MG TAB PO SCH ×2 (07:55→20:09)
[2017-06-12] MEDS: Saccharomyces boulardii 250 MG CAP PO SCH (07:55)
[2017-06-12] MEDS: predniSONE 20 MG TAB PO SCH ×2 (07:55→16:29)
[2017-06-12] MEDS: Amlodipine 10 MG TAB PO SCH (07:55)
[2017-06-12] MEDS ORDERED: Bisacodyl 5 MG TAB PO PRN (09:12)
[2017-06-12] MEDS ORDERED: Bisacodyl 10 MG SUPP PR PRN (09:12)
[2017-06-12] MEDS: Pancrelipase DR 12000 1 CAP PO SCH ×3 (09:31→16:28)
[2017-06-12] MEDS: Ciprofloxacin Lactate/D5W 200 MG in Premix Bag 1 BAG IVPB SCH ×2 (09:31→21:02)
[2017-06-12] MEDS: Morphine 4 MG/ML VIAL SLOW IVP PRN ×2 (12:44→18:27)
--- NOTE | 2017-06-12 14:42 | PDOC.PN ---
- Subjective Encounter Start Date: 06/12/17 Encounter Start Time: 14:39 Subjective: c/o severe pain in lower body and arms and hands -: no BM since admission.stilll w adbominal cramping - Objective Resuscitation Status: Resuscitation Status FULL:Full Resuscitation MAR Reviewed: Yes Vital Signs & Weight: Vital Signs (12 hours) Temp Pulse Resp BP Pulse Ox 06/12/17 11:53 97.8 F 73 16 135/95 H 98 06/12/17 08:00 98.1 F 73 18 97 06/12/17 07:55 73 06/12/17 07:12 97.9 F 73 16 149/100 H 97 06/12/17 03:58 98.2 F 74 16 130/89 Weight Weight 150 lb 11.2 oz I&O: 06/11/17 06/12/17 06/13/17 06:59 06:59 06:59 Intake Total 240 2540 780 Balance 240 2540 780 Result Diagrams: 06/12/17 03:38 06/12/17 03:38 Additional Labs: Microbiology 06/12/17 13:26 Stool Stool Occult Blood (MAKAYLA) - Final 06/10/17 19:55 Venous blood - Right Hand Blood Culture - Preliminary NO GROWTH AT 48 HOURS 06/10/17 19:52 Venous blood - Right Arm Blood Culture - Preliminary NO GROWTH AT 48 HOURS Phys Exam - Physical Examination Constitutional: NAD HEENT: PERRLA, moist MMs, sclera anicteric, oral pharynx no lesions Neck: no JVD Respiratory: no wheezing, no rales, no rhonchi, clear to auscultation bilateral Cardiovascular: RRR, no significant murmur Gastrointestinal: soft, non-tender, no distention, positive bowel sounds Musculoskeletal: no edema, pulses present Neurological: non-focal, normal sensation, moves all 4 limbs Psychiatric: normal affect, A&O x 3 Skin: no rash Dx/Plan (1) Proctitis Code(s): K62.89 - OTHER SPECIFIED DISEASES OF ANUS AND RECTUM Status: Acute Comment: empiric antibiotics (2) Abdominal pain Code(s): R10.9 - UNSPECIFIED ABDOMINAL PAIN Status: Acute (3) Hypokalemia Code(s): E87.6 - HYPOKALEMIA Status: Acute Comment: replace and recheck (4) SLE (systemic lupus erythematosus) Code(s): M32.9 - SYSTEMIC LUPUS ERYTHEMATOSUS, UNSPECIFIED Status: Chronic Qualifiers: Systemic lupus erythematosus type: unspecified (5) H/O pericarditis Code(s): Z86.79 - PERSONAL HISTORY OF OTHER DISEASES OF THE CIRCULATORY SYSTEM Status: Chronic Comment: h/o pericardial window for pericardial effusion (6) Pancytopenia Code(s): D61.818 - OTHER PANCYTOPENIA Status: Acute (7) Chronic pancreatitis Code(s): K86.1 - OTHER CHRONIC PANCREATITIS Status: Chronic (8) GERD (gastroesophageal reflux disease) Code(s): K21.9 - GASTRO-ESOPHAGEAL REFLUX DISEASE WITHOUT ESOPHAGITIS Status: Chronic Qualifiers: Esophagitis presence: esophagitis presence not specified Qualified Code(s) : K21.9 - Gastro-esophageal reflux disease without esophagitis (9) Pulmonary hypertension Code(s): I27.20 - PULMONARY HYPERTENSION, UNSPECIFIED Status: Suspected (10) Tricuspid regurgitation Code(s): I07.1 - RHEUMATIC TRICUSPID INSUFFICIENCY Status: Suspected Qualifiers: Cardiac valve disease etiology: etiology unspecified Qualified Code(s): I07.1 - Rheumatic tricuspid insufficiency (11) h/o Hemorrhagic orchitis Status: Chronic Comment: s/p R orchiectomy 02/2017 .Path negative for malignancy - Plan DVT proph w/SCDs restart Ibuprofen w norco as that works best at home. -: cont regular diet as pt refusing clears.GI following -: awaitng stool studies-if negative,will get colonoscopy -: supportive care. home meds -: will need referral to [facility] on DC * . Review of Systems - Review of Systems Constitutional: weakness, malaise ENT: negative: Ear Pain, Ear Discharge, Nose Pain, Nose Discharge, Nose Congestion, Mouth Pain, Mouth Swelling, Throat Pain, Throat Swelling, Other Respiratory: negative: Cough, Dry, Shortness of Breath, Hemoptysis, SOB with Excertion, Pleuritic Pain, Sputum, Wheezing Cardiovascular: negative: chest pain, palpitations, orthopnea, paroxysmal nocturnal dyspnea, edema, light headedness, other Gastrointestinal: Nausea, Abdominal Pain Genitourinary: negative: Dysuria, Frequency, Incontinence, Hematuria, Retention , Other Musculoskeletal: Hand Pain, Leg Pain, Foot Pain Skin: negative: Rash, Lesions, Rogelio, Bruising, Other Neurological: negative: Weakness, Numbness, Incoordination, Change in Speech, Confusion, Seizures, Other - Medications/Allergies Allergies/Adverse Reactions: Allergies Allergy/AdvReac Type Severity Reaction Status Date / Time No Known Allergies Allergy Verified 02/25/17 11:46 Medications: Current Medications Acetaminophen (Tylenol) 1,000 mg PO Q6H PRN PRN Reason: Headache/Fever or Mild Pain Hydrocodone Bitart/Acetaminophen ([place] 5/325) 1 tab PO Q4H PRN PRN Reason: Moderate Pain (4-6) Hydrocodone Bitart/Acetaminophen ([place] 5/325) 2 tab PO Q4H PRN PRN Reason: Severe Pain (7-10) Last Admin: 06/12/17 09:37 Dose: 2 tab Amlodipine Besylate (Norvasc) 10 mg PO DAILY [facility] Last Admin: 06/12/17 07:55 Dose: 10 mg Lipase/Protease/Amylase ([place] [id number]) 1 cap PO TID-[facility] Last Admin: 06/12/17 11:43 Dose: 1 cap Aspirin (Aspirin) 325 mg PO QAM-[facility] Last Admin: 06/12/17 07:54 Dose: 325 mg Bisacodyl (Dulcolax) 10 mg PO DAILYPRN PRN PRN Reason: Constipation Bisacodyl (Dulcolax) 10 mg HI DAILYPRN PRN PRN Reason: Constipation Clonidine (Catapres) 0.1 mg PO Q4H PRN PRN Reason: sbp>160 Famotidine (Pepcid) 20 mg PO BID [facility] Last Admin: 06/12/17 07:54 Dose: 20 mg Hydralazine HCl (Apresoline) 10 mg SLOW IVP Q4H PRN PRN Reason: SBP Greater Than 180 Last Admin: 06/11/17 04:17 Dose: 10 mg Hydroxychloroquine Sulfate (Plaquenil) 200 mg PO BID [facility] Last Admin: 06/12/17 07:55 Dose: 200 mg Ciprofloxacin/Dextrose 200 mg/ (Device) 100 mls @ 100 mls/hr IVPB Q12HR [facility] Last Admin: 06/12/17 09:31 Dose: 100 mls Metronidazole 500 mg/ Device 100 mls @ 100 mls/hr IVPB Q8H [facility] Last Admin: 06/12/17 11:43 Dose: 100 mls Ibuprofen (Motrin) 800 mg PO TID [facility] Morphine Sulfate (Morphine) 2 mg SLOW IVP Q4H PRN PRN Reason: Moderate Pain (4-6) Last Admin: 06/12/17 12:44 Dose: 2 mg Ondansetron HCl (Zofran Odt) 4 mg PO Q6H PRN PRN Reason: Nausea/Vomiting Ondansetron HCl (Zofran) 4 mg IVP Q6H PRN PRN Reason: Nausea/Vomiting Potassium Chloride (K-Dur) 20 meq PO DAILY [facility] Last Admin: 06/12/17 07:55 Dose: 20 meq Prednisone (Prednisone) 20 mg PO BID[facility] Last Admin: 06/12/17 07:55 Dose: 20 mg Saccharomyces Boulardii (Florastor) 250 mg PO DAILY [facility] Last Admin: 06/12/17 07:55 Dose: 250 mg Sodium Chloride (Flush - Normal Saline) 10 ml IVF Q12HR [facility] Last Admin: 06/12/17 09:32 Dose: 10 ml Sodium Chloride (Flush - Normal Saline) 10 ml IVF PRN PRN PRN Reason: Saline Flush
[2017-06-12] MEDS: Ibuprofen 800 MG TAB PO SCH ×2 (15:01→20:08)
--- NOTE | 2017-06-12 21:46 | PRG ---
DATE OF SERVICE: 06/12/2017 REASON FOR CONSULTATION: Lower abdominal pain, proctitis. SUBJECTIVE: The patient states that he is feeling significantly better today with much less and lowe r abdominal pain and he was able to have a semisolid bowel movement. It was submitted for analysis/s tool samples. In the meantime, he denies any nausea, vomiting, fevers, chills, dysphagia, odynophagi a, or GI bleeding. OBJECTIVE: VITAL SIGNS: Temperature 97.3, pulse 86, blood pressure 135/91, respiratory rate 18, satting 97% on room air. GENERAL: The patient is lying in bed, in no acute distress. He is alert and oriented x4. CARDIOVASCULAR: Regular rate and rhythm. RESPIRATORY: Clear to auscultation bilaterally. ABDOMEN: Normoactive bowel sounds, soft, nondistended. Tenderness to palpation in the left lower qu adrant, but improved from previous exam. EXTREMITIES: No cyanosis, clubbing, or edema. LABORATORY DATA: CBC with a white blood cell count of 3.8, hemoglobin 13.1, hematocrit 40.3, platele ts 101,000. Chemistry of the sodium 138, potassium 3.5, chloride 109, CO2 of 20, BUN 18, creatinine 0.68, glucose 102. IMAGING DATA: No current GI imaging is available for review. Microbiology: Stool studies including Clostridium difficile antigen and toxin, Campylobacter antigen, Shiga toxin, stool lactoferrin, Giar deo, and cryptosporidium were all negative. ASSESSMENT AND PLAN: The patient is a 31-year-old male with past medical history of systemic lupus e rythematosus, pulmonary hypertension, chronic pancreatitis, peptic ulcer disease, pericardial effusio ns, and testicular cancer, presenting with suprapubic abdominal pain. Suprapubic abdominal pain: The patient initially presented with a 2-week history of increased suprap ubic abdominal pain with exquisite tenderness to palpation on physical exam yesterday. This is assoc iated with CT findings showing scattered fecal material in nondistended and nondilated colon; however , there was abnormal mucosal prominence and adjacent fat stranding at the level of the rectum that mar s been present on CT since 02/2017. At this point in time, the patient is significantly improving wi th more conservative management including antibiotics and pain control with narcotics and NSAIDs with a significant improvement in his abdominal pain with antibiotic administration and lack of infectiou s etiology seen on stool studies. A colonoscopy could be indicated at this time; however, when discu ssing this prospect with the patient, he is more amenable to continue the antibiotic therapy and foll owing up with GI as an outpatient for colonoscopic evaluation. RECOMMENDATIONS: 1. We will hold on colonoscopy for now given clinical improvement with plans for endoscopic evaluati on as an outpatient. However, if his abdominal pain worsens over the next 12 to 24 hours, I would de finitely consider this modality to evaluate his abdominal pain. 2. Pain control per primary team. 3. We would continue antibiotic administration, given his significant improvement of abdominal pain. 4. We will continue to follow. Please call with any questions.
[2017-06-13] MEDS: Morphine 4 MG/ML VIAL SLOW IVP PRN ×2 (00:18→08:50)
[2017-06-13] MEDS: metroNIDAZOLE 500 MG in Premix Bag 1 BAG IVPB SCH ×2 (04:00→11:40)
[2017-06-13] MEDS: HYDROcodone/Acetaminophen 5/325 mg Tablet PO PRN ×2 (04:56→11:39)
[2017-06-13 07:09] VITALS: BP 144/104
[2017-06-13] MEDS: predniSONE 20 MG TAB PO SCH (08:49)
[2017-06-13] MEDS: Famotidine 20 MG TAB PO SCH (08:49)
[2017-06-13] MEDS: Ibuprofen 800 MG TAB PO SCH (08:49)
[2017-06-13] MEDS: Saccharomyces boulardii 250 MG CAP PO SCH (08:49)
[2017-06-13] MEDS: Aspirin 325 MG TAB PO SCH (08:49)
[2017-06-13] MEDS: Potassium Chloride 20 MEQ TAB PO SCH (08:49)
[2017-06-13] MEDS: Pancrelipase DR 12000 1 CAP PO SCH ×2 (08:49→11:40)
[2017-06-13] MEDS: Hydroxychloroquine Sulfate 200 MG TAB PO SCH (08:49)
[2017-06-13] MEDS: Ciprofloxacin Lactate/D5W 200 MG in Premix Bag 1 BAG IVPB SCH (08:50)
[2017-06-13] MEDS: Amlodipine 10 MG TAB PO SCH (08:50)
[2017-06-13 09:34] VITALS: TEMP 98
--- NOTE | 2017-06-13 10:51 | PDOC.PN ---
- Subjective Encounter Start Date: 06/13/17 Encounter Start Time: 07:20 -: old records requested/rev Patient seen and examined. No new complaints. No overnight events - Objective Resuscitation Status: Resuscitation Status FULL:Full Resuscitation MAR Reviewed: Yes Vital Signs & Weight: Vital Signs (12 hours) Temp Pulse Resp BP BP Pulse Ox 06/13/17 08:50 83 144/104 H 06/13/17 08:00 98 F 83 18 95 06/13/17 07:08 98.0 F 83 18 144/104 H 95 Weight Weight 150 lb 11.2 oz I&O: 06/12/17 06/13/17 06/14/17 06:59 06:59 06:59 Intake Total 2540 2070.5 Balance 2540 2070.5 Result Diagrams: 06/12/17 03:38 06/12/17 03:38 Radiology Reviewed by me: Yes Phys Exam - Physical Examination Constitutional: NAD HEENT: PERRLA, moist MMs, sclera anicteric Neck: no JVD, supple Respiratory: no wheezing, no rales, no rhonchi Cardiovascular: RRR, no significant murmur, no rub Gastrointestinal: soft, non-tender, no distention, positive bowel sounds Musculoskeletal: no edema, pulses present Neurological: non-focal, normal sensation, moves all 4 limbs Psychiatric: normal affect, A&O x 3 Skin: no rash, normal turgor Dx/Plan (1) Abdominal pain Code(s): R10.9 - UNSPECIFIED ABDOMINAL PAIN Status: Acute Qualifiers: Abdominal location: generalized Qualified Code(s): R10.84 - Generalized abdominal pain (2) Pancytopenia Code(s): D61.818 - OTHER PANCYTOPENIA Status: Acute (3) Proctitis Code(s): K62.89 - OTHER SPECIFIED DISEASES OF ANUS AND RECTUM Status: Acute Comment: empiric antibiotics (4) Chronic pancreatitis Code(s): K86.1 - OTHER CHRONIC PANCREATITIS Status: Chronic (5) GERD (gastroesophageal reflux disease) Code(s): K21.9 - GASTRO-ESOPHAGEAL REFLUX DISEASE WITHOUT ESOPHAGITIS Status: Chronic Qualifiers: Esophagitis presence: esophagitis presence not specified Qualified Code(s) : K21.9 - Gastro-esophageal reflux disease without esophagitis (6) H/O pericarditis Code(s): Z86.79 - PERSONAL HISTORY OF OTHER DISEASES OF THE CIRCULATORY SYSTEM Status: Chronic Comment: h/o pericardial window for pericardial effusion (7) Hypoalbuminemia Code(s): E88.09 - OTH DISORDERS OF PLASMA-PROTEIN METABOLISM, NEC Status: Chronic (8) Migraine Code(s): G43.909 - MIGRAINE, UNSP, NOT INTRACTABLE, WITHOUT STATUS MIGRAINOSUS Status: Chronic (9) Pulmonary nodule Code(s): R91.1 - SOLITARY PULMONARY NODULE Status: Chronic (10) SLE (systemic lupus erythematosus) Code(s): M32.9 - SYSTEMIC LUPUS ERYTHEMATOSUS, UNSPECIFIED Status: Chronic Qualifiers: Systemic lupus erythematosus type: unspecified (11) Tobacco abuse Code(s): Z72.0 - TOBACCO USE Status: Chronic (12) h/o Hemorrhagic orchitis Status: Chronic Comment: s/p R orchiectomy 02/2017 .Path negative for malignancy (13) Hypokalemia Code(s): E87.6 - HYPOKALEMIA Status: Resolved Comment: - Plan cont current plan of care, continue antibiotics * medication reviewed as below * symptomatic treatment * stable for discharge if pt tolerate diet * see discharge summery. Review of Systems - Review of Systems Eyes: negative: Pain, Vision Change, Conjunctivae Inflammation, Eyelid Inflammation, Redness, Other ENT: negative: Ear Pain, Ear Discharge, Nose Pain, Nose Discharge, Nose Congestion, Mouth Pain, Mouth Swelling, Throat Pain, Throat Swelling, Other Respiratory: negative: Cough, Dry, Shortness of Breath, Hemoptysis, SOB with Excertion, Pleuritic Pain, Sputum, Wheezing Cardiovascular: negative: chest pain, palpitations, orthopnea, paroxysmal nocturnal dyspnea, edema, light headedness, other Gastrointestinal: negative: Nausea, Vomiting, Abdominal Pain, Diarrhea, Constipation, Melena, Hematochezia, Other Genitourinary: negative: Dysuria, Frequency, Incontinence, Hematuria, Retention , Other Musculoskeletal: negative: Neck Pain, Shoulder Pain, Arm Pain, Back Pain, Hand Pain, Leg Pain, Foot Pain, Other Skin: negative: Rash, Lesions, Rogelio, Bruising, Other - Medications/Allergies Allergies/Adverse Reactions: Allergies Allergy/AdvReac Type Severity Reaction Status Date / Time No Known Allergies Allergy Verified 02/25/17 11:46 Medications: Current Medications Acetaminophen (Tylenol) 1,000 mg PO Q6H PRN PRN Reason: Headache/Fever or Mild Pain Hydrocodone Bitart/Acetaminophen ([place] 5/325) 1 tab PO Q4H PRN PRN Reason: Moderate Pain (4-6) Hydrocodone Bitart/Acetaminophen ([place] 5/325) 2 tab PO Q4H PRN PRN Reason: Severe Pain (7-10) Last Admin: 06/13/17 04:56 Dose: 2 tab Amlodipine Besylate (Norvasc) 10 mg PO DAILY [facility] Last Admin: 06/13/17 08:50 Dose: 10 mg Lipase/Protease/[place] ([place] [id number]) 1 cap PO TID-[facility] Last Admin: 06/13/17 08:49 Dose: 1 cap Aspirin (Aspirin) 325 mg PO QAM-[facility] Last Admin: 06/13/17 08:49 Dose: 325 mg Bisacodyl (Dulcolax) 10 mg PO DAILYPRN PRN PRN Reason: Constipation Bisacodyl (Dulcolax) 10 mg HI DAILYPRN PRN PRN Reason: Constipation Clonidine (Catapres) 0.1 mg PO Q4H PRN PRN Reason: sbp>160 Famotidine (Pepcid) 20 mg PO BID [facility] Last Admin: 06/13/17 08:49 Dose: 20 mg Hydralazine HCl (Apresoline) 10 mg SLOW IVP Q4H PRN PRN Reason: SBP Greater Than 180 Last Admin: 06/11/17 04:17 Dose: 10 mg Hydroxychloroquine Sulfate (Plaquenil) 200 mg PO BID [facility] Last Admin: 06/13/17 08:49 Dose: Not Given Ciprofloxacin/Dextrose 200 mg/ (Device) 100 mls @ 100 mls/hr IVPB Q12HR [facility] Last Admin: 06/13/17 08:50 Dose: 100 mls Metronidazole 500 mg/ Device 100 mls @ 100 mls/hr IVPB Q8H [facility] Last Admin: 06/13/17 04:00 Dose: 100 mls Ibuprofen (Motrin) 800 mg PO TID [facility] Last Admin: 06/13/17 08:49 Dose: 800 mg Morphine Sulfate (Morphine) 2 mg SLOW IVP Q4H PRN PRN Reason: Moderate Pain (4-6) Last Admin: 06/13/17 08:50 Dose: 2 mg Ondansetron HCl (Zofran Odt) 4 mg PO Q6H PRN PRN Reason: Nausea/Vomiting Ondansetron HCl (Zofran) 4 mg IVP Q6H PRN PRN Reason: Nausea/Vomiting Potassium Chloride (K-Dur) 20 meq PO DAILY [facility] Last Admin: 06/13/17 08:49 Dose: 20 meq Prednisone (Prednisone) 20 mg PO BID-[facility] Last Admin: 06/13/17 08:49 Dose: 20 mg Saccharomyces Boulardii (Florastor) 250 mg PO DAILY [facility] Last Admin: 06/13/17 08:49 Dose: 250 mg Sodium Chloride (Flush - Normal Saline) 10 ml IVF Q12HR [facility] Last Admin: 06/13/17 08:50 Dose: 10 ml Sodium Chloride (Flush - Normal Saline) 10 ml IVF PRN PRN PRN Reason: Saline Flush Last Admin: 06/13/17 04:00 Dose: 10 ml
--- NOTE | 2017-06-13 12:41 | DIS ---
DATE OF ADMISSION: 06/10/2017 DATE OF DISCHARGE: 06/13/2017 PRIMARY CARE PHYSICIAN: Chaitanya Merino M.D. DISCHARGE DISPOSITION: Home. PRIMARY DISCHARGE DIAGNOSES: Generalized abdominal pain; acute proctitis; hypokalemia, corrected. SECONDARY DISCHARGE DIAGNOSES: Tobacco abuse disorder, systemic lupus erythematosus, history of pulm onary nodule, migraine headache, hypoalbuminemia, history of pericarditis, gastroesophageal reflux di sease, chronic pancreatitis, and pancytopenia. PRIMARY PROCEDURE/OPERATION: None. RADIOLOGICAL INVESTIGATION: Chest x-ray, CT chest, abdomen and pelvis CT scan showed findings sugges tive of proctitis. SIGNIFICANT LABS: Hemoglobin 13.1, platelet 101, WBC 3.8. Sodium 138, creatinine 0.68. LFTs are no rmal. Cardiac enzymes negative. Lipase is 26. Urinalysis is normal. Stool for infection workup is negative. Blood culture is negative. DISCHARGE MEDICATIONS: Cipro 500 mg p.o. b.i.d. for 5 days, Flagyl 500 mg p.o. t.i.d. for 5 days, Ty lenol No. 3 one or two tablets q.6 hourly p.r.n., aspirin 325 mg p.o. daily, colchicine 0.6 mg p.o. b .i.d., Plaquenil 200 mg p.o. b.i.d., naproxen 220 mg p.o. daily p.r.n., Creon DR one capsule p.o. t.i .d. with meal, potassium chloride 20 mEq p.o. daily, prednisone 20 mg p.o. daily. CONTRAINDICATIONS: None. CODE STATUS: FULL CODE. INPATIENT CONSULTANTS: Dr. Tomas Durham, GI specialist was following while in hospital. TEST RESULTS PENDING ON DISCHARGE: None. ALLERGIES: No known drug allergy. DISCHARGE PLAN: Post-hospital, the patient will follow up with Dr. Chaitanya Merino in 1 week. The patient is instructed to follow up with Rheumatology in 1 or 2 weeks. The patient is also instructed to follow with Dr. Durham as instructed. HOSPITAL COURSE: A 31-year-old male, who has above-mentioned medical problem who was admitted by Dr. Leyva, please see his H and P dictated on 06/11/2017. The patient presented to emergency room with g eneralized abdominal pain. In the emergency room, the patient had CT chest, abdomen, and pelvis, whi ch showed findings suggestive of proctitis and most of the findings were similar to previous. His ro utine blood test was also unremarkable. During this admission, we did stool for infection workup and that came back negative. The patient was treated with Cipro and Flagyl while in hospital empiricall y for proctitis. On discharge, we changed to p.o. Cipro and Flagyl. The rest of medication was cont inued while in hospital. With the treatment conservatively, the patient had significant improvement. Gastroenterology saw this patient and they were not planning to do any more testing at this point a nd recommended conservative and symptomatic treatment. The patient is instructed to follow up with the above-mentioned change consultant including Rheumatology and the patient expressed understanding that he will follow up with them after discharge. I have prescr ibed 30 pills of Tylenol No. 3 for his chronic pain as well as I have sent a prescription for Cipro a nd Flagyl to his pharmacy for 5 more days. Rest of medication, the patient reported to me that he al ready has at home. He will continue those medication as per previous. The patient is seen and examined at bedside today. Please see my progress note from today for furthe r detail.
== END 2017-06-13 13:04 | disposition home or self-care (01) | DRG 394 ==
LOC: ERS 18:58 → 2NO 21:55 → OBSVTOIN 21:55 → T4-A 06-11 15:10
PROVIDERS: ADMIT Family Medicine; ATTEND Family Medicine
DX: K62.89 Other specified diseases of anus and rectum (principal); D61.818 Other pancytopenia; I27.20 Pulmonary hypertension, unspecified; I07.1 Rheumatic tricuspid insufficiency; E88.09 Other disorders of plasma-protein metabolism, not elsewhere classified; K86.1 Other chronic pancreatitis; M32.9 Systemic lupus erythematosus, unspecified; R00.1 Bradycardia, unspecified; Z79.899 Other long term (current) drug therapy; E87.6 Hypokalemia; Z86.79 Personal history of other diseases of the circulatory system; K21.9 Gastro-esophageal reflux disease without esophagitis; F17.210 Nicotine dependence, cigarettes, uncomplicated; K86.81 Exocrine pancreatic insufficiency
CPT/HCPCS: 36415; 36416; 71045; 71260; 74177; 80048; 80053; 81003; 82274; 82553; 83630; 83690; 84484; 85007; 85025; 85027; 87040; 87045; 87046; 87324; 87328; 87329; 87449; 87899; 93005; 94760; 96361; 96365; 96368; 96375; 96376; A4216; J0360; J0744; J2270; J7506

== ENCOUNTER 2017-06-29 09:01 | Emergency (ER) | payer MEDICAID ==
[2017-06-29] MEDS ORDERED: methylPREDNISolone Sod Succ/PF 125 MG/2 ML VIAL ONE (10:10)
[2017-06-29] MEDS ORDERED: Morphine 4 MG/ML VIAL ONE (10:10)
[2017-06-29] MEDS ORDERED: Ondansetron ODT 4 MG TAB ONE (10:10)
[2017-06-29 10:27] LABS: Mean Corpuscular HGB CONC 32.6 g/dL (32.0-36.0); Mean Corpuscular Hemoglobin 31.5 pg (27.0-31.0); Mean Corpuscular Volume 96.7 fl (80.0-94.0); Mean Platelet Volume 10.2 fL (7.4-10.4); Platelet Count 144 thou/uL (130-400); Red Blood Cell (RBC) Count 4.11 mill/uL (4.70-6.10); White Blood Cell (WBC) Count 2.6 thou/uL (4.8-10.8)
[2017-06-29 10:34] LABS: ALT (SGPT) 14 U/L (8-55); AST (SGOT) 26 U/L (5-34); Albumin 3.8 g/dL (3.5-5.0); Alkaline Phosphatase 136 U/L (40-150); Anion Gap 12 mmol/L (10-20); BUN (Urea Nitrogen) 16 mg/dL (8.9-20.6); Bilirubin, Total 0.6 mg/dL (0.2-1.2); Calc. Creatinine Clearance 0 mL/min (70-130); Calcium 8.6 mg/dL (7.8-10.44); Carbon Dioxide 23 mmol/L (22-29); Chloride 108 mmol/L (98-107); Estimated GFR-MDRD Greater than 90; Globulin 3.7 g/dL (2.4-3.5); Glucose 81 mg/dL (70-105); Potassium 3.2 mmol/L (3.5-5.1); Protein, Total 7.5 g/dL (6.0-8.3); Sodium 140 mmol/L (136-145)
[2017-06-29 10:45] LABS: Band 11 % (5-11); Lymphocytes 31 % (21-51); MDiff Complete? YES; Monocytes 11 % (0-10); Neutrophil 47 % (42-75); RBC Morphology Normal
[2017-06-29 10:46] LABS: Bilirubin Small (Negative); Blood, Urine Negative (Negative); Clarity CLEAR (Clear); Glucose, Urine (Dipstick) Negative (Negative); Leukocyte Trace (Negative); Nitrite Negative (Negative); Protein, Urine (Dipstick) 100 mg/dL (Neg-Trace); Specific Gravity, Urine 1.029 (1.002-1.036); pH, Urine 6.5 (5.0-9.0)
[2017-06-29 10:51] LABS: Bacteria/HPF None Seen HPF (None Seen); Hyaline Casts/LPF 0-3 HYALINE CAST LPF (0-3 Hyaline); Pathc Cast-AUWi Flag 0.14 (0-2.49); Squamous Epithelial 0-3 HPF (0-3); WBC/HPF 0-3 HPF (0-3)
[2017-06-29 10:59] LABS: Renal Epithelial None Seen HPF (0-3); Transitional Epithelial NONE SEEN HPF (0-3)
[2017-06-29] MEDS ORDERED: HYDROcodone/Acetaminophen 5/325 mg Tablet ONE (14:27)
== END 2017-06-29 14:33 | disposition home or self-care (01) ==
LOC: ERS 09:01
DX: G89.4 Chronic pain syndrome (principal); M25.552 Pain in left hip; M25.551 Pain in right hip; M25.562 Pain in left knee; M25.561 Pain in right knee; M25.572 Pain in left ankle and joints of left foot; M25.571 Pain in right ankle and joints of right foot; M79.642 Pain in left hand; M79.641 Pain in right hand; M25.522 Pain in left elbow; M25.521 Pain in right elbow; M25.532 Pain in left wrist; M25.531 Pain in right wrist; M32.9 Systemic lupus erythematosus, unspecified; R11.0 Nausea; G43.909 Migraine, unspecified, not intractable, without status migrainosus; K86.1 Other chronic pancreatitis; I27.20 Pulmonary hypertension, unspecified; F31.9 Bipolar disorder, unspecified; Z79.899 Other long term (current) drug therapy
CPT/HCPCS: 36415; 80053; 81003; 81015; 85025; 96361; 96374; 96375; J2270; J2930; Q0162

== ENCOUNTER 2017-07-12 20:22 | Emergency (ER) | payer MEDICAID, SELFPAY ==
[2017-07-12 21:00] LABS: Hemoglobin 13.7 g/dL (14.0-18.0); Mean Corpuscular HGB CONC 33.6 g/dL (32.0-36.0); Mean Corpuscular Hemoglobin 32.6 pg (27.0-31.0); Mean Corpuscular Volume 97.2 fl (80.0-94.0); RBC Distribution Width 16.7 % (11.5-14.5); Red Blood Cell (RBC) Count 4.19 mill/uL (4.70-6.10); White Blood Cell (WBC) Count 3.9 thou/uL (4.8-10.8)
[2017-07-12 21:11] LABS: Band 4 % (5-11); Lymphocytes 17 % (21-51); MDiff Complete? YES; Monocytes 15 % (0-10); Neutrophil 64 % (42-75); PLT Morphology Comment Appears Decreased; Platelet Count 115 thou/uL (130-400)
[2017-07-12] MEDS ORDERED: Morphine 4 MG/ML VIAL ONE (21:11)
[2017-07-12 21:12] LABS: ALT (SGPT) 14 U/L (8-55); AST (SGOT) 30 U/L (5-34); Albumin 3.9 g/dL (3.5-5.0); Alkaline Phosphatase 143 U/L (40-150); Anion Gap 15 mmol/L (10-20); BUN (Urea Nitrogen) 13 mg/dL (8.9-20.6); Bilirubin, Total 0.6 mg/dL (0.2-1.2); Calc. Creatinine Clearance 0 mL/min (70-130); Calcium 8.9 mg/dL (7.8-10.44); Carbon Dioxide 18 mmol/L (22-29); Chloride 110 mmol/L (98-107); Estimated GFR-MDRD Greater than 90; Globulin 4.1 g/dL (2.4-3.5); Glucose 80 mg/dL (70-105); Potassium 3.3 mmol/L (3.5-5.1); Sodium 140 mmol/L (136-145)
[2017-07-12 21:16] LABS: CKMB 0.9 ng/mL (0-6.6); Troponin I Less than 0.010 ng/mL (< 0.028)
--- NOTE | 2017-07-12 21:35 | RAD ---
CHEST ONE VIEW: Comparison: 06-10-17 History: Pain. Shortness of breath. FINDINGS: There is fullness at the AP window. Stable cardiomegaly. Pulmonary vessels and hilum are normal. Cost ophrenic angles are clear. Chronic changes in the right midlung. No pneumothorax or osseous abnormali ty. IMPRESSION: No acute cardiopulmonary process. POS: [facility]
[2017-07-12] MEDS ORDERED: Lorazepam 2 MG/ML VIAL ONE (21:38)
--- NOTE | 2017-07-15 14:37 | EKG ---
Test Reason : Blood Pressure : / mmHG Vent. Rate : 101 BPM Atrial Rate : 101 BPM P-R Int : 164 ms QRS Dur : 096 ms QT Int : 376 ms P-R-T Axes : 049 141 000 degrees QTc Int : 487 ms Sinus tachycardia with occasional Premature ventricular complexes Possible Left atrial enlargement Incomplete right bundle branch block Right ventricular hypertrophy with repolarization abnormality Possible Inferior infarct , age undetermined Abnormal ECG Confirmed by HYACINTH SERRANO MD ([id number]), editor managing newspaper MARQUITA CASTRO ([id number]) on 07/15/2017 2:36:21 PM Referred By: Confirmed By:HYACINTH SERRANO MD
== END 2017-07-12 22:40 | disposition home or self-care (01) ==
LOC: ERS 20:22
DX: M94.0 Chondrocostal junction syndrome [Tietze] (principal); F41.9 Anxiety disorder, unspecified; M32.9 Systemic lupus erythematosus, unspecified; G43.909 Migraine, unspecified, not intractable, without status migrainosus; I10 Essential (primary) hypertension; F31.9 Bipolar disorder, unspecified; Z79.899 Other long term (current) drug therapy
CPT/HCPCS: 71045; 80053; 82553; 83690; 84484; 85025; 93005; 96374; 96375; J2060; J2270

== ENCOUNTER 2017-07-13 23:54 | Observation (INO) | payer SELFPAY ==
[2017-07-14 00:38] LABS: #Lymphocytes 0.9 thou/uL (1.20-3.40); #Monocytes 0.4 thou/uL (0.11-0.59); #Neutrophils 2.3 thou/uL (1.40-6.50); %Basophils 0.2 % (0.0-1.0); %Eosinophils 0.5 % (0.0-10.0); %Lymphocytes 25.1 % (21.0-51.0); %Monocytes 11.9 % (0.0-10.0); %Neutrophils 62.2 % (42.0-75.0); Hemoglobin 12.8 g/dL (14.0-18.0); Mean Corpuscular HGB CONC 33.6 g/dL (32.0-36.0); Mean Corpuscular Hemoglobin 32.4 pg (27.0-31.0); Mean Corpuscular Volume 96.5 fl (80.0-94.0); Mean Platelet Volume 5.7 fL (7.4-10.4); Platelet Count 106 thou/uL (130-400); RBC Distribution Width 16.6 % (11.5-14.5); Red Blood Cell (RBC) Count 3.94 mill/uL (4.70-6.10); White Blood Cell (WBC) Count 3.6 thou/uL (4.8-10.8)
[2017-07-14 00:41] LABS: ALT (SGPT) 11 U/L (8-55); AST (SGOT) 26 U/L (5-34); Albumin 3.8 g/dL (3.5-5.0); Alkaline Phosphatase 135 U/L (40-150); Anion Gap 12 mmol/L (10-20); BUN (Urea Nitrogen) 14 mg/dL (8.9-20.6); Bilirubin, Total 0.8 mg/dL (0.2-1.2); CK (CPK) 116 U/L (30-200); Calc. Creatinine Clearance 0 mL/min (70-130); Calcium 8.8 mg/dL (7.8-10.44); Carbon Dioxide 20 mmol/L (22-29); Chloride 111 mmol/L (98-107); Estimated GFR-MDRD Greater than 90; Globulin 3.9 g/dL (2.4-3.5); Glucose 82 mg/dL (70-105); Potassium 3.5 mmol/L (3.5-5.1); Protein, Total 7.7 g/dL (6.0-8.3); Sodium 139 mmol/L (136-145)
[2017-07-14 00:44] LABS: CKMB 0.8 ng/mL (0-6.6); Troponin I Less than 0.010 ng/mL (< 0.028)
[2017-07-14] MEDS ORDERED: Morphine 10 MG/ML VIAL ONE ×2 (01:02→03:44)
[2017-07-14] MEDS ORDERED: Lorazepam 2 MG/ML VIAL ONE (01:02)
[2017-07-14 01:16] LABS: Bilirubin Negative (Negative); Blood, Urine Negative (Negative); Clarity CLEAR (Clear); Glucose, Urine (Dipstick) Negative (Negative); Leukocyte Negative (Negative); Nitrite Negative (Negative); Protein, Urine (Dipstick) Negative (Neg-Trace); Specific Gravity, Urine 1.011 (1.002-1.036)
[2017-07-14] MEDS ORDERED: Morphine 4 MG/ML VIAL SLOW IVP PRN (05:27)
[2017-07-14] MEDS ORDERED: Ondansetron ODT 4 MG TAB SL PRN (05:28)
[2017-07-14] MEDS ORDERED: Ondansetron HCl/PF 4 MG/2 ML Vial IVP PRN ×2 (05:28→09:11)
[2017-07-14] MEDS ORDERED: Acetaminophen 325 MG TAB PO PRN ×2 (05:28→09:11)
[2017-07-14 05:48] VITALS: BMI 21.5
--- NOTE | 2017-07-14 07:20 | CT ---
CT ABDOMEN AND PELVIS WITH CONTRAST: INDICATIONS: Abdominal pain. Vomiting. History of lupus. FINDINGS: There is wall prominence and hyperdensity of the gallbladder, which is contracted. There is contrast opacification of the hepatic veins and prominence of the cardiac chambers, which may relate to right heart strain and passive congestion. There is abnormal left perinephric circumferential low density and subtle diminished enhancement at the periphery of the left renal parenchyma. No adrenal mass or focal splenic lesion. No peripancreatic inflammation. The bowel is incompletely assessed without e nteric contrast. There is prominent inflammation of the pelvis, centered about the rectosigmoid amee on. Soft tissue nodularity may relate to superimposed adenopathy, although this is difficult to asse ss due to the effacement of normal fat planes by the degree of inflammation. Inflammation of this re gion was demonstrated on prior CT of 02/24/2017, as well as on the 06/10/2017 CT exam. The degree of inflammation has progressed. Multiple air locules of this region localize to the traversing colon w ithout definite evidence for disseminated free air. Previously mentioned right iliac chain lymph nod es are grossly stable. There is retroperitoneal adenopathy. The aorta is nonaneurysmal. Patchy and linear densities of the left lung base may relate to atelectasis. IMPRESSION: 1. Abnormal left perinephric circumferential density and hypoattenuation of the left renal parenchym a. This could relate to an infiltrative process or, alternatively, pyelonephritis. Recommend correl ation with urinary laboratory values. Imaging followup may also prove useful. 2. Prominent inflammation of the pelvis again demonstrated about the rectosigmoid colon, indicating proctocolitis. 3. Contracted thick-walled and hyperdense gallbladder. Correlate clinically. 4. Findings which may relate to right heart strain and passive congestion of the liver. 5. Adenopathy. Given the degree of extensive proctocolitis, recommend surgical consultation for further evaluation. POS: [facility]
[2017-07-14] MEDS: Morphine 4 MG/ML VIAL SLOW IVP PRN ×4 (07:51→19:54)
[2017-07-14] MEDS ORDERED: Acetaminophen/Codeine 30-300mg Tablet PO PRN (08:49)
[2017-07-14] MEDS ORDERED: Non-Formulary Item 1 EACH (Naproxen Sodium [Aleve] 220 MG) PO PRN (08:49)
--- NOTE | 2017-07-14 08:50 | RAD ---
FRONTAL CHEST RADIOGRAPH: Date: 07/13/17 COMPARISON: 07/12/17. HISTORY: Lupus flare, vomiting, bilateral leg pain, dyspnea. FINDINGS: Mild linear density in the left lung base suggests volume loss or scar. Heart and mediastinal contour s demonstrate mild prominence of the cardiac silhouette. There is no pneumothorax or pleural fluid. N o focal consolidation or alveolar edema. IMPRESSION: No acute findings. POS: [facility]
[2017-07-14] MEDS ORDERED: Non-Formulary Item 1 EACH (Potassium Chloride [Potassium Chloride] 20 MEQ) PO SCH (09:00)
[2017-07-14] MEDS ORDERED: Prevnar 13-Val Conj/PF 0.5 ML SYRINGE IM ONE (09:00)
[2017-07-14] MEDS ORDERED: Naproxen 500 MG TAB PO PRN (09:00)
[2017-07-14] MEDS ORDERED: Bisacodyl 5 MG TAB PO PRN (09:11)
[2017-07-14] MEDS ORDERED: Acetaminophen 650 MG Suppository PR PRN (09:11)
[2017-07-14] MEDS: Potassium Chloride 20 MEQ TAB PO SCH (09:15)
[2017-07-14] MEDS: Hydroxychloroquine Sulfate 200 MG TAB PO SCH ×2 (09:15→20:01)
[2017-07-14] MEDS ORDERED: Morphine 4 MG/ML VIAL IV PRN (09:20)
[2017-07-14] MEDS ORDERED: ISOVUE-370 76%-LOCM 1 ML ONE (10:58)
[2017-07-14] MEDS: Pancrelipase DR 12000 1 CAP PO SCH ×2 (11:43→16:00)
[2017-07-14] MEDS: Lorazepam 0.5 MG TAB PO PRN ×2 (11:43→19:55)
[2017-07-14] MEDS: NS 0.9% w/ 20 MEQ KCL 1,000 ML/1,000 ML BAG IV SCH (13:44)
--- NOTE | 2017-07-14 14:01 | HP ---
PRIMARY CARE PROVIDER: Chaitanya Merino M.D. CHIEF COMPLAINT: Abdominal pain. HISTORY OF PRESENT ILLNESS: Mr. Watkins is a pleasant 31-year-old gentleman, who was seen at [facility] on 07/14/2017. He reports abdominal pain over the last 2 weeks. He descr ibes it as on and off, dull, but occasionally sharp, across his lower abdomen, no known aggravating o r relieving factors, not accompanied by diarrhea, but by nausea and vomiting over the last 3-4 days. He also reports being constipated. He reports that the pain is radiating down both legs. He denies any fevers. He denies any chest pain or shortness of breath. REVIEW OF SYSTEMS: All other systems reviewed and found to be negative. PAST MEDICAL HISTORY: Systemic lupus erythematosus, on chronic immunosuppressive therapy; pericardia l effusion, status post pericardial window; right testicular hemorrhagic necrosis, status post right orchiectomy; pulmonary hypertension; chronic pancreatitis; peptic ulcer disease; ileus. PAST SURGICAL HISTORY: Pericardial window in 2017 and right orchiectomy. FAMILY HISTORY: Father had diabetes mellitus, hypertension, and dyslipidemia. Mother had ovarian ca ncer. SOCIAL HISTORY: The patient denies tobacco use, alcohol use, or recreational drug use. ALLERGIES: No known drug allergies. CURRENT MEDICATIONS: Include Tylenol #3 p.r.n., Plaquenil 200 mg 2 times a day, Flagyl 500 mg 3 time s a day, naproxen 220 mg daily, pancrelipase 1 capsule 3 times a day, potassium chloride 20 mEq daily , prednisone 20 mg 2 times a day. PHYSICAL EXAMINATION: GENERAL: Mr. Watkins is awake and alert, not in acute distress. VITAL SIGNS: He is afebrile. Blood pressure is 168/118. Pulse is 67. He is breathing at a rate of 18 and saturating 98% on room air. He is afebrile. EYES: No scleral icterus. No conjunctival pallor. ENT: Dry mucosal membranes, no oropharyngeal erythema or exudates. NECK: Supple, nontender, normal range of movement. Trachea is midline. RESPIRATORY: Accessory muscles of breathing are not active. Chest wall movements are symmetric bila terally. LUNGS: Clear to auscultation without wheeze, rhonchi, or crepitations. CARDIOVASCULAR: S1 and S2 are heard, regular. Peripheral pulses palpable. No carotid bruit, no per icardial rub. ABDOMEN: Mild tenderness over both lower quadrants, no guarding or rigidity, bowel sounds are heard, no hepatomegaly, no splenomegaly. NEUROLOGIC: Cranial nerves II-XII intact. Deep tendon reflexes are 2+. MUSCULOSKELETAL: Power is 5/5 in all 4 extremities. SKIN: Multiple tattoos present. LYMPHATICS: No cervical lymphadenopathy. PSYCHIATRIC: Normal mood, normal affect, patient is oriented to person, place, and time. LABORATORY DATA: Mr. Watkins's labs and investigations were reviewed. I reviewed his electrocardiog marcell, which shows normal sinus rhythm, no ST changes to suggest an acute coronary syndrome. I also re viewed his chest x-ray, which does not show any pulmonary infiltrates. A CT scan of the abdomen and pelvis showed abnormal left perinephric circumferential density and hypoattenuation of the left renal parenchyma. This could relate to an infiltrative process or pyelonephritis. The radiologist recomm ends correlation with urinary and laboratory values or imaging followup. He also has prominent inflammation of the pelvis about the rectosigmoid colon indicating proctocoliti s. He had contracted thick-walled and hypertense gallbladder. He also had findings, which may relat e to right heart strain and passive congestion of the liver as well as adenopathy. He has decreased white count of 3600, macrocytic anemia with hemoglobin 12.8, thrombocytopenia with platelet count 106 , last known platelet count 115 on 07/12/2017, normal sodium, normal potassium, decreased carbon diox torrey of 20, normal creatinine, unremarkable liver profile, normal lipase, normal troponin I, and malia l urinalysis. ASSESSMENT AND PLAN: Mr. Watkins is a pleasant 31-year-old gentleman who was seen at [facility] on 07/14/2017. His problem list includes: 1. Abdominal pain: Etiology unclear. He appears to have proctocolitis. He will be admitted to the hospital and Gastroenterology Service is being consulted for opinion and help with further managemen t. 2. Pancytopenia: He had pancytopenia in the past as well. We will follow daily labs. 3. Lupus: Appears to be stable, we will continue Plaquenil and steroids. 4. Nausea and vomiting: Start patient on fluid diet, start antiemetics p.r.n. 5. Renal abnormalities seen on CT scan: He has a normal urinalysis. His kidneys were normal appear ing during prior CT scans. We will consult Urology for opinion. Many thanks for allowing me to participate in your patient's care. Please feel free to contact me wi th any questions or concerns. LEVEL OF RISK: High. LEVEL OF COMPLEXITY: High.
[2017-07-14] MEDS: predniSONE 20 MG TAB PO SCH (16:00)
--- NOTE | 2017-07-14 17:15 | CON ---
DATE OF CONSULTATION: 07/14/2017 INPATIENT CONSULTATION REFERRING: Hospitalist. REASON FOR CONSULT: Abnormal CT. HISTORY OF PRESENT ILLNESS: Mr. Watkins is a pleasant 31-year-old male , Tong[place] speaking, known to me as he presented initially referred from the emergency room to rule out right testicular mass, malignancy. The patient with history of lupus, pericarditis, pulmonary hypertension presented initially to the emergency room due to right scrotal discomfort. 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 He underwent right radical orchiectomy, which demonstrated no evidence of malignancy and was advised regarding p.r.n. follow up with me. He is currently admitted to the medical service as he presented with 6-day history of lower abdominal discomfort at infraumbilical. States that he has not had a bowel movement for the last few days, even with bowel movement there is discolored stool, possibly blood tinged. He denies dysuria, gross hematuria, denies scrotal discomfort. He states that the orchiectomy site is healing well and has no recurrence of discomfort or pain. PAST MEDICAL HISTORY: Lupus, chronic immunosuppressive therapy, pericardial effusion status post pericardial window, history of bipolar, chronic pancreatitis, history of peptic ulcer disease. PAST SURGICAL HISTORY: Pericardial window on 11/2016, hidradenitis Dr. Lovell, right radical orchiectomy on 03/11/2017. ALLERGIES: No known drug allergies. CURRENT MEDICATIONS: Include Tylenol, Dulcolax, Lovenox, Plaquenil, Ativan, morphine, Zofran, K-Dur, prednisone. PHYSICAL EXAMINATION: VITAL SIGNS: Stable. GENERAL: Patient appears anxious, states that he needs his anxiolytics. Complaining of pain in the lower abdominal infraumbilical region. HEENT: Grossly unremarkable. HEART: Regular rate. LUNGS: Clear. ABDOMEN: Soft. There is no gross evidence of CVA tenderness, no rigidity, no rebound. Subjective discomfort is infraumbilical midline. There is no gross rigidity or rebound. EXTREMITIES: No cyanosis, clubbing or edema. GENITOURINARY: Meatus is grossly unremarkable. Right inguinal incision is well healed with no evidence of hernia. Right hemiscrotum is empty. Left testicle is grossly unremarkable with no evidence of intratesticular mass. PERTINENT LABORATORY DATA AND IMAGING DATA: 1. White count 3.6, hemoglobin 12, platelet 106. Creatinine 0.7. UA is unremarkable. 2. CT of the abdomen and pelvis with contrast on 07/14/2017 left perinephritic circumferential low density/subtle diminished enhancement of the periphery of the left renal parenchyma, this is very small upon my review, possible volume averaging cannot be completely excluded based on prior CT. There is no hydronephrosis, no renal calculi, soft tissue nodularity, possible superimposed adenopathy of the rectosigmoid region indicating proctocolitis. 3. CT of the chest, abdomen, and pelvis on 09/2017 demonstrating right external iliac lymphadenopathy of unclear etiology, they are mildly increased. 4. CT of the abdomen and pelvis with contrast on 02/2017 proctitis, slightly enlarged lymph nodes in the retroperitoneum. Kidneys unremarkable. IMPRESSION AND PLAN: 1. Moe is a 31-year-old male known to me who presented with right scrotal discomfort with testicular mass, status post right radical orchiectomy. Pathology is negative for testicular carcinoma. The patient is currently admitted for lower abdominal discomfort with 3 to 4-day history of constipation with blood tinged stool. GI consultation is advised. It is likely that he has a flare of his proctocolitis. 2. Urologic consultation obtained due to nonspecific findings of left renal cortical with subtle area of diminished enhancement which is very small in nature. He has no evidence of flank pain nor gross hematuria. Retrospective review demonstrates similar finding on prior CT, may be more prominent due to volume averaging. Nevertheless, patient is asymptomatic with no flank pain, no evidence of gross hematuria. No obvious wedge deformity consistent with clinically significant vascular hypoperfusion defect. No surgical urologic intervention is warranted at this time. Recommend patient follows up with me upon discharge in few months for followup imaging if indicated. will sign off. Call if any questions or concerns. [facility]
--- NOTE | 2017-07-14 17:48 | CON ---
DATE OF CONSULTATION: 07/14/2017 REASON FOR CONSULTATION: Lower abdominal pain and proctitis. CONSULTING PHYSICIAN: Dr. Oakes. 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 He was admitted to [facility] in 05/2017 with similar complaints of increased lower abdominal pain. He responded well to more cons ervative management at that time including IV fluids, pain control and IV antibiotics. The plan was that on discharge, he would follow with GI Clinic with outpatient colonoscopy performed at that time; however, he did not follow up in the outpatient clinic for further evaluation. He is now presenting again with 2-week history of increased suprapubic/rectal abdominal pain described as a cramping type pain. The pain originally is located in the suprapubic area, but would radiate to both the left and right lower abdominal quadrants. It is intermittent and reaches a severity of 10/10. The pain is i ncreased with sitting down for prolonged periods of time, usually on the toilet and would also increa se immediately before having a bowel movement. The pain is better with sitting in very hot water whe re the pain would subside for roughly 5-10 minutes after doing this, but usually recur. He also endo rses intermittent hematochezia with blood present both on the toilet paper and coating the stool. He also states that he has been having approximately 6-7 small volume bowel movements per day over the last 1-2 weeks of a semi-solid consistency. He also endorses associated increased nausea and nonbloo dy emesis, but otherwise denies any fevers, chills, hematemesis, melena, weight loss or sick contacts . REVIEW OF SYSTEMS: A 10-category review of systems was obtained with all responses negative except f or the pertinent positives as listed in the HPI. PAST MEDICAL HISTORY: As per HPI. PAST SURGICAL HISTORY: Pericardial window surgery in 2017 and right orchiectomy. FAMILY HISTORY: Denies any GI malignancies or IBD. SOCIAL HISTORY: Denies any tobacco, alcohol or illicit drug use. OUTPATIENT MEDICATIONS: Reviewed. ALLERGIES: No known drug allergies. PHYSICAL EXAMINATION: VITAL SIGNS: Temperature 98, pulse 88, blood pressure 159/107, respiratory rate 20, satting 96% on r oom air. GENERAL: Patient is lying in bed in mild to moderate distress, tearful upon interview/examination, a lert and oriented x4. NECK: Supple. No JVD noted. CARDIOVASCULAR: Regular rate and rhythm with no discernible murmurs, gallops or rubs. RESPIRATORY: Clear to auscultation bilaterally with no discernible wheezes or rales. ABDOMEN: Normoactive bowel sounds, soft with some guarding. Tenderness to palpation in all abdomina l quadrants, most especially in the left lower quadrant, suprapubic, and right lower quadrants. EXTREMITIES: No cyanosis, clubbing or edema. LABORATORY DATA: CBC with a white blood cell count of 3.6, hemoglobin 12.8, hematocrit 38.1, and edwin telets 106. Chemistry with sodium of 139, potassium 3.5, chloride 111, CO2 20, BUN 14, creatinine 0. 75, glucose 82, AST 26, ALT 11, alkaline phosphatase 135, total bilirubin 0.8, and lipase 26. IMAGING DATA: CT of the abdomen and pelvis was obtained on 07/14/2017 which showed an abnormal left perinephric circumferential density and hypoattenuation of the left renal parenchyma concerning for a n interval infiltrative process or alternatively pyelonephritis. There is also prominent inflammatio n of the pelvis again demonstrated about the rectosigmoid colon indicating probable proctocolitis whi ch is worse when compared to prior examinations. ASSESSMENT AND PLAN: Patient is a 31-year-old male with past medical history of systemic lupus eryth ematosus, pulmonary hypertension, chronic pancreatitis, peptic ulcer disease, pericardial effusion st atus post pericardial window surgery and testicular cancer status post orchiectomy presenting with espinoza prapubic abdominal pain. Suprapubic abdominal pain. The patient is presenting with a recurrent history of increased suprapubi c abdominal pain that was noted in 05/2017 and now recurrent on this admission. The pain is characte rized as cramping in nature, located in the lower abdominal quadrants and reaches a severity of appro ximately 10/10. This abdominal pain is strongly associated with having a bowel movement along with t he increased sensation of tenesmus and alleviated with sitting in a hot bath. CT findings are again consistent with proctosigmoid or proctocolitis concerning for presence of an intracolonic pathology. At this point, the differential could include inflammatory bowel disease, stercoral ulcerations, inf ection, especially in an immunosuppressed patient, and/or colonic neoplasm. RECOMMENDATIONS: 1. Would obtain infectious stool workup for possible infectious etiology in an immunosuppressed erum ent. 2. We will plan for colonoscopy tomorrow. Please place patient on a clear liquid diet today with Go LYTELY prep tonight in preparation for colonoscopy tomorrow. 3. Pain control per primary team. 4. Further recommendations to follow endoscopic evaluation. We will continue to follow. Please call with any questions.
[2017-07-14] MEDS ORDERED: GoLYTELY 4,000 ml Bottle PO SCH (18:00)
[2017-07-15] MEDS: Morphine 4 MG/ML VIAL SLOW IVP PRN ×4 (01:57→20:39)
[2017-07-15] MEDS: NS 0.9% w/ 20 MEQ KCL 1,000 ML/1,000 ML BAG IV SCH ×2 (01:57→16:08)
[2017-07-15] MEDS: Lorazepam 0.5 MG TAB PO PRN ×3 (03:51→20:39)
[2017-07-15 04:54] LABS: #Lymphocytes 0.4 thou/uL (1.20-3.40); #Monocytes 0.3 thou/uL (0.11-0.59); #Neutrophils 1.5 thou/uL (1.40-6.50); %Basophils 2.1 % (0.0-1.0); %Eosinophils 0.3 % (0.0-10.0); %Lymphocytes 16.7 % (21.0-51.0); %Monocytes 13.6 % (0.0-10.0); %Neutrophils 67.3 % (42.0-75.0); Hemoglobin 12.3 g/dL (14.0-18.0); Mean Corpuscular HGB CONC 32.8 g/dL (32.0-36.0); Mean Corpuscular Hemoglobin 31.7 pg (27.0-31.0); Mean Corpuscular Volume 96.9 fl (80.0-94.0); Mean Platelet Volume 6.4 fL (7.4-10.4); Platelet Count 93 thou/uL (130-400); RBC Distribution Width 16.4 % (11.5-14.5); Red Blood Cell (RBC) Count 3.88 mill/uL (4.70-6.10); White Blood Cell (WBC) Count 2.3 thou/uL (4.8-10.8)
[2017-07-15 05:08] LABS: Anion Gap 9 mmol/L (10-20); BUN (Urea Nitrogen) 12 mg/dL (8.9-20.6); Calc. Creatinine Clearance 151 mL/min (70-130); Calcium 8.4 mg/dL (7.8-10.44); Carbon Dioxide 25 mmol/L (22-29); Chloride 109 mmol/L (98-107); Estimated GFR-MDRD Greater than 90; Glucose 112 mg/dL (70-105); Potassium 4.1 mmol/L (3.5-5.1); Sodium 139 mmol/L (136-145)
[2017-07-15] MEDS: Enoxaparin Sodium 40 MG/0.4 ML SYRINGE SC SCH (09:10)
[2017-07-15] MEDS: Hydroxychloroquine Sulfate 200 MG TAB PO SCH ×2 (09:10→20:39)
[2017-07-15] MEDS: Pancrelipase DR 12000 1 CAP PO SCH ×4 (09:10→16:08)
[2017-07-15] MEDS: predniSONE 20 MG TAB PO SCH ×2 (09:10→16:08)
[2017-07-15] MEDS: Potassium Chloride 20 MEQ TAB PO SCH (09:11)
--- NOTE | 2017-07-15 11:23 | PDOC.PN ---
- Subjective Encounter Start Date: 07/15/17 Encounter Start Time: 08:25 still complaining of significant abdominal pain. no acute night events - Objective Vital Signs & Weight: Vital Signs (12 hours) Temp Pulse Resp BP Pulse Ox 07/15/17 07:58 97.5 F L 71 16 07/15/17 07:53 98.2 F 71 22 H 157/107 H 99 07/15/17 03:52 97.5 F L 71 16 137/99 H 94 L Weight Weight 152 lb 11.2 oz I&O: 07/14/17 07/15/17 07/16/17 06:59 06:59 06:59 Intake Total 0 Balance 0 Result Diagrams: 07/15/17 03:59 07/15/17 03:59 Phys Exam - Physical Examination Constitutional: NAD HEENT: PERRLA, moist MMs, sclera anicteric Neck: no nodes, no JVD, supple Respiratory: no wheezing, no rales, no rhonchi, clear to auscultation bilateral Cardiovascular: RRR, no significant murmur, no rub Gastrointestinal: soft diffuse tenderness Musculoskeletal: pulses present Neurological: non-focal, normal sensation, moves all 4 limbs Psychiatric: A&O x 3 Skin: cap refill <2 seconds Dx/Plan (1) Abdominal pain Code(s): R10.9 - UNSPECIFIED ABDOMINAL PAIN Status: Acute Qualifiers: Abdominal location: generalized Qualified Code(s): R10.84 - Generalized abdominal pain (2) Pancytopenia Code(s): D61.818 - OTHER PANCYTOPENIA Status: Acute (3) Chronic pancreatitis Code(s): K86.1 - OTHER CHRONIC PANCREATITIS Status: Chronic - Plan cont current plan of care, plan discussed w/ family * . colonoscopy planned for today f/u with results and recs supportive care mgmt pain mgmt control
[2017-07-15] MEDS ORDERED: Promethazine HCl 25 MG/ML VIAL SLOW IVP PRN (12:00)
[2017-07-15] MEDS ORDERED: Promethazine HCl 25 MG/ML VIAL IM PRN (12:00)
[2017-07-15] MEDS ORDERED: Ondansetron HCl/PF 4 MG/2 ML Vial IVP PRN (12:00)
--- NOTE | 2017-07-15 12:22 | OP ---
DATE OF PROCEDURE: 07/15/2017 SURGEON: Michael Gallagher M.D. PREOPERATIVE DIAGNOSES: 1. Concern for proctitis on previous imaging. 2. History of immunosuppression. 3. History of lupus. PROCEDURE: Colonoscopy with biopsy. POSTOPERATIVE DIAGNOSES: 1. Normal terminal ileum. 2. A couple of small erosions scattered in the right colon, nonspecific aphthoid-like, biopsied. In tervening mucosa normal, submitted in right colon jars. 3. Diffuse edema in the rectal mucosa with a few superficial erosions. Photodocumentation obtained. Biopsies obtained. 4. Otherwise, normal colonoscopy. This is not a typical appearance of inflammatory bowel disease. Differential diagnosis would include some type of vasculitis or lupus or even an opportunistic infect ion, would check a CMV. This has been ordered. ANESTHESIA: TIVA. PROCEDURE IN DETAIL: After the patient was informed of the risks, benefits, and possible complicatio ns of endoscopy including perforation, reactions to medication and aspiration, informed consent was o btained. The patient was brought to the endoscope suite where he was sedated in gradual fashion. On ce he was comfortable, a rectal exam was performed. The endoscope was advanced into the anal canal, into the colon to the cecum which was identified by the ileocecal valve and appendiceal orifice. The terminal ileum was entered and found to be normal. The ascending colon was fairly normal. There we re a few small 2-3 mm erosions, aphthoid-like, scattered around the colon with some submucosal areas of submucosal hemorrhage and edema. These were biopsied. In the rectum there was a little bit of er ythema and some areas of submucosal hemorrhage. This did not have the typical appearance of Crohn's or ulcerative colitis. Random biopsies were obtained. The scope was removed after retroflexed views were performed. The patient tolerated the procedure with no complications.
[2017-07-15] MEDS ORDERED: PROPOFOL 200 MG/20 ML VIAL ONE (13:52)
[2017-07-15] MEDS ORDERED: Lidocaine 1% PF 5 ML VIAL ONE (13:52)
[2017-07-16] MEDS: Morphine 4 MG/ML VIAL SLOW IVP PRN ×2 (03:20→08:57)
[2017-07-16 04:53] LABS: #Lymphocytes 0.5 thou/uL (1.20-3.40); #Monocytes 0.3 thou/uL (0.11-0.59); %Basophils 0.9 % (0.0-1.0); %Eosinophils 0.5 % (0.0-10.0); %Lymphocytes 17.4 % (21.0-51.0); %Monocytes 11.8 % (0.0-10.0); %Neutrophils 69.4 % (42.0-75.0); Hemoglobin 11.9 g/dL (14.0-18.0); Mean Corpuscular HGB CONC 32.7 g/dL (32.0-36.0); Mean Corpuscular Hemoglobin 31.7 pg (27.0-31.0); Mean Platelet Volume 11.2 fL (7.4-10.4); Platelet Count 103 thou/uL (130-400); RBC Distribution Width 16.5 % (11.5-14.5); Red Blood Cell (RBC) Count 3.76 mill/uL (4.70-6.10); White Blood Cell (WBC) Count 2.9 thou/uL (4.8-10.8)
[2017-07-16] MEDS: Lorazepam 0.5 MG TAB PO PRN (05:48)
[2017-07-16] MEDS: NS 0.9% w/ 20 MEQ KCL 1,000 ML/1,000 ML BAG IV SCH (05:51)
[2017-07-16] MEDS: Enoxaparin Sodium 40 MG/0.4 ML SYRINGE SC SCH (08:59)
[2017-07-16] MEDS: Potassium Chloride 20 MEQ TAB PO SCH (08:59)
[2017-07-16] MEDS: Hydroxychloroquine Sulfate 200 MG TAB PO SCH (08:59)
[2017-07-16] MEDS: predniSONE 20 MG TAB PO SCH (08:59)
[2017-07-16] MEDS: Pancrelipase DR 12000 1 CAP PO SCH ×2 (08:59→13:32)
[2017-07-16 12:08] VITALS: BP 153/103; TEMP 98.5
--- NOTE | 2017-07-16 13:20 | DIS ---
PRIMARY CARE PHYSICIAN: Dr. Chaitanya Merino COLLECTION ANALYST: Dr. Tomas Durham DATE OF ADMISSION: 07/14/2017 DATE OF DISCHARGE: 07/16/2017 DISCHARGE DIAGNOSES: 1. Recurrent proctitis. 2. Constipation. 3. Abdominal pain. 4. Systemic lupus erythematosus. 5. Pancytopenia. 6. Intractable nausea and vomiting - resolved. 7. Chronically immunosuppressed. 8. History of pericarditis with pericardial effusion status post pericardial window. 9. Recent right testicular hemorrhagic necrosis. 10. Pulmonary hypertension. 11. Chronic pancreatitis. 12. Peptic ulcer disease. CONSULTATIONS: 1. Gastroenterology, Dr. Tomas Durham 1. Urology, Dr. Pedraza PROCEDURES: 1. Colonoscopy 07/15/2017 showing proctitis, plaques in the terminal ileum. 2. Small erosions in the right colon, aphthoid-like, status post biopsy. HISTORY AND PHYSICAL: Mr. Watkins is a 31-year-old male with the above history who pr esents to the emergency department the day of admission with complaints of abdominal pain, intractabl e nausea and vomiting. He has been having increasing symptoms over the 2 weeks prior to presentation. It comes on and off, but occasionally sharp across the lower abdomen. He had nausea, vomited for the last 3-4 days and re ported being constipated. Workup showed a white count of 3600, macrocytic anemia that was chronic, CT scan of the abdomen showe d abnormal left perinephric circumferential density. We were subsequently called for admission. HOSPITAL COURSE: The patient was seen by Dr. Giuseppe Gonzalez and examined. He was placed onto observati on status. GI was consulted. The patient was seen by Dr. Pedraza first who felt that the renal finding was incidental and coul d be followed up as an outpatient. Dr. Durham saw the patient and recommended colonoscopy and begin b owel prep. The patient was bowel prepped on 07/14/2017 overnight and by 07/15/2017 felt markedly improved. He went to the endoscopy suite with Dr. Gallagher with the above findings. Dr. Gallagher requested he be w atched overnight. Today, he is feeling great. No fevers or chills. No nausea, vomiting, no abdominal pain. He asked if he could go home. PHYSICAL EXAMINATION: VITAL SIGNS: The patient was seen and examined on the day of discharge. Discharge plan and disposition was discussed with the patient face to face at the bedside. DISCHARGE MEDICATIONS: NEW MEDICATIONS: 1. Hydrocodone/APAP 5/325 one p.o. q.4h. p.r.n. prescription for 30 tablets, no refills written out and given. 2. Plaquenil 200 mg p.o. b.i.d. New prescription sent. 3. MiraLax 17 grams p.o. daily. New prescription sent. HOME MEDICATIONS TO RESUME: 1. Naproxen 220 mg p.o. daily p.r.n. 2. Pancrelipase DR 12,000 units p.o. t.i.d. with meals. 3. Potassium chloride 20 mEq daily. 4. Prednisone 20 mg p.o. b.i.d. 5. Lasix p.r.n. 20 mg. FOLLOWUP APPOINTMENTS: 1. Primary care physician within a week. 2. Manufacturing Associate as scheduled. 3. Dr. Durham in 2 weeks. DISCHARGE CONDITION: Stable. DISPOSITION: He will be discharged home via private vehicle. DISCHARGE ACTIVITY: As tolerated. DISCHARGE DIET: No restrictions.
[2017-07-17 14:28] LABS: CMV DNA-PCR Test Negative (Negative)
[2017-07-18 04:18] LABS: CMV IgM AB Less than 30.0 AU/mL (0.0-29.9)
== END 2017-07-16 13:39 | disposition home or self-care (01) ==
LOC: ERS 23:54 → 2SW 07-14 03:48
PROVIDERS: ADMIT Internal Medicine; ATTEND Internal Medicine
PROC: 0DBE8ZX Excision of Large Intestine, Via Natural or Artificial Opening Endoscopic, Diagnostic (ICD-10-PCS; principal; 2017-07-15)
DX: K63.3 Ulcer of intestine (principal); K62.89 Other specified diseases of anus and rectum; D61.818 Other pancytopenia; R11.2 Nausea with vomiting, unspecified; K86.1 Other chronic pancreatitis; K27.9 Peptic ulcer, site unspecified, unspecified as acute or chronic, without hemorrhage or perforation; M32.9 Systemic lupus erythematosus, unspecified; I27.20 Pulmonary hypertension, unspecified; Z79.899 Other long term (current) drug therapy
CPT/HCPCS: 36415; 71045; 74177; 80048; 80053; 81003; 82550; 82553; 83690; 84484; 85025; 86644; 86645; 87045; 87046; 87324; 87449; 87497; 87899; 88305; 90471; 90670; 93005; 96361; 96374; 96375; 96376; A4216; G0009; G0378; J1650; J2001; J2060; J2270; J2405; J2704; J7506

== ENCOUNTER 2017-07-28 08:10 | Emergency (ER) | payer MEDICAID, OTHER, SELFPAY ==
[2017-07-28] MEDS ORDERED: Lorazepam 2 MG/ML VIAL ONE (08:39)
[2017-07-28] MEDS ORDERED: Dexamethasone 10 MG/ML VIAL ONE (09:02)
[2017-07-28 09:06] LABS: #Lymphocytes 0.8 thou/uL (1.20-3.40); #Monocytes 0.4 thou/uL (0.11-0.59); #Neutrophils 2.2 thou/uL (1.40-6.50); %Basophils 0.2 % (0.0-1.0); %Eosinophils 0.7 % (0.0-10.0); %Lymphocytes 23.3 % (21.0-51.0); %Monocytes 11.2 % (0.0-10.0); %Neutrophils 64.7 % (42.0-75.0); Hemoglobin 11.9 g/dL (14.0-18.0); Mean Corpuscular HGB CONC 33.1 g/dL (32.0-36.0); Mean Corpuscular Hemoglobin 31.7 pg (27.0-31.0); Mean Corpuscular Volume 95.8 fl (80.0-94.0); Mean Platelet Volume 10.2 fL (7.4-10.4); Platelet Count 117 thou/uL (130-400); RBC Distribution Width 16.4 % (11.5-14.5); Red Blood Cell (RBC) Count 3.74 mill/uL (4.70-6.10); White Blood Cell (WBC) Count 3.4 thou/uL (4.8-10.8)
[2017-07-28 09:17] LABS: ALT (SGPT) 28 U/L (8-55); AST (SGOT) 43 U/L (5-34); Albumin 3.8 g/dL (3.5-5.0); Alkaline Phosphatase 147 U/L (40-150); Anion Gap 14 mmol/L (10-20); BUN (Urea Nitrogen) 19 mg/dL (8.9-20.6); Bilirubin, Total 0.5 mg/dL (0.2-1.2); Calc. Creatinine Clearance 0 mL/min (70-130); Calcium 9.2 mg/dL (7.8-10.44); Carbon Dioxide 23 mmol/L (22-29); Chloride 111 mmol/L (98-107); Estimated GFR-MDRD Greater than 90; Globulin 3.9 g/dL (2.4-3.5); Glucose 73 mg/dL (70-105); Potassium 3.7 mmol/L (3.5-5.1); Protein, Total 7.7 g/dL (6.0-8.3); Sodium 144 mmol/L (136-145)
[2017-07-28 09:18] LABS: CRP (Inflammatory) 1.18 mg/dL (= or < 0.5)
[2017-07-28 09:27] LABS: CKMB 1.1 ng/mL (0-6.6)
--- NOTE | 2017-07-28 09:34 | RAD ---
CHEST 1 VIEW UPRIGHT PORTABLE: Date: 07/28/17 HISTORY: 31-year-old male with history of weakness and dizziness for 2-3 days. COMPARISON: 07/13/17. FINDINGS: Minimal stable linear stranding in the left costophrenic angle, and right lower mid lung zone. Heart size is at least upper range of normal. No confluent pneumonia, overt edema, or pleural effusion. IMPRESSION: Mild linear chronic stable changes bilaterally. Borderline cardiomegaly. No new process. POS: C
[2017-07-28] MEDS ORDERED: Furosemide 20 MG/2 ML VIAL ONE (11:14)
[2017-07-28] MEDS ORDERED: Morphine 10 MG/ML VIAL ONE (11:14)
[2017-07-28] MEDS ORDERED: Furosemide 20 MG TAB PO SCH (11:45)
== END 2017-07-28 12:21 | disposition home or self-care (01) ==
LOC: ERS 08:10
DX: M32.9 Systemic lupus erythematosus, unspecified (principal); G43.909 Migraine, unspecified, not intractable, without status migrainosus; F31.9 Bipolar disorder, unspecified; K27.9 Peptic ulcer, site unspecified, unspecified as acute or chronic, without hemorrhage or perforation; Z79.899 Other long term (current) drug therapy
CPT/HCPCS: 71045; 80053; 82553; 83690; 83880; 84484; 85025; 85652; 86140; 93005; 96374; 96375; 96376; J1100; J1940; J2060; J2270

== ENCOUNTER 2017-08-01 02:31 | Emergency (ER) | payer SELFPAY ==
[2017-08-01] MEDS ORDERED: predniSONE 20 MG TAB ONE (04:27)
[2017-08-01] MEDS ORDERED: HYDROcodone/Acetaminophen 10/325 mg Tablet ONE (04:27)
== END 2017-08-01 04:53 | disposition home or self-care (01) ==
LOC: ERS 02:31
DX: M32.9 Systemic lupus erythematosus, unspecified (principal); G43.909 Migraine, unspecified, not intractable, without status migrainosus; F31.9 Bipolar disorder, unspecified; I27.20 Pulmonary hypertension, unspecified; Z79.899 Other long term (current) drug therapy
CPT/HCPCS: 99283; J7506

== ENCOUNTER 2017-10-15 10:10 | Observation (INO) | payer MEDICAID, SELFPAY ==
[2017-10-15 10:32] LABS: #Basophils 0.1 thou/uL (0.0-0.2); #Lymphocytes 0.9 thou/uL (1.20-3.40); #Monocytes 0.5 thou/uL (0.11-0.59); #Neutrophils 3.5 thou/uL (1.40-6.50); %Basophils 1.6 % (0.0-1.0); %Eosinophils 0.6 % (0.0-10.0); %Lymphocytes 17.4 % (21.0-51.0); %Monocytes 9.9 % (0.0-10.0); %Neutrophils 70.5 % (42.0-75.0); Hemoglobin 14.3 g/dL (14.0-18.0); Mean Corpuscular HGB CONC 33.3 g/dL (32.0-36.0); Mean Corpuscular Hemoglobin 32.8 pg (27.0-31.0); Mean Corpuscular Volume 98.3 fL (78.0-98.0); Mean Platelet Volume 9.5 fL (7.4-10.4); Platelet Count 158 thou/uL (130-400); RBC Distribution Width 16.1 % (11.5-14.5); Red Blood Cell (RBC) Count 4.35 mill/uL (4.70-6.10); White Blood Cell (WBC) Count 4.9 thou/uL (4.8-10.8)
[2017-10-15 10:51] LABS: ALT (SGPT) 12 U/L (8-55); AST (SGOT) 16 U/L (5-34); Alkaline Phosphatase 143 U/L (40-150); Anion Gap 12 mmol/L (10-20); BUN (Urea Nitrogen) 16 mg/dL (8.9-20.6); Bilirubin, Total 0.6 mg/dL (0.2-1.2); CK (CPK) 33 U/L (30-200); Calc. Creatinine Clearance 0 mL/min (70-130); Calcium 9.1 mg/dL (7.8-10.44); Carbon Dioxide 26 mmol/L (22-29); Chloride 106 mmol/L (98-107); Estimated GFR-MDRD Greater than 90; Globulin 4.2 g/dL (2.4-3.5); Glucose 89 mg/dL (70-105); Potassium 3.3 mmol/L (3.5-5.1); Protein, Total 8.2 g/dL (6.0-8.3); Sodium 141 mmol/L (136-145)
[2017-10-15 10:55] LABS: CKMB 0.9 ng/mL (0-6.6); Troponin I Less than 0.010 ng/mL (< 0.028)
--- NOTE | 2017-10-15 10:56 | RAD ---
PORTABLE CHEST 1 VIEW: Date: 10/15/17 Time: 1013 hours HISTORY: Chest pain, shortness of breath, cough. FINDINGS: Comparison made with exam of 07/28/17. The heart size is borderline. The lungs are well expanded without lobar consolidation, pneumothoraces , or pleural effusions. IMPRESSION: No radiographic evidence of acute cardiopulmonary process. POS: OFF
[2017-10-15] MEDS ORDERED: Lorazepam 2 MG/ML VIAL ONE ×2 (11:15→12:34)
--- NOTE | 2017-10-15 11:59 | CT ---
CTA OF THORAX UTILIZING IV CONTRAST AND 3D REFORMATTED IMAGING: Date: 10/15/17 INDICATION: Shortness of breath and cough. FINDINGS: No definite central or segmental pulmonary embolus is evident. There is stable dilatation of the main pulmonary arterial tree, stable to comparison dated 06/10/17. Main pulmonary arterial trunk measures 4.2 cm. There is some reflux of contrast within the hepatic veins, which can be seen with right hear t dysfunction. There is subsegmental volume loss within left lower lobe, right middle lobe and lingul a, which is nonspecific. No confluent air space opacity is evident. No pleural effusion is noted. No definite enlarged lymph nodes are noted. The heart size is mildly prominent. Visualized upper abdomen reveals no definite acute abnormality. No definite acute osseous abnormality is evident. IMPRESSION: 1. No central or segmental pulmonary embolus demonstrated. Cardiomegaly, Pulmonary arterial promine nce and hepatic vein reflux can be seen with CHF. Recommend correlation. 2. Subsegmental atelectasis right middle lobe, lingula, and left lower lobe. POS: [facility]
[2017-10-15] MEDS ORDERED: Furosemide 40 MG/4 ML VIAL ONE (12:37)
[2017-10-15] MEDS ORDERED: Ketorolac Tromethamine 30 MG/ML VIAL ONE (12:37)
[2017-10-15] MEDS ORDERED: Benzonatate 100 MG CAP ONE (12:37)
[2017-10-15 13:00] LABS: Bilirubin Negative (Negative); Blood, Urine Negative (Negative); Clarity CLEAR (Clear); Glucose, Urine (Dipstick) Negative (Negative); Leukocyte Negative (Negative); Nitrite Negative (Negative); Protein, Urine (Dipstick) Negative (Neg-Trace); Specific Gravity, Urine 1.012 (1.002-1.036)
[2017-10-15] MEDS ORDERED: Acetaminophen 325 MG TAB PO PRN (18:58)
[2017-10-15] MEDS ORDERED: Mag-Al 1200 mg/1200 mg/30 ML UDCUP PO PRN (18:58)
[2017-10-15] MEDS ORDERED: Lisinopril 5 MG TAB PO SCH (19:15)
[2017-10-15] MEDS ORDERED: predniSONE 20 MG TAB PO SCH ×2 (19:30→21:00)
[2017-10-15] MEDS: Lorazepam 0.5 MG TAB PO PRN (19:55)
[2017-10-15] MEDS: Ketorolac Tromethamine 30 MG/ML VIAL IVP PRN (19:59)
[2017-10-15 21:17] LABS: Troponin I Less than 0.010 ng/mL (< 0.028)
[2017-10-15] MEDS: HYDROcodone/Acetaminophen 5/325 mg Tablet PO PRN (22:23)
[2017-10-16 00:53] LABS: Troponin I Less than 0.010 ng/mL (< 0.028)
--- NOTE | 2017-10-16 01:42 | HP ---
PRIMARY CARE PHYSICIAN: Chaitanya Merino M.D. CHIEF COMPLAINT: Shortness of breath. HISTORY OF PRESENT ILLNESS: Mr. Watkins is a pleasant 31-year-old gentleman that has a history of sy stemic lupus erythematosus. He also has a history of having a pericardial effusion and status post p ericardial window as well as pulmonary hypertension. He was in his usual state of health until about 5-6 days ago when he began getting short of breath. He says it has been especially worse over the p ast 3 days. He says that he cannot sleep at night and has not slept in the last 48 hours due to the severe shortness of breath and then he also feels extremely anxious. He says when he tries to lay ba ck, he feels like he cannot get in a deep enough breath. He also has to sleep on 3 pillows. He also notes some pain in his chest which he describes as a pressure. He says it feels like a bear is hugg ing or squeezing him and he notes this pain primarily under the rib cage and he also notes left arm n umbness when it happens. The pain does seem worse when he lays back. He says he has not noticed any leg swelling like he had in the past and says that ever since they "drained him," he has not had any significant swelling in his legs. He also notes that he was recently diagnosed with hypertension ab out 2 months ago, but has not yet started on the antihypertensive medications and he does not know e names of the medicines. When he came to the ER, he was evaluated. He had a CT angiogram of the est which was negative for PE, no evidence of any infiltrate or effusion on x-ray and the shortness o f breath was attributed to either reactive airway disease or possibly related to the systemic lupus. REVIEW OF SYSTEMS: All systems were reviewed and negative except for that mentioned in the history o f present illness. PAST MEDICAL HISTORY: Significant for systemic lupus erythematosus, history of pericardial effusion and pericardial window, pulmonary hypertension, chronic pancreatitis, hypertension, and peptic ulcer disease. PAST SURGICAL HISTORY: He has a history of a surgical correction of an ileus as well as a testicular cancer with surgery to remove the cancer. ALLERGIES: No known drug allergies. FAMILY HISTORY: Significant for diabetes mellitus in his father as well as hypertension and hyperlip idemia. Mother had ovarian cancer. SOCIAL HISTORY: He is . He is a nonsmoker, nondrinker. He denies any illicit drug use. ALLERGIES: No known drug allergies. CURRENT MEDICATIONS: Include Paxil 20 mg daily and hydrochlorothiazide is 12.5 mg a day, [place] 5/325 q.4 hours as needed, Naprosyn 220 mg daily, Creon DR 12,000 units twice a day, prednisone 20 mg twic e daily, and potassium chloride 20 mEq daily. PHYSICAL EXAMINATION: GENERAL: He is alert and oriented. He appears to be in no acute distress except for some dyspnea. VITAL SIGNS: Blood pressure was 134/103, heart rate 87, respiratory rate of 22, temperature is 98.2, O2 sat is 98% on 2 liters. HEENT: Pupils are equal, round, and reactive. Extraocular muscles are intact. Sclerae are anicteri c. Throat: There is no erythema, no exudates. NECK: No adenopathy, no bruits noted. He did not have any increase in jugular venous distention. LUNGS: He has got some coarse breath sounds. I did not appreciate any wheezing and no rales. CARDIOVASCULAR: He had a normal S1, S2. He did have a grade 2/6 systolic murmur. ABDOMEN: Soft. He did have some mild epigastric tenderness. There was no rebound, no guarding, no organomegaly. EXTREMITIES: There is no clubbing, cyanosis, no edema. NEUROLOGIC: The exam is grossly nonfocal. His muscle strength is 5/5 in both his upper and lower ex tremities. SKIN AND INTEGUMENT: No skin changes. No rash. LABORATORY RESULTS: Sodium is 141, potassium is 3.3, chloride is 106, CO2 is 26, BUN of 16, creatini ne 0.83, glucose is 89, AST is 16, ALT is 12, alkaline phosphatase is 143. Troponin is less than 0.0 10. White blood cell count 4.9, hemoglobin 14.3, hematocrit is 42.8, platelet count is 158. On his EKG was sinus rhythm, the rate was 79. He had some T-wave inversions in V1 through V3. CT angiogram showed some scattered atelectasis. No evidence of any pulmonary embolism. Chest x-ray: Heart size was normal. There was no evidence of any airspace disease or effusions. ASSESSMENT AND PLAN: 1. This is a pleasant 31-year-old gentleman who presents with a 5-day, history of shortness of breat h both at rest and on exertion. He has a history of systemic lupus with history of pericardial effus ion requiring a pericardial window in the past. Some of his symptoms are a bit concerning for possib le recurrent pericardial effusion. However, the chest x-ray did not show characteristics of an enlar ged heart, or large effusion; however, echo, obviously would be more sensitive. He will be placed in observation and an echocardiogram will be obtained. He does not have hemodynamics of impending tamp onade with an elevated blood pressure and no clinical stigmata of tamponade. 2. Possible reactive airway disease. We will place him on DuoNebs as needed. 3. Hypertension, this is poorly controlled. We will start him on an NAT inhibitor and will need to call his pharmacy to reconcile his medications and depending on the results of his echo, we will dete [place] whether or not Cardiology will need to be consulted.
[2017-10-16] MEDS: Lorazepam 0.5 MG TAB PO PRN ×4 (02:01→17:02)
[2017-10-16] MEDS: Ketorolac Tromethamine 30 MG/ML VIAL IVP PRN ×3 (02:04→14:40)
[2017-10-16 05:24] LABS: #Lymphocytes 0.3 thou/uL (1.20-3.40); #Monocytes 0.5 thou/uL (0.11-0.59); %Basophils 0.1 % (0.0-1.0); %Eosinophils 0.4 % (0.0-10.0); %Lymphocytes 7.1 % (21.0-51.0); %Monocytes 9.6 % (0.0-10.0); %Neutrophils 82.8 % (42.0-75.0); Hemoglobin 13.7 g/dL (14.0-18.0); Mean Corpuscular HGB CONC 33.3 g/dL (32.0-36.0); Mean Corpuscular Hemoglobin 32.7 pg (27.0-31.0); Mean Corpuscular Volume 98.1 fL (78.0-98.0); Mean Platelet Volume 10.5 fL (7.4-10.4); Platelet Count 136 thou/uL (130-400); RBC Distribution Width 16.1 % (11.5-14.5); White Blood Cell (WBC) Count 4.8 thou/uL (4.8-10.8)
[2017-10-16 05:41] LABS: Anion Gap 13 mmol/L (10-20); BUN (Urea Nitrogen) 22 mg/dL (8.9-20.6); Calc. Creatinine Clearance 115 mL/min (70-130); Calcium 9.1 mg/dL (7.8-10.44); Carbon Dioxide 23 mmol/L (22-29); Cardiac Risk 3.2 (Less than 4.5); Chloride 106 mmol/L (98-107); Cholesterol 147 mg/dl (< 200 Desired); Estimated GFR-MDRD Greater than 90; Glucose 148 mg/dL (70-105); HDL Cholesterol 46 mg/dL (>60 Neg Risk); LDL Cholesterol, Calculated 78 mg/dL; Potassium 3.9 mmol/L (3.5-5.1); Sodium 138 mmol/L (136-145); Triglycerides 115 mg/dL (Less than 150)
[2017-10-16] MEDS: HYDROcodone/Acetaminophen 5/325 mg Tablet PO PRN ×3 (06:40→17:01)
[2017-10-16] MEDS ORDERED: Potassium Chloride 20 MEQ TAB PO SCH (08:00)
[2017-10-16] MEDS: Pancrelipase DR 12000 1 CAP PO SCH ×2 (08:38→17:01)
[2017-10-16] MEDS: predniSONE 20 MG TAB PO SCH ×2 (08:40→17:01)
[2017-10-16] MEDS: Enoxaparin Sodium 40 MG/0.4 ML SYRINGE SC SCH ×2 (08:40→16:49)
[2017-10-16] MEDS ORDERED: Lisinopril 5 MG TAB PO SCH (09:00)
[2017-10-16] MEDS ORDERED: PARoxetine 20 MG TAB PO SCH (09:00)
[2017-10-16] MEDS ORDERED: Hydrochlorothiazide 25 MG TAB PO SCH (09:00)
[2017-10-16] MEDS ORDERED: Polyethylene Glycol 3350 17 GM Packet PO SCH (09:00)
--- NOTE | 2017-10-16 09:34 | PDOC.PN ---
- Subjective Encounter Start Date: 10/16/17 Encounter Start Time: 09:32 Mr. Watkins was seen today in follow-up. He says he is feeling a little better. He feels a little less short of breath. - Objective Resuscitation Status: Resuscitation Status FULL:Full Resuscitation MAR Reviewed: Yes Vital Signs & Weight: Vital Signs (12 hours) Temp Pulse Resp BP Pulse Ox 10/16/17 08:40 76 10/16/17 08:32 97.6 F 76 16 164/114 H 100 10/16/17 02:08 98.3 F 95 35 H 152/109 H 100 Weight Weight 146 lb 8 oz I&O: 10/15/17 10/16/17 10/17/17 06:59 06:59 06:59 Intake Total 720 Balance 720 Result Diagrams: 10/16/17 04:31 10/16/17 04:31 Phys Exam - Physical Examination HEENT: PERRLA Respiratory: no wheezing, no rales + occasional rhonchi Cardiovascular: RRR, no significant murmur, no rub Gastrointestinal: soft, non-tender, no distention, positive bowel sounds Musculoskeletal: no edema Dx/Plan (1) Dyspnea Code(s): R06.00 - DYSPNEA, UNSPECIFIED Status: Acute (2) Hypertension Code(s): I10 - ESSENTIAL (PRIMARY) HYPERTENSION Status: Chronic Qualifiers: Hypertension type: essential hypertension Qualified Code(s): I10 - Essential (primary) hypertension (3) Pulmonary hypertension Code(s): I27.20 - PULMONARY HYPERTENSION, UNSPECIFIED Status: Chronic (4) SLE (systemic lupus erythematosus) Code(s): M32.9 - SYSTEMIC LUPUS ERYTHEMATOSUS, UNSPECIFIED Status: Chronic - Plan * Dyspnea- ? etiology- still await Echo, if there is no significant pericardial effusion, then this could be attributed to uncontroled HTN or Pulmonary Hypertension * HTN- blood pressure is not well controlled- will increase Lisinopril to twice a day * Hopefully home today depending on Echo results.
[2017-10-16 12:19] VITALS: TEMP 97.8
[2017-10-16 13:42] VITALS: BMI 20.9
[2017-10-16 15:56] VITALS: BP 138/96
--- NOTE | 2017-10-17 01:52 | DIS ---
PRIMARY CARE PHYSICIAN: Dr. Chaitanya Merino. DATE OF ADMISSION: 10/15/2017 DATE OF DISCHARGE: 10/16/2017 DISCHARGE DISPOSITION: Home. PRIMARY DISCHARGE DIAGNOSES: 1. Dyspnea. 2. Pulmonary hypertension. 3. Systemic lupus erythematosus. 4. Hypertension. DISCHARGE MEDICATIONS: Include lisinopril 5 mg twice daily, hydrochlorothiazide 12.5 mg daily, Creon DR 12,000 units twice a day, Paxil 20 mg daily, [place] 5/325 one tablet q.4 hours as needed, MiraLax 17 grams daily, potassium chloride 20 mEq daily, prednisone 20 mg twice a day. PROCEDURES DONE DURING ADMISSION: The patient had a CT angiogram of the chest which was negative for pulmonary embolism. The patient had some subsegmental atelectasis in the right middle lobe, lingula , and left lower lobe. The patient also had an echocardiogram in which it was found that the ejectio n fraction was 60% to 65%. There was grade I/III diastolic dysfunction, mild concentric left ventric ular hypertrophy. There was a dilated right ventricle with reduced RV systolic function and a trabec ulated apex. A small size pericardial effusion without tamponade and moderately enlarged right atriu m, elevated right ventricular systolic pressure estimated at 55 mmHg. CODE STATUS: FULL CODE. ALLERGIES: No known drug allergies. HOSPITAL COURSE: Mr. Watkins is a pleasant 31-year-old gentleman, who presented to the emergency sharon complaining of shortness of breath. It was both on exertion and at rest and had been getting progr essively worse over the past couple of days. He has a history of systemic lupus and a pericardial ef fusion which required a pericardial window. Therefore, the concern was for possible cardiac tamponad e. He did not have a tamponade physiology and an echocardiogram was done in which there was only a s mall pericardial effusion. He also had a CT angiogram done in the ER which was negative for PE. It was noted that he did have significantly elevated blood pressure, especially his diastolic blood pres sure which was as high as 114, systolics running in the 150s to 160s. He also has elevated pulmonary artery pressure, and it suspected that the hypertension as well as elevated pulmonary hypertension a re leading to his symptoms of dyspnea. He was started on lisinopril while in the hospital and also t old him to follow up with his history department chair who he has outside history department chair in either [place] or [place] within the next few weeks or as soon as possible to deal with the elevated right ventricular and PA pressures, and also to follow up with his primary care physician in 1 week.
== END 2017-10-16 17:25 | disposition home or self-care (01) ==
LOC: ERS 10:10 → 2SW 16:46
PROVIDERS: ADMIT Internal Medicine; ATTEND Internal Medicine
DX: R06.02 Shortness of breath (principal); M32.9 Systemic lupus erythematosus, unspecified; I10 Essential (primary) hypertension; K86.1 Other chronic pancreatitis; I27.20 Pulmonary hypertension, unspecified; Z85.47 Personal history of malignant neoplasm of testis; Z79.52 Long term (current) use of systemic steroids; Z79.899 Other long term (current) drug therapy
CPT/HCPCS: 36415; 71045; 71275; 80048; 80053; 80061; 81003; 82550; 82553; 83880; 84484; 85025; 85652; 86140; 93005; 93306; 94640; 94760; 96374; 96375; 96376; G0378; J1650; J1885; J1940; J2060; J7506; J7620

== ENCOUNTER 2017-12-20 16:23 | Observation (INO) | payer MEDICAID, OTHER, SELFPAY ==
[~2017-12-20 16:23] MED LIST changes: -ISOVUE-370 76%-LOCM 1 ML ONE; +Iopamidol 370 76% 100 ML VIAL ONE
--- NOTE | 2017-12-20 17:07 | RAD ---
AP VIEW CHEST: 12/20/2017 HISTORY: Chest. COMPARISON: 10/15/2017 FINDINGS: AP view chest demonstrates the lungs to be well aerated. No evidence of active intrathoracic disease is seen. No evidence of effusions, pneumonia, or pneumothorax is seen. IMPRESSION: Unremarkable anterior-posterior view chest. POS: [facility]
[2017-12-20 17:13] LABS: Hemoglobin 14.2 g/dL (14.0-18.0); Mean Corpuscular HGB CONC 32.1 g/dL (32.0-36.0); Mean Corpuscular Hemoglobin 31.6 pg (27.0-31.0); Mean Corpuscular Volume 98.6 fL (78.0-98.0); Mean Platelet Volume 10.5 fL (7.4-10.4); Platelet Count 115 thou/uL (130-400); Red Blood Cell (RBC) Count 4.49 mill/uL (4.70-6.10); White Blood Cell (WBC) Count 3.9 thou/uL (4.8-10.8)
[2017-12-20 17:15] LABS: ALT (SGPT) 30 U/L (8-55); AST (SGOT) 28 U/L (5-34); Albumin 4.2 g/dL (3.5-5.0); Alkaline Phosphatase 103 U/L (40-150); Anion Gap 17 mmol/L (10-20); BUN (Urea Nitrogen) 29 mg/dL (8.9-20.6); Bilirubin, Total 0.7 mg/dL (0.2-1.2); CK (CPK) 54 U/L (30-200); Calc. Creatinine Clearance 0 mL/min (70-130); Calcium 9.6 mg/dL (7.8-10.44); Carbon Dioxide 20 mmol/L (22-29); Chloride 106 mmol/L (98-107); Estimated GFR-MDRD Greater than 90; Globulin 3.8 g/dL (2.4-3.5); Glucose 96 mg/dL (70-105); Potassium 3.9 mmol/L (3.5-5.1); Sodium 139 mmol/L (136-145)
[2017-12-20 17:16] LABS: Anisocytosis SLIGHT = 6-15 cells (100X) (0-5/hpf); Eosinophils 1 % (0-10); Lymphocytes 13 % (21-51); MDiff Complete? YES; Monocytes 14 % (0-10); Neutrophil 72 % (42-75); PLT Morphology Comment Appears Decreased
[2017-12-20 17:18] LABS: CKMB 1.8 ng/mL (0-6.6); Troponin I Less than 0.010 ng/mL (< 0.028)
[2017-12-20] MEDS ORDERED: Morphine 2 MG/ML SYRINGE ONE (17:39)
[2017-12-20 17:54] LABS: Amphetamine Not Detected (NotDetected); Barbiturates Screen Not Detected (NotDetected); Benzodiazepine Screen Not Detected (NotDetected); Cocaine Metabolite Screen Not Detected (NotDetected); Medtox Control Line Valid? VALID (VALID); Medtox Reader # READER 1; Methadone Not Detected (NotDetected); Methamphetamine Not Detected (NotDetected); Opiate Screen Not Detected (NotDetected); Oxycodone Screen Not Detected (NotDetected); Phencyclidine (PCP) Not Detected (NotDetected); THC/Cannabinoid Screen Not Detected (NotDetected); Tricyclic Screen Not Detected (NotDetected)
[2017-12-20] MEDS ORDERED: Dextrose 50% Abboject 50 ML SYRINGE ONE (18:04)
--- NOTE | 2017-12-20 19:03 | CT ---
CTA CHEST: HISTORY: A 31-year-old with a history of chest pain. COMPARISON: CTA chest from 10/15/2017. TECHNIQUE: Contrast enhanced CTA chest was performed, and 2D and 3D reconstructed images were performed on an in dependent 3D work station. FINDINGS: CTA chest demonstrates an area of scarring in the lingula and left lower lobes. These are unchanged since the previous exam. No newly developed masses or lesions seen. No evidence of filling defects seen in the pulmonary arteries to suggest pulmonary emboli. No evidence of pleural or pericardial effusion seen. Minimal bilateral axillary lymphadenopathy is seen, unchanged since the previous exam. IMPRESSION: No evidence of pulmonary emboli seen. POS: [facility]
[2017-12-20] MEDS ORDERED: Ondansetron PF 4 MG/2 ML Vial IVP PRN (20:21)
[2017-12-20] MEDS ORDERED: Ondansetron ODT 4 MG TAB SL PRN (20:21)
[2017-12-20] MEDS: Lisinopril 5 MG TAB PO SCH (21:15)
[2017-12-20] MEDS: Ibuprofen 800 MG TAB PO PRN (21:16)
[2017-12-20 21:17] LABS: Troponin I Less than 0.010 ng/mL (< 0.028)
[2017-12-20] MEDS: Morphine 2 MG/ML SYRINGE SLOW IVP PRN ×2 (21:19→23:27)
[2017-12-20 21:34] VITALS: BMI 21.1
[2017-12-20] MEDS ORDERED: Pancrelipase DR 12000 1 CAP PO SCH (21:45)
[2017-12-20] MEDS ORDERED: predniSONE 20 MG TAB PO SCH (21:45)
[2017-12-20 22:48] LABS: Hemoglobin A1c 5.9 % (4.0-6.0)
[2017-12-20] MEDS ORDERED: Colchicine 0.6 MG TAB PO SCH (23:45)
[2017-12-21] MEDS ORDERED: Acetaminophen 325 MG TAB PO PRN (00:33)
[2017-12-21] MEDS ORDERED: Calcium Carbonate 500 MG ChewTAB PO PRN (00:33)
[2017-12-21] MEDS ORDERED: Ondansetron PF 4 MG/2 ML Vial IVP PRN (00:33)
[2017-12-21] MEDS ORDERED: Ondansetron ODT 4 MG TAB PO PRN (00:33)
[2017-12-21] MEDS ORDERED: Senokot S 8.6-50 MG TAB PO PRN (00:33)
[2017-12-21] MEDS ORDERED: Sodium Chloride 0.9% 1,000 ML IV SCH (00:45)
--- NOTE | 2017-12-21 01:14 | HP ---
DATE OF ADMISSION: 12/20/2017 The patient was seen and examined on 12/20/2017. CHIEF COMPLAINT: Chest discomfort. HISTORY OF PRESENT ILLNESS: The patient is a 31-year-old male with systemic lupus erythematosus, pericardial effusion requiring pericardial window in the past, presented to the emergency room with chest discomfort. The chest discomfort started around 4 p.m. It was substernal 5/10, radiating to his left arm. He was diaphoretic and felt lightheaded and dizzy. The pain was worse on lying down and improved with sitting up. He had similar pain of milder intensity this morning that improved. He denies recent immobilization, travel. He is currently in [facility]. He denies any leg swelling, paroxysmal nocturnal dyspnea. He is currently on ibuprofen as well as prednisone on a daily basis. In the emergency room, his initial vital signs showed temperature 98.8, respiration 18, pulse rate of 87, blood pressure of 123/89 with O2 saturation 100% on room air. His EKG showed sinus rhythm with nonspecific ST-T wave changes. It had lot of artifacts. A CT angiogram of the chest was negative for pulmonary embolism. Chest x-ray was negative for infiltrate. PAST MEDICAL HISTORY: 1. Systemic lupus erythematosus. 2. Chronic pancreatitis. 3. Pericardial effusion requiring pericardial window. 4. Suspected pulmonary hypertension. 5. Peptic ulcer disease, currently not on proton pump inhibitor. 6. Bipolar disorder. PAST SURGICAL HISTORY: 1. Pericardial window in 11/[address] Pasha Rahman. 2. Colonoscopy in 06/2017. 3. Right radical orchiectomy with incision and drainage of hidradenitis abscess on the right thigh. ALLERGIES: No known drug allergies. CURRENT MEDICATIONS: Hydrochlorothiazide 12.5 mg daily, ibuprofen as needed, lorazepam 2 mg daily, Creon 12,000 units twice a day, Paxil 20 mg daily, [place] as needed, lisinopril 5 mg twice a day, MiraLax daily, potassium chloride 20 mEq daily, prednisone 20 mg twice a day. SOCIAL HISTORY: The patient is currently at [facility]. He has a history of heavy drinking in the past. He quit drinking 2 years ago. No current use of tobacco or drug use. FAMILY HISTORY: Positive for heart disease, diabetes, and hypertension. REVIEW OF SYSTEMS: The following complete review of systems was negative, unless otherwise mentioned in the HPI or below: Constitutional: Weight loss or gain, ability to conduct usual activities. Skin: Rash, itching. Eyes: Double vision, pain. ENT/Mouth: Nose bleeding, neck stiffness, pain, tenderness. Cardiovascular: Palpitations, dyspnea on exertion, orthopnea. Respiratory: Shortness of breath, wheezing, cough, hemoptysis, fever or night sweats. Gastrointestinal: Poor appetite, abdominal pain, heartburn, nausea, vomiting, constipation, or diarrhea. Genitourinary: Urgency, frequency, dysuria, nocturia. Musculoskeletal: Pain, swelling. Neurologic/Psychiatric: Anxiety, depression. Allergy/Immunologic: Skin rash, bleeding tendency. PHYSICAL EXAMINATION: VITAL SIGNS: As discussed above. GENERAL: A 31-year-old male in no apparent distress at this time. HEENT: Head atraumatic, normocephalic. Sclerae are anicteric. Moist mucous membrane, no oral lesion. NECK: Supple, no JVD appreciated. No carotid bruit. LUNGS: Clear to auscultation bilaterally, no wheezing, rales or rhonchi. HEART: S1, S2 present. Regular rate and rhythm. No rubs, gallops or murmurs appreciated. ABDOMEN: Soft, nontender, bowel sounds present. EXTREMITIES: No edema or calf tenderness. NEUROLOGIC: Grossly nonfocal, moves all four extremities. PSYCHIATRY: Alert, awake, oriented x3. SKIN: Warm and dry. LYMPH NODES: No palpable lymph nodes in the neck. PERIPHERAL VASCULAR: Radial pulses palpable bilaterally. MUSCULOSKELETAL: No joint swelling or tenderness. LABORATORY FINDINGS: CBC showed WBC 3.9 with hemoglobin 14.2, hematocrit 44.2, platelets of 115. Chemistries showed sodium 139, potassium 3.9, chloride 106, bicarbonate 20, BUN 29, creatinine 0.74. LFTs in normal range. Troponin negative. Glucose of 67. Repeat glucose 179. EKG and chest x-ray by my review as discussed above. IMPRESSION/PLAN: 1. Chest discomfort improved with sitting up, consistent with a recurrent acute pericarditis. The patient is on chronic steroids. He also takes NSAIDs on an as needed basis. We will add colchicine. He had a recent echocardiogram that was consistent with small pericardial effusion. We will consult Cardiology. We will check ESR, CRP in a.m. 2. Chronic pancreatitis. We will continue Creon. 3. Hypertension. We will continue lisinopril. 4. Systemic lupus erythematosus. We will continue chronic steroids with NSAIDs. 5. Peptic ulcer disease per patient report. We will add proton pump inhibitors. 6. Hyperglycemia. His A1c was 5.9. He also had episodes of hypoglycemia, probably due to poor oral intake. 7. Leukopenia/thrombocytopenia probably secondary to systemic lupus erythematosus. 8. Metabolic acidosis. Plan of care was discussed with the patient in detail. He stated understanding. REGINED
[2017-12-21] MEDS: Nitroglycerin 0.4 MG TAB (25 Tab Bottle) PO PRN ×4 (01:29→16:57)
[2017-12-21] MEDS: Morphine 2 MG/ML SYRINGE SLOW IVP PRN ×2 (01:54→05:37)
[2017-12-21 05:12] LABS: Anion Gap 11 mmol/L (10-20); BUN (Urea Nitrogen) 34 mg/dL (8.9-20.6); CRP (Inflammatory) Less than 0.50 mg/dL (= or < 0.5); Calc. Creatinine Clearance 121 mL/min (70-130); Calcium 8.5 mg/dL (7.8-10.44); Carbon Dioxide 26 mmol/L (22-29); Chloride 106 mmol/L (98-107); Estimated GFR-MDRD Greater than 90; Glucose 88 mg/dL (70-105); Potassium 4.2 mmol/L (3.5-5.1); Sodium 139 mmol/L (136-145)
[2017-12-21] MEDS: Lisinopril 5 MG TAB PO SCH (07:59)
[2017-12-21] MEDS: Ibuprofen 800 MG TAB PO PRN ×2 (07:59→15:51)
[2017-12-21] MEDS ORDERED: Aspirin 81 mg Enteric Coated Tablet PO SCH (09:00)
[2017-12-21] MEDS ORDERED: Colchicine 0.6 MG TAB PO SCH (09:00)
[2017-12-21] MEDS ORDERED: PARoxetine 20 MG TAB PO SCH (09:00)
[2017-12-21] MEDS: Pancrelipase DR 12000 1 CAP PO SCH ×3 (09:01→18:02)
[2017-12-21] MEDS: predniSONE 20 MG TAB PO SCH ×3 (09:02→18:01)
--- NOTE | 2017-12-21 10:38 | CON ---
DATE OF CONSULTATION: 12/21/2017. REASON FOR CONSULTATION: Chest pain. HISTORY OF PRESENT ILLNESS: Mr. Watkins is a 31-year-old man with multiple medical problems includin g lupus and also history of testicular cancer, admitted with chest pain and he has a history of peric arditis and previous pericardial drainage and window. Mr. Watkins is 31 years of age. His main complaint to me now is he has severe pain in his joints, in his hands, elbows and knees. He said it is intense almost to the point where it is difficult to jac n talk or think about anything else other than his pain, he said he also had some chest pain apparent ly that brought him to the emergency room as well. He did undergo chest, thorax CTA which was negati ve for any pulmonary emboli. There is some scarring in the lingula and left lower lobes. There is some bilateral axillary lymphad enopathy. The patient continues to complain of severe joint pain. The patient takes medications for his lupus he says at home. He says he is not receiving this curren tly and is having severe joint pain. REVIEW OF SYSTEMS: Constitutional: No significant weight gain or loss. Vision: No changes. Heari ng: No changes. Pulmonary: No cough or wheezing. Cardiac: It hurts when breath in his ches t. Musculoskeletal: Severe joint pain. PHYSICAL EXAMINATION: GENERAL: This is a 31-year-old gentleman who is complaining of severe joint pain. VITAL SIGNS: Blood pressure 118/88, pulse 76 regular. LUNGS: Clear. CARDIOVASCULAR: Normal S1, normal S2. ABDOMEN: Soft, nontender. EXTREMITIES: No edema, clubbing or cyanosis. PERTINENT LABORATORY DATA: He did have T-wave inversions in the anterior chest leads. Troponin leve l less than 0.010 on two occasions and 0.020, which is in the negative range. ASSESSMENT: 1. Lupus. Longstanding diagnosis with arthralgias. He says he does have a specialist helping with that. 2. History of some pulmonary hypertension. 3. History of pericardial fluid, status post drainage. 4. Probably some pericardial chest pain. PLAN: 1. In view of the T-wave inversions, we will go ahead and do stress testing. 2. Repeat echocardiogram. 3. Continue medicines for lupus.
[2017-12-21] MEDS ORDERED: Ketorolac Tromethamine 30 MG/ML VIAL IVP SCH (11:15)
[2017-12-21] MEDS ORDERED: ADENOSINE 60 MG/20 ML VIAL ONE (12:54)
[2017-12-21 13:27] VITALS: TEMP 98.7
--- NOTE | 2017-12-21 13:41 | PDOC.PN ---
- Subjective Encounter Start Date: 12/21/17 Encounter Start Time: 13:40 Subjective: vague diffuse pains - Objective Resuscitation Status: Resuscitation Status FULL:Full Resuscitation MAR Reviewed: Yes Vital Signs & Weight: Vital Signs (12 hours) Temp Pulse Resp BP Pulse Ox 12/21/17 12:58 98.7 F 82 16 117/83 100 12/21/17 07:23 97.6 F 76 20 118/88 100 12/21/17 03:17 97.8 F 77 23 H 118/87 99 Weight Weight 147 lb 3.2 oz I&O: 12/20/17 12/21/17 12/22/17 06:59 06:59 06:59 Intake Total 621 Output Total 425 Balance 196 Result Diagrams: 12/20/17 16:46 12/21/17 04:32 Additional Labs: Accuchecks 12/20/17 12/20/17 12/20/17 20:21 19:12 18:03 POC Glucose 179 H 139 H 67 L Phys Exam - Physical Examination Neck: no JVD Respiratory: clear to auscultation bilateral Cardiovascular: RRR, no significant murmur, no rub Gastrointestinal: soft, positive bowel sounds Musculoskeletal: no edema Dx/Plan (1) Chest pain Code(s): R07.9 - CHEST PAIN, UNSPECIFIED Status: Acute Qualifiers: Chest pain type: unspecified Qualified Code(s): R07.9 - Chest pain, unspecified (2) Pancytopenia Code(s): D61.818 - OTHER PANCYTOPENIA Status: Chronic (3) H/O pericarditis Code(s): Z86.79 - PERSONAL HISTORY OF OTHER DISEASES OF THE CIRCULATORY SYSTEM Status: Chronic Comment: h/o pericardial window for pericardial effusion (4) Hypertension Code(s): I10 - ESSENTIAL (PRIMARY) HYPERTENSION Status: Chronic Qualifiers: Hypertension type: essential hypertension (5) Pulmonary hypertension Code(s): I27.20 - PULMONARY HYPERTENSION, UNSPECIFIED Status: Chronic (6) SLE (systemic lupus erythematosus) Code(s): M32.9 - SYSTEMIC LUPUS ERYTHEMATOSUS, UNSPECIFIED Status: Chronic Qualifiers: Systemic lupus erythematosus type: unspecified Systemic lupus erythematosus organ involvement: unspecified Qualified Code(s): M32.9 - Systemic lupus erythematosus, unspecified (7) Tobacco abuse Code(s): Z72.0 - TOBACCO USE Status: Chronic - Plan stress test normal, DC if ok with cardiology * .
--- NOTE | 2017-12-21 14:16 | NM ---
RADIONUCLIDE STRESS REST MYOCARDIAL PERFUSION SCAN WITH CT ATTENUATION CORRECTION AND SPECT IMAGING LEFT VENTRICULAR WALL MOTION EVALUATION AND EJECTION FRACTION: History: Chest pain. FINDINGS: Adenosine protocol. There is homogeneous uptake of radiotracer throughout the left ventricular myocar dium on the stress and rest images. No focal perfusion defect or reversibility. QGS analysis of gated SPECT images shows no focal wall motion abnormalities. Ejection fraction calculated at 68%. IMPRESSION: Normal myocardial perfusion scan. Normal LVEF. POS: [facility]
[2017-12-21 17:12] VITALS: BP 116/84
--- NOTE | 2017-12-21 17:58 | DIS ---
DATE OF ADMISSION: 12/20/2017 DATE OF DISCHARGE: 12/21/2017 TRANSFER OF CARE PRIMARY CARE PROVIDER: Listed as Chaitanya Merino M.D. DISCHARGE DISPOSITION: Discharged to senior living. FINAL DIAGNOSES: Noncardiac chest pain, hypertension, pulmonary hypertension, systemic lupus erythem atosus, history of pericarditis. DISCHARGE MEDICATIONS: Ativan 2 mg a day, hydrocodone/acetaminophen 5/325 one every 4 hours as neede d for pain, lisinopril 5 mg p.o. b.i.d., hydrochlorothiazide 12.5 mg a day, ibuprofen 800 mg p.o. t.i .d. p.r.n., Paxil 20 mg a day, MiraLax 17 grams in water daily, pancrelipase 12,000 one cap b.i.d., p rednisone 20 mg twice a day, potassium chloride 20 mEq a day, colchicine 0.6 mg p.o. b.i.d. ALLERGIES: No known drug allergies. DIET: Heart healthy. CODE STATUS: Full. PENDING AT THE TIME OF DISCHARGE: Nothing. HOSPITAL COURSE: The patient was admitted to the hospital with complaints of chest discomfort, known history of lupus, pericardial effusion requiring pericardial window, history of chronic pancreatitis , pulmonary hypertension, bipolar disorder. The patient underwent nuclear medicine cardiac stress te st, which was unrevealing and an echocardiogram, which revealed a big right ventricle and pulmonary h ypertension consistent with past ones. LABORATORY DATA: White count 3.9, hemoglobin 14.2, platelet count 115,000. Comp metabolic profile u nremarkable. Toxicology unremarkable. The patient continued to have multiple somatic complaints of shortness of breath, chest pain, etc. His cardiac studies were unremarkable. It is pertinent that h is room air sat was 99-100 consistently. Vital signs are stable. No tachycardia. No elevated blood pressure. CONSULTATIONS: Dr. Heather Gill. INPATIENT PROCEDURES: Included the Lexiscan cardiac stress test in the aforementioned echocardiogram . He is being discharged to follow up with his PCP in 7 days or whoever cares for him while in the [facility].
== END 2017-12-21 18:27 | disposition home or self-care (01) ==
LOC: ERS 16:23 → 2SW 20:13
PROVIDERS: ADMIT Internal Medicine; ATTEND Internal Medicine
DX: R07.89 Other chest pain (principal); M32.9 Systemic lupus erythematosus, unspecified; K86.1 Other chronic pancreatitis; I27.20 Pulmonary hypertension, unspecified; K27.9 Peptic ulcer, site unspecified, unspecified as acute or chronic, without hemorrhage or perforation; F31.9 Bipolar disorder, unspecified; E87.2 Acidosis; D61.818 Other pancytopenia; Z86.79 Personal history of other diseases of the circulatory system; Z79.52 Long term (current) use of systemic steroids; Z79.899 Other long term (current) drug therapy; Z98.890 Other specified postprocedural states
CPT/HCPCS: 36415; 36416; 71045; 71275; 78452; 80048; 80053; 80306; 82550; 82553; 83036; 84484; 85025; 85652; 86140; 90471; 90686; 93005; 93017; 93306; 96361; 96374; 96375; 96376; A9500; G0008; G0378; J0153; J1885; J2270; J7506

== ENCOUNTER 2018-01-01 20:48 | Emergency (ER) | payer OTHER ==
[2018-01-01 21:32] LABS: #Lymphocytes 0.5 thou/uL (1.20-3.40); #Monocytes 0.9 thou/uL (0.11-0.59); #Neutrophils 5.8 thou/uL (1.40-6.50); %Basophils 0.3 % (0.0-1.0); %Eosinophils 0.1 % (0.0-10.0); %Neutrophils 80.6 % (42.0-75.0); Hemoglobin 12.7 g/dL (14.0-18.0); Mean Corpuscular HGB CONC 32.4 g/dL (32.0-36.0); Mean Corpuscular Hemoglobin 31.5 pg (27.0-31.0); Mean Platelet Volume 8.6 fL (7.4-10.4); Platelet Count 161 thou/uL (130-400); RBC Distribution Width 14.5 % (11.5-14.5); Red Blood Cell (RBC) Count 4.05 mill/uL (4.70-6.10); White Blood Cell (WBC) Count 7.2 thou/uL (4.8-10.8)
--- NOTE | 2018-01-01 21:43 | RAD ---
PORTABLE UPRIGHT FRONTAL CHEST RADIOGRAPH: 01/01/18 COMPARISON: 12/20/17. HISTORY: Chest pain. The heart and mediastinal contours are stable. There is no pneumothorax, pleural fluid, focal consoli dation, or alveolar edema. IMPRESSION: No acute findings. POS: [facility]
[2018-01-01 21:58] LABS: CKMB 2.1 ng/mL (0-6.6); Troponin I Less than 0.010 ng/mL (< 0.028)
[2018-01-01 22:01] LABS: ALT (SGPT) 28 U/L (8-55); AST (SGOT) 21 U/L (5-34); Albumin 3.8 g/dL (3.5-5.0); Alkaline Phosphatase 90 U/L (40-150); Anion Gap 14 mmol/L (10-20); BUN (Urea Nitrogen) 21 mg/dL (8.9-20.6); Bilirubin, Total 0.4 mg/dL (0.2-1.2); Calc. Creatinine Clearance 0 mL/min (70-130); Calcium 9.1 mg/dL (7.8-10.44); Carbon Dioxide 23 mmol/L (22-29); Chloride 105 mmol/L (98-107); Estimated GFR-MDRD Greater than 90; Globulin 3.6 g/dL (2.4-3.5); Glucose 89 mg/dL (70-105); Protein, Total 7.4 g/dL (6.0-8.3); Sodium 138 mmol/L (136-145)
[2018-01-01 22:19] LABS: CK (CPK) 62 U/L (30-200)
[2018-01-01] MEDS ORDERED: Nitroglycerin 0.4 MG TAB (25 Tab Bottle) ONE (22:25)
[2018-01-01] MEDS ORDERED: Lidocaine Viscous Sol 2% 15 ml UD Cup ONE (23:03)
[2018-01-01] MEDS ORDERED: Mag-Al 1200 mg/1200 mg/30 ML UDCUP ONE (23:03)
[2018-01-01] MEDS ORDERED: Acetaminophen 500 MG TAB ONE (23:40)
[2018-01-02 00:17] LABS: Troponin I 0.011 ng/mL (< 0.028)
== END 2018-01-02 00:42 ==
LOC: ERS 20:48
DX: R07.89 Other chest pain (principal); F17.200 Nicotine dependence, unspecified, uncomplicated; F41.9 Anxiety disorder, unspecified; G43.909 Migraine, unspecified, not intractable, without status migrainosus; Z79.899 Other long term (current) drug therapy; Z79.1 Long term (current) use of non-steroidal anti-inflammatories (NSAID)
CPT/HCPCS: 36415; 71045; 80053; 82553; 84484; 85025; 93005

== ENCOUNTER 2018-05-13 12:59 | Emergency (ER) | payer OTHER, SELFPAY ==
[2018-05-13 13:52] LABS: #Lymphocytes 1.2 thou/uL (1.20-3.40); #Monocytes 0.5 thou/uL (0.11-0.59); #Neutrophils 2.1 thou/uL (1.40-6.50); %Basophils 0.6 % (0.0-1.0); %Eosinophils 0.1 % (0.0-10.0); %Neutrophils 55.3 % (42.0-75.0); Hemoglobin 11.2 g/dL (14.0-18.0); Mean Corpuscular HGB CONC 33.6 g/dL (32.0-36.0); Mean Corpuscular Hemoglobin 31.3 pg (27.0-31.0); Mean Corpuscular Volume 93.2 fL (78.0-98.0); Mean Platelet Volume 7.7 fL (7.4-10.4); Platelet Count 149 thou/uL (130-400); RBC Distribution Width 13.2 % (11.5-14.5); Red Blood Cell (RBC) Count 3.58 mill/uL (4.70-6.10); White Blood Cell (WBC) Count 3.7 thou/uL (4.8-10.8)
[2018-05-13] MEDS ORDERED: Ondansetron PF 4 MG/2 ML Vial ONE (13:53)
[2018-05-13] MEDS ORDERED: Morphine 4 MG/ML VIAL ONE (13:53)
[2018-05-13 14:15] LABS: ALT (SGPT) 12 U/L (8-55); AST (SGOT) 30 U/L (5-34); Albumin 3.6 g/dL (3.5-5.0); Alkaline Phosphatase 82 U/L (40-150); Anion Gap 11 mmol/L (10-20); BUN (Urea Nitrogen) 13 mg/dL (8.9-20.6); Bilirubin, Total 0.5 mg/dL (0.2-1.2); Calc. Creatinine Clearance 0 mL/min (70-130); Calcium 8.6 mg/dL (7.8-10.44); Carbon Dioxide 27 mmol/L (22-29); Chloride 107 mmol/L (98-107); Estimated GFR-MDRD Greater than 90; Globulin 3.5 g/dL (2.4-3.5); Glucose 104 mg/dL (70-105); Lipase 8 U/L (8-78); Potassium 3.3 mmol/L (3.5-5.1); Protein, Total 7.1 g/dL (6.0-8.3); Sodium 142 mmol/L (136-145)
--- NOTE | 2018-05-13 15:07 | CT ---
CT OF ABDOMEN AND PELVIS PERFORMED WITH CONTRAST ENHANCEMENT: Date: 05/13/18 HISTORY: Abdominal pain. Distention. There is also reportedly a history of lupus and right testicular cancer. COMPARISON: 07/14/17 examination. FINDINGS: Lung bases are clear of any infiltrates. There is some minimal scarring along the left heart border a nd a tiny pericardial effusion. Prominent ventricular chambers are again demonstrated. The intrahepat ic portion of the IVC also appears somewhat distended. The liver, spleen, and pancreas regions appear unremarkable. There is suggestion of some very mild ga llbladder wall thickening. Right and left adrenal glands are normal in appearance. Right and left kidneys are within normal limi ts of size. Once again, there is some minimal perinephric fat stranding present on the left. This is similar to the prior examination. This fat stranding extends along the more inferior planes of Gerota 's fascia extending inferiorly both in a right and left periaortic region beginning below the level o f the kidneys. Once again, this is also a fairly similar appearance to the prior examination, with pr onounced perirectal fat stranding again seen. This was also a similar appearance to the prior exam. The periaortic nodes are similar and may actually be slightly smaller as compared to the prior examin ation. There are some left external iliac chain nodes also present. They appear fairly similar to the previous study. The small inguinal nodes are also similar. No significant mesenteric adenopathy. No signs of any bowel obstruction or significant stool formatio n. Lack of oral contrast does limit detail. IMPRESSION: 1. Fairly similar overall appearance as compared to the 07/14/17 study. 2. Small pericardial effusion. 3. Some mild gallbladder wall thickening. 4. Perinephric fat stranding, mainly on the left side. This fat stranding is extending inferiorly an d also with involvement of the perirectal fat, which was also similar to the previous exam. 5. Fairly stable lymphadenopathy as compared to the prior study. POS: [facility]
[2018-05-13 15:26] LABS: Bilirubin Negative (Negative); Blood, Urine Negative (Negative); Clarity CLEAR (Clear); Glucose, Urine (Dipstick) Negative (Negative); Leukocyte Negative (Negative); Nitrite Negative (Negative); Protein, Urine (Dipstick) Trace mg/dL (Neg-Trace); pH, Urine 6.5 (5.0-9.0)
[2018-05-13 15:31] LABS: Specific Gravity, Urine 1.045 (1.002-1.036)
--- NOTE | 2018-05-15 21:37 | EKG ---
Test Reason : Blood Pressure : / mmHG Vent. Rate : 087 BPM Atrial Rate : 087 BPM P-R Int : 154 ms QRS Dur : 090 ms QT Int : 386 ms P-R-T Axes : 050 -48 042 degrees QTc Int : 464 ms Normal sinus rhythm Left anterior fascicular block Prolonged QT Abnormal ECG No changes Confirmed by CHRISTINA FREDERICK ([id number]), visual effects editor MARQUITA CASTRO ([id number] on 05/15/2018 9:37:19 PM Referred By: Confirmed By:CHRISTINA FREDERICK
== END 2018-05-13 16:10 | disposition home or self-care (01) ==
LOC: ERS 12:59
DX: R10.30 Lower abdominal pain, unspecified (principal); G43.909 Migraine, unspecified, not intractable, without status migrainosus; F41.9 Anxiety disorder, unspecified; F31.9 Bipolar disorder, unspecified; F17.210 Nicotine dependence, cigarettes, uncomplicated; Z79.899 Other long term (current) drug therapy
CPT/HCPCS: 36415; 74177; 80053; 81003; 83690; 85025; 93005; 96374; 96375; J2270; J2405

== ENCOUNTER 2018-07-27 06:50 | Emergency (ER) | payer SELFPAY ==
[2018-07-27 07:17] LABS: #Lymphocytes 0.9 thou/uL (1.20-3.40); #Monocytes 0.8 thou/uL (0.11-0.59); #Neutrophils 3.6 thou/uL (1.40-6.50); %Basophils 0.4 % (0.0-1.0); %Eosinophils 0.5 % (0.0-10.0); %Lymphocytes 16.7 % (21.0-51.0); %Monocytes 14.9 % (0.0-10.0); %Neutrophils 67.6 % (42.0-75.0); Hemoglobin 15.8 g/dL (14.0-18.0); Mean Corpuscular HGB CONC 33.2 g/dL (32.0-36.0); Mean Corpuscular Hemoglobin 31.9 pg (27.0-31.0); Mean Corpuscular Volume 95.9 fL (78.0-98.0); Mean Platelet Volume 9.6 fL (7.4-10.4); Platelet Count 154 thou/uL (130-400); RBC Distribution Width 15.4 % (11.5-14.5); Red Blood Cell (RBC) Count 4.95 mill/uL (4.70-6.10); White Blood Cell (WBC) Count 5.3 thou/uL (4.8-10.8)
[2018-07-27 07:39] LABS: ALT (SGPT) 15 U/L (8-55); AST (SGOT) 23 U/L (5-34); Albumin 4.4 g/dL (3.5-5.0); Alkaline Phosphatase 127 U/L (40-150); Anion Gap 17 mmol/L (10-20); BUN (Urea Nitrogen) 15 mg/dL (8.9-20.6); Bilirubin, Total 0.5 mg/dL (0.2-1.2); Calc. Creatinine Clearance 0 mL/min (70-130); Calcium 9.6 mg/dL (7.8-10.44); Carbon Dioxide 20 mmol/L (22-29); Chloride 104 mmol/L (98-107); Estimated GFR-MDRD Greater than 90; Globulin 4.6 g/dL (2.4-3.5); Glucose 103 mg/dL (70-105); Lipase 18 U/L (8-78); Potassium 3.5 mmol/L (3.5-5.1); Sodium 137 mmol/L (136-145)
[2018-07-27] MEDS ORDERED: Ondansetron PF 4 MG/2 ML Vial ONE (08:29)
[2018-07-27] MEDS ORDERED: Morphine 4 MG/ML VIAL ONE ×2 (08:29→11:22)
--- NOTE | 2018-07-27 09:34 | ULT ---
ULTRASOUND SCROTUM TESTICLES DOPPLER DUPLEX: DATE: 07/27/2018. TIME: 9:00 a.m. HISTORY: A 32-year-old male with scrotal/testicular pain for 3 days. TECHNIQUE: Devi-scale evaluation of intrascrotal contents. Color flow Doppler and spectral waveform analysis of the testicles. FINDINGS: Right testicle is surgically absent. The left testicle measures 3.3 x 4.3 x 3.2 cm. Blood flow is demonstrated in the left testicle by Do ppler. There is no intratesticular solid mass lesion. Left epididymal head measures 2 x 1 cm. No significant left-sided hydrocele. Soft tissues surroundi ng the left testicle are somewhat thickened and have heterogeneous echogenicity. IMPRESSION: 1. No evidence of left-sided testicular torsion. 2. Nonspecific thickened scrotal soft tissues around the left testicle. 3. Status post right orchiectomy. TIMO Castaneda POS: [facility]
--- NOTE | 2018-07-27 10:12 | CT ---
EXAM: CT ABDOMEN AND PELVIS HISTORY: Abdominal pain COMPARISON: 05/13/2018 Procedure: Multiple contiguous axial images were obtained and a CT of the abdomen and pelvis with IV contrast. C oronal reformats were performed. FINDINGS: Lower Chest: Chronic changes in the lingula due to scar or atelectasis. Vessels: Normal caliber aorta. Heart: Upper normal size. No significant pericardial fluid. Abdomen: Portal vein:Patent Gallbladder: No calcified gallstones. Normal caliber wall. Liver: Appropriate enhancement. Small focus of fatty infiltration adjacent to the falciform ligament. Pancreas: within normal limits. Spleen: within normal limits. Adrenals: within normal limits. Kidneys: within normal limits. Peritoneum: No ascites or free air, no fluid collection. Bowel: Gastric mucosa, duodenum and multiple normal caliber small bowel loops. Ileocecal junction is normal. Normal caliber appendix. Scattered fecal material in a nondistended, nondilated colon. Inadequate distention of the colon limits evaluation of the colonic mucosa. Mesentery and Retroperitoneum: No enlarged mesenteric or retroperitoneal lymph nodes. Abdominal Wall: within normal limits. Pelvis: Reproductive Organs: No pelvic masses. Pelvis: within normal limits. Bladder: within normal limits. Bones: within normal limits. IMPRESSION: 1. No evidence of acute intraabdominal\pelvic abnormality. 2. Mucosal thickening involving the colon, likely due to inadequate distention. Colonoscopy if clinic ally warranted.
[2018-07-27 10:28] LABS: Bilirubin Negative (Negative); Blood, Urine Negative (Negative); Clarity CLEAR (Clear); Glucose, Urine (Dipstick) Negative (Negative); Leukocyte Negative (Negative); Nitrite Negative (Negative); Protein, Urine (Dipstick) 30 mg/dL (Neg-Trace); Specific Gravity, Urine 1.039 (1.002-1.036); pH, Urine 6.5 (5.0-9.0)
[2018-07-27 10:29] LABS: Bacteria/HPF None Seen HPF (None Seen); Hyaline Casts/LPF 0-3 HYALINE CAST LPF (0-3 Hyaline); Pathc Cast-AUWi Flag 0.13 (0-2.49); RBC/HPF None Seen HPF (0-3); Squamous Epithelial None Seen HPF (0-3); WBC/HPF 0-3 HPF (0-3)
== END 2018-07-27 12:12 | disposition home or self-care (01) ==
LOC: ERS 06:50
DX: R10.84 Generalized abdominal pain (principal); F41.9 Anxiety disorder, unspecified; F31.9 Bipolar disorder, unspecified; G43.909 Migraine, unspecified, not intractable, without status migrainosus; F17.210 Nicotine dependence, cigarettes, uncomplicated; Z71.6 Tobacco abuse counseling
CPT/HCPCS: 36415; 74177; 76870; 80053; 81003; 81015; 83690; 85025; 93976; 96361; 96374; 96375; 96376; 99406; J2270; J2405

== ENCOUNTER 2018-07-28 18:22 | Inpatient (IN) | payer SELFPAY ==
[2018-07-28] MEDS ORDERED: Morphine 4 MG/ML VIAL ONE ×2 (18:31→19:27)
[2018-07-28] MEDS ORDERED: Ondansetron PF 4 MG/2 ML Vial ONE (18:32)
[2018-07-28] MEDS ORDERED: Ketorolac Tromethamine 30 MG/ML VIAL ONE (18:32)
[2018-07-28 18:59] LABS: #Lymphocytes 0.4 thou/uL (1.20-3.40); #Monocytes 0.4 thou/uL (0.11-0.59); #Neutrophils 6.4 thou/uL (1.40-6.50); %Basophils 0.5 % (0.0-1.0); %Lymphocytes 5.2 % (21.0-51.0); %Neutrophils 89.2 % (42.0-75.0); Hemoglobin 14.4 g/dL (14.0-18.0); Mean Corpuscular Hemoglobin 31.6 pg (27.0-31.0); Mean Corpuscular Volume 93.1 fL (78.0-98.0); Mean Platelet Volume 8.8 fL (7.4-10.4); Platelet Count 126 thou/uL (130-400); Red Blood Cell (RBC) Count 4.54 mill/uL (4.70-6.10); White Blood Cell (WBC) Count 7.2 thou/uL (4.8-10.8)
[2018-07-28 19:14] LABS: ALT (SGPT) 15 U/L (8-55); AST (SGOT) 19 U/L (5-34); Albumin 3.8 g/dL (3.5-5.0); Alkaline Phosphatase 115 U/L (40-150); Anion Gap 17 mmol/L (10-20); BUN (Urea Nitrogen) 22 mg/dL (8.9-20.6); Bilirubin, Total 0.6 mg/dL (0.2-1.2); Calc. Creatinine Clearance 0 mL/min (70-130); Carbon Dioxide 20 mmol/L (22-29); Chloride 105 mmol/L (98-107); Estimated GFR-MDRD Greater than 90; Globulin 4.7 g/dL (2.4-3.5); Glucose 104 mg/dL (70-105); Lipase 8 U/L (8-78); Potassium 3.9 mmol/L (3.5-5.1); Protein, Total 8.5 g/dL (6.0-8.3); Sodium 138 mmol/L (136-145)
--- NOTE | 2018-07-28 19:34 | RAD ---
EXAM: Single view of the abdomen HISTORY: Abdominal pain for 4 days in the bilateral lower quadrants COMPARISON: CT abdomen/pelvis 07/27/2018 FINDINGS: Single view of the abdomen shows a nonspecific, nonobstructive bowel gas pattern. Contrast is also seen in the colon from recent contrast examination. No suspicious calcifications are seen. The bones are unremarkable. IMPRESSION: Unremarkable exam
[2018-07-28] MEDS ORDERED: Ondansetron PF 4 MG/2 ML Vial IVP PRN (23:09)
[2018-07-28] MEDS ORDERED: Ondansetron ODT 4 MG TAB SL PRN (23:09)
[2018-07-28] MEDS ORDERED: Sodium Chloride 0.9% 1,000 ML IV SCH (23:09)
[2018-07-28] MEDS: Morphine 4 MG/ML VIAL SLOW IVP PRN (23:28)
[2018-07-29] MEDS: Morphine 4 MG/ML VIAL SLOW IVP PRN ×5 (02:43→19:46)
[2018-07-29 02:54] VITALS: BMI 22.8
[2018-07-29] MEDS ORDERED: Ondansetron PF 4 MG/2 ML Vial IVP PRN (11:36)
[2018-07-29] MEDS ORDERED: Ondansetron ODT 4 MG TAB PO PRN (11:36)
[2018-07-29] MEDS ORDERED: Ibuprofen 800 MG TAB PO PRN (11:36)
[2018-07-29] MEDS ORDERED: Acetaminophen 500 MG TAB PO PRN (11:36)
[2018-07-29] MEDS: Sodium Chloride 0.9% 1,000 ML IV SCH ×2 (12:18→17:47)
[2018-07-29] MEDS: Pancrelipase DR 12000 1 CAP PO SCH ×2 (12:59→17:44)
[2018-07-29 16:23] LABS: Medtox Reader # READER 1; Opiate Screen Detected (NotDetected)
[2018-07-29 16:24] LABS: Amphetamine Not Detected (NotDetected); Barbiturates Screen Not Detected (NotDetected); Benzodiazepine Screen Not Detected (NotDetected); Cocaine Metabolite Screen Not Detected (NotDetected); Medtox Control Line Valid? VALID (VALID); Methadone Not Detected (NotDetected); Methamphetamine Not Detected (NotDetected); Oxycodone Screen Not Detected (NotDetected); Phencyclidine (PCP) Not Detected (NotDetected); THC/Cannabinoid Screen Not Detected (NotDetected); Tricyclic Screen Not Detected (NotDetected)
[2018-07-29] MEDS: HYDROcodone/Acetaminophen 5/325 mg Tablet PO PRN ×2 (17:43→22:07)
[2018-07-29] MEDS: predniSONE 20 MG TAB PO SCH (17:44)
[2018-07-29] MEDS ORDERED: Polyethylene Glycol 3350 17 GM Packet PO SCH (19:00)
[2018-07-29] MEDS: Famotidine/PF 20 mg/2ml Vial SLOW IVP SCH (19:46)
[2018-07-29] MEDS: Colchicine 0.6 MG TAB PO SCH (19:47)
[2018-07-30] MEDS: Morphine 4 MG/ML VIAL SLOW IVP PRN ×3 (00:41→10:01)
[2018-07-30] MEDS: HYDROcodone/Acetaminophen 5/325 mg Tablet PO PRN ×3 (03:39→12:28)
[2018-07-30] MEDS: Sodium Chloride 0.9% 1,000 ML IV SCH ×2 (03:40→12:27)
[2018-07-30 06:14] LABS: ALT (SGPT) 9 U/L (8-55); AST (SGOT) 19 U/L (5-34); Albumin 3.4 g/dL (3.5-5.0); Alkaline Phosphatase 89 U/L (40-150); Anion Gap 14 mmol/L (10-20); BUN (Urea Nitrogen) 12 mg/dL (8.9-20.6); Bilirubin, Total 0.6 mg/dL (0.2-1.2); Calc. Creatinine Clearance 165 mL/min (70-130); Calcium 8.5 mg/dL (7.8-10.44); Carbon Dioxide 17 mmol/L (22-29); Chloride 106 mmol/L (98-107); Estimated GFR-MDRD Greater than 90; Globulin 4.1 g/dL (2.4-3.5); Glucose 80 mg/dL (70-105); Potassium 3.9 mmol/L (3.5-5.1); Protein, Total 7.5 g/dL (6.0-8.3); Sodium 133 mmol/L (136-145)
[2018-07-30 06:17] LABS: Band 4 % (5-11); Hemoglobin 13.6 g/dL (14.0-18.0); Hypochromia SLIGHT = 6-15 cells (100X) (0-5/hpf); Lymphocytes 8 % (21-51); MDiff Complete? YES; Mean Corpuscular HGB CONC 32.3 g/dL (32.0-36.0); Mean Corpuscular Hemoglobin 31.9 pg (27.0-31.0); Mean Corpuscular Volume 98.9 fL (78.0-98.0); Monocytes 2 % (0-10); Neutrophil 86 % (42-75); Platelet Count 131 thou/uL (130-400); Platelet Morphology Comment Appears Adequate; RBC Distribution Width 15.5 % (11.5-14.5); Red Blood Cell (RBC) Count 4.26 mill/uL (4.70-6.10); White Blood Cell (WBC) Count 7.4 thou/uL (4.8-10.8)
[2018-07-30] MEDS: Pancrelipase DR 12000 1 CAP PO SCH ×2 (08:00→12:27)
[2018-07-30] MEDS: Colchicine 0.6 MG TAB PO SCH (08:00)
[2018-07-30] MEDS ORDERED: Potassium Chloride 20 MEQ TAB PO SCH (08:00)
[2018-07-30] MEDS: Famotidine/PF 20 mg/2ml Vial SLOW IVP SCH (08:03)
--- NOTE | 2018-07-30 08:16 | HP ---
PRIMARY CARE PROVIDER: Low in [place], [place]. CHIEF COMPLAINT: Abdominal pain. HISTORY OF PRESENT ILLNESS: This is a 32-year-old male, who presents to [facility] Emergency Department in transfer by EMS personnel after the patient complained of persistent and severe abdominal pain. The patient was apparently evaluated in the emergency room on 07/27/2018 for similar complaints, treated symptomatically with morphine sulfate, intravenous normal saline, and Zofran as well as discharged home with supportive management and tramadol. The patient states his symptoms persisted, rating the pain at 6 to 7/10, sharp and pressure like. The patient states the pain does migrate in the lower abdomen and to the mid epigastric region. The patient denied any recent travel history, trauma, or exposure. The patient denied any family members with similar symptoms, but did state associated nausea and vomiting of bilious substance 2 to 3 days prior to this evaluation. The reports the patient has had symptoms in the abdomen over the last 2 months, worsening in the last 72 hours. The patient's last bowel movement was approximately 72 hours prior to this evaluation, diarrhea, and consistency with crimson blood streaking. The patient underwent a colonoscopy exam in June 2017 showing small erosions in the right colon as well as diffuse edema in the rectal mucosa. Biopsies performed at that time of the colon and rectal tissue showed mild reactive changes without evidence of dysplasia. The patient does have a significant history of lupus on chronic prednisone therapy. The patient also admits to a recent loss of his prescription for Ativan, which he had taken for approximately 1 year on a daily basis. The patient states he has been unable to secure a refill of the prescription and has been off medication approximately 1 week. In the emergency room, the patient underwent general evaluation including CT of the abdomen and pelvis showing no acute intraabdominal process. Testicular ultrasound was also performed showing normal left testicle without evidence of torsion. Abdominal radiographs were also performed showing a normal bowel gas pattern. The patient received morphine sulfate, Toradol, Zofran, intravenous normal saline, and referred to the Hospitalist Service for evaluation. PAST MEDICAL HISTORY: 1. Systemic lupus erythematosus, on chronic prednisone therapy. 2. Chronic abdominal pain. 3. Chronic pancreatitis. 4. History of alcoholism, quitting alcohol intake approximately 3 to 4 years prior to this evaluation. 5. Anxiety/depression with bipolar disorder. 6. Question of pulmonary hypertension. 7. . 8. History of peptic ulcer disease. 9. Migraine headaches. PAST SURGICAL HISTORY: 1. Status post pericardial window secondary to SLE. 2. Status post right orchiectomy showing necrosis and hemorrhage without evidence of malignancy in February 2017. CURRENT MEDICATIONS: 1. Ibuprofen 800 mg p.o. t.i.d. p.r.n. 2. Pancrelipase DR 1 capsule p.o. t.i.d. with meals. 3. Paxil 20 mg p.o. daily. 4. Tramadol 50 mg p.o. q.i.d. p.r.n. 5. Colchicine 0.6 mg p.o. b.i.d. p.r.n. 6. Lisinopril 5 mg p.o. b.i.d. 7. MiraLAX 17 g p.o. daily p.r.n. 8. Prednisone 40 mg p.o. daily. 9. Dicyclomine 10 mg p.o. q.i.d. p.r.n. 10. HCTZ 12.5 mg p.o. daily. 11. Ativan 2 mg p.o. b.i.d., off medication x1 week. ALLERGIES: NO KNOWN DRUG ALLERGIES. FAMILY HISTORY: Positive for hypertension and diabetes mellitus. SOCIAL HISTORY: Accompanied by his in the hospital. Resides in [place], [place]. Recently incarcerated, released in the spring. Occasional tobacco use. No illicit drug use. Quit alcohol approximately 3 to 4 years prior to this evaluation. REVIEW OF SYSTEMS: CONSTITUTIONAL: Negative for weight loss or gain, ability to conduct usual activities. SKIN: Negative for rash, itching. EYES: Negative for double vision, pain. ENT/MOUTH: Negative for nose bleeding, neck stiffness, pain, tenderness. CARDIOVASCULAR: Negative for palpitations, dyspnea on exertion, orthopnea. RESPIRATORY: Negative for shortness of breath, wheezing, cough, hemoptysis, fever or night sweats. GASTROINTESTINAL: Negative for poor appetite, abdominal pain, heartburn, nausea, vomiting, constipation, or diarrhea. GENITOURINARY: Negative for urgency, frequency, dysuria, nocturia. MUSCULOSKELETAL: Negative for pain, swelling. NEUROLOGIC/PSYCHIATRIC: Negative for anxiety, depression. ALLERGY/IMMUNOLOGIC: Negative for skin rash, bleeding tendency. Otherwise, negative except as stated per HPI. PHYSICAL EXAMINATION: VITAL SIGNS: On admission; blood pressure 133/96, pulse 71, respiratory rate 18, temperature 97.8 degrees Fahrenheit, O2 saturation 97% on room air. GENERAL APPEARANCE: This is a 32-year-old male, alert, responsive, in mild distress. HEENT: Pupils are equal, round, reactive to light and accommodation. Extraocular muscles are intact. No scleral icterus. No conjunctival injection. Nares are patent. OP is clear. Teeth in fair repair. NECK: Supple. No cervical adenopathy. No thyromegaly. No carotid bruits. No JVD appreciated. CHEST: Lungs are clear to auscultation bilaterally. CARDIOVASCULAR: S1, S2 without noted murmur, rub, or gallop. No friction rub noted. ABDOMEN: Rounded with tenderness to palpation diffusely with voluntary guarding. Bowel sounds diminished in all 4 quadrants. No palpable mass. EXTREMITIES: Warm and dry with fair turgor. No clubbing, cyanosis, or asymmetric edema appreciated. Pulses palpable distally at the dorsalis pedis, posterior tibial, and popliteal arteries bilaterally. Capillary refill less than 2 seconds. NEUROLOGIC: Cranial nerves 2 through 12 are grossly intact. No focal or lateralizing signs appreciated. PERTINENT LAB AND X-RAY FINDINGS: Sodium 138, potassium 3.9, chloride 105, CO2 of 20, BUN 22, creatinine 0.88, glucose 104, calcium 9.0. LFTs within normal limits. Albumin 3.8, lipase 8. CBC showed a white blood cell count 7.2, hemoglobin 14, hematocrit 42, platelet count 126 with 89% neutrophils. CT of the abdomen and pelvis dated on 07/27/2018 showed no acute intraabdominal process. Testicular ultrasound dated on 07/27/2018 showed normal left testicle without evidence of torsion. Abdominal radiographs dated on 07/28/2018 showed normal bowel gas pattern. ASSESSMENT/PLAN: 1. Intractable abdominal pain. The patient will be admitted to the medical floor. Exact etiology is unclear at present. Questionable influence of benzodiazepine withdrawal. We will consult GI Service for any further recommendations. Last colonoscopy in 06/2017 with mucosal thickening and erosions in the rectal region. Continue intravenous normal saline. Pain control with morphine sulfate 4 mg IV q.4 hours p.r.n. Pepcid 20 mg IV b.i.d. 2. Nausea and vomiting, secondary to #1. Questionable withdrawal syndrome. Zofran 4 mg IV q.6 hours p.r.n. Intravenous normal saline as described previously. Clear liquids. 3. Benzodiazepine withdrawal. Suspected given the patient's longstanding use of Ativan with recent discontinuation of the medication. We will resume Ativan 2 mg p.o. daily. 4. Chronic immunosuppression with prednisone. Continue prednisone 40 mg daily. 5. Systemic lupus erythematosus. Continue supportive management as outlined previously. Resume prednisone 40 mg daily. 6. Prophylaxis. SCDs while in bed. Pepcid 20 mg p.o. b.i.d. Check urine drug screen. 7. Code status is full. Surrogate medical decision maker is the patient's spouse. Job ID: [id number]
--- NOTE | 2018-07-30 08:42 | CON ---
DATE OF CONSULTATION: 07/29/2018 REASON FOR CONSULTATION: Right lower quadrant abdominal pain, abnormal GI imaging. CONSULTING PHYSICIAN: Dr. Pasha Leyva. 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 He states that he was in his usual state of health until approximately 4 days ago when he had increased suprapubic/right lower quadrant/right groin abdominal pain characterized as an aching/pressure type sensation, would radiate to along the lower abdominal quadrants and would reach a severity of 9-10/10. The pain was worse with deep inspiration, coughing, increased physical activity, urination, and lying on either side, better with administration of morphine/narcotics only. He currently denotes there is associated dysuria, difficulty with urination, nausea and vomiting with nonbloody emesis as well as fevers and subjective chills. Currently, he denies any dysphagia, odynophagia, GI bleeding, diarrhea, or constipation. In fact, he has not had a bowel movement for the last 3 to 4 days. On admission here to the [facility] ER, he had a CT scan that was performed, which showed scattered fecal material throughout the colon as well as possible thickening of the rectum secondary to underdistention. Of note, the patient was admitted to the hospital in June of 2017 for a very similar reason, was prepped for colonoscopy at that time and had significant improvement in his abdominal pain after the colonoscopy itself. The colonoscopy did not show any significant findings with colonic biopsies only showing reactive changes. REVIEW OF SYSTEMS: A 10-category review of systems was obtained with all responses negative except for the pertinent positives as listed in HPI. PAST MEDICAL HISTORY: As per HPI. PAST SURGICAL: Pericardial window surgery (2017), right orchiectomy. FAMILY HISTORY: Denies any GI malignancies or IBD. SOCIAL HISTORY: Denies any tobacco, alcohol, or illicit drug use. OUTPATIENT MEDICATIONS: Reviewed. ALLERGIES: NO KNOWN DRUG ALLERGIES. PHYSICAL EXAMINATION: VITAL SIGNS: Temperature 97.7, pulse 65, blood pressure 135/97, respiratory rate 18, saturating 93% on room air. GENERAL: The patient was lying in bed, in mild distress. Alert and oriented x4. NECK: Normocephalic, atraumatic. Neck is supple. No JVD noted. CARDIOVASCULAR: Regular rate and rhythm with no discernible murmurs, gallops, or rubs. RESPIRATORY: Clear to auscultation bilaterally with no discernible wheezes or rales. ABDOMEN: Hypoactive bowel sounds. Soft with some guarding. Significant tenderness to palpation in all abdominal quadrants with both light and deep palpation, most especially within the right lower quadrant and right groin. EXTREMITIES: No cyanosis, clubbing, or edema. LABORATORY DATA: CBC with a white blood cell count of 7.2, hemoglobin 14.4, hematocrit 42.3, platelets 126. Chemistry with a sodium of 138, potassium 3.9, chloride 105, CO2 20, BUN 22, creatinine 0.88, glucose 104, AST 19, ALT 15, alkaline phosphatase 115, total bilirubin 0.6, albumin 3.8, lipase 8. IMAGING DATA: CT of the abdomen and pelvis was obtained on July 27, 2018, which showed scattered fecal material and a nondistended colon. No lymphadenopathy was seen, but possible thickening of the rectum was also seen secondary to under distention. No other abnormality seen at this time. Colonoscopy was performed on July 15, 2017, which showed a few 2-3 mm aphthoid erosions scattered around the colon with scattered areas of some mucosal erythema/hemorrhage. Biopsies at that time were positive for reactive changes, but did not indicate any evidence of inflammatory bowel disease or active infection. ASSESSMENT AND PLAN: The patient is a 32-year-old male with past medical history of testicular cancer, systemic lupus erythematosus, peptic ulcer disease, chronic pancreatitis, pulmonary hypertension, pericardial effusion status post pericardial window surgery and testicular cancer status post right orchiectomy, presenting with suprapubic/right lower quadrant abdominal pain. Lower abdominal pain. The patient is presenting with a recurrent history of increased suprapubic abdominal pain that was noted in May 2017, June 2017 and now during this current admission. The pain is characterized as an aching/pressure type pain, will radiate to the lower abdominal quadrants and reach a severity of 9-10/10. On physical examination, he is significantly tender to palpation with both light and deep palpation. With light palpation, barely touching the skin, eliciting pain; however during this admission he has also had significant difficulty with urination with decreased urinary stream and pain with urination concerning for possible urological process, especially since the pain is now more in the right groin rather than the right lower quadrant. CT scan showed possible thickening within the rectum, but given his colonoscopy within the last year with no presence of intracolonic pathology makes this a much less likely origin of the abdominal pain. However, he also has not had a bowel movement for last 3-4 days, which is consistent with his prior admissions to the hospital and may benefit from a bowel regimen to relieve constipation, which could then in turn be generating decreased urinary stream. RECOMMENDATIONS: 1. We would plan for a mineral oil enema x1 to break up any harder stool plugs within the rectum and sigmoid colon and hopefully facilitate having a bowel movement. 2. We would add MiraLAX 1 capful daily as part of the patient's bowel regimen here in the hospital and while on narcotic medications. 3. Pain control per primary team. 4. We would consider non GI origin of his abdominal pain including possible nephrolithiasis and/or urological dysfunction. 5. We will hold on any endoscopic evaluation given recent colonoscopy within the last year with relatively normal findings. 6. We will continue to follow. Please call with any questions. Job ID: [id number]
[2018-07-30] MEDS ORDERED: PARoxetine 20 MG TAB PO SCH (09:00)
[2018-07-30] MEDS ORDERED: Lorazepam 1 MG TAB PO SCH (09:00)
[2018-07-30] MEDS ORDERED: Polyethylene Glycol 3350 17 GM Packet PO SCH ×3 (09:00)
[2018-07-30] MEDS: predniSONE 20 MG TAB PO SCH (10:03)
[2018-07-30 11:32] VITALS: BP 156/105; TEMP 99.7
[2018-07-30] MEDS ORDERED: Magnesium Citrate 300 ML BOT PO SCH (13:15)
[2018-07-30] MEDS ORDERED: Mineral Oil ENEMA PR SCH (13:15)
--- NOTE | 2018-07-31 03:40 | DIS ---
DATE OF ADMISSION: 07/28/2018 DATE OF DISCHARGE: 07/30/2018 DISCHARGE DIAGNOSES: 1. Intractable abdominal pain, unclear etiology. 2. Nausea and vomiting, secondary to #1. 3. Benzodiazepine withdrawal. 4. Chronic immunosuppression with prednisone. 5. Systemic lupus erythematosus. CONSULTATIONS: Tomas Durham MD, with GI Service. PERTINENT LAB AND X-RAY FINDINGS: Sodium ranged between 133 to 138. LFTs within normal limits. Lipase 8. CBC showed a platelet count ranged between 126 to 131. Urine drug screen positive for opiates 07/29/2018. Abdominal radiographs dated 07/28/2018 showed no acute process. CT of the abdomen and pelvis dated 07/27/2018, showed no acute intraabdominal process. Mucosal thickening of the colon, likely due to inadequate colonic distention. Testicular ultrasound dated 07/27/2018 of the left testicle showed no acute process. HOSPITAL COURSE: The patient was initially admitted to the medical floor after presenting with intractable abdominal pain of unclear etiology. Questionable influence of benzodiazepine withdrawal, as well as chronic constipation. The patient was evaluated by the GI Service with recommendations for bowel regimen to include MiraLAX and mineral oil enema. The patient was reluctant to pursue this course of action, however, did take MiraLAX with minimal bowel movements. The patient was resumed on Ativan due to suspected benzodiazepine withdrawal. However, continued to have abdominal pain requiring IV morphine sulfate and ibuprofen. The patient continued to complain of abdominal symptoms, however, did not want to pursue with the plan of treatment as outlined by GI Services and the primary team. The patient decided to leave against medical advice on 07/30/2018. Job ID: [id number]
== END 2018-07-30 13:35 | disposition left against medical advice (07) | DRG 392 ==
LOC: SCSER 18:22 → INTOOBSV 19:45 → T4-A 19:45 → OBSVTOIN 19:45
PROVIDERS: ADMIT Family Medicine; ATTEND Family Medicine
DX: R10.9 Unspecified abdominal pain (principal); K86.1 Other chronic pancreatitis; F13.239 Sedative, hypnotic or anxiolytic dependence with withdrawal, unspecified; F41.9 Anxiety disorder, unspecified; F31.9 Bipolar disorder, unspecified; M32.9 Systemic lupus erythematosus, unspecified; G43.909 Migraine, unspecified, not intractable, without status migrainosus; R11.2 Nausea with vomiting, unspecified; K59.09 Other constipation; Z90.79 Acquired absence of other genital organ(s); Z79.899 Other long term (current) drug therapy; Z79.52 Long term (current) use of systemic steroids; Z87.11 Personal history of peptic ulcer disease
CPT/HCPCS: 36415; 74018; 80053; 80306; 83690; 85007; 85025; 85027; 96361; 96374; 96375; 96376; J1885; J2270; J2405; J7512; S0028

== ENCOUNTER 2018-08-16 07:59 | Inpatient (IN) | payer SELFPAY ==
[2018-08-16 09:07] LABS: #Lymphocytes 0.6 thou/uL (1.20-3.40); #Monocytes 0.6 thou/uL (0.11-0.59); #Neutrophils 3.6 thou/uL (1.40-6.50); %Basophils 0.8 % (0.0-1.0); %Eosinophils 0.5 % (0.0-10.0); %Lymphocytes 12.8 % (21.0-51.0); %Monocytes 12.3 % (0.0-10.0); %Neutrophils 73.6 % (42.0-75.0); Hemoglobin 14.3 g/dL (14.0-18.0); Mean Corpuscular HGB CONC 32.4 g/dL (32.0-36.0); Mean Corpuscular Volume 95.6 fL (78.0-98.0); Mean Platelet Volume 8.5 fL (7.4-10.4); Platelet Count 164 thou/uL (130-400); RBC Distribution Width 14.6 % (11.5-14.5); Red Blood Cell (RBC) Count 4.62 mill/uL (4.70-6.10); White Blood Cell (WBC) Count 4.9 thou/uL (4.8-10.8)
[2018-08-16 09:18] LABS: ALT (SGPT) 11 U/L (8-55); AST (SGOT) 18 U/L (5-34); Albumin 4.1 g/dL (3.5-5.0); Alkaline Phosphatase 145 U/L (40-150); Anion Gap 15 mmol/L (10-20); BUN (Urea Nitrogen) 19 mg/dL (8.9-20.6); Bilirubin, Total 0.5 mg/dL (0.2-1.2); Calc. Creatinine Clearance 0 mL/min (70-130); Carbon Dioxide 22 mmol/L (22-29); Chloride 101 mmol/L (98-107); Estimated GFR-MDRD Greater than 90; Globulin 4.6 g/dL (2.4-3.5); Glucose 95 mg/dL (70-105); Potassium 3.7 mmol/L (3.5-5.1); Protein, Total 8.7 g/dL (6.0-8.3); Sodium 134 mmol/L (136-145)
[2018-08-16] MEDS ORDERED: Ondansetron PF 4 MG/2 ML Vial ONE ×3 (09:19→16:16)
[2018-08-16] MEDS ORDERED: Morphine 4 MG/ML VIAL ONE (10:54)
[2018-08-16] MEDS ORDERED: Ketorolac Tromethamine 30 MG/ML VIAL ONE ×2 (10:55→11:00)
--- NOTE | 2018-08-16 11:23 | CT ---
CT ABDOMEN AND PELVIS WITH IV CONTRAST 08/16/2018 CLINICAL INFORMATION: Abdominal pain localized to left lower quadrant. Bloody bowel movement one day ago with difficulty ur inating and hematuria. Nausea and vomiting. History of testicular cancer as well as lupus. COMPARISON: 05/13/2018 and 07/27/2018 Technique: Multiple contiguous axial CT images are obtained through the abdomen and pelvis with IV contrast. Cor onal reformatted images are provided. FINDINGS: Lower Chest: Linear scarring in the lingula and left lung base stable when compared to prior studies. Vessels: Abdominal aorta is normal in caliber without evidence of an aortic dissection. Abdomen: Portal vein:Patent Gallbladder: Within normal limits for CT imaging. Liver: within normal limits. Spleen: within normal limits. Pancreas: within normal limits. Adrenals: within normal limits. Kidneys: Linear low-density area is seen in the posterior aspect midportion left kidney likely relate d to an area of scarring unchanged from prior exams. Kidneys otherwise have normal CT appearance bilaterally. Bowel: There is mild wall thickening involving the cecum. The appendix is not visualized on this exam . There is a fluid collection seen within the right aspect of the pelvis measuring 7.6 cm x 5.1 cm in greatest axial dimensions. There is fat density seen within the fluid collection with a thin perip herally enhancing rim surrounding the collection. This was not present on the prior examinations which makes neoplastic process or mucocele less likely. Findings are worrisome for infection and poss ibly abscess collection; although, the etiology for fat density within the collection is uncertain unless this is secondary to leakage of contents from the perforation of a perforated appendicitis whi ch is certainly a differential consideration. This collection does abut and result in mass effect on the right lateral wall of the sigmoid. There is small amount of edema/inflammatory stranding in a presacral location as well as in a perirectal location. The rectum is incompletely distended. Minimal amount of inflammatory stranding is seen just superior to the level of the fluid and fat dens ity collection. Mesentery and Retroperitoneum: No enlarged mesenteric or retroperitoneal lymph nodes. Abdominal Wall: There is linear area of scarring in the right inguinal region. Pelvis: Reproductive Organs: No pelvic masses. Bladder: within normal limits. Bones: within normal limits. IMPRESSION: . Fluid collection within the right pelvis which does contain areas of fat. This finding was not pres ent on the prior study on 07/27/2018. The appendix is not visualized on this exam. Infectious process should be considered given interval change from prior study. Perforated appendicitis with sub sequent abscess formation is a possibility. Fat density could be related to leakage from bowel contents within the collection. The exact etiology for fat density within the collection is uncertain . A chyloma is a possibility, but the patient has no prior history of surgery in this region. The collection does abut and result in mass effect on the sigmoid colon. 2. Above findings discussed with Dr. Carroll in the emergency department 08/26/2018 at 1037 hours. Find ings were also discussed with Dr. Monahan.
[2018-08-16] MEDS ORDERED: ISOVUE-370 76%-LOCM 1 ML ONE (11:53)
[2018-08-16] MEDS ORDERED: Piperacillin/Tazobactam 4.5 GM VIAL ONE (11:58)
[2018-08-16 13:27] LABS: Bilirubin Negative (Negative); Blood, Urine Negative (Negative); Clarity CLEAR (Clear); Glucose, Urine (Dipstick) Negative (Negative); Leukocyte Negative (Negative); Nitrite Negative (Negative); Protein, Urine (Dipstick) 30 mg/dL (Neg-Trace)
[2018-08-16 13:29] LABS: Bacteria/HPF None Seen HPF (None Seen); Hyaline Casts/LPF 0-3 HYALINE CAST LPF (0-3 Hyaline); Pathc Cast-AUWi Flag 0.27 (0-2.49); RBC/HPF None Seen HPF (0-3); Squamous Epithelial None Seen HPF (0-3); WBC/HPF 0-3 HPF (0-3)
[2018-08-16] MEDS ORDERED: Rocuronium Bromide 10 MG/ML (10ML VIAL) ONE (16:16)
[2018-08-16] MEDS ORDERED: ePHEDrine 50 MG/ML VIAL ONE (16:16)
[2018-08-16] MEDS ORDERED: PROPOFOL 200 MG/20 ML VIAL ONE (16:16)
[2018-08-16] MEDS ORDERED: Succinylcholine Chloride 20 MG/ML 10 ml SYRINGE FS ONE (16:16)
[2018-08-16] MEDS ORDERED: Lidocaine 1% PF 5 ML VIAL ONE (16:16)
[2018-08-16] MEDS ORDERED: Glycopyrrolate 0.2 MG/ML 5 ML SYRINGE ONE (16:16)
[2018-08-16] MEDS ORDERED: Hydrocortisone Sod Succ/PF 100 mg/2 ml Vial ONE (16:16)
[2018-08-16] MEDS ORDERED: Bupivacaine/Epinephrine 0.25% 30 ML VIAL ONE (16:55)
[2018-08-16] MEDS ORDERED: Fentanyl 100 MCG/2 ML VIAL ONE ×3 (17:24→19:49)
[2018-08-16] MEDS ORDERED: HYDROmorphone 2 MG/ML VIAL SLOW IVP PRN (17:37)
[2018-08-16] MEDS ORDERED: Promethazine HCl 25 MG/ML VIAL IM PRN ×3 (17:37→20:43)
[2018-08-16] MEDS ORDERED: Promethazine HCl 25 MG/ML VIAL SLOW IVP PRN (17:37)
[2018-08-16] MEDS ORDERED: Ondansetron HCl/PF 4 MG/2 ML Vial IVP PRN (17:37)
[2018-08-16] MEDS ORDERED: Meperidine HCl/PF 25 MG/ML VIAL SLOW IVP PRN (17:37)
[2018-08-16] MEDS ORDERED: hydrALAZINE 20 MG/ML VIAL ONE (19:21)
[2018-08-16] MEDS ORDERED: hydrALAZINE 20 MG/ML VIAL SLOW IVP SCH (19:30)
[2018-08-16] MEDS ORDERED: Ondansetron ODT 4 MG TAB PO PRN (20:43)
[2018-08-16] MEDS ORDERED: Morphine 2 MG/ML SYRINGE SLOW IVP PRN (20:43)
[2018-08-16] MEDS ORDERED: Dextrose 50% Abboject 50 ML SYRINGE SLOW IVP PRN (20:43)
[2018-08-16] MEDS ORDERED: Dextrose 5% in Water 1,000 ML IV PRN (20:43)
[2018-08-16] MEDS ORDERED: hydrALAZINE 20 MG/ML VIAL SLOW IVP PRN (20:43)
[2018-08-16] MEDS: Famotidine 20 MG TAB PO SCH (21:33)
[2018-08-16] MEDS: Piperacillin/Tazobactam 3.375 GM in Sodium Chloride 0.9% 100 ML IVPB SCH (21:33)
[2018-08-16] MEDS: Sodium Chloride 0.9% 1,000 ML IV SCH (21:36)
[2018-08-16] MEDS: Morphine 4 MG/ML VIAL SLOW IVP PRN (21:45)
--- NOTE | 2018-08-16 22:10 | OP ---
DATE OF PROCEDURE: 08/16/2018 PREOPERATIVE DIAGNOSIS: Acute abdominal pain, right lower quadrant abscess. POSTOPERATIVE DIAGNOSES: 1. Acute appendicitis with necrosis, blown out. 2. Large right pelvic abscess. PROCEDURES PERFORMED: 1. Laparoscopic appendectomy. 2. Drainage of large pelvic abscess, evacuating 300 mL of white pus. ANESTHESIA: General endotracheal. ESTIMATED BLOOD LOSS: 50 mL. FLUIDS GIVEN: 1200 mL of crystalloids. COUNTS: Sponge and instrument counts were verified as correct x2. COMPLICATIONS: None apparent at the time of operation. INDICATIONS FOR OPERATION: This is a 32-year-old man who presented with recurrent right lower quadrant abdominal pain of 1 week duration. Clinical radiographic examination was consistent with right pelvic fluid collection. Appendix was not visualized. However, missed appendix was suspected for which the patient was brought to the operating room for appendectomy. Findings are consistent with necrotic blown out appendix embedded in 300 mL of old white pus behind the distal ileum. DESCRIPTION OF PROCEDURE: Informed consent was obtained from the patient who was brought to the operating room and placed in supine position. Following general anesthesia, a Ibarra catheter was inserted and placed to bedside drain. Abdomen was sterilely prepped and draped in usual fashion. The skin above the umbilicus was carefully infiltrated with 0.25% Marcaine with epinephrine. A small curvilinear supraumbilical incision was made using 11 scalpel. Umbilical stalk was grasped with Evon and elevated. Veress needle was inserted through the incision and placed in the peritoneal cavity through which the abdomen was insufflated with 2 L of CO2 gas. Intraabdominal pressure noted at 2 mmHg. Following abdominal insufflation, Veress needle was removed. A 5 mm trocar introduced using a Visiport under laparoscopy. Laparoscopy revealed the right lower quadrant completely encased by omental adhesions. Under direct laparoscopy, 5 mm left lower quadrant and suprapubic ports were placed after the overlying skin was infiltrated with 0.25% Marcaine with epinephrine and appropriate incision was made. The patient was placed in a Trendelenburg position, rotated to his left. I then used a [place] dissector to tease down omental adhesions, which was obscuring the right lower quadrant. Once the omental adhesions were mobilized off the right lower quadrant, the cecum was early identified, however, the distal ileum was welded to the right lateral gutter. I then introduced the LigaSure device using this to take down fibrotic attachments of the lateral gutter adherent to the distal ileum. Care was taken to avoid injury to the bowel. Immediately, large amount of pus egressed from a cavity which was created between the distal ileum and the right lateral gutter, over 300 mL of white pus was evacuated. There was a necrotic appendix embedded in this large collection of pus. Once the pus was evacuated using suction, the necrotic appendix was delivered of the abdominal cavity using EndoCatch. Distal ileum was run from the ileocecal juntion to proximal two feet and no austin's diverticulum was seen. the Appendiceal stump was secured with endoloop . The abscess cavity was copiously irrigated clear with saline. Minor venous oozing was readily controlled using Imtiaz. A #19 Ulysses drain was introduced into the abscess cavity and allowed to exit the abdominal cavity through the suprapubic port site. The drain was secured to anterior abdominal wall using 2-0 silk suture. Finding no other pathology, laparoscopy was terminated. Note that, prior to application of the Imtiaz, the abscess cavity was irrigated with saline and evacuated. The abdomen was desufflated. All ports and instruments removed and accounted for. Skin incisions were closed using 4-0 Monocryl suture in a subcuticular fashion. Dermabond was applied over incisional closure. The patient tolerated the operation without any apparent complication and was returned to recovery room in satisfactory condition. Job ID: [id number] [facility]
[2018-08-16 22:30] VITALS: BMI 23.4
[2018-08-17] MEDS ORDERED: Ketorolac Tromethamine 30 MG/ML VIAL IVP PRN (00:43)
[2018-08-17] MEDS: Morphine 4 MG/ML VIAL SLOW IVP PRN ×3 (00:57→18:10)
[2018-08-17] MEDS ORDERED: Ketorolac Tromethamine 30 MG/ML VIAL IVP SCH (01:00)
[2018-08-17] MEDS: Piperacillin/Tazobactam 3.375 GM in Sodium Chloride 0.9% 100 ML IVPB SCH ×4 (04:02→20:28)
[2018-08-17 04:45] LABS: #Lymphocytes 0.5 thou/uL (1.20-3.40); #Monocytes 0.5 thou/uL (0.11-0.59); #Neutrophils 6.6 thou/uL (1.40-6.50); %Lymphocytes 6.8 % (21.0-51.0); %Neutrophils 87.2 % (42.0-75.0); Hemoglobin 13.3 g/dL (14.0-18.0); Mean Corpuscular HGB CONC 32.4 g/dL (32.0-36.0); Mean Corpuscular Hemoglobin 32.3 pg (27.0-31.0); Mean Corpuscular Volume 99.6 fL (78.0-98.0); Mean Platelet Volume 9.4 fL (7.4-10.4); Platelet Count 117 thou/uL (130-400); RBC Distribution Width 14.8 % (11.5-14.5); Red Blood Cell (RBC) Count 4.13 mill/uL (4.70-6.10); White Blood Cell (WBC) Count 7.6 thou/uL (4.8-10.8)
[2018-08-17 04:58] LABS: Anion Gap 14 mmol/L (10-20); BUN (Urea Nitrogen) 21 mg/dL (8.9-20.6); Calc. Creatinine Clearance 139 mL/min (70-130); Calcium 8.3 mg/dL (7.8-10.44); Carbon Dioxide 18 mmol/L (22-29); Chloride 107 mmol/L (98-107); Estimated GFR-MDRD Greater than 90; Glucose 83 mg/dL (70-105); Sodium 135 mmol/L (136-145)
[2018-08-17] MEDS: Acetaminophen 1,000 MG in Premix Bag 1 BAG IVPB SCH ×3 (05:24→18:18)
--- NOTE | 2018-08-17 07:40 | HP ---
HISTORY OF PRESENT ILLNESS: Mr. Watkins is a 32-year-old man, who presented to emergency department with approximately 1-week history of what started as a periumbilical abdominal pain, which has been present now in the right lower quadrant over the last 3 to 4 days. This is associated with multiple episodes of nausea and nonbilious emesis. He had 2 bouts of diarrhea yesterday in fact had fecal incontinence. He admits to some chills and night sweats. This has been present over the last 2 days. He denies any fever nevertheless. Last meal was dinner last night. He is currently anorexic. The patient was seen on 07/27/2018 with same complaint at that time, workup included CT scan of abdomen and pelvis, which was unremarkable. The patient was subsequently discharged after a short duration admission. His past medical history is significant for SLE. He is on chronic prednisone therapy. He has had chronic abdominal pain, which is recurrent in nature. He has been evaluated by Gastroenterology and was pending upper and lower endoscopy, which he had not been able to maintain his appointment. MEDICAL HISTORY: Pertinent for chronic pancreatitis, remote history of alcoholism. He has indulged over the last 3 to 4 years nevertheless. He has history of peptic ulcerative disease and chronic depression. PAST SURGICAL HISTORY: Pertinent for right orchiectomy in February 2017 and pericardial window this time passed for SLE induced peritonitis. SOCIAL HISTORY: He is and lives in [place]. He is currently disabled from his chronic SLE syndrome. He admits to occasional use of tobacco. He used to smoke a pack of cigarettes per week, but currently smokes sparingly. He has a remote history of alcoholism and marijuana usage, currently not indulge. FAMILY HISTORY: Pertinent for diabetes mellitus and essential hypertension. PRE-HOSPITALIZATION MEDICATION: Includes: 1. Paroxetine 40 mg p.o. daily. 2. Lisinopril 5 mg p.o. b.i.d. 3. Ibuprofen 800 mg p.o. t.i.d. 4. Hydrochlorothiazide 12.5 mg p.o. daily. 5. Creon capsule, he takes 12,000 units p.o. b.i.d. 6. Ativan 1 mg p.o. p.r.n. anxiety. 7. He also takes potassium chloride 20 mEq p.o. daily. ALLERGIES: THE PATIENT DENIES ANY KNOWN DRUG ALLERGIES. REVIEW OF SYSTEMS: Ten-point review of systems essentially unremarkable except as stated in past medical history and chief complaint. PHYSICAL EXAMINATION: GENERAL: This reveals a 32-year-old normally developed man, who is otherwise coherent, interactive, and appears stated age. The patient is alert and oriented x3, appears to be in no acute distress at the time of my evaluation. VITAL SIGNS: Include blood pressure 136/78, pulse 78, respiratory rate is 20, temperature is 98.5 degrees Fahrenheit, and oxygen saturation is 99% on room air. He rates his pain at 9/10. HEENT: Reveals normocephalic and atraumatic. Pupils are equal, round, reactive to light and accommodation. HEART: Reveals regular rate and rhythm. No murmurs or gallops auscultated. LUNGS: Clear to auscultation bilaterally. Breathing, regular and nonlabored. ABDOMEN: Soft with right lower quadrant tenderness to palpation. He has a positive Rovsing sign. Liver and spleen nonpalpable below costal margin. EXTREMITIES: Reveal 2+ radial and pedal pulses bilaterally. No ankle edema is present. NEUROLOGIC: Reveals no focal deficits present. LABORATORY FINDINGS: Today includes a CBC with 4900 white blood cells, hemoglobin and hematocrit of 14.3 and 44.2 respectively. Platelet count is . Metabolic profile; sodium 134, potassium 3.7, chloride is 101, bicarb is 22, BUN 19, creatinine 0.86, glucose 95, lactic acid is 1.5. AST and ALT normal at 18 and 11 respectively. C-reactive protein is elevated at 5.4. Serum lipase is normal at 11. I have personally reviewed the CT scan of the abdomen and pelvis, which was obtained today and this is remarkable for a 7.6 x 5.9 cm fluid collection in the right lower quadrant into the cecum with the inferior medial aspect of it abutting the sigmoid colon. The appendix is not visualized in this CT scan. This is in taylor contrast to a normal CT scan of the abdomen and pelvis, which was obtained in the patient's ER visit of 07/27/2018. There is no pneumoperitoneum present. IMPRESSION: 1. Acute abdominal pain with large right lower quadrant pelvic fluid collection of undetermined etiology in the setting of a nonvisualized appendix, suspect ruptured appendix with an abscess. 2. History of systemic lupus erythematosus. 3. History of chronic depression. 4. History of chronic abdominal pain of undetermined etiology. PLAN: 1. Diagnostic laparoscopy, possible laparotomy, and indicated procedures. 2. Above findings and plan has been discussed with the patient and his at bedside. 3. I have advised the patient of the risks and benefits of the proposed surgery to include, but not limited to bleeding, infection, injury to bowel or surrounding structures. 4. The patient indicates understanding information given. I have answered his questions. 5. The patient has granted consent for this admission and surgical intervention. Job ID: [id number]
[2018-08-17] MEDS: Famotidine 20 MG TAB PO SCH ×2 (08:36→20:29)
[2018-08-17] MEDS: Sodium Chloride 0.9% 1,000 ML IV SCH ×2 (08:40→12:24)
[2018-08-17] MEDS: Senokot S 8.6-50 MG TAB PO SCH ×2 (09:57→20:29)
--- NOTE | 2018-08-17 17:47 | PRG ---
DATE OF SERVICE: 08/17/2018 SUBJECTIVE: This is a 32 years old male patient, coming today to evaluate acute abdominal pain. The patient was diagnosed with pelvic fluid and possible appendicitis rupture, intraabdominal abscess. The patient was taken to the OR and operated by Dr. Monahan. The post operative diagnosis is acute appendicitis with necrosis, blown out and large right pelvic abscess seen at the operation. The patient has been doing better. He reports no fever. He walks for a short period of time. He reports having gas, but no bowel movement yet. He reports no nausea or vomiting. OBJECTIVE: GENERAL: A pleasant gentleman with no apparent signs of acute distress. VITAL SIGNS: Temperature 98, pulse 77, respiratory rate 15, O2 sat 95 on room air, and blood pressure 107/73. LUNGS: Clear bilaterally. ABDOMEN: Soft. Mild tender to touch. Bowel sounds are diminished. EXTREMITIES: Noncontributory. LABORATORY DATA: White blood count 7.5, hemoglobin 13.3. creatinine 0.79. DIAGNOSTIC IMAGING: There are no diagnostic imaging to be reviewed at this time. ASSESSMENT: 1. Acute appendicitis with necrosis, blown out. 2. Large right pelvic abscess. 3. Postop laparoscopic appendectomy and drainage of large pelvic abscess, postoperative day #1. PLAN: Continue pain control, DVT, and gastritis prophylaxis. Consider advancing diet to liquid today. Job ID: [id number] [facility]
[2018-08-17] MEDS: Enoxaparin Sodium 40 MG/0.4 ML SYRINGE SC SCH ×2 (20:28→20:38)
[2018-08-17] MEDS: traMADol HCl 50 MG TAB PO SCH (20:29)
[2018-08-18] MEDS: Sodium Chloride 0.9% 1,000 ML IV SCH ×3 (00:02→08:25)
[2018-08-18] MEDS: Acetaminophen 1,000 MG in Premix Bag 1 BAG IVPB SCH (00:02)
[2018-08-18] MEDS: Piperacillin/Tazobactam 3.375 GM in Sodium Chloride 0.9% 100 ML IVPB SCH ×2 (02:08→08:29)
[2018-08-18] MEDS: traMADol HCl 50 MG TAB PO SCH ×4 (02:09→20:00)
[2018-08-18 05:09] LABS: #Lymphocytes 0.5 thou/uL (1.20-3.40); #Monocytes 0.4 thou/uL (0.11-0.59); #Neutrophils 5.3 thou/uL (1.40-6.50); %Basophils 0.1 % (0.0-1.0); %Eosinophils 0.5 % (0.0-10.0); %Lymphocytes 7.6 % (21.0-51.0); %Monocytes 6.3 % (0.0-10.0); %Neutrophils 85.6 % (42.0-75.0); Mean Corpuscular HGB CONC 32.4 g/dL (32.0-36.0); Mean Corpuscular Hemoglobin 31.6 pg (27.0-31.0); Mean Corpuscular Volume 97.7 fL (78.0-98.0); Platelet Count 101 thou/uL (130-400); RBC Distribution Width 14.8 % (11.5-14.5); Red Blood Cell (RBC) Count 3.79 mill/uL (4.70-6.10); White Blood Cell (WBC) Count 6.1 thou/uL (4.8-10.8)
[2018-08-18] MEDS: Morphine 4 MG/ML VIAL SLOW IVP PRN (05:16)
[2018-08-18 05:36] LABS: ALT (SGPT) 7 U/L (8-55); AST (SGOT) 12 U/L (5-34); Albumin 2.9 g/dL (3.5-5.0); Alkaline Phosphatase 128 U/L (40-150); Anion Gap 14 mmol/L (10-20); BUN (Urea Nitrogen) 19 mg/dL (8.9-20.6); Calc. Creatinine Clearance 147 mL/min (70-130); Calcium 8.1 mg/dL (7.8-10.44); Carbon Dioxide 17 mmol/L (22-29); Chloride 108 mmol/L (98-107); Estimated GFR-MDRD Greater than 90; Globulin 3.5 g/dL (2.4-3.5); Glucose 76 mg/dL (70-105); Magnesium 1.4 mg/dL (1.6-2.6); Phosphorus 2.8 mg/dL (2.3-4.7); Potassium 3.5 mmol/L (3.5-5.1); Protein, Total 6.4 g/dL (6.0-8.3); Sodium 135 mmol/L (136-145)
[2018-08-18] MEDS: Ibuprofen 600 MG TAB PO SCH ×3 (08:26→19:58)
[2018-08-18] MEDS: Senokot S 8.6-50 MG TAB PO SCH ×2 (08:26→19:58)
[2018-08-18] MEDS: Famotidine 20 MG TAB PO SCH ×2 (08:27→20:08)
[2018-08-18] MEDS: Acetaminophen 500 MG TAB PO SCH ×3 (08:27→19:58)
[2018-08-18] MEDS: Polyethylene Glycol 3350 17 GM Packet PO SCH (08:30)
[2018-08-18] MEDS ORDERED: PHOS-NAK 1 PKT PACK PO SCH (10:45)
[2018-08-18] MEDS: metroNIDAZOLE 500 MG TAB PO SCH ×2 (15:27→19:58)
--- NOTE | 2018-08-18 17:35 | PRG ---
DATE OF SERVICE: 08/18/2018 SUBJECTIVE: Mr. Watkins is a 32-year-old man, who is postoperative day #2, status post laparoscopic appendectomy and drainage of pelvic abscess. The patient is awake and alert today. He reports adequate pain control. He is tolerating clear liquid diet. He is having normal bowel and urinary function. OBJECTIVE: VITAL SIGNS: Today, blood pressure 149/102, pulse 88, respiratory rate 16, temperature 98.3 degrees Fahrenheit, oxygen saturation 94% on room air. HEART: Regular rate and rhythm. No murmurs or gallops auscultated. LUNGS: Clear to auscultation bilaterally. Breathing, regular and nonlabored. ABDOMEN: Soft and nondistended. Incisions are intact, clean, dry. Mani-Rivas drain with scant serous fluid. The patient clearly has no peritoneal signs on examination. Bowel sounds appear normoactive in all 4 quadrants. LABORATORY DATA: The findings include a CBC with 6100 white blood cells, hemoglobin 12.0, hematocrit 37.0, platelet count is 101,000. Metabolic profile; sodium 135, potassium is 3.5, chloride is 108, bicarb 17, BUN 19, creatinine 0.75, glucose is 76, phosphorus is 2.8, magnesium is 1.4. IMPRESSION: 1. Postop day #2, status post laparoscopic appendectomy and drainage of pelvic abscess. 2. Acute hypokalemia. 3. Acute hypophosphatemia. PLAN: 1. Correct abnormal electrolytes. 2. Advance diet and activity. 3. Mani-Rivas drain will be removed. 4. Antibiotic therapy will be converted to a p.o. ciprofloxacin and metronidazole. 5. If the patient tolerates current antibiotic regimen and remains hemodynamically stable and afebrile, he will be discharged home tomorrow. 6. Meanwhile, we will resume prehospital medications for better blood pressure control. Job ID: [id number]
[2018-08-18] MEDS: Cipro 250 MG TAB PO SCH (19:58)
[2018-08-18] MEDS: Lisinopril 5 MG TAB PO SCH (19:59)
[2018-08-18] MEDS: traMADol HCl 50 MG TAB PO PRN (22:01)
[2018-08-18] MEDS: Magnesium Chloride 64 MG TAB PO SCH (22:03)
[2018-08-18] MEDS: Enoxaparin Sodium 40 MG/0.4 ML SYRINGE SC SCH (22:03)
[2018-08-18] MEDS: Ondansetron PF 4 MG/2 ML Vial IVP PRN (22:04)
[2018-08-19] MEDS: Acetaminophen 500 MG TAB PO SCH ×2 (01:18→09:08)
[2018-08-19] MEDS: Ibuprofen 600 MG TAB PO SCH ×2 (01:18→09:08)
[2018-08-19] MEDS: traMADol HCl 50 MG TAB PO SCH ×2 (01:18→09:09)
[2018-08-19] MEDS: traMADol HCl 50 MG TAB PO PRN (06:04)
[2018-08-19] MEDS: Cipro 250 MG TAB PO SCH (06:05)
[2018-08-19 07:42] VITALS: TEMP 97.2
[2018-08-19 07:43] VITALS: BP 156/83
[2018-08-19] MEDS ORDERED: PHOS-NAK 1 PKT PACK PO SCH (08:00)
[2018-08-19] MEDS ORDERED: Potassium Chloride 10 MEQ TAB PO SCH (08:00)
[2018-08-19] MEDS: Ondansetron PF 4 MG/2 ML Vial IVP PRN (08:29)
[2018-08-19] MEDS ORDERED: PARoxetine 20 MG TAB PO SCH (09:00)
[2018-08-19] MEDS ORDERED: Bacitracin 1 PK TOP SCH (09:00)
[2018-08-19] MEDS: Senokot S 8.6-50 MG TAB PO SCH (09:08)
[2018-08-19] MEDS: Lisinopril 5 MG TAB PO SCH (09:08)
[2018-08-19] MEDS: metroNIDAZOLE 500 MG TAB PO SCH (09:08)
[2018-08-19] MEDS: Magnesium Chloride 64 MG TAB PO SCH (09:09)
[2018-08-19] MEDS: Famotidine 20 MG TAB PO SCH (09:09)
[2018-08-19] MEDS: Polyethylene Glycol 3350 17 GM Packet PO SCH (09:10)
[2018-08-19] MEDS ORDERED: Ciprofloxacin 500 MG TAB PO SCH (20:00)
--- NOTE | 2018-08-20 11:45 | DIS ---
DATE OF ADMISSION: 08/16/2018 DATE OF DISCHARGE: 08/19/2018 ADMISSION DIAGNOSES: Acute appendicitis History of lupus, History of chronic pancreatitis, alcoholism DISCHARGE DIAGNOSES: Acute appendicitis Laparoscopic appendectomy, postoperative day 3; Drainage of large pelvic abscess, postoperative day 3; History of lupus, History of peptic ulcer disease, PROCEDURE: Laparoscopic appendectomy. HOSPITAL COURSE: The patient presented with right lower quadrant abdominal pain for about a week, Patient was diagnosed with abdominal abbess on abdominal CT scan. The patient underwent laparoscopic appendectomy, and drainage of large pelvic abscess. Patient underwent uncomplicated post op . He develop no fever, or shortness of breath. Drainage was removed. He was able to tolerate regular diet, and pain was well controlled . DISCHARGE DISPOSITION: Home. DISCHARGE CONDITION: Satisfactory. DISCHARGE PHYSICAL EXAMINATION: VITAL SIGNS: Temperature 98_ O2 saturation 92% on room air. HR 77 BP 120/70mmHg LUNGS: Clear bilaterall Heart: regular rate and rhythm GI abdominal is soft, non tender. No rebound Neurovascularly intact. DISCHARGE INSTRUCTIONS: The patient was discharged home, instructed not to heavy lifting more than 20 pounds for 2 week. No soaking or bathtub for 2 weeks. Activities, as tolerated. He is on regular diet. He is to take medications as directed. DISCHARGE MEDICATIONS: 1. Tylenol. 2. Ibuprofen. 3. Ciprofloxacin. 4. Flagyl. 5. Tramadol. FOLLOWUP APPOINTMENT: He is to follow up with primary doctor at [facility]. He is to follow up with Dr. Gómez Monahan on August 31, 2018, at 2 p.m. Please call with questions. Job ID: [id number] MTDD
== END 2018-08-19 13:10 | disposition home or self-care (01) | DRG 340 ==
LOC: ERS 07:59 → SDC 14:25 → SJJU 19:37
PROVIDERS: ADMIT Surgery; ATTEND Surgery
PROC: 0DTJ4ZZ Resection of Appendix, Percutaneous Endoscopic Approach (ICD-10-PCS; principal; 2018-08-16)
PROC: 0W9H40Z Drainage of Retroperitoneum with Drainage Device, Percutaneous Endoscopic Approach (ICD-10-PCS; 2018-08-16)
DX: K35.33 Acute appendicitis with perforation, localized peritonitis, and gangrene, with abscess (principal); F32.9 Major depressive disorder, single episode, unspecified; M32.9 Systemic lupus erythematosus, unspecified; F41.9 Anxiety disorder, unspecified; E87.6 Hypokalemia; E83.39 Other disorders of phosphorus metabolism; Z79.899 Other long term (current) drug therapy
CPT/HCPCS: 36415; 74177; 80048; 80053; 81003; 81015; 83605; 83690; 83735; 84100; 85025; 86140; 88304; J0131; J0360; J1650; J1720; J1885; J2001; J2270; J2405; J2543; J2704; J3010; J3490; Q0162; Q9966

== ENCOUNTER 2018-10-11 06:32 | Inpatient (IN) | payer SELFPAY ==
[2018-10-11] MEDS ORDERED: Ketorolac Tromethamine 30 MG/ML VIAL ONE (06:50)
[2018-10-11] MEDS ORDERED: Ondansetron PF 4 MG/2 ML Vial ONE ×2 (06:50→06:52)
[2018-10-11 06:53] LABS: #Lymphocytes 0.9 thou/uL (1.20-3.40); #Monocytes 0.4 thou/uL (0.11-0.59); #Neutrophils 2.9 thou/uL (1.40-6.50); %Basophils 1.1 % (0.0-1.0); %Eosinophils 0.5 % (0.0-10.0); %Monocytes 9.1 % (0.0-10.0); %Neutrophils 69.3 % (42.0-75.0); Hemoglobin 11.7 g/dL (14.0-18.0); Mean Corpuscular HGB CONC 33.5 g/dL (32.0-36.0); Mean Corpuscular Hemoglobin 31.1 pg (27.0-31.0); Mean Corpuscular Volume 92.8 fL (78.0-98.0); Mean Platelet Volume 6.4 fL (7.4-10.4); Platelet Count 175 thou/uL (130-400); Red Blood Cell (RBC) Count 3.75 mill/uL (4.70-6.10); White Blood Cell (WBC) Count 4.2 thou/uL (4.8-10.8)
[2018-10-11 07:10] LABS: ALT (SGPT) 11 U/L (8-55); AST (SGOT) 20 U/L (5-34); Albumin 3.4 g/dL (3.5-5.0); Alkaline Phosphatase 138 U/L (40-150); Anion Gap 16 mmol/L (10-20); BUN (Urea Nitrogen) 27 mg/dL (8.9-20.6); Bilirubin, Total 0.5 mg/dL (0.2-1.2); Calc. Creatinine Clearance 0 mL/min (70-130); Calcium 8.9 mg/dL (7.8-10.44); Carbon Dioxide 21 mmol/L (22-29); Chloride 108 mmol/L (98-107); Estimated GFR-MDRD 63; Globulin 5.3 g/dL (2.4-3.5); Glucose 87 mg/dL (70-105); Lipase 12 U/L (8-78); Potassium 3.7 mmol/L (3.5-5.1); Protein, Total 8.7 g/dL (6.0-8.3); Sodium 141 mmol/L (136-145)
[2018-10-11] MEDS ORDERED: Morphine 4 MG/ML VIAL ONE (07:36)
--- NOTE | 2018-10-11 08:00 | CT ---
EXAM: CT ABDOMEN AND PELVIS HISTORY: Right lower quadrant pain COMPARISON: 08/16/2018 Procedure: Multiple contiguous axial images were obtained and a CT of the abdomen and pelvis with IV contrast. C oronal reformats were performed. FINDINGS: Lower Chest: 1.6 x 1.3 cm lingular infiltrate Vessels: Normal caliber aorta Heart: Normal heart size. No pericardial fluid Abdomen: Portal vein:Patent Gallbladder: Contracted with mild enhancement. Liver: Hypoattenuation due to hepatic steatosis Pancreas: within normal limits. Spleen: within normal limits. Adrenals: within normal limits. Kidneys: Symmetric enhancement. Mild bilateral perinephric fat stranding, left greater than right. Bi laterally no obstructive uropathy. Peritoneum: No ascites or free air, no fluid collection. Bowel: Limited evaluation due to technique. No evidence of small bowel obstruction. Ileocecal junctio n is unremarkable. Normal caliber appendix. There is mucosal thickening in and pericolonic fat stranding involving the sigmoid colon and rectum. Correlate for colitis/proctitis. No evidence of per foration or abscess. Mesentery and Retroperitoneum: No enlarged mesenteric or retroperitoneal lymph nodes. Abdominal Wall: within normal limits. Pelvis: Reproductive Organs: No pelvic masses. Pelvis: Small amount of free fluid in the pelvis. No mass, lymphadenopathy or free air Bladder: within normal limits. Bones: within normal limits. IMPRESSION: 1. Mucosal thickening and pericolonic fat stranding along the sigmoid colon and rectum. Correlate for colitis/proctitis. 2. Suggestion of a normal caliber appendix in the right lower quadrant. 3. Grossly noted fluid collection in the right hemipelvis has essentially resolved. 4. Enhancing, contracted gallbladder
[2018-10-11] MEDS ORDERED: Piperacillin/Tazobactam 3.375 GM VIAL ONE (08:04)
[2018-10-11] MEDS ORDERED: Sodium Chloride 0.9% 100 ML ONE (08:05)
[2018-10-11] MEDS ORDERED: metroNIDAZOLE 500 MG/100 ML BAG ONE (08:26)
[2018-10-11] MEDS ORDERED: Ondansetron ODT 4 MG TAB SL PRN (09:21)
[2018-10-11] MEDS ORDERED: Ondansetron PF 4 MG/2 ML Vial IVP PRN ×2 (09:21→10:31)
[2018-10-11] MEDS ORDERED: Acetaminophen 325 MG TAB PO PRN ×2 (09:21→10:31)
[2018-10-11] MEDS: Sodium Chloride 0.9% 1,000 ML IV SCH ×3 (09:45→16:48)
[2018-10-11] MEDS ORDERED: traMADol HCl 50 MG TAB PO PRN (10:30)
[2018-10-11] MEDS ORDERED: Acetaminophen/Codeine 30-300mg Tablet PO PRN (10:30)
[2018-10-11] MEDS ORDERED: Bisacodyl 5 MG TAB PO PRN (10:31)
[2018-10-11 10:41] VITALS: BMI 20.2
[2018-10-11] MEDS: Morphine 2 MG/ML SYRINGE SLOW IVP PRN ×4 (11:02→23:25)
[2018-10-11] MEDS ORDERED: metroNIDAZOLE 500 MG in Premix Bag 1 BAG IVPB SCH ×2 (14:00→17:00)
--- NOTE | 2018-10-11 14:18 | HP ---
PRIMARY CARE PROVIDER: [facility] in [place], [place]. CHIEF COMPLAINT: Abdominal pain. HISTORY OF PRESENT ILLNESS: Mr. Watkins is a pleasant 32-year-old gentleman, who was seen at [facility] on October 11, 2018. He was hospitalized at this facility from August 16 to of this year for acute appendicitis. He underwent laparoscopic appendectomy. He reports that over the last week, he has had abdominal pain. He describes it as present in both right lower and left lower quadrants, sharp, 10/10 at its worst, nonradiating, accompanied by nausea and vomiting. He also reports hematochezia. He therefore presented to the emergency room at [facility]. He has been transferred to [facility] for further management. He denies any chest pain. He denies any dysuria. The patient reports cough, which started yesterday and is productive of a greenish sputum. REVIEW OF SYSTEMS: All systems were reviewed and found to be negative except for the pertinent positives mentioned above. PAST MEDICAL HISTORY: SLE, on chronic prednisone therapy; chronic abdominal pain; chronic pancreatitis; history of alcohol abuse; anxiety/depression with bipolar disorder; pulmonary hypertension; peptic ulcer disease; migraine headaches. PAST SURGICAL HISTORY: 1. Status post pericardial window secondary to SLE. 2. Status post right orchiectomy showing necrosis and hemorrhage without evidence of malignancy in February 2017. 3. Status post appendectomy. FAMILY HISTORY: Positive for hypertension and diabetes mellitus. SOCIAL HISTORY: The patient denies tobacco or recreational drug use. He is a recovering alcoholic. ALLERGIES: NO KNOWN DRUG ALLERGIES. CURRENT MEDICATIONS: 1. Tramadol 50 mg every 6 hours as needed. 2. Ibuprofen 600 mg every 8 hours as needed. 3. Zofran 4 mg every 8 hours as needed. 4. Bentyl 10 mg 4 times a day. 5. Hydrochlorothiazide 12.5 mg daily. 6. Lisinopril 5 mg daily. 7. Ativan 2 mg 2 times a day. 8. Paroxetine 40 mg daily. 9. Potassium chloride 10 mEq daily. 10. Prednisone 40 mg 2 times a day. PHYSICAL EXAMINATION: GENERAL: On examination, Mr. Watkins is awake and alert, not in acute distress. VITAL SIGNS: Blood pressure is 96/63, pulse 73, respiratory rate 18, and oxygen saturation 100% on room air. He is afebrile. EYES: No scleral icterus. No conjunctival pallor. ENT: Moist mucosal membranes. No oropharyngeal erythema or exudates. NECK: Supple, nontender. Trachea is midline. RESPIRATORY: Accessory muscles of breathing are not active. Chest wall movements are symmetric bilaterally. Lungs are clear to auscultation without wheeze, rhonchi, or crepitations. CARDIOVASCULAR: S1 and S2 are heard, regular. Peripheral pulses palpable. No carotid bruit. No pericardial rub. ABDOMEN: Soft, nontender. Bowel sounds are heard. No hepatomegaly. No splenomegaly. NEUROLOGIC: Cranial nerves 2 through 12 intact. Deep tendon reflexes 2+. MUSCULOSKELETAL: Power is 5/5 in all 4 extremities. SKIN: Abdominal scars present. Tattoos present. LYMPHATIC: No cervical lymphadenopathy. PSYCHIATRIC: Normal mood, normal affect. The patient is oriented to person, place, and time. LABORATORY DATA: Mr. Watkins's labs and investigations were reviewed. CT scan of the abdomen and pelvis showed mucosal thickening and pericolonic fat stranding along the sigmoid colon and rectum. Radiologist recommends correlation for colitis/proctitis. He has leukopenia with 4200 white cells, normocytic anemia with hemoglobin 11.7, normal platelet count, normal sodium, normal potassium, elevated blood urea nitrogen of 27, elevated creatinine of 1.31, last known creatinine 0.75 on August 18, 2018, and an unremarkable LFTs. Lipase is normal. ASSESSMENT AND PLAN: Mr. Watkins is a pleasant 32-year-old gentleman, who was seen at [facility] on October 11, 2018. His problem list includes: 1. Abdominal pain: Mr. Watkins is presenting with abdominal pain, most likely secondary to colitis/proctitis. He will be admitted to the hospital for further management. We will administer pain medications. Gastroenterology Service will be consulted for opinion and help with management. 2. Lower gastrointestinal bleed: The patient is presenting with hematochezia. His hemoglobin is relatively stable. We will await Gastroenterology recommendations. 3. Acute kidney injury: Most likely secondary to prerenal etiology, given his history of nausea and vomiting as well as decreased oral intake. We will provide intravenous hydration and recheck. 4. Systemic lupus erythematosus: We will continue home medications once clarified. 5. Left lower lobe pneumonia: The patient has been started on Zosyn and metronidazole for lingular infiltrate seen on CT scan of the abdomen and pelvis. We will continue antibiotics for now. Many thanks for allowing me to participate in your patient's care. Please feel free to contact me with any questions or concerns. LEVEL OF RISK: Moderate. LEVEL OF COMPLEXITY: Moderate. Job ID: [id number] MTDD
[2018-10-11] MEDS: Piperacillin/Tazobactam 3.375 GM in Sodium Chloride 0.9% 100 ML IVPB SCH ×2 (14:59→20:24)
[2018-10-11 15:25] LABS: Bilirubin Negative (Negative); Blood, Urine Negative (Negative); Clarity Clear (Clear); Glucose, Urine (Dipstick) Normal (Negative); Leukocyte Negative Leu/uL (Negative); Nitrite Negative (Negative); Protein, Urine (Dipstick) 50 mg/dL (Neg-Trace); RBC/HPF 0-3 HPF (0-3); Urobilinogen Normal mg/dL (Less than 2)
[2018-10-11 15:34] LABS: Bacteria/HPF None Seen HPF (None Seen); Renal Epithelial 0-3 HPF (None Seen); Squamous Epithelial 0-3 HPF (0-3); Transitional Epithelial 0-3 HPF (None Seen)
[2018-10-11] MEDS ORDERED: Piperacillin/Tazobactam 3.375 GM in Sodium Chloride 0.9% 100 ML IVPB SCH (16:00)
[2018-10-11] MEDS: metroNIDAZOLE 500 MG in Premix Bag 1 BAG IVPB SCH (17:27)
[2018-10-11] MEDS: traMADol HCl 50 MG TAB PO PRN (17:29)
[2018-10-11] MEDS: Dicyclomine 10 MG CAP PO SCH (20:24)
[2018-10-11] MEDS: Acetaminophen/Codeine 30-300mg Tablet PO PRN (20:26)
--- NOTE | 2018-10-11 21:49 | CON ---
DATE OF CONSULTATION: 10/11/2018 REASON FOR CONSULTATION: Abdominal pain, hematochezia. CONSULTING PHYSICIAN: Dr. Giuseppe Gonzalez. HISTORY OF PRESENT ILLNESS: The patient is a 32-year-old male with past medical history of systemic lupus erythematosus, on chronic immunosuppressive therapy; pulmonary hypertension; chronic pancreatitis; peptic ulcer disease; recurrent pericardial effusion; and testicular cancer, presenting with complaints of abdominal pain and hematochezia. He states that he was in his usual state of health until approximately 5 days ago when he had the acute onset of increased suprapubic abdominal pain characterized as a stabbing/sharp type sensation, would radiate to the right lower quadrant and the left lower quadrant, was constant with waxing/waning severity, and reached the severity of 9/10. The pain was primarily worse with attempting to have a bowel movement, but not actually having a bowel movement itself, but he denied any clear alleviating factors. Approximately 3 days ago, he began having the passage of dark blood, characterized as dark clots coating his stool, but not mixing in with the stool per se. Prior to and during this period, he states that his bowel regimen was normal, having approximately 1 to 2 solid bowel movements per day with no difficulty with defecation. With the increase in his abdominal pain, it prompted him to seek healthcare assistance at [facility], where during his evaluation, he had imaging concerning for thickening of the rectum and sigmoid colon concerning for colitis and thereby admitted to the hospital for further evaluation. Currently, he states that he continues to have the abdominal pain, but it is somewhat lessened with narcotic medications he has received thus far. Associated symptoms include nausea, vomiting with nonbloody emesis, subjective fever (none documented thus far), increased generalized weakness and weight loss of approximately 50 pounds over the last 6 months unintentionally. REVIEW OF SYSTEMS: A 10-category review of systems was obtained with all responses negative except for the pertinent positives as listed in HPI. PAST MEDICAL HISTORY: As per HPI. PAST SURGICAL HISTORY: Pericardial window surgery secondary to SLE, right orchiectomy showing necrosis and hemorrhage without evidence of malignancy in February 2017 and more recently, appendectomy. FAMILY HISTORY: Denies any GI malignancies. SOCIAL HISTORY: Denies any tobacco, alcohol, or illicit drug use. OUTPATIENT MEDICATIONS: Reviewed. ALLERGIES: NO KNOWN DRUG ALLERGIES. PHYSICAL EXAMINATION: VITAL SIGNS: Temperature 98.4, pulse 73, blood pressure 96/63, respiratory rate 18, saturating 100% on room air. GENERAL: The patient was lying in bed, in no acute distress. Alert and oriented x4. HEENT: Normocephalic, atraumatic. NECK: Supple. No JVD or scleral icterus noted. CARDIOVASCULAR: Regular rate and rhythm with no discernible murmurs, gallops, or rubs. RESPIRATORY: Clear to auscultation bilaterally with no discernible wheezes or rales. ABDOMEN: Hypoactive bowel sounds. Soft, nondistended. Significant tenderness to both light and deep palpation in all abdominal quadrants. EXTREMITIES: No cyanosis, clubbing, or edema. LABORATORY DATA: CBC with a white blood cell count of 4.2, hemoglobin 11.7, hematocrit 34.7, platelets 175. Chemistry with a sodium of 141, potassium 3.7, chloride 108, CO2 of 21, BUN 27, creatinine 1.31, glucose 87. AST 20, ALT 11, alkaline phosphatase 138, total bilirubin 0.5, albumin 3.4. IMAGING DATA: CT of the abdomen and pelvis was obtained on October 11, 2018, which showed hepatic steatosis as well as mild bilateral perinephric fat stranding with the left greater than the right as well as mucosal thickening and pericolonic fat stranding around the sigmoid colon and rectum. When compared to prior imaging evaluation, this seems similar in appearance. Of note, the patient underwent colonoscopy on July 15, 2017, for very similar problems and showed small erosions within the right colon with diffuse edema and superficial erosions in the rectum consistent with infection versus vasculitis. Biopsies of the region were taken and consistent more with reactive changes with no evidence of inflammatory bowel disease. ASSESSMENT AND PLAN: The patient is a 32-year-old male with past medical history of systemic lupus erythematosus, pulmonary hypertension, chronic pancreatitis, peptic ulcer disease, recurrent pericardial effusion and testicular cancer, presenting with abdominal pain and hematochezia. Abdominal pain/hematochezia. The patient is presenting with a recurrent episode of increased lower abdominal pain that has been present on prior admissions and characterized as a sharp/stabbing type sensation radiating to the right and left lower quadrants. However, more recently in August of 2018, the patient underwent a laparoscopic appendectomy for acute appendicitis with a significant amount of fluid drainage in the postoperative period concerning for pelvic abscess. At this time, the increased inflammatory stranding within the sigmoid colon and rectum is nonspecific and could be indicative of an inflammatory/infectious type process. However, with a colonoscopy performed approximately 1 year ago for very similar indications and/or reactive changes seen on biopsies, an intraluminal abnormality is less likely. Given his recent hospital exposures with broad-spectrum antibiotics, infection is more likely at this time with Clostridium difficile possibly contributing to the current clinical situation, especially in an immunosuppressed individual. Differential could include infectious colitis, stercoral colitis, postoperative complications from appendectomy and abscess formation, inflammatory bowel disease, IBS and/or GI neoplasm (much less likely given negative colonoscopy a year ago). RECOMMENDATIONS: 1. Would obtain infectious stool studies for possible infectious pathogen contributing to his current clinical picture. 2. Pain control per primary team. 3. We will consider stress dose steroids given his chronic immunosuppression with prednisone as an outpatient. 4. If the patient is not tolerating the above and no infectious agent is seen, wound then consider a possible flexible sigmoidoscopy for intraluminal evaluation. We will continue to follow. Please call with any questions. Job ID: [id number]
[2018-10-12] MEDS: metroNIDAZOLE 500 MG in Premix Bag 1 BAG IVPB SCH ×3 (00:31→16:19)
[2018-10-12] MEDS: Sodium Chloride 0.9% 1,000 ML IV SCH ×3 (00:35→20:16)
[2018-10-12] MEDS: traMADol HCl 50 MG TAB PO PRN (00:37)
[2018-10-12] MEDS: Piperacillin/Tazobactam 3.375 GM in Sodium Chloride 0.9% 100 ML IVPB SCH ×4 (03:57→20:15)
[2018-10-12] MEDS: Morphine 2 MG/ML SYRINGE SLOW IVP PRN ×4 (04:01→20:19)
[2018-10-12 06:29] LABS: #Lymphocytes 0.6 thou/uL (1.20-3.40); #Monocytes 0.3 thou/uL (0.11-0.59); #Neutrophils 1.4 thou/uL (1.40-6.50); %Eosinophils 1.3 % (0.0-10.0); %Monocytes 13.4 % (0.0-10.0); %Neutrophils 61.3 % (42.0-75.0); Hemoglobin 9.2 g/dL (14.0-18.0); Mean Corpuscular HGB CONC 32.8 g/dL (32.0-36.0); Mean Corpuscular Hemoglobin 31.5 pg (27.0-31.0); Mean Corpuscular Volume 95.8 fL (78.0-98.0); Platelet Count 119 thou/uL (130-400); RBC Distribution Width 14.6 % (11.5-14.5); Red Blood Cell (RBC) Count 2.93 mill/uL (4.70-6.10); White Blood Cell (WBC) Count 2.3 thou/uL (4.8-10.8)
[2018-10-12 06:55] LABS: Anion Gap 10 mmol/L (10-20); BUN (Urea Nitrogen) 21 mg/dL (8.9-20.6); Calc. Creatinine Clearance 106 mL/min (70-130); Calcium 7.5 mg/dL (7.8-10.44); Carbon Dioxide 18 mmol/L (22-29); Chloride 111 mmol/L (98-107); Estimated GFR-MDRD Greater than 90; Glucose 74 mg/dL (70-105); Potassium 3.3 mmol/L (3.5-5.1); Sodium 136 mmol/L (136-145)
[2018-10-12] MEDS: Acetaminophen/Codeine 30-300mg Tablet PO PRN ×3 (07:23→22:38)
[2018-10-12] MEDS: Hydrochlorothiazide 25 MG TAB PO SCH (08:06)
[2018-10-12] MEDS: PARoxetine 20 MG TAB PO SCH (08:06)
[2018-10-12] MEDS: Dicyclomine 10 MG CAP PO SCH ×4 (08:07→20:15)
[2018-10-12] MEDS ORDERED: Potassium Chloride 20 MEQ TAB PO SCH (10:00)
[2018-10-12] MEDS: Hydrocortisone Sod Succ/PF 100 mg/2 ml Vial IVP SCH ×2 (13:51→21:06)
--- NOTE | 2018-10-12 15:29 | PDOC.HOSPP ---
- Subjective Encounter Date: 10/12/18 Encounter Time: 08:40 Subjective: Pt seen for followup re; abdominal pain. feels better. - Objective Vital Signs & Weight: Vital Signs (12 hours) Temp Pulse Resp BP Pulse Ox 10/12/18 11:21 97.7 F 75 16 103/68 96 10/12/18 08:00 96 10/12/18 07:21 98.1 F 94 18 93/63 96 10/12/18 04:00 98.0 F 81 18 94/68 98 Weight Admit Weight 141 lb 8.588 oz Weight 141 lb 8.588 oz I&O: 10/11/18 10/12/18 10/13/18 06:59 06:59 06:59 Intake Total 2940 Output Total 200 Balance 2740 Result Diagrams: 10/12/18 06:10 10/12/18 06:10 Additional Labs: labs and MARs reviewed by or Hospitalist ROS - Review of Systems Respiratory: denies: cough, shortness of breath, SOB with excertion, pleuritic pain, wheezing, other Gastrointestinal: reports: nausea, abdominal pain. denies: vomitting, diarrhea , constipation, melena, hematochezia - Medication Medications: Active Medications Generic Name Dose Route Start Last Admin Trade Name Freq PRN Reason Stop Dose Admin Acetaminophen/Codeine Phosphate 2 tab 10/11/18 10:30 10/12/18 14:30 Tylenol #3 PO 2 tab Q6H PRN Administration Severe Pain (7-10) Bisacodyl 10 mg 10/11/18 10:31 10/11/18 13:39 Dulcolax PO 10 mg DAILYPRN PRN Administration Constipation Dicyclomine HCl 10 mg 10/11/18 21:00 10/12/18 13:51 Bentyl PO 10/18/18 17:01 10 mg QID RUSTAM Administration Hydrochlorothiazide 12.5 mg 10/12/18 09:00 10/12/18 08:06 Hydrochlorothiazide PO 12.5 mg DAILY RUSTAM Administration Hydrocortisone Sodium Succinate 100 mg 10/12/18 14:00 10/12/18 13:51 Solu-Cortef IVP 100 mg Q8HR RUSTAM Administration Sodium Chloride 1,000 mls @ 70 mls/hr 10/11/18 10:45 10/12/18 14:32 Normal Saline 0.9% IV 1,000 mls .[id number] RUSTAM Administration Piperacillin Sod/Tazobactam 100 mls @ 200 mls/hr 10/11/18 15:00 10/12/18 14: 32 Sod 3.375 gm/ Sodium Chloride IVPB 100 mls 0300,0900,1500,2100 RUSTAM Administration Metronidazole 500 mg/ Device 100 mls @ 100 mls/hr 10/11/18 17:00 10/12/18 08: 06 IVPB 100 mls 0100,0900,1700 RUSTAM Administration Morphine Sulfate 2 mg 10/11/18 10:48 10/12/18 11:41 Morphine SLOW IVP 2 mg Q4H PRN Administration BREAKTHRU PAIN Paroxetine HCl 40 mg 10/12/18 09:00 10/12/18 08:06 Paxil PO 40 mg DAILY RUSTAM Administration Tramadol HCl 100 mg 10/11/18 10:30 10/12/18 00:37 Ultram PO 100 mg Q6H PRN Administration Pain - Exam General Appearance: NAD Eye: anicteric sclera ENT: normocephalic atraumatic, moist mucosa Neck: supple Heart: RRR, no rubs Respiratory: CTAB Gastrointestinal: soft, non-tender, tender to palpation Neurological: CN's grossly intact Psychiatric: normal affect, normal behavior Hosp A/P (1) Abdominal pain Code(s): R10.9 - UNSPECIFIED ABDOMINAL PAIN Status: Acute Qualifiers: Abdominal location: generalized Qualified Code(s): R10.84 - Generalized abdominal pain (2) Colitis Code(s): K52.9 - NONINFECTIVE GASTROENTERITIS AND COLITIS, UNSPECIFIED Status : Acute (3) Pneumonia Code(s): J18.9 - PNEUMONIA, UNSPECIFIED ORGANISM Status: Acute (4) Chronic pancreatitis Code(s): K86.1 - OTHER CHRONIC PANCREATITIS Status: Chronic (5) GERD (gastroesophageal reflux disease) Code(s): K21.9 - GASTRO-ESOPHAGEAL REFLUX DISEASE WITHOUT ESOPHAGITIS Status: Chronic Qualifiers: Esophagitis presence: esophagitis presence not specified Qualified Code(s) : K21.9 - Gastro-esophageal reflux disease without esophagitis - Plan continue antibiotics, out of bed/ambulate Continue antibiotics. C. diff -ve. Pt is improving clinically. Pt is on stress dose steroids.
--- NOTE | 2018-10-12 19:38 | PRG ---
DATE OF SERVICE: 10/12/2018 REASON FOR CONSULTATION: Abdominal pain, hematochezia. SUBJECTIVE: The patient states that he is doing much better this morning with decreased amount of suprapubic abdominal pain when compared to previous. He states that he also had 2 bowel movements earlier today as well, one which was brown in coloration, but did have the appearance of hematochezia with the second. Otherwise, he states that he is doing well with no complaints of nausea or vomiting today. PHYSICAL EXAMINATION: VITAL SIGNS: Temperature 97.5, pulse 81, blood pressure 126/87, respiratory rate 18, saturating 96% on room air. LABORATORY DATA: CBC with a white blood cell count of 2.3, hemoglobin 9.2, hematocrit 28.1, platelets 119. Chemistry with a sodium of 136, potassium 3.3, chloride 111, CO2 of 18, BUN 21, creatinine 0.9, glucose 74. Infectious stool studies were negative for C diff, Campylobacter, and E coli. IMAGING DATA: No current GI imaging is available for review. ASSESSMENT AND PLAN: The patient is a 32-year-old male with past medical history of systemic lupus erythematosus, pulmonary hypertension, chronic pancreatitis, peptic ulcer disease, recurrent pericardial effusion, and testicular cancer, presenting with abdominal pain and hematochezia. 1. Abdominal pain/hematochezia: The patient initially presented with a recurrence of his increased lower abdominal pain that had been present on prior admissions and characterized as a sharp/stabbing type sensation, originating in the suprapubic region and extending to the left and right lower quadrants. This was associated with increased diarrhea like bowel movements along with hematochezia with imaging concerning for an inflammatory process within the sigmoid colon and rectum. However, with the administration of broad-spectrum antibiotics as well as stress dose steroids, the patient has had improvement in his clinical status with decreased pain and less occurrence of hematochezia today. Current workup thus far has been negative for infectious stool studies contributing to his current problem. Differential could include infectious colitis (CMV or HSV), stercoral colitis, postoperative complications from the appendectomy, inflammatory bowel disease (much less likely), IBS, lupus flare, and/or gastrointestinal neoplasm (much less likely). RECOMMENDATIONS: 1. Given the negative infectious stool workup, we would plan for flexible sigmoidoscopy tomorrow morning with Fleet Enemas x2 to be administered prior to the procedure for adequate visualization. 2. Pain control per Primary Team. 3. Continue stress dose steroids. 4. We would continue to trend hemoglobin and hematocrit and transfuse as necessary to maintain hemoglobin and hematocrit of 7/21. 5. Continue to monitor clinically for signs of active GI bleeding. We will continue to follow. Please call with any questions. Job ID: [id number]
[2018-10-13] MEDS: Morphine 2 MG/ML SYRINGE SLOW IVP PRN ×5 (00:15→22:24)
[2018-10-13] MEDS: metroNIDAZOLE 500 MG in Premix Bag 1 BAG IVPB SCH ×3 (00:16→18:14)
[2018-10-13] MEDS: Piperacillin/Tazobactam 3.375 GM in Sodium Chloride 0.9% 100 ML IVPB SCH ×3 (03:51→13:58)
[2018-10-13 04:51] LABS: #Lymphocytes 0.6 thou/uL (1.20-3.40); #Monocytes 0.2 thou/uL (0.11-0.59); %Basophils 0.4 % (0.0-1.0); %Eosinophils 0.2 % (0.0-10.0); %Lymphocytes 21.6 % (21.0-51.0); %Monocytes 6.3 % (0.0-10.0); %Neutrophils 71.5 % (42.0-75.0); Hemoglobin 10.7 g/dL (14.0-18.0); Mean Corpuscular HGB CONC 31.6 g/dL (32.0-36.0); Mean Corpuscular Hemoglobin 30.5 pg (27.0-31.0); Mean Corpuscular Volume 96.6 fL (78.0-98.0); Mean Platelet Volume 8.6 fL (7.4-10.4); Platelet Count 144 thou/uL (130-400); RBC Distribution Width 14.4 % (11.5-14.5); Red Blood Cell (RBC) Count 3.52 mill/uL (4.70-6.10); White Blood Cell (WBC) Count 2.7 thou/uL (4.8-10.8)
[2018-10-13] MEDS: Hydrocortisone Sod Succ/PF 100 mg/2 ml Vial IVP SCH ×3 (05:00→21:47)
[2018-10-13 05:12] LABS: Anion Gap 13 mmol/L (10-20); BUN (Urea Nitrogen) 22 mg/dL (8.9-20.6); Calc. Creatinine Clearance 99 mL/min (70-130); Calcium 8.1 mg/dL (7.8-10.44); Carbon Dioxide 18 mmol/L (22-29); Chloride 110 mmol/L (98-107); Estimated GFR-MDRD 90; Glucose 118 mg/dL (70-105); Potassium 4.5 mmol/L (3.5-5.1); Sodium 136 mmol/L (136-145)
[2018-10-13] MEDS ORDERED: Fleet Enema 133 ML BOT PR SCH (07:30)
[2018-10-13] MEDS ORDERED: Morphine 4 MG/ML VIAL ONE ×2 (09:57→19:15)
[2018-10-13] MEDS ORDERED: Morphine 4 MG/ML VIAL SLOW IVP SCH (10:30)
[2018-10-13] MEDS: Dicyclomine 10 MG CAP PO SCH ×4 (11:04→20:12)
[2018-10-13] MEDS ORDERED: Lidocaine 1% PF 5 ML VIAL ONE (16:05)
[2018-10-13] MEDS ORDERED: PROPOFOL 200 MG/20 ML VIAL ONE (16:05)
[2018-10-13] MEDS ORDERED: Fentanyl 100 MCG/2 ML VIAL ONE (16:26)
--- NOTE | 2018-10-13 16:40 | PDOC.HOSPP ---
- Subjective Encounter Date: 10/13/18 Encounter Time: 09:00 Subjective: Pt seen for followup re: abdo pain. c/o ongoing abdo pain. No fevers. - Objective Vital Signs & Weight: Vital Signs (12 hours) Temp Pulse Resp BP Pulse Ox 10/13/18 08:00 97 10/13/18 07:45 98.0 F 80 18 155/89 H 95 Weight Admit Weight 141 lb 8.588 oz Weight 141 lb 8.588 oz I&O: 10/12/18 10/13/18 10/14/18 06:59 06:59 06:59 Intake Total 2940 1380 Output Total 200 Balance 2740 1380 Result Diagrams: 10/14/18 06:28 10/14/18 06:28 Additional Labs: Labs and MARs reviewed by [place] Hospitalist ROS - Review of Systems Cardiovascular: denies: chest pain, palpitations, orthopnea, paroxysmal noc. dyspnea, edema, light headedness Gastrointestinal: reports: abdominal pain, hematochezia. denies: nausea, vomitting, diarrhea, constipation, melena - Medication Medications: Active Medications Generic Name Dose Route Start Last Admin Trade Name Freq PRN Reason Stop Dose Admin Acetaminophen/Codeine Phosphate 2 tab 10/11/18 10:30 10/12/18 22:38 Tylenol #3 PO 2 tab Q6H PRN Administration Severe Pain (7-10) Bisacodyl 10 mg 10/11/18 10:31 10/11/18 13:39 Dulcolax PO 10 mg DAILYPRN PRN Administration Constipation Dicyclomine HCl 10 mg 10/11/18 21:00 10/13/18 13:53 Bentyl PO 10/18/18 17:01 Not Given QID RUSTAM Hydrochlorothiazide 12.5 mg 10/12/18 09:00 10/12/18 08:06 Hydrochlorothiazide PO 12.5 mg DAILY RUSTAM Administration Hydrocortisone Sodium Succinate 100 mg 10/12/18 14:00 10/13/18 13:56 Solu-Cortef IVP 100 mg Q8HR RUSTAM Administration Sodium Chloride 1,000 mls @ 70 mls/hr 10/11/18 10:45 10/12/18 20:16 Normal Saline 0.9% IV 1,000 mls .[id number] RUSTAM Administration Piperacillin Sod/Tazobactam 100 mls @ 200 mls/hr 10/11/18 15:00 10/13/18 13: 58 Sod 3.375 gm/ Sodium Chloride IVPB 100 mls 0300,0900,1500,2100 RUSTAM Administration Metronidazole 500 mg/ Device 100 mls @ 100 mls/hr 10/11/18 17:00 10/13/18 07: 38 IVPB 100 mls 0100,0900,1700 RUSTAM Administration Morphine Sulfate 4 mg 10/13/18 10:34 10/13/18 12:46 Morphine SLOW IVP 4 mg Q4H PRN Administration Pain Paroxetine HCl 40 mg 10/12/18 09:00 10/12/18 08:06 Paxil PO 40 mg DAILY RUSTAM Administration Tramadol HCl 100 mg 10/11/18 10:30 10/12/18 00:37 Ultram PO 100 mg Q6H PRN Administration Pain - Exam General Appearance: NAD Eye: anicteric sclera ENT: moist mucosa Neck: supple Heart: RRR Respiratory: CTAB Gastrointestinal: soft, normal bowel sounds, tender to palpation Neurological: no weakness Psychiatric: normal affect, normal behavior Hosp A/P (1) Abdominal pain Code(s): R10.9 - UNSPECIFIED ABDOMINAL PAIN Status: Acute Qualifiers: Abdominal location: generalized Qualified Code(s): R10.84 - Generalized abdominal pain (2) Colitis Code(s): K52.9 - NONINFECTIVE GASTROENTERITIS AND COLITIS, UNSPECIFIED Status : Acute (3) Pneumonia Code(s): J18.9 - PNEUMONIA, UNSPECIFIED ORGANISM Status: Acute (4) Chronic pancreatitis Code(s): K86.1 - OTHER CHRONIC PANCREATITIS Status: Chronic (5) GERD (gastroesophageal reflux disease) Code(s): K21.9 - GASTRO-ESOPHAGEAL REFLUX DISEASE WITHOUT ESOPHAGITIS Status: Chronic Qualifiers: Esophagitis presence: esophagitis presence not specified Qualified Code(s) : K21.9 - Gastro-esophageal reflux disease without esophagitis - Plan continue antibiotics, out of bed/ambulate Continue metronidazole, dc Zosyn and start oral levofloxacin. Pt to go for Flex sig today. Continue stress dose steroids. Change morphine to 4 mg IV q4h PRN for better control of pain.
[2018-10-13] MEDS ORDERED: metroNIDAZOLE 500 MG/100 ML BAG ONE (16:43)
[2018-10-13] MEDS: Hydrochlorothiazide 25 MG TAB PO SCH (18:13)
[2018-10-13] MEDS: PARoxetine 20 MG TAB PO SCH (18:14)
[2018-10-13] MEDS ORDERED: Promethazine HCl 25 MG/ML VIAL IM PRN (19:07)
[2018-10-13] MEDS ORDERED: Ondansetron HCl/PF 4 MG/2 ML Vial IVP PRN (19:07)
[2018-10-13] MEDS ORDERED: Promethazine HCl 25 MG/ML VIAL SLOW IVP PRN (19:07)
[2018-10-13] MEDS ORDERED: Morphine 2 MG/ML SYRINGE ONE (19:30)
--- NOTE | 2018-10-13 19:33 | OP ---
DATE OF PROCEDURE: 10/13/2018 PROCEDURE PERFORMED: Flexible sigmoidoscopy. PREOPERATIVE DIAGNOSIS: Severe perianal pain. POSTOPERATIVE DIAGNOSIS: Large hemorrhoids. The exam to 35 to 40 cm shows normal mucosa. I do not see an anal fissure. DESCRIPTION OF PROCEDURE: The patient apparently has received one Fleet Edema in the floor, but he refused to take the second Fleet Edema. A digital exam was done for the procedure. The patient noted hemorrhoids and no definite fissure seen. A Pentax videocolonoscope was introduced into the rectum and advanced to a distance of about 35 to 40 cm. He has very large amount of stool, which was irrigated and washed out. The underlying mucosa appears normal. No inflammatory changes seen. Careful exam of the anal canal on rectum shows hemorrhoids. Retroflexion of scope again shows large hemorrhoids. The procedure was terminated. Job ID: [id number]
[2018-10-13] MEDS: Sodium Chloride 0.9% 1,000 ML IV SCH (20:12)
[2018-10-13] MEDS: Lorazepam 1 MG TAB PO SCH (20:13)
[2018-10-14] MEDS: metroNIDAZOLE 500 MG in Premix Bag 1 BAG IVPB SCH ×2 (01:03→08:23)
[2018-10-14] MEDS: Morphine 2 MG/ML SYRINGE SLOW IVP PRN ×3 (02:07→10:30)
[2018-10-14] MEDS: Hydrocortisone Sod Succ/PF 100 mg/2 ml Vial IVP SCH (06:02)
[2018-10-14] MEDS: Sodium Chloride 0.9% 1,000 ML IV SCH ×2 (06:07→10:36)
[2018-10-14 06:46] LABS: #Lymphocytes 0.7 thou/uL (1.20-3.40); #Monocytes 0.5 thou/uL (0.11-0.59); #Neutrophils 4.1 thou/uL (1.40-6.50); %Basophils 0.2 % (0.0-1.0); %Eosinophils 0.2 % (0.0-10.0); %Lymphocytes 13.2 % (21.0-51.0); %Monocytes 9.5 % (0.0-10.0); Hemoglobin 10.7 g/dL (14.0-18.0); Mean Corpuscular Hemoglobin 31.3 pg (27.0-31.0); Mean Corpuscular Volume 94.6 fL (78.0-98.0); Mean Platelet Volume 8.5 fL (7.4-10.4); Platelet Count 151 thou/uL (130-400); RBC Distribution Width 14.7 % (11.5-14.5); Red Blood Cell (RBC) Count 3.43 mill/uL (4.70-6.10); White Blood Cell (WBC) Count 5.3 thou/uL (4.8-10.8)
[2018-10-14 07:16] LABS: Anion Gap 12 mmol/L (10-20); BUN (Urea Nitrogen) 17 mg/dL (8.9-20.6); Calc. Creatinine Clearance 114 mL/min (70-130); Calcium 7.9 mg/dL (7.8-10.44); Carbon Dioxide 21 mmol/L (22-29); Chloride 112 mmol/L (98-107); Estimated GFR-MDRD Greater than 90; Glucose 115 mg/dL (70-105); Potassium 3.5 mmol/L (3.5-5.1); Sodium 141 mmol/L (136-145)
[2018-10-14] MEDS: Hydrochlorothiazide 25 MG TAB PO SCH (08:23)
[2018-10-14] MEDS: Dicyclomine 10 MG CAP PO SCH ×2 (08:23→12:46)
[2018-10-14] MEDS: Lorazepam 1 MG TAB PO SCH (08:23)
[2018-10-14] MEDS: PARoxetine 20 MG TAB PO SCH (08:23)
[2018-10-14] MEDS ORDERED: Cefdinir 300 MG CAP PO SCH (11:30)
[2018-10-14 12:16] VITALS: BP 146/87; TEMP 97.8
[2018-10-14] MEDS: Acetaminophen/Codeine 30-300mg Tablet PO PRN (12:49)
--- NOTE | 2018-10-15 06:16 | DIS ---
DATE OF ADMISSION: 10/11/2018 DATE OF DISCHARGE: 10/14/2018 PRIMARY CARE PROVIDER: Low Ashley in [place]. DISCHARGE DIAGNOSES: 1. Colitis. 2. Pneumonia. 3. Acute kidney injury. 4. Hypokalemia. CONDITION OF PATIENT ON THE DAY OF DISCHARGE: Stable. I assessed Mr. Watkins on the day of discharge. He denies any chest pain or shortness of breath. Vital signs are stable. S1 and S2 are heard, regular. Lungs are clear to auscultation bilaterally. FOLLOWUP APPOINTMENTS: The patient is advised to follow up with primary care provider in 3 days time and with Gastroenterology Service in 2 to 3 weeks' time. CONSULTATIONS DURING THIS HOSPITALIZATION: Gastroenterology, Dr. Durham. HOSPITAL COURSE: Mr. Watkins is a pleasant 32-year-old gentleman, who was admitted to [facility] on October 14, 2018 for colitis and pneumonia. Please refer to my history and physical note dated October 11, 2018 for further details. He was treated with intravenous fluids and pain medications. He was seen by Gastroenterology Service. He underwent flexible sigmoidoscopy on October 13, 2018, which showed large hemorrhoids. He was initially treated with intravenous antibiotics, subsequently stepped down to oral antibiotics. He improved clinically and is being discharged home in a stable condition. LABORATORY DATA: On the day of discharge, he has sodium 141, potassium 3.5, creatinine 0.84, white count 5,300, hemoglobin 10.7, and platelet count 151, 000. DISCHARGE MEDICATIONS: 1. Bentyl 10 mg 4 times a day. 2. Hydrochlorothiazide 12.5 mg daily. 3. Lisinopril 5 mg daily. 4. Ativan 2 mg 2 times a day. 5. Paxil 40 mg daily. 6. Potassium chloride 2.5 mEq daily. 7. Prednisone 40 mg 2 times a day. 8. Cefdinir 300 mg 2 times a day. 9. Tramadol 50 mg every 6 hours as needed, with a prescription for 15 doses to be dispensed. 10. Ibuprofen p.r.n. 11. Zofran p.r.n. Many thanks for allowing me to participate in your patient's care. Please feel free to contact me with any questions or concerns. DISCHARGE DESTINATION: Home. TIME SPENT: Total amount of time spent coordinating this discharge: 32 minutes. Job ID: [id number] [facility]
== END 2018-10-14 12:55 | disposition home or self-care (01) | DRG 393 ==
LOC: SCSER 06:32 → T4-A 08:08
PROVIDERS: ADMIT Internal Medicine; ATTEND Internal Medicine
PROC: 0DJD8ZZ Inspection of Lower Intestinal Tract, Via Natural or Artificial Opening Endoscopic (ICD-10-PCS; principal; 2018-10-13)
DX: K64.8 Other hemorrhoids (principal); J18.9 Pneumonia, unspecified organism; N17.9 Acute kidney failure, unspecified; K86.1 Other chronic pancreatitis; K52.9 Noninfective gastroenteritis and colitis, unspecified; Z98.890 Other specified postprocedural states; G89.29 Other chronic pain; F41.9 Anxiety disorder, unspecified; F31.9 Bipolar disorder, unspecified; G43.909 Migraine, unspecified, not intractable, without status migrainosus; M32.9 Systemic lupus erythematosus, unspecified; Z90.49 Acquired absence of other specified parts of digestive tract; Z79.899 Other long term (current) drug therapy; K21.9 Gastro-esophageal reflux disease without esophagitis
CPT/HCPCS: 36415; 74177; 80048; 80053; 81001; 83690; 85025; 87045; 87046; 87324; 87427; 87449; 96361; 96365; 96375; J1720; J1885; J2001; J2270; J2405; J2543; J2704; J3010; J3490; J7620